=== PATIENT | male | born 1960 | race Caucasian/White ===

== ENCOUNTER 2020-12-09 12:50 | Outpatient (NON) | payer MEDICARE, SELFPAY ==
[2020-12-09 13:11] LABS: Basophils Absolute Auto 0.04 K/mm3 (0.00-0.10); Basophils Percent Auto 0.5 % (0.0-1.0); Eosinophils Absolute Auto 0.32 K/mm3 (0.02-0.50); Hematocrit 35.2 % (40.0-54.0); Hemoglobin 11.1 g/dL (14.0-18.0); Immature Granulocyte Absolute 0.02 K/mm3 (0.00-0.00); Immature Granulocyte Percent A 0.2 % (0.0-0.0); Lymphocytes Absolute Auto 1.36 K/mm3 (1.10-4.50); Lymphocytes Percent Auto 16.9 % (18.0-42.0); Mean Corpuscular HGB Conc 31.5 g/dL (32.0-36.0); Mean Corpuscular Hemoglobin 28.6 pg (27.0-31.0); Mean Corpuscular Volume 90.7 fL (78.0-102.0); Monocytes Absolute Auto 0.72 K/mm3 (0.10-0.90); Monocytes Percent Auto 8.9 % (2.0-11.0); Neutrophils Absolute Auto 5.6 K/mm3 (1.7-7.2); Neutrophils Percent Auto 69.5 % (50.0-70.0); Platelet Count Result 193 K/mm3 (150-420); Red Blood Count 3.88 M/mm3 (4.70-6.10); Red Cell Distribution Width 14.7 % (11.6-14.4); White Blood Count 8.1 K/mm3 (4.8-10.8)
[2020-12-09 13:27] LABS: Alanine Aminotransferase 34 U/L (16-63); Albumin Level 2.7 g/dL (3.4-5.0); Alkaline Phosphatase 185 U/L (46-116); Anion Gap 7 mmol/L (8-16); Aspartate Amino Transferase 18 U/L (15-37); Bilirubin,Total 0.3 mg/dL (0.00-1.00); Blood Urea Nitrogen 42 mg/dL (7-18); Calcium 8.6 mg/dL (8.5-10.1); Carbon Dioxide 29 mmol/L (21-32); Chloride 99 mmol/L (98-108); Estimated Glomerular Filt Rate 39; Glucose 240 mg/dL (70-99); Osmolality Calculated 298 mOsm/kg (285-295); Potassium 5.2 mmol/L (3.5-5.1); Sodium 135 mmol/L (136-145); Total Protein 7.4 g/dL (6.4-8.2)
== END 2020-12-09 12:51 ==
PROVIDERS: Visit Provider Internal Medicine
DX: E11.9 Type 2 diabetes mellitus without complications (principal)
CPT/HCPCS: 36415; 80053; 83036; 85025

== ENCOUNTER 2021-07-21 14:09 | Inpatient (IN) | payer MEDICARE, MEDICAID, SELFPAY ==
[2021-07-21] VITALS (17 sets, daily range): BP systolic 119–148; BP diastolic 64–76; PULSE 51–84; RESP 14–24; TEMP 36.2–36.7; O2SAT 89–100; BMI 34.3
--- NOTE | ~2021-07-21 | CT_ITS ---
EXAMINATION: CT chest high resolution [facility] EXAM DATE: 07/25/2021 13:16 INDICATION: Pulmonary edema. Interstitial fibrosis . TECHNIQUE: Spiral CT of the chest without contrast. HRCT. Axial, coronal and sagittal images of the c hest were reviewed. Coronal maximum intensity pixel images of chest reviewed. The dose-length produ ct (DLP) for this examination was 540.76 mGy-cm. The exposure was tailored according to patient size (auto mA exposure control), and iterative reconstruction (ASIR) was used as additional dose reductio n technique. There is no prior study for comparison. FINDINGS: There is cardiomegaly. The interventricular septum is perceptible, suggesting patient is an emic. Sternotomy wires and coronary surgical changes. Dense mitral annular calcifications. There are moderate bilateral nonloculated appearing pleural effusions. There is multi segmental bilateral lower lobe atelectasis. Additional small regions of ill-defined edema or pneumonia. Some borderline size m ediastinal lymph nodes probably reactive. Mild intralobular septal thickening, could be mild edema or less likely mild interstitial lung disease. Cholecystectomy clips. Mild to moderate thoracic spondyl osis. Cervical fusion hardware. Old bilateral rib fractures. IMPRESSION: 1. Cardiomegaly, moderate pleural effusions and multisegmental bibasilar atelectasis. 2. Superimposed mild edema and/or pneumonia. Reviewed, dictated and finalized at location A. IMPRESSION: 1. Cardiomegaly, moderate pleural effusions and multisegmental bibasilar atele ctasis. 2. Superimposed mild edema and/or pneumonia.
--- NOTE | ~2021-07-21 | CT_ITS ---
EXAMINATION: CT brain wo con DATE: 07/21/2021 17:06 INDICATION: Altered mental status TECHNIQUE: Computed tomography (CT) of the head was performed without intravenous contrast. Sagittal and coronal reconstructions were performed. The mA was adjusted according to patient size. Iterative reconstruction technique was employed. The dose-length product was 681.00 mGy-cm. COMPARISON: None FINDINGS: No acute intracranial hemorrhage, acute infarction or abnormal extra axial fluid collection. There is moderate scattered white matter hypoattenuation consistent with chronic small vessel ischemic diseas e. Symmetric prominence of the sulci consistent with mild age-appropriate diffuse cerebral volume los s. Ventricles are normal and symmetric. No mass/mass effect. Intracranial calcified cerebral atherosc lerosis is noted. The orbits, paranasal sinuses and mastoid air cells are normal. IMPRESSION: 1. Moderate scattered white matter hypoattenuation consistent with chronic small vessel ischemic dise ase. Reviewed, dictated and finalized at location A. IMPRESSION: 1. Moderate scattered white matter hypoattenuation consistent with chronic smal l vessel ischemic disease.
--- NOTE | ~2021-07-21 | XR_ITS ---
EXAMINATION: XR chest 1V portable DATE: 07/24/2021 18:32 INDICATION: Pneumonia. Pulmonary edema. TECHNIQUE: frontal view of the chest was obtained. COMPARISON: Chest radiograph dated 07/21/2021 FINDINGS: Interval improvement in bilateral lung disease with residual patchy airspace opacities in the mid and lower lung zones. No pneumothorax. Cardiac megaly. Median sternotomy wires and mediastinal surgical clips are seen, likely from prior coronary artery bypass grafting. Spinal stimulator leads project ov er the mid to lower thoracic spine. Plate-screw fixation for lower cervical anterior spinal fusion. IMPRESSION: 1. Interval improvement in bilateral lung disease with differential including pneumonia, pulmonary ed sandi, atelectasis, small bilateral pleural effusions or most likely some combination thereof. 2. Cardiomegaly. Reviewed, dictated and finalized at location A. IMPRESSION: 1. Interval improvement in bilateral lung disease with differential including p neumonia, pulmonary edema, atelectasis, small bilateral pleural effusions or mo st likely some combination thereof. 2. Cardiomegaly.
--- NOTE | ~2021-07-21 | CT_ITS ---
EXAMINATION: CT abdomen pelvis wo con EXAM DATE: 07/25/2021 13:16 INDICATION: Abdominal distension shortness of breath. TECHNIQUE: Spiral CT of the abdomen and pelvis was performed without contrast. Axial, coronal and s agittal images of the abdomen and pelvis were reviewed. The dose-length product (DLP) for this exami nation was 1442.71 mGy-cm. The exposure was tailored according to patient size (auto mA exposure con trol), and iterative reconstruction (ASIR) was used as additional dose reduction technique. Correlati on is made to chest CT same date. FINDINGS: Small amount of ascites. There is diffuse generalized body wall and mesenteric edema. The l iver, spleen, adrenal glands and pancreas are unremarkable. There are cholecystectomy clips. There is punctate right superior calyceal stone. No hydronephrosis. The prostate is unremarkable. Calcific ations in the pelvis are believed to be phleboliths. There is moderate diffuse bladder wall thicken ing with indistinct wall, acute and/or chronic cystitis. Small amount of gas within the bladder as we ll. There is no retroperitoneal or pelvic lymphadenopathy. There is extensive scattered arterial s clerotic disease. Small left inguinal fat-containing hernia. The appendix is normal. The stomach and small bowel are unremarkable. There is moderate amount of c olonic stool. No free intraperitoneal gas. There is cardiomegaly and multisegmental bibasilar atele ctasis. Spine stimulator leads. There is mild to moderate compression fracture of L3. There is a left hip gamma nail. IMPRESSION: 1. Cardiomegaly, moderate pleural effusions, multi segmental atelectasis. 2. Small ascites. Generalized body wall fat stranding. 3. Acute and/or chronic cystitis. 4. Punctate right nephrolithiasis. Reviewed, dictated and finalized at location A.
--- NOTE | ~2021-07-21 | XR_ITS ---
EXAMINATION: XR chest 1V portable DATE: 07/28/2021 06:02 INDICATION: Pulmonary edema TECHNIQUE: frontal view of the chest was obtained. COMPARISON: Chest radiograph dated 07/24/2021 FINDINGS: Increased interstitial pattern superimposed over hazy airspace opacities in the bilateral mid and low er lung zones consistent with small bilateral pleural effusions and superimposed atelectasis, pneumon ia or pulmonary edema. This is significantly decreased since the prior study. No pneumothorax. Cardio megaly. Median sternotomy wires and mediastinal surgical clips are seen, likely from prior coronary a rtery bypass grafting. Spinal stimulator leads project central canal at the mid thoracic spine. Plate -screw fixation for lower cervical anterior fusion. IMPRESSION: 1. Improvement in opacities in the bilateral mid and lower lung zones consistent with decreasing smal l bilateral pleural effusions superimposed atelectasis, pneumonia or mild pulmonary edema. Reviewed, dictated and finalized at location A. IMPRESSION: 1. Improvement in opacities in the bilateral mid and lower lung zones consisten t with decreasing small bilateral pleural effusions superimposed atelectasis, p neumonia or mild pulmonary edema.
--- NOTE | ~2021-07-21 | XR_ITS ---
EXAMINATION: XR chest 1V portable DATE: 07/21/2021 15:10 INDICATION: Hypoxia. Transient alteration of awareness. TECHNIQUE: frontal view of the chest was obtained. COMPARISON: Chest radiograph dated 01/25/2011 FINDINGS: Patchy airspace opacities throughout both lungs superimposed over a gradient of lower lung predominan t hazy airspace opacities, the latter consistent with a lateral posterior layering pleural effusions. No pneumothorax. Cardiomegaly. Median sternotomy wires and mediastinal surgical clips are seen, like ly from prior coronary artery bypass grafting. Spinal stimulator leads projecting over the central ca nal of the mid to lower thoracic spine. Plate and screw fixation for lower cervical anterior spinal f usion. IMPRESSION: 1. Small left and [id number] right posterior layering pleural effusions. 2. Superimposed patchy airspace disease which could represent pneumonia, atelectasis or pulmonary ana rosa ma. 3. Cardiomegaly. Reviewed, dictated and finalized at location A. IMPRESSION: 1. Small left and [id number] right posterior layering pleural effusions. 2. Superimposed patchy airspace disease which could represent pneumonia, atelec tasis or pulmonary edema. 3. Cardiomegaly.
--- NOTE | 2021-07-21 14:33 | ECG_ITS ---
Measurements Intervals [place] Rate: 78 P: NM: 0 QRS: 121 QRSD: 141 T: 2 QT: 419 QTc: 479 Interpretive Statements ATRIAL FLUTTER/TACHYCARDIA RIGHT AXIS DEVIATION INTRAVENTRICULAR CONDUCTION DELAY BORDERLINE R WAVE PROGRESSION, ANTERIOR LEADS BASELINE ARTIFACT- I, II, III, AVR, AVL, AVF ABNORMAL ECG Electronically Signed On 07-21-2021 14:42:20 CDT by Cecilio Soto D.O.
--- NOTE | 2021-07-21 14:35 | ED.GENADULT ---
HPI - General Adult General Chief complaint: Altered Mental Status Stated complaint: Altered mental status Time Seen by Provider: 07/21/21 14:24 Source: patient History of Present Illness HPI narrative: Patient is a 61 yo male sent from [place] for altered mental status. He is noted to be more confused than his baseline. He is reportedly oriented x 3 at baseline. He is currently lethargic and unable to provide any additional history. He reportedly had HR in 30s and was given Atropine by EMS. His mental status did not change. Related Data Home Medications Medication Instructions Recorded Confirmed Lactobacillus acidophilus 1 cap PO DAILY 07/21/21 07/21/21 [Acidophilus] Novolog PenFill U-100 Insulin See Rx Instructions .ROUTE .COMPLEX 07/21/21 07/21/21 acetaminophen 650 mg PO Q4H PRN 07/21/21 07/21/21 amlodipine 10 mg PO DAILY 07/21/21 07/21/21 apixaban [Eliquis] 5 mg PO BID 07/21/21 07/21/21 atorvastatin 40 mg PO HS 07/21/21 07/21/21 bupropion HCl 150 mg PO DAILY 07/21/21 07/21/21 cefdinir 300 mg PO BID 07/21/21 07/21/21 cyclobenzaprine 10 mg PO HS PRN 07/21/21 07/21/21 docusate sodium 100 mg PO BID PRN 07/21/21 07/21/21 duloxetine 60 mg PO BID 07/21/21 07/21/21 furosemide 60 mg PO DAILY 07/21/21 07/21/21 gabapentin 600 mg PO TID 07/21/21 07/21/21 insulin glargine [Lantus U-100 10 unit SUBCUT DAILY 07/21/21 07/21/21 Insulin] insulin glargine [Lantus U-100 20 unit SUBCUT HS 07/21/21 07/21/21 Insulin] ipratropium bromide 2.5 ml INHALATION Q6H PRN 07/21/21 07/21/21 magnesium oxide 400 mg PO DAILY 07/21/21 07/21/21 metolazone 2.5 mg PO 2XW 07/21/21 07/21/21 metoprolol succinate 150 mg PO DAILY 07/21/21 07/21/21 nicotine 1 patch TRANSDERMAL DAILY 07/21/21 07/21/21 pantoprazole 40 mg PO QAM 07/21/21 07/21/21 tamsulosin 0.4 mg PO DAILY 07/21/21 07/21/21 tramadol 50 mg PO Q6H PRN 07/21/21 07/21/21 Allergies Allergy/AdvReac Type Severity Reaction Status Date / Time codeine AdvReac Intermediate NAUSAE/VOMI Verified 07/21/21 14:24 TING Review of Systems Review of Systems: ROS unobtainable: Yes unobtainable due to mental status [facility] Past Medical History Medical History (Updated 07/27/21 @ 07:09 by Summer Hwang MD) Atrial fibrillation CHF (congestive heart failure) Chronic anticoagulation Chronic kidney disease, stage 3 COPD (chronic obstructive pulmonary disease) Coronary artery disease CVA (cerebral vascular accident) Depression Diabetic neuropathy Essential hypertension Sciatica Type 2 diabetes mellitus treated with insulin Surgical History Surgical History (Updated 07/21/21 @ 20:14 by Yohana Coreas DO) Hx of CABG Family History Family History (Updated 07/21/21 @ 18:58 by Jeni Marion RN) Other Unknown family medical history Social History Social History (Updated 07/21/21 @ 22:18 by Yohana Coreas DO) Social History: Code status: DNR/DNI Smoking packs per day: 3 Smoking cigarettes per day: 60.0 Years smoked: 47 Smoking pack-years: 141.00 Smoking status: Current every day smoker Tobacco type: cigarettes Spiritual care concerns: No Exam Const: General: no acute distress and ill appearing Orientation/consciousness: oriented to person and confusion HENMT: Head: normocephalic Ears: external ears normal General nose exam: Normal external nose present Eyes: General: appearance normal, both eyes and all related structures Conjunctivae: conjunctivae normal Neck: Neck: normal visual inspection and full ROM Chest: Chest palpation & inspection: normal inspection of the chest and no tenderness Resp: Effort & Inspection: normal respiratory effort Auscultation: clear to auscultation bilaterally Cardio: Rate: regular rate Rhythm: regular rhythm GI: GI Palp: No abdominal tenderness and Yes Soft to palpation Skin: General skin exam: normal color and turgor normal Neuro: General: oriented to person and confusion Cognition (Neuro): abnormal cogn
[2021-07-21 15:36] LABS: Alveolar/Arterial O2 Gradient 155.7 mmHg; Base Excess ABG 1.4 mEq/l (+/-2.0); Fractional Inspired Oxygen 40 %; HCO3 ABG 29.9 mEq/l (22.0-26.0); Oxygen Content ABG 12.8 %vol (16.0-22.0); Oxyhemoglobin 78.8 % THb (90.0-100.0); PO2 FiO2 Ratio Arterial Blood 1.27 %; Total Hemoglobin 11.5 g/dL (12.0-18.0)
[2021-07-21 15:37] LABS: pH ABG 7.259 (7.350-7.450)
[2021-07-21 15:38] LABS: Device NASAL CANNULA; Oxygen Saturation ABG 79.4 % (95.0-100.0); PCO2 ABG 68.3 mmHg (35.0-45.0); Site Drawn RIGHT BRACHIAL
[2021-07-21 16:02] LABS: Basophils Percent Auto 0.5 % (0.2-1.2); Eosinophils Absolute Auto 0.2 K/mm3 (0-0.3); Eosinophils Percent Auto 2.2 % (0-4.4); Hematocrit 36.4 % (42.0-52.0); Hemoglobin 10.8 g/dL (14.0-18.0); Immature Granulocyte Absolute 0.02 K/mm3 (0.00-0.031); Immature Granulocyte Percent A 0.3 % (0-0.5); Lymphocytes Absolute Auto 0.86 K/mm3 (0.9-3.2); Lymphocytes Percent Auto 10.9 % (18.3-44.2); Mean Corpuscular HGB Conc 29.7 g/dl (32-36); Mean Corpuscular Volume 87.5 fl (80-100); Mean Platelet Volume 10.8 fl (7.4-10.4); Monocytes Absolute Auto 0.6 K/mm3 (0.1-0.6); Neutrophils Absolute Auto 6.2 K/mm3 (1.3-6.7); Neutrophils Percent Auto 79.1 % (45.5-73.1); Platelet Count Result 234 k/mm3 (150-375); Red Blood Count 4.16 M/mm3 (4.6-6.20); Red Cell Distribution Width 19.5 % (11.5-14.5); White Blood Count 7.9 K/mm3 (4.5-10.0)
--- NOTE | 2021-07-21 16:04 | PC.NURSE ---
1604-#16 TAY INSERTED PER EMT. 1100 CC ROSHAN COLORED URINE OBTAINED. PATIENT ON BIPAP AND TOLERATING WELL. URINE SPECIMEN SENT TO LAB.
[2021-07-21 16:26] LABS: Alanine Aminotransferase 36 U/L (4-50); Albumin Level 3.5 g/dL (3.5-5.1); Alkaline Phosphatase 320 U/L (38-126); Anion Gap 8 mmol/L (8-16); Aspartate Amino Transferase 29 U/L (17-59); Bilirubin,Total 0.5 mg/dL (0.2-1.3); Blood Urea Nitrogen 56 mg/dL (9-20); Calcium 8.7 mg/dL (8.4-10.2); Carbon Dioxide 27 mmol/L (22-30); Chloride 100 mmol/L (98-107); Estimated CRCL calculation 36 ml/min; Estimated Glomerular Filt Rate 32; Glucose 97 mg/dL (65-110); Potassium 4.5 mmol/L (3.4-5.0); Sodium 135 mmol/L (137-145)
[2021-07-21 16:32] LABS: Add Urine Microscopic? YES; Appearance Urine Cloudy (Clear); Bilirubin Urine Negative (Negative); Blood Urine 2+ (Negative); Budding Yeast Urine Present /hpf; Color Urine Yellow (Yellow); Glucose Urine UA 1+ mg/dL (Negative); Ketones Urine Negative (Negative); Leukocyte Esterase Ur 2+ LEU/UL (Negative); Mucus Urine Rare /lpf; Nitrate Urine Negative (Negative); Protein Urine 3+ mg/dL (Negative); Squamous Epithelial Cell Urine Rare /hpf (Few); Transitional Epi Cells Urine Rare /hpf (None Seen); Urobilinogen Urine Negative mg/dL (<2.0); WBC Clumps Urine Present /HPF; WBC Urine >75 /hpf
--- NOTE | 2021-07-21 16:35 | PC.NURSE ---
1635-CALLED TO CT SCAN. ADVISED ERP REQUESTING CT SCAN BE COMPLETED JETHRO. STATES UNSURE WHERE PATIENT WAS IN REGARDS TO TIME FRAME.
[2021-07-21 16:42] LABS: Troponin I 0.036 ng/mL (0.000-0.034)
[2021-07-21 16:48] LABS: Alveolar/Arterial O2 Gradient 286.6 mmHg; Base Excess ABG 0.6 mEq/l (+/-2.0); Fractional Inspired Oxygen 60 %; HCO3 ABG 27.5 mEq/l (22.0-26.0); Methemoglobin ABG 0.1 %THb (0-1.5); Oxygen Content ABG 15.2 %vol (16.0-22.0); Oxygen Saturation ABG 94.8 % (95.0-100.0); Oxyhemoglobin 93.4 % THb (90.0-100.0); PO2 ABG 80.7 mmHg (80.0-100.0); PO2 FiO2 Ratio Arterial Blood 1.34 %; Reduced Hemoglobin 5.5 %THb (0-5.0); Total Hemoglobin 11.5 g/dL (12.0-18.0); pH ABG 7.317 (7.350-7.450)
[2021-07-21 16:49] LABS: Device NON-INVASIVE VENT; Modified Allen's Test Pass; Site Drawn RIGHT RADIAL
[2021-07-21 16:50] LABS: Non-Invasive Expiratory Pressure 8 CMH2O; Non-Invasive Inspiratory Pressure 16 CMH2O; Non-Invasive Vent Rate 16 /MIN
[2021-07-21 16:52] LABS: Amphetamine Screen Urine Negative (Negative); Barbiturate Screen Urine Negative (Negative); Benzodiazepines Screen Urine Negative (Negative); Cannabinoid Screen Urine Negative (Negative); Cocaine Screen Urine Negative (Negative); Methadone Screen Urine Negative (Negative); Opiate Screen Urine Negative (Negative); Phencyclidine Screen Urine Negative (Negative)
[2021-07-21 17:31] LABS: NT Pro B Type Natriuretic Pept 10100 pg/mL (5-100)
--- NOTE | 2021-07-21 18:26 | PC.NURSE ---
1825-REPORT CALLED TO KEITH KAN IN IMU
[2021-07-21 18:34] LABS: Troponin I 0.038 ng/mL (0.000-0.034)
--- NOTE | 2021-07-21 19:11 | ADMGEN ---
This patient, Ector Oconnor, was admitted to IMU Room 212-01 at 1845 on 07/21/2021. Patient/family oriented to hospital policies and general routines including ID bracelet, bed and alarms, visiting hours, pain management, procedures, bathroom and other care routines, personal items, smoking policy, room service/diet, and visiting hours. Information on how to activate the Rapid Response Team has been discussed. Patient/Family are encouraged to report perceived risks to care and to ask questions if they do not understand what they are told or what they should do.
[2021-07-21] MEDS: FUROSEMIDE INJ 40 MG/4 ML VIAL IV PUSH (19:41)
--- NOTE | 2021-07-21 20:07 | PM.IMHP ---
H&P: HPI History of Present Illness Date/Time: 07/21/21 20:07 Chief Complaint: Altered mental status Narrative: 61-year-old male with past medical history of CVA, coronary artery disease status post CABG, CHF, atrial fibrillation on chronic anticoagulation, COPD, and insulin-dependent diabetes who presented to the ER via EMS from [facility] due to altered mental status. The patient was lethargic. He is reportedly alert orient times 4th the shelter at baseline. Patient is extremely somnolent and does not answer questions. She initially on presentation the patient's heart rate was in the 40s. He received atropine in route to the hospital. Patient was evidently hypoxic in route to the hospital and was placed on non-rebreather 6 L. He was satting 89% on arrival to the hospital. The patient was afebrile. It is unknown if he was vaccinated against COVID. Patient has been afebrile since presentation. In the ER ABG demonstrated acute hypercapnic hypoxic respiratory failure the patient was placed on BiPAP 16/8. Repeat ABG demonstrated improvement in respiratory acidosis. Patient arrives to IMU and was still somnolent. At the time my evaluation the patient was not following commands. Stat Accu-Chek performed at that time demonstrated glucose in the low 70s. Half an amp of D50 was given. Review of Systems Review of Systems: 12 systems were reviewed with pertinent positives and negatives per HPI. Except as documented in the HPI, all other systems were reviewed and are negative. [facility] Past Medical History Medical History (Updated 07/21/21 @ 20:14 by Yohana Coreas DO) Atrial fibrillation CHF (congestive heart failure) Chronic anticoagulation Chronic kidney disease, stage 3 COPD (chronic obstructive pulmonary disease) Coronary artery disease CVA (cerebral vascular accident) Depression Diabetic neuropathy Essential hypertension Sciatica Type 2 diabetes mellitus treated with insulin Surgical History Surgical History (Updated 07/21/21 @ 20:14 by Yohana Coreas DO) Hx of CABG Family History Family History (Updated 07/21/21 @ 18:58 by Jeni Marion RN) Other Unknown family medical history Social History Social History Smoking packs per day: 3 Smoking cigarettes per day: 60.0 Years smoked: 47 Smoking pack-years: 141.00 Smoking status: Current every day smoker Tobacco type: cigarettes Spiritual care concerns: No Meds Home Medications and Allergies Home Medications Medication Instructions Recorded Confirmed Type Lactobacillus acidophilus 1 cap PO DAILY 07/21/21 07/21/21 History [Acidophilus] Novolog PenFill U-100 Insulin See Rx Instructions .ROUTE .COMPLEX 07/21/21 07/21/21 History acetaminophen 650 mg PO Q4H PRN 07/21/21 07/21/21 History amlodipine 10 mg PO DAILY 07/21/21 07/21/21 History apixaban [Eliquis] 5 mg PO BID 07/21/21 07/21/21 History atorvastatin 40 mg PO HS 07/21/21 07/21/21 History bupropion HCl 150 mg PO DAILY 07/21/21 07/21/21 History cefdinir 300 mg PO BID 07/21/21 07/21/21 History cyclobenzaprine 10 mg PO HS PRN 07/21/21 07/21/21 History docusate sodium 100 mg PO BID PRN 07/21/21 07/21/21 History duloxetine 60 mg PO BID 07/21/21 07/21/21 History furosemide 60 mg PO DAILY 07/21/21 07/21/21 History gabapentin 600 mg PO TID 07/21/21 07/21/21 History insulin glargine [Lantus U-100 10 unit SUBCUT DAILY 07/21/21 07/21/21 History Insulin] insulin glargine [Lantus U-100 20 unit SUBCUT HS 07/21/21 07/21/21 History Insulin] ipratropium bromide 2.5 ml INHALATION Q6H PRN 07/21/21 07/21/21 History magnesium oxide 400 mg PO DAILY 07/21/21 07/21/21 History metolazone 2.5 mg PO 2XW 07/21/21 07/21/21 History metoprolol succinate 150 mg PO DAILY 07/21/21 07/21/21 History nicotine 1 patch TRANSDERMAL DAILY 07/21/21 07/21/21 History pantoprazole 40 mg PO QAM 07/21/21 07/21/21 History tamsulosin 0.4 mg PO DAILY 07/21/21
[2021-07-21 20:54] LABS: Troponin I 0.038 ng/mL (0.000-0.034)
[2021-07-21] MEDS: DEXTROSE 50% 25 GM/50 ML SYRINGE IV PUSH (20:57)
[2021-07-21] MEDS: methylPREDNISolone SOD SUCC 125 MG VIAL 60 MG IV PUSH (21:03)
[2021-07-22] VITALS (23 sets, daily range): BP systolic 127–149; BP diastolic 61–81; PULSE 52–87; RESP 18–24; TEMP 36.4–36.6; O2SAT 92–100
[2021-07-22] MEDS: IPRATROPIUM BR 0.02% INH SOLN 0.5 MG/2.5 ML VIAL INHALATION ×4 (03:15→20:37)
[2021-07-22] MEDS: ALBUTEROL SULFATE NEB 2.5 MG/0.5 ML INH 5 MG INHALATION ×4 (03:15→20:37)
[2021-07-22 04:14] LABS: Alveolar/Arterial O2 Gradient 127.6 mmHg; Base Excess ABG 0.8 mEq/l (+/-2.0); Carboxyhemoglobin 0.3 % THb (0-2.0); Fractional Inspired Oxygen 45 %; HCO3 ABG 25.1 mEq/l (22.0-26.0); Methemoglobin ABG 0.5 %THb (0-1.5); Oxygen Content ABG 16.5 %vol (16.0-22.0); Oxyhemoglobin 97.5 % THb (90.0-100.0); PO2 ABG 148.9 mmHg (80.0-100.0); PO2 FiO2 Ratio Arterial Blood 3.31 %; Reduced Hemoglobin 1.7 %THb (0-5.0); Total Hemoglobin 11.8 g/dL (12.0-18.0); pH ABG 7.426 (7.350-7.450)
[2021-07-22 04:15] LABS: Device NON-INVASIVE VENT; Modified Allen's Test Pass; Site Drawn RIGHT RADIAL
[2021-07-22 04:16] LABS: Non-Invasive Expiratory Pressure 8 CMH2O; Non-Invasive Inspiratory Pressure 16 CMH2O; Non-Invasive Vent Rate 16 /MIN
[2021-07-22] MEDS: methylPREDNISolone SOD SUCC 125 MG VIAL 60 MG IV PUSH ×3 (05:13→21:54)
[2021-07-22 05:49] LABS: Hematocrit 34.3 % (42.0-52.0); Hemoglobin 10.4 g/dL (14.0-18.0); Mean Corpuscular HGB Conc 30.3 g/dl (32-36); Mean Corpuscular Hemoglobin 25.6 pg (26-34); Mean Corpuscular Volume 84.5 fl (80-100); Mean Platelet Volume 11.4 fl (7.4-10.4); Platelet Count Result 231 k/mm3 (150-375); Red Blood Count 4.06 M/mm3 (4.6-6.20); Red Cell Distribution Width 19.1 % (11.5-14.5); White Blood Count 6.5 K/mm3 (4.5-10.0)
[2021-07-22 06:07] LABS: Anion Gap 8 mmol/L (8-16); Blood Urea Nitrogen 50 mg/dL (9-20); Calcium 7.1 mg/dL (8.4-10.2); Carbon Dioxide 24 mmol/L (22-30); Chloride 105 mmol/L (98-107); Estimated CRCL calculation 53 ml/min; Estimated Glomerular Filt Rate 41; Glucose 88 mg/dL (65-110); Potassium 3.8 mmol/L (3.4-5.0); Sodium 137 mmol/L (137-145)
[2021-07-22 08:52] LABS: Glucose Point of Care 92 mg/dl (65-105)
[2021-07-22] MEDS: NICOTINE (*PBKC) 21 MG PATCH 1 PATCH TRANSDERM (09:34)
[2021-07-22] MEDS: GABAPENTIN 300 MG CAPSULE 600 MG PO ×3 (09:34→16:47)
[2021-07-22] MEDS: DULoxetine HCL 60 MG CAPSULE.DR PO ×2 (09:34→20:01)
[2021-07-22] MEDS: APIXABAN 5 MG TABLET PO ×2 (09:34→16:47)
[2021-07-22] MEDS: PANTOPRAZOLE 40 MG TABLET PO (09:34)
[2021-07-22] MEDS: amLODIPine BESYLATE 5 MG TABLET 10 MG PO (09:35)
[2021-07-22] MEDS: FUROSEMIDE INJ 40 MG/4 ML VIAL IV PUSH ×2 (09:35→16:48)
[2021-07-22] MEDS: buPROPion HCL XL (24 HR) 150 MG TABCR PO (09:35)
[2021-07-22] MEDS: ACIDOPHILUS/BULGARICUS CHEWABLE TABLET 1 TABLET PO (09:35)
[2021-07-22] MEDS: TAMSULOSIN HCL 0.4 MG CAPSULE PO (09:35)
[2021-07-22 13:09] LABS: Glucose Point of Care 188 mg/dl (65-105)
[2021-07-22 16:56] LABS: SARS-CoV-2 RNA PCR Negative
[2021-07-22] MEDS: INSULIN ASPART (*BKC) 100 UNITS/ML SUB-Q (17:41)
[2021-07-22 17:51] LABS: Glucose Point of Care 391 mg/dl (65-105)
[2021-07-22] MEDS: MAGNESIUM OXIDE 400 MG TABLET PO (20:01)
[2021-07-22] MEDS: ATORVASTATIN 40 MG TABLET PO (20:01)
[2021-07-22 20:21] LABS: Glucose Point of Care 369 mg/dl (65-105)
[2021-07-22] MEDS: INSULIN GLARGINE (*BKC) 100 UNITS/ML 10 UNITS SUB-Q (21:55)
[2021-07-22] MEDS: INSULIN ASPART (*BKC) 100 UNITS/ML 6 UNITS SUB-Q (21:55)
--- NOTE | 2021-07-22 22:08 | P.PNIM_ITS ---
Progress Note: A&P Assessment and Plan (1) Acute respiratory failure with hypoxia and hypercapnia: Code(s): J96.01 - Acute respiratory failure with hypoxia; J96.02 - Acute respiratory failure with hypercapnia Status: Acute Assessment and Plan: * With chest x-ray suggestive of pneumonia versus atelectasis or pulmonary edema. Given acute hypercarbic respiratory failure COPD exacerbation is likely a component. Blood cultures are pending. * Patient is on BiPAP and ABG is improving. Will repeat ABG in a.m.. * Patient has been started on empiric antibiotic therapy with Rocephin and azithromycin. * COVID testing is pending. Patient remains on isolation. * Given history of COPD will initiate therapy with Solu-Medrol and scheduled nebulizers. (2) Atrial fibrillation with slow ventricular response: Code(s): I48.91 - Unspecified atrial fibrillation Status: Acute Assessment and Plan: * Patient is on a large dose of Toprol XL. * Will hold metoprolol monitor heart rate. * Will likely resume Toprol in a.m. at lower dose. (3) Elevated troponin: Code(s): R77.8 - Other specified abnormalities of plasma proteins Status: Acute Assessment and Plan: * With flat troponin profile not indicative of acute ischemia. * Likely due to acute on chronic CHF and chronic kidney disease. * Will check echocardiogram in a.m. (4) Acute kidney injury superimposed on CKD: Code(s): N17.9 - Acute kidney failure, unspecified; N18.9 - Chronic kidney disease, unspecified Status: Acute Assessment and Plan: * Possibly due to hypoperfusion with CHF. * Will continue Lasix 40 mg IV b.i.d. and monitor strict I&O's. * Will repeat BMP in a.m. (5) Pyuria: Code(s): R82.81 - Pyuria Status: Acute Assessment and Plan: * Pyuria without bacteriuria. Likely sterile pyuria. * Urine cultures are pending. (6) Type 2 diabetes mellitus treated with insulin: Code(s): E11.9 - Type 2 diabetes mellitus without complications; Z79.4 - termite control representative (current) use of insulin Status: Acute Assessment and Plan: * The patient is hypoglycemic. Will hold home Lantus. * Will check Accu-Cheks a.c. HS with moderate sliding scale insulin and hypoglycemia protocol. Additional Plan 35 minute spent in critical care activities. This case had a high probability of a clinically significant, sudden, or life threatening deterioration of this patient's condition which required my full and direct attention, intervention and personal management. 07/22/21 pt doing ok admitted w A/E COPD on steroids elevated BG 2/2 steroids cont current care has been successfully weaned from BiPAP now PRN Subjective Date/time seen: 07/22/21 17:08 pt lying in be doing ok cough is main complaint Exam Narrative: GEN: NAD, AAOx3, cooperative HEENT: NCAT, MMM, EOMI Neck: no JVD Heart: IRR Lungs: diffuse crackles Abd: soft, NT, ND, bowel sounds normoactive Ext: moves all, no cyanosis, no clubbing, chronic venous stasis changes to LE Neuro: CN intact, no focal neurological deficits appreciated Psych: mood and affect congruent Objective Data Vital Signs Vital Signs: Vital Signs - 24 hr 07/21/21 23:15 07/21/21 23:45 07/22/21 00:00 Temperature 97.8 F Pulse Rate 52 L 51 L 52 L Respiratory Rate 24 H 18 Blood Pressure 136/64 Pulse Oximetry 92 97 99
--- NOTE | 2021-07-22 22:08 | PM.IMPN ---
Progress Note: A&P Assessment and Plan (1) Acute respiratory failure with hypoxia and hypercapnia: Code(s): J96.01 - Acute respiratory failure with hypoxia; J96.02 - Acute respiratory failure with hypercapnia Status: Acute Assessment and Plan: With chest x-ray suggestive of pneumonia versus atelectasis or pulmonary edema. Given acute hypercarbic respiratory failure COPD exacerbation is likely a component. Blood cultures are pending. Patient is on BiPAP and ABG is improving. Will repeat ABG in a.m.. Patient has been started on empiric antibiotic therapy with Rocephin and azithromycin. COVID testing is pending. Patient remains on isolation. Given history of COPD will initiate therapy with Solu-Medrol and scheduled nebulizers. (2) Atrial fibrillation with slow ventricular response: Code(s): I48.91 - Unspecified atrial fibrillation Status: Acute Assessment and Plan: Patient is on a large dose of Toprol XL. Will hold metoprolol monitor heart rate. Will likely resume Toprol in a.m. at lower dose. (3) Elevated troponin: Code(s): R77.8 - Other specified abnormalities of plasma proteins Status: Acute Assessment and Plan: With flat troponin profile not indicative of acute ischemia. Likely due to acute on chronic CHF and chronic kidney disease. Will check echocardiogram in a.m. (4) Acute kidney injury superimposed on CKD: Code(s): N17.9 - Acute kidney failure, unspecified; N18.9 - Chronic kidney disease, unspecified Status: Acute Assessment and Plan: Possibly due to hypoperfusion with CHF. Will continue Lasix 40 mg IV b.i.d. and monitor strict I&O's. Will repeat BMP in a.m. (5) Pyuria: Code(s): R82.81 - Pyuria Status: Acute Assessment and Plan: Pyuria without bacteriuria. Likely sterile pyuria. Urine cultures are pending. (6) Type 2 diabetes mellitus treated with insulin: Code(s): E11.9 - Type 2 diabetes mellitus without complications; Z79.4 - intermediate school teacher (current) use of insulin Status: Acute Assessment and Plan: The patient is hypoglycemic. Will hold home Lantus. Will check Accu-Cheks a.c. HS with moderate sliding scale insulin and hypoglycemia protocol. Additional Plan 35 minute spent in critical care activities. This case had a high probability of a clinically significant, sudden, or life threatening deterioration of this patient's condition which required my full and direct attention, intervention and personal management. 07/22/21 pt doing ok admitted w A/E COPD on steroids elevated BG 2/2 steroids cont current care has been successfully weaned from BiPAP now PRN Subjective Date/time seen: 07/22/21 17:08 pt lying in be doing ok cough is main complaint Exam Narrative: GEN: NAD, AAOx3, cooperative HEENT: NCAT, MMM, EOMI Neck: no JVD Heart: IRR Lungs: diffuse crackles Abd: soft, NT, ND, bowel sounds normoactive Ext: moves all, no cyanosis, no clubbing, chronic venous stasis changes to LE Neuro: CN intact, no focal neurological deficits appreciated Psych: mood and affect congruent Objective Data Vital Signs Vital Signs: Vital Signs - 24 hr 07/21/21 23:15 07/21/21 23:45 07/22/21 00:00 Temperature 97.8 F Pulse Rate 52 L 51 L 52 L Respiratory Rate 24 H 18 Blood Pressure 136/64 Pulse Oximetry 92 97 99 07/22/21 01:52 07/22/21 01:53 07/22/21 03:15 Temperature Pulse Rate 54 L 57 L 78 Respiratory Rate 21 H 24 H Blood Pressure Pulse Oximetry 97 94 07/22/21 04:00 07/22/21 04:23 07/22/21 05:55 Temperature 97.7 F Pulse Rate 66 64 68 Respiratory Rate 20 22 H Blood Pressure 130/75 Pulse Oximetry 96 99 07/22/21 08:00 07/22/21 09:06 07/22/21 09:26 Temperature 97.7 F Pulse Rate 80 80 80 Respiratory Rate 22 H 22 H 22 H Blood Pressure 142/81 H Pulse Oximetry 95 96 07/22/21 10:00 07/22/21 10:05 07/22/21 12:00 Tem
[2021-07-22 23:41] LABS: Glucose Point of Care 355 mg/dl (65-105)
[2021-07-23] VITALS (23 sets, daily range): BP systolic 118–156; BP diastolic 64–82; PULSE 53–81; RESP 12–26; TEMP 36.2–37.1; O2SAT 91–99
--- NOTE | 2021-07-23 | ECHO_ITS ---
Patient Info Name: Ector Oconnor Age: 61 years : 1960 Gender: Male Ht: 71 in Wt: 246 lbs BSA: 2.40 m2 HR: 74 bpm BP: 151 / 46 mmHg Heart Rhythm: Atrial Fibrillation Technical Quality: Good Exam Date: 07/23/2021 9:57 AM Exam Location: [facility] Patient Status: Inpatient Admit Date: 07/21/2021 Staff Ordering Physician: Yohana Coreas DO Repairer Art Objects: Mayra Stevens RDCS Attending Provider: Charlotte Romero MD Referring Physician: Lyudmila ANDRADE; Exam Type: CA echo doppler color flow Study Info Indications I50.20 - Unspecified systolic (congestive) heart failure Complete two-dimensional, color flow and Doppler transthoracic echocardiogram is performed. Summary 1. Complete two-dimensional, color flow and Doppler transthoracic echocardiogram is performed. 2. Left ventricular chamber dimension is moderately enlarged. 3. Left ventricular systolic function is mildly reduced, estimated at 45-50%. 4. There is moderately increased left ventricular wall thickness. 5. Left atrial chamber dimension is moderately enlarged. 6. There is trace mitral valve regurgitation. Left Ventricle Left ventricular chamber dimension is moderately enlarged. Left ventricular systolic function is mildly reduced, estimated at 45-50%. There is moderately increased left ventricular wall thickness. The left ventricular diastolic function is indeterminate. Technically difficult study with limited views. Regional wall motion assessment limited due to poor endomyocardial border definition in several views. Right Ventricle Right ventricular chamber dimension is not well visualized. Right ventricular systolic function is reduced. Left Atria Left atrial chamber dimension is moderately enlarged. Right Atria Right atrial chamber dimension is mildly enlarged. Aortic Valve The aortic valve is probable trileaflet. There is mild aortic valve sclerosis. There is no aortic valve stenosis. There is no aortic valve regurgitation. Pulmonic Valve The pulmonic valve is not well visualized. There is trace pulmonic regurgitation. Mitral Valve The mitral valve has thickened leaflets. There is trace mitral valve regurgitation. The mitral valve annulus is moderately calcified. Tricuspid Valve The tricuspid valve leaflets are normal. There is trace tricuspid valve regurgitation. No pulmonary hypertension, estimated pulmonary arterial systolic pressure is 31 mmHg. Pericardium/Pleural The pericardium appears normal. There is no pericardial effusion. Inferior Vena Cava Normal inferior vena cava with >50% collapse upon inspiration consistent with normal right atrial pressure, 5 mmHg. Aorta The aortic root size at the sinus of Valsalva is normal. There is mild-moderate aortic atherosclerosis. Left Ventricular Outflow Tract Name Value Normal LVOT 2D LVOT Diameter 2.0 cm LVOT Doppler LVOT Peak Gradient 4 mmHg LVOT Mean Gradient 3 mmHg LVOT VTI 28 cm LVOT VTI/AV VTI Ratio 1.0 LVOT
[2021-07-23] MEDS: INSULIN ASPART (*BKC) 100 UNITS/ML 8 UNITS SUB-Q (00:41)
[2021-07-23] MEDS: ALBUTEROL SULFATE NEB 2.5 MG/0.5 ML INH 5 MG INHALATION ×4 (02:15→20:30)
[2021-07-23] MEDS: IPRATROPIUM BR 0.02% INH SOLN 0.5 MG/2.5 ML VIAL INHALATION ×4 (02:15→20:30)
[2021-07-23 03:10] LABS: Glucose Point of Care 352 mg/dl (65-105)
[2021-07-23] MEDS: methylPREDNISolone SOD SUCC 125 MG VIAL 60 MG IV PUSH ×3 (05:15→21:34)
[2021-07-23 08:23] LABS: Glucose Point of Care 300 mg/dl (65-105)
[2021-07-23] MEDS: metOLazone 2.5 MG TABLET PO (09:34)
[2021-07-23] MEDS: ACIDOPHILUS/BULGARICUS CHEWABLE TABLET 1 TABLET PO (09:34)
[2021-07-23] MEDS: GABAPENTIN 300 MG CAPSULE 600 MG PO ×3 (09:34→17:40)
[2021-07-23] MEDS: NICOTINE (*PBKC) 21 MG PATCH 1 PATCH TRANSDERM (09:34)
[2021-07-23] MEDS: DULoxetine HCL 60 MG CAPSULE.DR PO ×2 (09:34→21:33)
[2021-07-23] MEDS: buPROPion HCL XL (24 HR) 150 MG TABCR PO (09:34)
[2021-07-23] MEDS: PANTOPRAZOLE 40 MG TABLET PO (09:34)
[2021-07-23] MEDS: TAMSULOSIN HCL 0.4 MG CAPSULE PO (09:34)
[2021-07-23] MEDS: APIXABAN 5 MG TABLET PO ×2 (09:34→17:40)
[2021-07-23] MEDS: amLODIPine BESYLATE 5 MG TABLET 10 MG PO (09:35)
[2021-07-23] MEDS: FUROSEMIDE INJ 40 MG/4 ML VIAL IV PUSH ×2 (09:41→17:40)
[2021-07-23] MEDS: INSULIN ASPART (*BKC) 100 UNITS/ML SUB-Q ×4 (09:43→21:21)
[2021-07-23 12:42] LABS: Glucose Point of Care 304 mg/dl (65-105)
[2021-07-23 17:07] LABS: Glucose Point of Care 302 mg/dl (65-105)
--- NOTE | 2021-07-23 18:29 | P.PNIM_ITS ---
Progress Note: A&P Assessment and Plan (1) Acute respiratory failure with hypoxia and hypercapnia: Code(s): J96.01 - Acute respiratory failure with hypoxia; J96.02 - Acute respiratory failure with hypercapnia Status: Acute Assessment and Plan: * With chest x-ray suggestive of pneumonia versus atelectasis or pulmonary edema. Given acute hypercarbic respiratory failure COPD exacerbation is likely a component. Blood cultures are pending. * Patient is on BiPAP and ABG is improving. Will repeat ABG in a.m.. * Patient has been started on empiric antibiotic therapy with Rocephin and azithromycin. * COVID testing is pending. Patient remains on isolation. * Given history of COPD will initiate therapy with Solu-Medrol and scheduled nebulizers. (2) Atrial fibrillation with slow ventricular response: Code(s): I48.91 - Unspecified atrial fibrillation Status: Acute Assessment and Plan: * Patient is on a large dose of Toprol XL. * Will hold metoprolol monitor heart rate. * Will likely resume Toprol in a.m. at lower dose. (3) Elevated troponin: Code(s): R77.8 - Other specified abnormalities of plasma proteins Status: Acute Assessment and Plan: * With flat troponin profile not indicative of acute ischemia. * Likely due to acute on chronic CHF and chronic kidney disease. * Will check echocardiogram in a.m. (4) Acute kidney injury superimposed on CKD: Code(s): N17.9 - Acute kidney failure, unspecified; N18.9 - Chronic kidney disease, unspecified Status: Acute Assessment and Plan: * Possibly due to hypoperfusion with CHF. * Will continue Lasix 40 mg IV b.i.d. and monitor strict I&O's. * Will repeat BMP in a.m. (5) Pyuria: Code(s): R82.81 - Pyuria Status: Acute Assessment and Plan: * Pyuria without bacteriuria. Likely sterile pyuria. * Urine cultures are pending. (6) Type 2 diabetes mellitus treated with insulin: Code(s): E11.9 - Type 2 diabetes mellitus without complications; Z79.4 - dedicated intermodal truck driver (current) use of insulin Status: Acute Assessment and Plan: * The patient is hypoglycemic. Will hold home Lantus. * Will check Accu-Cheks a.c. HS with moderate sliding scale insulin and hypoglycemia protocol. Additional Plan 35 minute spent in critical care activities. This case had a high probability of a clinically significant, sudden, or life threatening deterioration of this patient's condition which required my full and direct attention, intervention and personal management. 07/22/21 pt doing ok admitted w A/E COPD on steroids elevated BG 2/2 steroids cont current care has been successfully weaned from BiPAP now PRN 07/23/21 no significant change BG remains elevated receiving overnight coverage increase lantus 20U q am cont current care dc planning Subjective Date/time seen: 07/23/21 18:29 pt ok no complaints at time of my visit on NC comfortable Exam Narrative: GEN: NAD, AAOx3, cooperative HEENT: NCAT, MMM, EOMI Neck: no JVD Heart: IRR Lungs: clear to ascultation over anterior chest wall Abd: soft, NT, ND, bowel sounds normoactive Ext: moves all, no cyanosis, no clubbing, no edema Objective Data Vital Signs Vital Signs: Vital Signs - 24 hr 07/23/21 09:29 07/23/21 09:41 07/23/21 09:49 Temperature Pulse Rate 71 71 Respiratory Rate 22 H 17
--- NOTE | 2021-07-23 18:29 | PM.IMPN ---
Progress Note: A&P Assessment and Plan (1) Acute respiratory failure with hypoxia and hypercapnia: Code(s): J96.01 - Acute respiratory failure with hypoxia; J96.02 - Acute respiratory failure with hypercapnia Status: Acute Assessment and Plan: With chest x-ray suggestive of pneumonia versus atelectasis or pulmonary edema. Given acute hypercarbic respiratory failure COPD exacerbation is likely a component. Blood cultures are pending. Patient is on BiPAP and ABG is improving. Will repeat ABG in a.m.. Patient has been started on empiric antibiotic therapy with Rocephin and azithromycin. COVID testing is pending. Patient remains on isolation. Given history of COPD will initiate therapy with Solu-Medrol and scheduled nebulizers. (2) Atrial fibrillation with slow ventricular response: Code(s): I48.91 - Unspecified atrial fibrillation Status: Acute Assessment and Plan: Patient is on a large dose of Toprol XL. Will hold metoprolol monitor heart rate. Will likely resume Toprol in a.m. at lower dose. (3) Elevated troponin: Code(s): R77.8 - Other specified abnormalities of plasma proteins Status: Acute Assessment and Plan: With flat troponin profile not indicative of acute ischemia. Likely due to acute on chronic CHF and chronic kidney disease. Will check echocardiogram in a.m. (4) Acute kidney injury superimposed on CKD: Code(s): N17.9 - Acute kidney failure, unspecified; N18.9 - Chronic kidney disease, unspecified Status: Acute Assessment and Plan: Possibly due to hypoperfusion with CHF. Will continue Lasix 40 mg IV b.i.d. and monitor strict I&O's. Will repeat BMP in a.m. (5) Pyuria: Code(s): R82.81 - Pyuria Status: Acute Assessment and Plan: Pyuria without bacteriuria. Likely sterile pyuria. Urine cultures are pending. (6) Type 2 diabetes mellitus treated with insulin: Code(s): E11.9 - Type 2 diabetes mellitus without complications; Z79.4 - intermodal dispatcher (current) use of insulin Status: Acute Assessment and Plan: The patient is hypoglycemic. Will hold home Lantus. Will check Accu-Cheks a.c. HS with moderate sliding scale insulin and hypoglycemia protocol. Additional Plan 35 minute spent in critical care activities. This case had a high probability of a clinically significant, sudden, or life threatening deterioration of this patient's condition which required my full and direct attention, intervention and personal management. 07/22/21 pt doing ok admitted w A/E COPD on steroids elevated BG 2/2 steroids cont current care has been successfully weaned from BiPAP now PRN 07/23/21 no significant change BG remains elevated receiving overnight coverage increase lantus 20U q am cont current care dc planning Subjective Date/time seen: 07/23/21 18:29 pt ok no complaints at time of my visit on NC comfortable Exam Narrative: GEN: NAD, AAOx3, cooperative HEENT: NCAT, MMM, EOMI Neck: no JVD Heart: IRR Lungs: clear to ascultation over anterior chest wall Abd: soft, NT, ND, bowel sounds normoactive Ext: moves all, no cyanosis, no clubbing, no edema Objective Data Vital Signs Vital Signs: Vital Signs - 24 hr 07/23/21 09:29 07/23/21 09:41 07/23/21 09:49 Temperature Pulse Rate 71 71 Respiratory Rate 22 H 17 Blood Pressure Pulse Oximetry 95 07/23/21 10:00 07/23/21 12:00 07/23/21 14:00 Temperature 98 F Pulse Rate 70 67 65 Respiratory Rate 20 Blood Pressure 149/82 H Pulse Oximetry 95 07/23/21 14:18 07/23/21 14:28 07/23/21 16:00 Temperature 98.8 F Pulse Rate 70 68 64 Respiratory Rate 18 20 12 Blood Pressure 118/72 Pulse Oximetry 98 07/23/21 18:00 07/23/21 19:46 07/23/21 20:00 Temperature 97.1 F L Pulse Rate 81 81 80 Respiratory Rate 18 Blood Pressure 146/64 H Pulse Oximetry 97 95 07/23/21 20:31 07/23
[2021-07-23 20:49] LABS: Glucose Point of Care 381 mg/dl (65-105)
[2021-07-23] MEDS: INSULIN GLARGINE (*BKC) 100 UNITS/ML 20 UNITS SUB-Q (21:20)
[2021-07-23] MEDS: MAGNESIUM OXIDE 400 MG TABLET PO (21:33)
[2021-07-23] MEDS: ATORVASTATIN 40 MG TABLET PO (21:33)
[2021-07-24] VITALS (24 sets, daily range): BP systolic 94–159; BP diastolic 57–73; PULSE 67–94; RESP 17–28; TEMP 36.1–37.3; O2SAT 93–98
[2021-07-24] MEDS: IPRATROPIUM BR 0.02% INH SOLN 0.5 MG/2.5 ML VIAL INHALATION ×4 (04:10→20:49)
[2021-07-24] MEDS: ALBUTEROL SULFATE NEB 2.5 MG/0.5 ML INH 5 MG INHALATION ×4 (04:10→20:49)
[2021-07-24] MEDS: methylPREDNISolone SOD SUCC 125 MG VIAL 60 MG IV PUSH (05:17)
[2021-07-24 07:33] LABS: Glucose Point of Care 339 mg/dl (65-105)
--- NOTE | 2021-07-24 08:34 | P.PNIM_ITS ---
Progress Note: A&P Assessment and Plan (1) Acute respiratory failure with hypoxia and hypercapnia: Code(s): J96.01 - Acute respiratory failure with hypoxia; J96.02 - Acute respiratory failure with hypercapnia Status: Acute Assessment and Plan: * With chest x-ray suggestive of pneumonia versus atelectasis or pulmonary edema. Given acute hypercarbic respiratory failure COPD exacerbation is likely a component. Blood cultures are pending. * Patient is on BiPAP and ABG is improving. Will repeat ABG in a.m.. * Patient has been started on empiric antibiotic therapy with Rocephin and azithromycin. * COVID testing is pending. Patient remains on isolation. * Given history of COPD will initiate therapy with Solu-Medrol and scheduled nebulizers. (2) Atrial fibrillation with slow ventricular response: Code(s): I48.91 - Unspecified atrial fibrillation Status: Acute Assessment and Plan: * Patient is on a large dose of Toprol XL. * Will hold metoprolol monitor heart rate. * Will likely resume Toprol in a.m. at lower dose. (3) Elevated troponin: Code(s): R77.8 - Other specified abnormalities of plasma proteins Status: Acute Assessment and Plan: * With flat troponin profile not indicative of acute ischemia. * Likely due to acute on chronic CHF and chronic kidney disease. * Will check echocardiogram in a.m. (4) Acute kidney injury superimposed on CKD: Code(s): N17.9 - Acute kidney failure, unspecified; N18.9 - Chronic kidney disease, unspecified Status: Acute Assessment and Plan: * Possibly due to hypoperfusion with CHF. * Will continue Lasix 40 mg IV b.i.d. and monitor strict I&O's. * Will repeat BMP in a.m. (5) Pyuria: Code(s): R82.81 - Pyuria Status: Acute Assessment and Plan: * Pyuria without bacteriuria. Likely sterile pyuria. * Urine cultures are pending. (6) Type 2 diabetes mellitus treated with insulin: Code(s): E11.9 - Type 2 diabetes mellitus without complications; Z79.4 - termite exterminator (current) use of insulin Status: Acute Assessment and Plan: * The patient is hypoglycemic. Will hold home Lantus. * Will check Accu-Cheks a.c. HS with moderate sliding scale insulin and hypoglycemia protocol. (7) Systolic congestive heart failure: Code(s): I50.20 - Unspecified systolic (congestive) heart failure Status: Acute Additional Plan 35 minute spent in critical care activities. This case had a high probability of a clinically significant, sudden, or life threatening deterioration of this patient's condition which required my full and direct attention, intervention and personal management. 07/22/21 pt doing ok admitted w A/E COPD on steroids elevated BG 2/2 steroids cont current care has been successfully weaned from BiPAP now PRN 07/23/21 no significant change BG remains elevated receiving overnight coverage increase lantus 20U q am cont current care dc planning 07/24/21 SSI increased to high dose pyuria w budding yeasts on abx add diflucan (diabetic immunocompromised UCx NGTD ) steroids weaning initiated 5 units Regular insulin x now Patient remains on high-flow despite steroids, DuoNebs, BiPAP, diuretics, antibiotics Consult Dr. Whitmore cont current care Subjective Date/time seen: 07/24/21 08:34 pt doing ok but not improving Exam Narrative: GEN: NAD, AAOx3, cooperative HEENT: NCAT, MMM, EOMI Neck: no J
--- NOTE | 2021-07-24 08:34 | PM.IMPN ---
Progress Note: A&P Assessment and Plan (1) Acute respiratory failure with hypoxia and hypercapnia: Code(s): J96.01 - Acute respiratory failure with hypoxia; J96.02 - Acute respiratory failure with hypercapnia Status: Acute Assessment and Plan: With chest x-ray suggestive of pneumonia versus atelectasis or pulmonary edema. Given acute hypercarbic respiratory failure COPD exacerbation is likely a component. Blood cultures are pending. Patient is on BiPAP and ABG is improving. Will repeat ABG in a.m.. Patient has been started on empiric antibiotic therapy with Rocephin and azithromycin. COVID testing is pending. Patient remains on isolation. Given history of COPD will initiate therapy with Solu-Medrol and scheduled nebulizers. (2) Atrial fibrillation with slow ventricular response: Code(s): I48.91 - Unspecified atrial fibrillation Status: Acute Assessment and Plan: Patient is on a large dose of Toprol XL. Will hold metoprolol monitor heart rate. Will likely resume Toprol in a.m. at lower dose. (3) Elevated troponin: Code(s): R77.8 - Other specified abnormalities of plasma proteins Status: Acute Assessment and Plan: With flat troponin profile not indicative of acute ischemia. Likely due to acute on chronic CHF and chronic kidney disease. Will check echocardiogram in a.m. (4) Acute kidney injury superimposed on CKD: Code(s): N17.9 - Acute kidney failure, unspecified; N18.9 - Chronic kidney disease, unspecified Status: Acute Assessment and Plan: Possibly due to hypoperfusion with CHF. Will continue Lasix 40 mg IV b.i.d. and monitor strict I&O's. Will repeat BMP in a.m. (5) Pyuria: Code(s): R82.81 - Pyuria Status: Acute Assessment and Plan: Pyuria without bacteriuria. Likely sterile pyuria. Urine cultures are pending. (6) Type 2 diabetes mellitus treated with insulin: Code(s): E11.9 - Type 2 diabetes mellitus without complications; Z79.4 - snf (current) use of insulin Status: Acute Assessment and Plan: The patient is hypoglycemic. Will hold home Lantus. Will check Accu-Cheks a.c. HS with moderate sliding scale insulin and hypoglycemia protocol. (7) Systolic congestive heart failure: Code(s): I50.20 - Unspecified systolic (congestive) heart failure Status: Acute Additional Plan 35 minute spent in critical care activities. This case had a high probability of a clinically significant, sudden, or life threatening deterioration of this patient's condition which required my full and direct attention, intervention and personal management. 07/22/21 pt doing ok admitted w A/E COPD on steroids elevated BG 2/2 steroids cont current care has been successfully weaned from BiPAP now PRN 07/23/21 no significant change BG remains elevated receiving overnight coverage increase lantus 20U q am cont current care dc planning 07/24/21 SSI increased to high dose pyuria w budding yeasts on abx add diflucan (diabetic immunocompromised UCx NGTD ) steroids weaning initiated 5 units Regular insulin x now Patient remains on high-flow despite steroids, DuoNebs, BiPAP, diuretics, antibiotics Consult Dr. Whitmore cont current care Subjective Date/time seen: 07/24/21 08:34 pt doing ok but not improving Exam Narrative: GEN: NAD, AAOx3, cooperative HEENT: NCAT, MMM, EOMI Neck: no JVD Heart: IRR Lungs: clear to ascultation over anterior chest wall Abd: soft, NT, ND, bowel sounds normoactive Ext: moves all, no cyanosis, no clubbing, no edema Objective Data Vital Signs Vital Signs: Vital Signs - 24 hr 07/23/21 09:29 07/23/21 09:41 07/23/21 09:49 Temperature Pulse Rate 71 71 Respiratory Rate 22 H 17 Blood Pressure Pulse Oximetry 95 07/23/21 10:00 07/23/21 12:00 07/23/21 14:00 Temperature 98 F Pulse Rate 70 67 65 Respiratory
[2021-07-24 09:01] LABS: Hematocrit 33.3 % (42.0-52.0); Hemoglobin 10.3 g/dL (14.0-18.0); Immature Granulocyte Absolute 0.03 K/mm3 (0.00-0.031); Immature Granulocyte Percent A 0.4 % (0-0.5); Lymphocytes Percent Auto 4.4 % (18.3-44.2); Mean Corpuscular HGB Conc 30.9 g/dl (32-36); Mean Corpuscular Volume 84.1 fl (80-100); Mean Platelet Volume 10.3 fl (7.4-10.4); Monocytes Absolute Auto 0.2 K/mm3 (0.1-0.6); Monocytes Percent Auto 3.4 % (2.6-8.5); Neutrophils Absolute Auto 6.3 K/mm3 (1.3-6.7); Neutrophils Percent Auto 91.8 % (45.5-73.1); Platelet Count Result 213 k/mm3 (150-375); Red Blood Count 3.96 M/mm3 (4.6-6.20); Red Cell Distribution Width 19.5 % (11.5-14.5); White Blood Count 6.9 K/mm3 (4.5-10.0)
[2021-07-24 09:25] LABS: Alanine Aminotransferase 23 U/L (4-50); Albumin Level 3.3 g/dL (3.5-5.1); Alkaline Phosphatase 263 U/L (38-126); Anion Gap 7 mmol/L (8-16); Aspartate Amino Transferase 20 U/L (17-59); Bilirubin,Total 0.3 mg/dL (0.2-1.3); Blood Urea Nitrogen 78 mg/dL (9-20); Calcium 8.4 mg/dL (8.4-10.2); Carbon Dioxide 28 mmol/L (22-30); Chloride 100 mmol/L (98-107); Estimated CRCL calculation 43 ml/min; Estimated Glomerular Filt Rate 32; Glucose 360 mg/dL (65-110); Potassium 4.4 mmol/L (3.4-5.0); Sodium 135 mmol/L (137-145)
[2021-07-24] MEDS: amLODIPine BESYLATE 5 MG TABLET 10 MG PO (09:57)
[2021-07-24] MEDS: FUROSEMIDE INJ 40 MG/4 ML VIAL IV PUSH ×2 (09:57→17:54)
[2021-07-24] MEDS: PANTOPRAZOLE 40 MG TABLET PO (09:57)
[2021-07-24] MEDS: ACIDOPHILUS/BULGARICUS CHEWABLE TABLET 1 TABLET PO (09:57)
[2021-07-24] MEDS: APIXABAN 5 MG TABLET PO ×2 (09:58→17:54)
[2021-07-24] MEDS: DULoxetine HCL 60 MG CAPSULE.DR PO ×2 (09:58→20:43)
[2021-07-24] MEDS: buPROPion HCL XL (24 HR) 150 MG TABCR PO (09:58)
[2021-07-24] MEDS: TAMSULOSIN HCL 0.4 MG CAPSULE PO (09:58)
[2021-07-24] MEDS: GABAPENTIN 300 MG CAPSULE 600 MG PO ×3 (09:58→17:54)
[2021-07-24] MEDS: NICOTINE (*PBKC) 21 MG PATCH 1 PATCH TRANSDERM (09:58)
[2021-07-24] MEDS: INSULIN GLARGINE (*BKC) 100 UNITS/ML 20 UNITS SUB-Q ×2 (09:59→21:37)
[2021-07-24 10:14] LABS: Glucose Point of Care 346 mg/dl (65-105)
--- NOTE | 2021-07-24 11:49 | P.CDI_ITS ---
CDI Query Clarification Request -Elevated troponins Likely due to acute on chronic CHF and chronic kidney disease documented -07/23 Echo summary: EF 45-50 %, left ventricular diastolic function is indeterminate -07/21 BNP 00046 -Pt is on Lasix 40mg IV BID Please further specify type of acute on chronic CHF: * Systolic * Diastolic * Both systolic and diastolic * Unable to determine <Ban Booth RN - Last Filed: 07/24/21 11:53>
--- NOTE | 2021-07-24 11:49 | WPDCDIQUERY2 ---
CDI Query Clarification Request -Elevated troponins Likely due to acute on chronic CHF and chronic kidney disease documented -07/23 Echo summary: EF 45-50 %, left ventricular diastolic function is indeterminate -07/21 BNP [id number] -Pt is on Lasix 40mg IV BID Please further specify type of acute on chronic CHF: Systolic Diastolic Both systolic and diastolic Unable to determine <Ban Booth RN - Last Filed: 07/24/21 11:53>
[2021-07-24] MEDS: INSULIN ASPART (*BKC) 100 UNITS/ML SUB-Q ×2 (12:13→17:58)
[2021-07-24] MEDS: methylPREDNISolone SOD SUCC 40 MG VIAL IV PUSH ×2 (13:07→18:34)
[2021-07-24 13:16] LABS: Glucose Point of Care 389 mg/dl (65-105)
[2021-07-24 16:48] LABS: Glucose Point of Care 344 mg/dl (65-105)
[2021-07-24] MEDS: INSULIN HUMAN REGULAR (*BKC) 100 UNITS/ML SUB-Q (17:59)
[2021-07-24 19:30] LABS: NT Pro B Type Natriuretic Pept 9850 pg/mL (5-100)
[2021-07-24] MEDS: ATORVASTATIN 40 MG TABLET PO (20:42)
[2021-07-24] MEDS: MAGNESIUM OXIDE 400 MG TABLET PO (20:43)
[2021-07-24 20:52] LABS: Glucose Point of Care 383 mg/dl (65-105)
[2021-07-24] MEDS: guaiFENesin 12 HR 600 MG TABCR 1200 MG PO (21:40)
[2021-07-25] VITALS (30 sets, daily range): BP systolic 130–165; BP diastolic 51–72; PULSE 72–106; RESP 18–24; TEMP 35.7–37.1; O2SAT 87–98
[2021-07-25] MEDS: ALBUTEROL SULFATE NEB 2.5 MG/0.5 ML INH 5 MG INHALATION ×5 (00:32→20:45)
[2021-07-25] MEDS: IPRATROPIUM BR 0.02% INH SOLN 0.5 MG/2.5 ML VIAL INHALATION ×5 (00:32→20:45)
[2021-07-25] MEDS: methylPREDNISolone SOD SUCC 40 MG VIAL IV PUSH ×5 (00:33→23:40)
[2021-07-25 01:05] LABS: Glucose Point of Care 364 mg/dl (65-105)
[2021-07-25] MEDS: INSULIN ASPART (*BKC) 100 UNITS/ML 10 UNITS SUB-Q ×2 (01:15→15:40)
[2021-07-25 04:19] LABS: Glucose Point of Care 356 mg/dl (65-105)
[2021-07-25 05:01] LABS: Hematocrit 32.1 % (42.0-52.0); Immature Granulocyte Absolute 0.02 K/mm3 (0.00-0.031); Immature Granulocyte Percent A 0.3 % (0-0.5); Lymphocytes Percent Auto 3.1 % (18.3-44.2); Mean Corpuscular HGB Conc 31.2 g/dl (32-36); Mean Corpuscular Hemoglobin 25.7 pg (26-34); Mean Corpuscular Volume 82.5 fl (80-100); Mean Platelet Volume 10.4 fl (7.4-10.4); Monocytes Absolute Auto 0.3 K/mm3 (0.1-0.6); Monocytes Percent Auto 4.1 % (2.6-8.5); Neutrophils Absolute Auto 5.9 K/mm3 (1.3-6.7); Neutrophils Percent Auto 92.5 % (45.5-73.1); Platelet Count Result 213 k/mm3 (150-375); Red Blood Count 3.89 M/mm3 (4.6-6.20); Red Cell Distribution Width 19.3 % (11.5-14.5); White Blood Count 6.4 K/mm3 (4.5-10.0)
[2021-07-25 05:18] LABS: Alanine Aminotransferase 23 U/L (4-50); Albumin Level 3.4 g/dL (3.5-5.1); Alkaline Phosphatase 236 U/L (38-126); Anion Gap 10 mmol/L (8-16); Aspartate Amino Transferase 19 U/L (17-59); Bilirubin,Total 0.4 mg/dL (0.2-1.3); Blood Urea Nitrogen 82 mg/dL (9-20); Calcium 8.3 mg/dL (8.4-10.2); Carbon Dioxide 30 mmol/L (22-30); Chloride 95 mmol/L (98-107); Estimated CRCL calculation 43 ml/min; Estimated Glomerular Filt Rate 32; Glucose 354 mg/dL (65-110); Magnesium 1.8 mg/dL (1.6-2.3); Potassium 4.4 mmol/L (3.4-5.0); Sodium 135 mmol/L (137-145)
[2021-07-25] MEDS: INSULIN ASPART (*BKC) 100 UNITS/ML 15 UNITS SUB-Q (05:18)
[2021-07-25 08:14] LABS: Glucose Point of Care 277 mg/dl (65-105)
--- NOTE | 2021-07-25 08:17 | P.PNIM_ITS ---
Progress Note: A&P Assessment and Plan (1) Acute respiratory failure with hypoxia and hypercapnia: Code(s): J96.01 - Acute respiratory failure with hypoxia; J96.02 - Acute respiratory failure with hypercapnia Status: Acute Assessment and Plan: * With chest x-ray suggestive of pneumonia versus atelectasis or pulmonary edema. Given acute hypercarbic respiratory failure COPD exacerbation is likely a component. Blood cultures are pending. * Patient is on BiPAP and ABG is improving. Will repeat ABG in a.m.. * Patient has been started on empiric antibiotic therapy with Rocephin and azithromycin. * COVID testing is pending. Patient remains on isolation. * Given history of COPD will initiate therapy with Solu-Medrol and scheduled nebulizers. (2) Atrial fibrillation with slow ventricular response: Code(s): I48.91 - Unspecified atrial fibrillation Status: Acute Assessment and Plan: * Patient is on a large dose of Toprol XL. * Will hold metoprolol monitor heart rate. * Will likely resume Toprol in a.m. at lower dose. (3) Elevated troponin: Code(s): R77.8 - Other specified abnormalities of plasma proteins Status: Acute Assessment and Plan: * With flat troponin profile not indicative of acute ischemia. * Likely due to acute on chronic CHF and chronic kidney disease. * Will check echocardiogram in a.m. (4) Acute kidney injury superimposed on CKD: Code(s): N17.9 - Acute kidney failure, unspecified; N18.9 - Chronic kidney disease, unspecified Status: Acute Assessment and Plan: * Possibly due to hypoperfusion with CHF. * Will continue Lasix 40 mg IV b.i.d. and monitor strict I&O's. * Will repeat BMP in a.m. (5) Pyuria: Code(s): R82.81 - Pyuria Status: Acute Assessment and Plan: * Pyuria without bacteriuria. Likely sterile pyuria. * Urine cultures are pending. (6) Type 2 diabetes mellitus treated with insulin: Code(s): E11.9 - Type 2 diabetes mellitus without complications; Z79.4 - exterminator helper termite (current) use of insulin Status: Acute Assessment and Plan: * The patient is hypoglycemic. Will hold home Lantus. * Will check Accu-Cheks a.c. HS with moderate sliding scale insulin and hypoglycemia protocol. (7) Systolic congestive heart failure: Code(s): I50.20 - Unspecified systolic (congestive) heart failure Status: Acute Additional Plan 07/22/21 pt doing ok admitted w A/E COPD on steroids elevated BG 2/2 steroids cont current care has been successfully weaned from BiPAP now PRN 07/23/21 no significant change BG remains elevated receiving overnight coverage increase lantus 20U q am cont current care dc planning 07/24/21 SSI increased to high dose pyuria w budding yeasts on abx add diflucan (diabetic immunocompromised UCx NGTD ) steroids weaning initiated 5 units Regular insulin x now Patient remains on high-flow despite steroids, DuoNebs, BiPAP, diuretics, antibiotics Consult Dr. Whitmore cont current care 07/25/21 Patient out of bed to chair pt agrees to bathe CT high res pending cont diuresis cont steroids insulin increased to Lantus 30U am and 20U hs cont HD ISS Subjective Date/time seen: 07/25/21 08:17 Patient doing okay but reports that he feels about the same Exam Narrative: GEN: NAD, AAOx3, cooperative HEENT: NCAT, MMM, EOMI Neck: no JVD Heart: IRR Ida
--- NOTE | 2021-07-25 08:17 | PM.IMPN ---
Progress Note: A&P Assessment and Plan (1) Acute respiratory failure with hypoxia and hypercapnia: Code(s): J96.01 - Acute respiratory failure with hypoxia; J96.02 - Acute respiratory failure with hypercapnia Status: Acute Assessment and Plan: With chest x-ray suggestive of pneumonia versus atelectasis or pulmonary edema. Given acute hypercarbic respiratory failure COPD exacerbation is likely a component. Blood cultures are pending. Patient is on BiPAP and ABG is improving. Will repeat ABG in a.m.. Patient has been started on empiric antibiotic therapy with Rocephin and azithromycin. COVID testing is pending. Patient remains on isolation. Given history of COPD will initiate therapy with Solu-Medrol and scheduled nebulizers. (2) Atrial fibrillation with slow ventricular response: Code(s): I48.91 - Unspecified atrial fibrillation Status: Acute Assessment and Plan: Patient is on a large dose of Toprol XL. Will hold metoprolol monitor heart rate. Will likely resume Toprol in a.m. at lower dose. (3) Elevated troponin: Code(s): R77.8 - Other specified abnormalities of plasma proteins Status: Acute Assessment and Plan: With flat troponin profile not indicative of acute ischemia. Likely due to acute on chronic CHF and chronic kidney disease. Will check echocardiogram in a.m. (4) Acute kidney injury superimposed on CKD: Code(s): N17.9 - Acute kidney failure, unspecified; N18.9 - Chronic kidney disease, unspecified Status: Acute Assessment and Plan: Possibly due to hypoperfusion with CHF. Will continue Lasix 40 mg IV b.i.d. and monitor strict I&O's. Will repeat BMP in a.m. (5) Pyuria: Code(s): R82.81 - Pyuria Status: Acute Assessment and Plan: Pyuria without bacteriuria. Likely sterile pyuria. Urine cultures are pending. (6) Type 2 diabetes mellitus treated with insulin: Code(s): E11.9 - Type 2 diabetes mellitus without complications; Z79.4 - [facility] (current) use of insulin Status: Acute Assessment and Plan: The patient is hypoglycemic. Will hold home Lantus. Will check Accu-Cheks a.c. HS with moderate sliding scale insulin and hypoglycemia protocol. (7) Systolic congestive heart failure: Code(s): I50.20 - Unspecified systolic (congestive) heart failure Status: Acute Additional Plan 07/22/21 pt doing ok admitted w A/E COPD on steroids elevated BG 2/2 steroids cont current care has been successfully weaned from BiPAP now PRN 07/23/21 no significant change BG remains elevated receiving overnight coverage increase lantus 20U q am cont current care dc planning 07/24/21 SSI increased to high dose pyuria w budding yeasts on abx add diflucan (diabetic immunocompromised UCx NGTD ) steroids weaning initiated 5 units Regular insulin x now Patient remains on high-flow despite steroids, DuoNebs, BiPAP, diuretics, antibiotics Consult Dr. Whitmore cont current care 07/25/21 Patient out of bed to chair pt agrees to bathe CT high res pending cont diuresis cont steroids insulin increased to Lantus 30U am and 20U hs cont HD ISS Subjective Date/time seen: 07/25/21 08:17 Patient doing okay but reports that he feels about the same Exam Narrative: GEN: NAD, AAOx3, cooperative HEENT: NCAT, MMM, EOMI Neck: no JVD Heart: IRR Lungs: Bilateral crackles Abd: soft, NT, mildly distended, gravity dependent edema Ext: moves all, no cyanosis, no clubbing, no edema Objective Data Vital Signs Vital Signs: Vital Signs - 24 hr 07/24/21 08:53 07/24/21 08:55 07/24/21 10:00 Temperature Pulse Rate 76 78 81 Respiratory Rate 17 17 Blood Pressure Pulse Oximetry 96 07/24/21 12:00 07/24/21 13:23 07/24/21 14:00 Temperature 97 F L Pulse Rate 83 78 89 Respiratory Rate 24 H 18 Blood Pressure 146/65 H Pulse Oximetry 96
--- NOTE | 2021-07-25 08:24 | ECG_ITS ---
Measurements Intervals [place] Rate: 89 P: [place]: 0 QRS: 71 QRSD: 136 T: 180 QT: 367 QTc: 448 Interpretive Statements ATRIAL FLUTTER/TACHYCARDIA LEFT BUNDLE BRANCH BLOCK BASELINE WANDER- V4 ABNORMAL ECG Electronically Signed On 07-25-2021 14:18:05 CDT by Cecilio Soto D.O.
[2021-07-25] MEDS: PANTOPRAZOLE 40 MG TABLET PO (09:27)
[2021-07-25] MEDS: INSULIN GLARGINE (*BKC) 100 UNITS/ML 30 UNITS SUB-Q ×2 (09:27→21:26)
[2021-07-25] MEDS: TAMSULOSIN HCL 0.4 MG CAPSULE PO (09:27)
[2021-07-25] MEDS: NICOTINE (*PBKC) 21 MG PATCH 1 PATCH TRANSDERM (09:27)
[2021-07-25] MEDS: guaiFENesin 12 HR 600 MG TABCR 1200 MG PO ×2 (09:28→20:09)
[2021-07-25] MEDS: APIXABAN 5 MG TABLET PO ×2 (09:28→16:59)
[2021-07-25] MEDS: buPROPion HCL XL (24 HR) 150 MG TABCR PO (09:28)
[2021-07-25] MEDS: FUROSEMIDE INJ 40 MG/4 ML VIAL 20 MG IV PUSH (09:28)
[2021-07-25] MEDS: GABAPENTIN 300 MG CAPSULE 600 MG PO ×3 (09:28→16:59)
[2021-07-25] MEDS: FLUCONAZOLE 100 MG TABLET PO (09:28)
[2021-07-25] MEDS: DULoxetine HCL 60 MG CAPSULE.DR PO ×2 (09:28→20:09)
[2021-07-25] MEDS: amLODIPine BESYLATE 5 MG TABLET 10 MG PO (09:29)
[2021-07-25] MEDS: INSULIN ASPART (*BKC) 100 UNITS/ML SUB-Q ×3 (09:29→17:52)
[2021-07-25] MEDS: ACIDOPHILUS/BULGARICUS CHEWABLE TABLET 1 TABLET PO (09:29)
--- NOTE | 2021-07-25 11:19 | PCPTNOTE ---
attempted PT evaluation 2x this AM-- was eating breakfast and now is sound asleep; will try again this afternoon;
[2021-07-25 12:37] LABS: Glucose Point of Care 367 mg/dl (65-105)
--- NOTE | 2021-07-25 13:17 | PCRCNOTE ---
pt off floor/ CT/ no resp tx
[2021-07-25 15:30] LABS: Glucose Point of Care 328 mg/dl (65-105)
[2021-07-25 16:28] LABS: Glucose Point of Care 321 mg/dl (65-105)
[2021-07-25] MEDS: BUMETANIDE INJ 1 MG/4 ML VIAL IV PUSH (16:59)
[2021-07-25 17:34] LABS: Glucose Point of Care 296 mg/dl (65-105)
[2021-07-25 17:34] LABS: Glucose Point of Care 276 mg/dl (65-105)
[2021-07-25] MEDS: cefTRIAXone 1 GM in SODIUM CHLORIDE 0.9% IV 50 ML IVPB (18:18)
[2021-07-25 19:19] LABS: Glucose Point of Care 299 mg/dl (65-105)
[2021-07-25] MEDS: ATORVASTATIN 40 MG TABLET PO (20:09)
[2021-07-25] MEDS: MAGNESIUM OXIDE 400 MG TABLET PO (20:09)
[2021-07-25 20:48] LABS: Glucose Point of Care 318 mg/dl (65-105)
[2021-07-25 23:51] LABS: Glucose Point of Care 240 mg/dl (65-105)
[2021-07-26] VITALS (26 sets, daily range): BP systolic 93–162; BP diastolic 66–84; PULSE 66–120; RESP 17–26; TEMP 36–36.7; O2SAT 90–100
--- NOTE | 2021-07-26 02:38 | PCRCNOTE ---
Window of time for administration has passed. See next scheduled administration.
[2021-07-26] MEDS: IPRATROPIUM BR 0.02% INH SOLN 0.5 MG/2.5 ML VIAL INHALATION ×5 (03:17→20:16)
[2021-07-26] MEDS: ALBUTEROL SULFATE NEB 2.5 MG/0.5 ML INH 5 MG INHALATION ×5 (03:17→20:16)
[2021-07-26 04:34] LABS: Hematocrit 33.5 % (42.0-52.0); Hemoglobin 10.2 g/dL (14.0-18.0); Immature Granulocyte Absolute 0.02 K/mm3 (0.00-0.031); Immature Granulocyte Percent A 0.3 % (0-0.5); Lymphocytes Absolute Auto 0.26 K/mm3 (0.9-3.2); Lymphocytes Percent Auto 3.9 % (18.3-44.2); Mean Corpuscular HGB Conc 30.4 g/dl (32-36); Mean Corpuscular Hemoglobin 25.6 pg (26-34); Mean Corpuscular Volume 84.2 fl (80-100); Mean Platelet Volume 10.7 fl (7.4-10.4); Monocytes Absolute Auto 0.2 K/mm3 (0.1-0.6); Monocytes Percent Auto 3.6 % (2.6-8.5); Neutrophils Absolute Auto 6.1 K/mm3 (1.3-6.7); Neutrophils Percent Auto 92.2 % (45.5-73.1); Platelet Count Result 193 k/mm3 (150-375); Red Blood Count 3.98 M/mm3 (4.6-6.20); Red Cell Distribution Width 19.1 % (11.5-14.5); White Blood Count 6.6 K/mm3 (4.5-10.0)
[2021-07-26 04:48] LABS: Alanine Aminotransferase 36 U/L (4-50); Albumin Level 3.4 g/dL (3.5-5.1); Alkaline Phosphatase 234 U/L (38-126); Anion Gap 6 mmol/L (8-16); Aspartate Amino Transferase 33 U/L (17-59); Bilirubin,Total 0.5 mg/dL (0.2-1.3); Blood Urea Nitrogen 87 mg/dL (9-20); Calcium 8.4 mg/dL (8.4-10.2); Carbon Dioxide 33 mmol/L (22-30); Chloride 97 mmol/L (98-107); Creatine Kinase 44 U/L (55-170); Estimated CRCL calculation 50 ml/min; Estimated Glomerular Filt Rate 39; Glucose 267 mg/dL (65-110); Magnesium 1.8 mg/dL (1.6-2.3); Potassium 4.3 mmol/L (3.4-5.0); Sodium 136 mmol/L (137-145)
[2021-07-26 05:13] LABS: Burr Cells 1+ (NORMAL); Ovalocytes 1+ (NORMAL); Platelet Estimate Adequate (Adequate)
[2021-07-26] MEDS: methylPREDNISolone SOD SUCC 40 MG VIAL IV PUSH ×3 (05:36→20:46)
--- NOTE | 2021-07-26 08:50 | P.PNIM_ITS ---
Progress Note: A&P Assessment and Plan (1) Acute respiratory failure with hypoxia and hypercapnia: Code(s): J96.01 - Acute respiratory failure with hypoxia; J96.02 - Acute respiratory failure with hypercapnia Status: Acute Assessment and Plan: * With chest x-ray suggestive of pneumonia versus atelectasis or pulmonary edema. Given acute hypercarbic respiratory failure COPD exacerbation is likely a component. Blood cultures are pending. * Patient is on BiPAP and ABG is improving. Will repeat ABG in a.m.. * Patient has been started on empiric antibiotic therapy with Rocephin and azithromycin. * COVID testing is pending. Patient remains on isolation. * Given history of COPD will initiate therapy with Solu-Medrol and scheduled nebulizers. (2) Atrial fibrillation with slow ventricular response: Code(s): I48.91 - Unspecified atrial fibrillation Status: Acute Assessment and Plan: * Patient is on a large dose of Toprol XL. * Will hold metoprolol monitor heart rate. * Will likely resume Toprol in a.m. at lower dose. (3) Elevated troponin: Code(s): R77.8 - Other specified abnormalities of plasma proteins Status: Acute Assessment and Plan: * With flat troponin profile not indicative of acute ischemia. * Likely due to acute on chronic CHF and chronic kidney disease. * Will check echocardiogram in a.m. (4) Acute kidney injury superimposed on CKD: Code(s): N17.9 - Acute kidney failure, unspecified; N18.9 - Chronic kidney disease, unspecified Status: Acute Assessment and Plan: * Possibly due to hypoperfusion with CHF. * Will continue Lasix 40 mg IV b.i.d. and monitor strict I&O's. * Will repeat BMP in a.m. (5) Pyuria: Code(s): R82.81 - Pyuria Status: Acute Assessment and Plan: * Pyuria without bacteriuria. Likely sterile pyuria. * Urine cultures are pending. (6) Type 2 diabetes mellitus treated with insulin: Code(s): E11.9 - Type 2 diabetes mellitus without complications; Z79.4 - medical terminologist (current) use of insulin Status: Acute Assessment and Plan: * The patient is hypoglycemic. Will hold home Lantus. * Will check Accu-Cheks a.c. HS with moderate sliding scale insulin and hypoglycemia protocol. (7) Systolic congestive heart failure: Code(s): I50.20 - Unspecified systolic (congestive) heart failure Status: Acute Additional Plan 07/22/21 pt doing ok admitted w A/E COPD on steroids elevated BG 2/2 steroids cont current care has been successfully weaned from BiPAP now PRN 07/23/21 no significant change BG remains elevated receiving overnight coverage increase lantus 20U q am cont current care dc planning 07/24/21 SSI increased to high dose pyuria w budding yeasts on abx add diflucan (diabetic immunocompromised UCx NGTD ) steroids weaning initiated 5 units Regular insulin x now Patient remains on high-flow despite steroids, DuoNebs, BiPAP, diuretics, antibiotics Consult Dr. Whitmore cont current care 07/25/21 Patient out of bed to chair pt agrees to bathe CT high res pending cont diuresis cont steroids insulin increased to Lantus 30U am and 20U hs cont HD ISS 07/26/21 pt out of bed in chair bathed and looking better but confused and agitated remains on HFNC 8-10L CT reviewed cont steroids cont diuresis for pulm edema increase insulin to 30U BID cont HD ISS spoke w POA pt w ongoing intermitt
--- NOTE | 2021-07-26 08:50 | PM.IMPN ---
Progress Note: A&P Assessment and Plan (1) Acute respiratory failure with hypoxia and hypercapnia: Code(s): J96.01 - Acute respiratory failure with hypoxia; J96.02 - Acute respiratory failure with hypercapnia Status: Acute Assessment and Plan: With chest x-ray suggestive of pneumonia versus atelectasis or pulmonary edema. Given acute hypercarbic respiratory failure COPD exacerbation is likely a component. Blood cultures are pending. Patient is on BiPAP and ABG is improving. Will repeat ABG in a.m.. Patient has been started on empiric antibiotic therapy with Rocephin and azithromycin. COVID testing is pending. Patient remains on isolation. Given history of COPD will initiate therapy with Solu-Medrol and scheduled nebulizers. (2) Atrial fibrillation with slow ventricular response: Code(s): I48.91 - Unspecified atrial fibrillation Status: Acute Assessment and Plan: Patient is on a large dose of Toprol XL. Will hold metoprolol monitor heart rate. Will likely resume Toprol in a.m. at lower dose. (3) Elevated troponin: Code(s): R77.8 - Other specified abnormalities of plasma proteins Status: Acute Assessment and Plan: With flat troponin profile not indicative of acute ischemia. Likely due to acute on chronic CHF and chronic kidney disease. Will check echocardiogram in a.m. (4) Acute kidney injury superimposed on CKD: Code(s): N17.9 - Acute kidney failure, unspecified; N18.9 - Chronic kidney disease, unspecified Status: Acute Assessment and Plan: Possibly due to hypoperfusion with CHF. Will continue Lasix 40 mg IV b.i.d. and monitor strict I&O's. Will repeat BMP in a.m. (5) Pyuria: Code(s): R82.81 - Pyuria Status: Acute Assessment and Plan: Pyuria without bacteriuria. Likely sterile pyuria. Urine cultures are pending. (6) Type 2 diabetes mellitus treated with insulin: Code(s): E11.9 - Type 2 diabetes mellitus without complications; Z79.4 - retirement (current) use of insulin Status: Acute Assessment and Plan: The patient is hypoglycemic. Will hold home Lantus. Will check Accu-Cheks a.c. HS with moderate sliding scale insulin and hypoglycemia protocol. (7) Systolic congestive heart failure: Code(s): I50.20 - Unspecified systolic (congestive) heart failure Status: Acute Additional Plan 07/22/21 pt doing ok admitted w A/E COPD on steroids elevated BG 2/2 steroids cont current care has been successfully weaned from BiPAP now PRN 07/23/21 no significant change BG remains elevated receiving overnight coverage increase lantus 20U q am cont current care dc planning 07/24/21 SSI increased to high dose pyuria w budding yeasts on abx add diflucan (diabetic immunocompromised UCx NGTD ) steroids weaning initiated 5 units Regular insulin x now Patient remains on high-flow despite steroids, DuoNebs, BiPAP, diuretics, antibiotics Consult Dr. Whitmore cont current care 07/25/21 Patient out of bed to chair pt agrees to bathe CT high res pending cont diuresis cont steroids insulin increased to Lantus 30U am and 20U hs cont HD ISS 07/26/21 pt out of bed in chair bathed and looking better but confused and agitated remains on HFNC 8-10L CT reviewed cont steroids cont diuresis for pulm edema increase insulin to 30U BID cont HD ISS spoke w POA pt w ongoing intermittent confusion for the last year living in [place] wean as able anticipate dc in a couple of days if clinically improved Subjective Date/time seen: 07/26/21 08:50 pt upset states he wants to go home and is going home. pt is advised he cannot go home on 8L HFNC and that is not possible at this time. Pt raising his voice saying don't patronize me . When asked if he has a decision maker I could speak with he states he only has his daughter for financial decisions but has never named
[2021-07-26] MEDS: TAMSULOSIN HCL 0.4 MG CAPSULE PO (09:17)
[2021-07-26] MEDS: PANTOPRAZOLE 40 MG TABLET PO (09:17)
[2021-07-26] MEDS: NICOTINE (*PBKC) 21 MG PATCH 1 PATCH TRANSDERM (09:17)
[2021-07-26] MEDS: DULoxetine HCL 60 MG CAPSULE.DR PO ×2 (09:18→20:45)
[2021-07-26] MEDS: FLUCONAZOLE 100 MG TABLET PO (09:18)
[2021-07-26] MEDS: guaiFENesin 12 HR 600 MG TABCR 1200 MG PO ×2 (09:18→20:45)
[2021-07-26] MEDS: GABAPENTIN 300 MG CAPSULE 600 MG PO ×3 (09:18→16:45)
[2021-07-26] MEDS: buPROPion HCL XL (24 HR) 150 MG TABCR PO (09:18)
[2021-07-26] MEDS: amLODIPine BESYLATE 5 MG TABLET 10 MG PO (09:19)
[2021-07-26] MEDS: INSULIN GLARGINE (*BKC) 100 UNITS/ML 30 UNITS SUB-Q ×2 (09:19→20:46)
[2021-07-26] MEDS: ACIDOPHILUS/BULGARICUS CHEWABLE TABLET 1 TABLET PO (09:19)
[2021-07-26] MEDS: APIXABAN 5 MG TABLET PO ×2 (09:19→16:45)
[2021-07-26] MEDS: BUMETANIDE INJ 1 MG/4 ML VIAL IV PUSH ×2 (09:19→16:45)
[2021-07-26] MEDS: INSULIN ASPART (*BKC) 100 UNITS/ML SUB-Q ×3 (09:20→18:15)
--- NOTE | 2021-07-26 09:26 | ECG_ITS ---
Measurements Intervals [place] Rate: 96 P: [place]: 0 QRS: 72 QRSD: 134 T: 182 QT: 358 QTc: 454 Interpretive Statements ATRIAL FLUTTER/TACHYCARDIA LEFT BUNDLE BRANCH BLOCK LOW VOLTAGE- LIMB LEADS BASELINE ARTIFACT- V1 ABNORMAL ECG Electronically Signed On 07-26-2021 11:15:59 CDT by Cecilio Soto D.O.
[2021-07-26 10:00] LABS: Glucose Point of Care 261 mg/dl (65-105)
[2021-07-26 14:14] LABS: Glucose Point of Care 331 mg/dl (65-105)
[2021-07-26] MEDS: PHARMACIST COMMUNICATION ORDER 1 EACH XX (14:50)
[2021-07-26 17:14] LABS: Glucose Point of Care 332 mg/dl (65-105)
[2021-07-26] MEDS: cefTRIAXone 1 GM in SODIUM CHLORIDE 0.9% IV 50 ML IVPB (18:16)
[2021-07-26] MEDS: AZITHROMYCIN IV 500 MG in SODIUM CHLORIDE 0.9% IV 250 ML 250 MG IVPB (18:16)
[2021-07-26 20:09] LABS: Glucose Point of Care > 500 mg/dl (65-105)
[2021-07-26] MEDS: ATORVASTATIN 40 MG TABLET PO (20:45)
[2021-07-26] MEDS: MAGNESIUM OXIDE 400 MG TABLET PO (20:45)
[2021-07-26] MEDS: INSULIN ASPART (*BKC) 100 UNITS/ML 15 UNITS SUB-Q (20:46)
[2021-07-26] MEDS: traMADol HCL (*CRX) 50 MG TABLET PO (20:53)
[2021-07-27] VITALS (29 sets, daily range): BP systolic 137–168; BP diastolic 58–89; PULSE 63–123; RESP 17–24; TEMP 35.9–36.9; O2SAT 92–100
[2021-07-27] MEDS: ALBUTEROL SULFATE NEB 2.5 MG/0.5 ML INH 5 MG INHALATION ×6 (00:05→19:49)
[2021-07-27] MEDS: IPRATROPIUM BR 0.02% INH SOLN 0.5 MG/2.5 ML VIAL INHALATION ×6 (00:05→19:49)
[2021-07-27] MEDS: methylPREDNISolone SOD SUCC 40 MG VIAL IV PUSH (05:38)
[2021-07-27 07:36] LABS: Glucose Point of Care 344 mg/dl (65-105)
[2021-07-27] MEDS: INSULIN GLARGINE (*BKC) 100 UNITS/ML 30 UNITS SUB-Q ×2 (08:13→20:17)
[2021-07-27] MEDS: GABAPENTIN 300 MG CAPSULE 600 MG PO ×3 (08:17→16:42)
[2021-07-27] MEDS: PANTOPRAZOLE 40 MG TABLET PO (08:17)
[2021-07-27] MEDS: amLODIPine BESYLATE 5 MG TABLET 10 MG PO (08:17)
[2021-07-27] MEDS: metOLazone 2.5 MG TABLET PO (08:17)
[2021-07-27] MEDS: NICOTINE (*PBKC) 21 MG PATCH 1 PATCH TRANSDERM (08:18)
[2021-07-27] MEDS: buPROPion HCL XL (24 HR) 150 MG TABCR PO (08:20)
[2021-07-27] MEDS: guaiFENesin 12 HR 600 MG TABCR 1200 MG PO ×2 (08:20→20:15)
[2021-07-27] MEDS: DULoxetine HCL 60 MG CAPSULE.DR PO ×2 (08:20→20:15)
[2021-07-27] MEDS: APIXABAN 5 MG TABLET PO ×2 (08:20→16:42)
[2021-07-27] MEDS: TAMSULOSIN HCL 0.4 MG CAPSULE PO (08:21)
[2021-07-27] MEDS: BUMETANIDE INJ 1 MG/4 ML VIAL IV PUSH ×2 (08:21→16:42)
[2021-07-27] MEDS: ACIDOPHILUS/BULGARICUS CHEWABLE TABLET 1 TABLET PO (08:32)
[2021-07-27] MEDS: INSULIN ASPART (*BKC) 100 UNITS/ML SUB-Q ×3 (08:53→16:42)
[2021-07-27 12:07] LABS: Glucose Point of Care 336 mg/dl (65-105)
--- NOTE | 2021-07-27 12:24 | P.PNIM_ITS ---
Progress Note: A&P Assessment and Plan (1) Acute respiratory failure with hypoxia and hypercapnia: Code(s): J96.01 - Acute respiratory failure with hypoxia; J96.02 - Acute respiratory failure with hypercapnia Status: Acute Assessment and Plan: * With chest x-ray suggestive of pneumonia versus atelectasis or pulmonary edema. Given acute hypercarbic respiratory secondary to COPD exacerbation. Blood cultures are negative * Patient is on BiPAP and ABG is improving. oonly prn now. * Patient has been started on empiric antibiotic therapy with Rocephin and azithromycin. * Covid is negative * Given history of COPD will initiate therapy with Solu-Medrol and scheduled nebulizers. * Cut back on steroids as sugars are running high (2) Atrial fibrillation with slow ventricular response: Code(s): I48.91 - Unspecified atrial fibrillation Status: Acute Assessment and Plan: * Resume pts toprol as HR is high. (3) Elevated troponin: Code(s): R77.8 - Other specified abnormalities of plasma proteins Status: Acute Assessment and Plan: * With flat troponin profile not indicative of acute ischemia. * Likely due to acute on chronic CHF and chronic kidney disease. * Will check echocardiogram in a.m. (4) Acute kidney injury superimposed on CKD: Code(s): N17.9 - Acute kidney failure, unspecified; N18.9 - Chronic kidney disease, unspecified Status: Acute Assessment and Plan: * Possibly due to hypoperfusion with CHF. * Will continue Lasix 40 mg IV b.i.d. and monitor strict I&O's. (5) Pyuria: Code(s): R82.81 - Pyuria Status: Acute Assessment and Plan: * Pyuria without bacteriuria. Likely sterile pyuria. (6) Type 2 diabetes mellitus treated with insulin: Code(s): E11.9 - Type 2 diabetes mellitus without complications; Z79.4 - senior living (current) use of insulin Status: Acute Assessment and Plan: * The patient is hypoglycemic. Will hold home Lantus. * Will check Accu-Cheks a.c. HS with moderate sliding scale insulin and hypoglycemia protocol. (7) Systolic congestive heart failure: Code(s): I50.20 - Unspecified systolic (congestive) heart failure Status: Chronic Assessment and Plan: Acute on chronic systolic CHF Cxr shows pulmonary edema legs are swollen continue to diuresis with IV bumex Additional Plan Subjective Date/time seen: 07/27/21 12:24 Interval history: Pt is here for COPD excerbation sugars are running high pt is upset about this otherwise no compliants today. Review of Systems Review of Systems: All systems reviewed & are unremarkable except as noted in HPI and below Exam Narrative: GEN: Comfortable chronically ill appearing Neck: no JVD Heart: IRR Lungs: Bilateral crackles Abd: soft, NT, mildly distended, gravity dependent edema Ext: 3+ edema Objective Data Vital Signs Vital Signs: Vital Signs - 24 hr 07/26/21 14:00 07/26/21 15:35 07/26/21 16:00 Temperature 36.3 C L Pulse Rate 103 H 101 H 108 H Respiratory Rate 20 24 H Blood Pressure 162/84 H Pulse Oximetry 100 07/26/21 17:03 07/26/21 18:00 07/26/21 19:42 Temperature 36.6 C Pulse Rate 108 H 101 H Respiratory Rate 24 H Blood Pressure
--- NOTE | 2021-07-27 12:24 | PM.IMPN ---
Progress Note: A&P Assessment and Plan (1) Acute respiratory failure with hypoxia and hypercapnia: Code(s): J96.01 - Acute respiratory failure with hypoxia; J96.02 - Acute respiratory failure with hypercapnia Status: Acute Assessment and Plan: With chest x-ray suggestive of pneumonia versus atelectasis or pulmonary edema. Given acute hypercarbic respiratory secondary to COPD exacerbation. Blood cultures are negative Patient is on BiPAP and ABG is improving. oonly prn now. Patient has been started on empiric antibiotic therapy with Rocephin and azithromycin. Covid is negative Given history of COPD will initiate therapy with Solu-Medrol and scheduled nebulizers. Cut back on steroids as sugars are running high (2) Atrial fibrillation with slow ventricular response: Code(s): I48.91 - Unspecified atrial fibrillation Status: Acute Assessment and Plan: Resume pts toprol as HR is high. (3) Elevated troponin: Code(s): R77.8 - Other specified abnormalities of plasma proteins Status: Acute Assessment and Plan: With flat troponin profile not indicative of acute ischemia. Likely due to acute on chronic CHF and chronic kidney disease. Will check echocardiogram in a.m. (4) Acute kidney injury superimposed on CKD: Code(s): N17.9 - Acute kidney failure, unspecified; N18.9 - Chronic kidney disease, unspecified Status: Acute Assessment and Plan: Possibly due to hypoperfusion with CHF. Will continue Lasix 40 mg IV b.i.d. and monitor strict I&O's. (5) Pyuria: Code(s): R82.81 - Pyuria Status: Acute Assessment and Plan: Pyuria without bacteriuria. Likely sterile pyuria. (6) Type 2 diabetes mellitus treated with insulin: Code(s): E11.9 - Type 2 diabetes mellitus without complications; Z79.4 - keno terminal operator (current) use of insulin Status: Acute Assessment and Plan: The patient is hypoglycemic. Will hold home Lantus. Will check Accu-Cheks a.c. HS with moderate sliding scale insulin and hypoglycemia protocol. (7) Systolic congestive heart failure: Code(s): I50.20 - Unspecified systolic (congestive) heart failure Status: Chronic Assessment and Plan: Acute on chronic systolic CHF Cxr shows pulmonary edema legs are swollen continue to diuresis with IV bumex Additional Plan Subjective Date/time seen: 07/27/21 12:24 Interval history: Pt is here for COPD excerbation sugars are running high pt is upset about this otherwise no compliants today. Review of Systems Review of Systems: All systems reviewed & are unremarkable except as noted in HPI and below Exam Narrative: GEN: Comfortable chronically ill appearing Neck: no JVD Heart: IRR Lungs: Bilateral crackles Abd: soft, NT, mildly distended, gravity dependent edema Ext: 3+ edema Objective Data Vital Signs Vital Signs: Vital Signs - 24 hr 07/26/21 14:00 07/26/21 15:35 07/26/21 16:00 Temperature 36.3 C L Pulse Rate 103 H 101 H 108 H Respiratory Rate 20 24 H Blood Pressure 162/84 H Pulse Oximetry 100 07/26/21 17:03 07/26/21 18:00 07/26/21 19:42 Temperature 36.6 C Pulse Rate 108 H 101 H Respiratory Rate 24 H Blood Pressure 156/72 H Pulse Oximetry 96 90 07/26/21 20:00 07/26/21 20:35 07/26/21 20:42 Temperature Pulse Rate 95 100 116 H Respiratory Rate 24 H 24 H 24 H Blood Pressure Pulse Oximetry 92 92 92 07/26/21 22:00 07/26/21 22:05 07/26/21 23:55 Temperature 36.7 C Pulse Rate 104 H 117 H 98 Respiratory Rate 26 H 21 H Blood Pressure 161/73 H Pulse Oximetry 97 98 07/27/21 00:00 07/27/21 00:07 07/27/21 00:08 Temperature Pulse Rate 96 98 98 Respiratory Rate 22 H 20 20 Blood Pressure Pulse Oximetry 97 97 07/27/21 00:15 07/27/21 02:00 07/27/21 04:00 Temperature 35.9 C L Pulse Rate 100 99 81 Respiratory Rate 22 H 20 Blood Pre
[2021-07-27] MEDS: AZITHROMYCIN IV 500 MG in SODIUM CHLORIDE 0.9% IV 250 ML 250 MG IVPB (17:17)
[2021-07-27 17:33] LABS: Glucose Point of Care 286 mg/dl (65-105)
[2021-07-27] MEDS: cefTRIAXone 1 GM in SODIUM CHLORIDE 0.9% IV 50 ML IVPB (18:19)
[2021-07-27] MEDS: methylPREDNISolone SOD SUCC 40 MG VIAL 20 MG IV PUSH (18:20)
[2021-07-27] MEDS: ATORVASTATIN 40 MG TABLET PO (20:15)
[2021-07-27] MEDS: MAGNESIUM OXIDE 400 MG TABLET PO (20:15)
[2021-07-27] MEDS: traMADol HCL (*CRX) 50 MG TABLET PO (20:23)
[2021-07-27 20:29] LABS: Glucose Point of Care 288 mg/dl (65-105)
[2021-07-28] VITALS (25 sets, daily range): BP systolic 146–168; BP diastolic 48–68; PULSE 87–135; RESP 16–29; TEMP 36.4–36.8; O2SAT 82–99
[2021-07-28] MEDS: IPRATROPIUM BR 0.02% INH SOLN 0.5 MG/2.5 ML VIAL INHALATION ×6 (00:11→23:52)
[2021-07-28] MEDS: ALBUTEROL SULFATE NEB 2.5 MG/0.5 ML INH 5 MG INHALATION ×6 (00:11→23:52)
--- NOTE | 2021-07-28 02:50 | PC.NURSE ---
patient transferred to [address] [place] [address] at 0245 am. report given to beni.
[2021-07-28] MEDS: methylPREDNISolone SOD SUCC 40 MG VIAL 20 MG IV PUSH ×2 (06:19→17:40)
[2021-07-28 06:53] LABS: Glucose Point of Care 189 mg/dl (65-105)
[2021-07-28 09:04] LABS: Anion Gap 8 mmol/L (8-16); Blood Urea Nitrogen 94 mg/dL (9-20); Calcium 8.3 mg/dL (8.4-10.2); Carbon Dioxide 34 mmol/L (22-30); Chloride 96 mmol/L (98-107); Estimated CRCL calculation 56 ml/min; Estimated Glomerular Filt Rate 44; Glucose 191 mg/dL (65-110); Potassium 3.7 mmol/L (3.4-5.0); Sodium 138 mmol/L (137-145)
[2021-07-28] MEDS: NICOTINE (*PBKC) 21 MG PATCH 1 PATCH TRANSDERM (10:14)
[2021-07-28] MEDS: buPROPion HCL XL (24 HR) 150 MG TABCR PO (10:15)
[2021-07-28] MEDS: amLODIPine BESYLATE 5 MG TABLET 10 MG PO (10:15)
[2021-07-28] MEDS: ACIDOPHILUS/BULGARICUS CHEWABLE TABLET 1 TABLET PO (10:15)
[2021-07-28] MEDS: guaiFENesin 12 HR 600 MG TABCR 1200 MG PO ×2 (10:15→20:34)
[2021-07-28] MEDS: PANTOPRAZOLE 40 MG TABLET PO (10:15)
[2021-07-28] MEDS: TAMSULOSIN HCL 0.4 MG CAPSULE PO (10:15)
[2021-07-28] MEDS: GABAPENTIN 300 MG CAPSULE 600 MG PO ×3 (10:15→17:39)
[2021-07-28] MEDS: DULoxetine HCL 60 MG CAPSULE.DR PO ×2 (10:15→20:33)
[2021-07-28] MEDS: INSULIN GLARGINE (*BKC) 100 UNITS/ML 30 UNITS SUB-Q ×2 (10:16→20:31)
[2021-07-28] MEDS: APIXABAN 5 MG TABLET PO ×2 (10:16→17:39)
[2021-07-28] MEDS: BUMETANIDE INJ 1 MG/4 ML VIAL IV PUSH ×2 (10:16→17:39)
--- NOTE | 2021-07-28 11:07 | PCNWS ---
Weekly nutritional screen. Patient is tolerating current diet with adequate intake. No weight loss reported. No nutritional needs at this time.
[2021-07-28 12:03] LABS: Glucose Point of Care 190 mg/dl (65-105)
--- NOTE | 2021-07-28 14:33 | PC.NURSE ---
On 07/28/21, the student, Jeni Jose, provided care [facility] I have reviewed the student's documentation and agree with the findings.
--- NOTE | 2021-07-28 16:12 | P.PNIM_ITS ---
Progress Note: A&P Assessment and Plan (1) Acute respiratory failure with hypoxia and hypercapnia: Code(s): J96.01 - Acute respiratory failure with hypoxia; J96.02 - Acute respiratory failure with hypercapnia Status: Acute Assessment and Plan: * With chest x-ray suggestive of pneumonia versus atelectasis or pulmonary edema. Given acute hypercarbic respiratory secondary to COPD exacerbation. Blood cultures are negative * Patient is on BiPAP and ABG is improving. oonly prn now. * Patient has been started on empiric antibiotic therapy with Rocephin and azithromycin. * Covid is negative * Given history of COPD will initiate therapy with Solu-Medrol and scheduled nebulizers. * Cut back on steroids as sugars are running high 07/28 patient clinical symptoms are improving and methylprednisone was taper from 40 mg t.i.d. to 20 mg b.i.d., and states is feeling much better not a short of breath as when he arrived, patient has been using BiPAP while in the hospital, and will benefit continue upon discharge, will continue to monitor patient 1 more day and arrange for [facility]AP at the [facility] and discharge the patient tomorrow, (2) Atrial fibrillation with slow ventricular response: Code(s): I48.91 - Unspecified atrial fibrillation Status: Acute Assessment and Plan: * Resume pts toprol as HR is high. (3) Elevated troponin: Code(s): R77.8 - Other specified abnormalities of plasma proteins Status: Acute Assessment and Plan: * With flat troponin profile not indicative of acute ischemia. * Likely due to acute on chronic CHF and chronic kidney disease. * Will check echocardiogram in a.m. (4) Acute kidney injury superimposed on CKD: Code(s): N17.9 - Acute kidney failure, unspecified; N18.9 - Chronic kidney disease, unspecified Status: Acute Assessment and Plan: * Possibly due to hypoperfusion with CHF. * Will continue Lasix 40 mg IV b.i.d. and monitor strict I&O's. (5) Pyuria: Code(s): R82.81 - Pyuria Status: Acute Assessment and Plan: * Pyuria without bacteriuria. Likely sterile pyuria. 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 Will hold home Lantus. * Will check Accu-Cheks a.c. HS with moderate sliding scale insulin and hypoglycemia protocol. (7) Systolic congestive heart failure: Code(s): I50.20 - Unspecified systolic (congestive) heart failure Status: Chronic Assessment and Plan: Acute on chronic systolic CHF Cxr shows pulmonary edema legs are swollen continue to diuresis with IV bumex Additional Plan Subjective Date/time seen: 07/28/21 16:12 Interval history: Pt is here for COPD excerbation sugars are running high pt is upset about this otherwise no compliants today. 07/28 patient clinical symptoms are improving and methylprednisone was taper from 40 mg t.i.d. to 20 mg b.i.d., and states is feeling much better not a short of breath as when he arrived, patient has been using BiPAP while in the hospital, and will benefit continue upon discharge, will continue to monitor patient 1 more day and arrange for [facility] at the [facility] and discharge the patient tomorrow, Review of Systems Review of Systems: All systems reviewed & are unremarkable except as noted in HPI and bel
--- NOTE | 2021-07-28 16:12 | PM.IMPN ---
Progress Note: A&P Assessment and Plan (1) Acute respiratory failure with hypoxia and hypercapnia: Code(s): J96.01 - Acute respiratory failure with hypoxia; J96.02 - Acute respiratory failure with hypercapnia Status: Acute Assessment and Plan: With chest x-ray suggestive of pneumonia versus atelectasis or pulmonary edema. Given acute hypercarbic respiratory secondary to COPD exacerbation. Blood cultures are negative Patient is on BiPAP and ABG is improving. oonly prn now. Patient has been started on empiric antibiotic therapy with Rocephin and azithromycin. Covid is negative Given history of COPD will initiate therapy with Solu-Medrol and scheduled nebulizers. Cut back on steroids as sugars are running high 07/28 patient clinical symptoms are improving and methylprednisone was taper from 40 mg t.i.d. to 20 mg b.i.d., and states is feeling much better not a short of breath as when he arrived, patient has been using BiPAP while in the hospital, and will benefit continue upon discharge, will continue to monitor patient 1 more day and arrange for BiPAP at the half-way and discharge the patient tomorrow, (2) Atrial fibrillation with slow ventricular response: Code(s): I48.91 - Unspecified atrial fibrillation Status: Acute Assessment and Plan: Resume pts toprol as HR is high. (3) Elevated troponin: Code(s): R77.8 - Other specified abnormalities of plasma proteins Status: Acute Assessment and Plan: With flat troponin profile not indicative of acute ischemia. Likely due to acute on chronic CHF and chronic kidney disease. Will check echocardiogram in a.m. (4) Acute kidney injury superimposed on CKD: Code(s): N17.9 - Acute kidney failure, unspecified; N18.9 - Chronic kidney disease, unspecified Status: Acute Assessment and Plan: Possibly due to hypoperfusion with CHF. Will continue Lasix 40 mg IV b.i.d. and monitor strict I&O's. (5) Pyuria: Code(s): R82.81 - Pyuria Status: Acute Assessment and Plan: Pyuria without bacteriuria. Likely sterile pyuria. (6) Type 2 diabetes mellitus treated with insulin: Code(s): E11.9 - Type 2 diabetes mellitus without complications; Z79.4 - termite treater (current) use of insulin Status: Acute Assessment and Plan: The patient is hypoglycemic. Will hold home Lantus. Will check Accu-Cheks a.c. HS with moderate sliding scale insulin and hypoglycemia protocol. (7) Systolic congestive heart failure: Code(s): I50.20 - Unspecified systolic (congestive) heart failure Status: Chronic Assessment and Plan: Acute on chronic systolic CHF Cxr shows pulmonary edema legs are swollen continue to diuresis with IV bumex Additional Plan Subjective Date/time seen: 07/28/21 16:12 Interval history: Pt is here for COPD excerbation sugars are running high pt is upset about this otherwise no compliants today. 07/28 patient clinical symptoms are improving and methylprednisone was taper from 40 mg t.i.d. to 20 mg b.i.d., and states is feeling much better not a short of breath as when he arrived, patient has been using BiPAP while in the hospital, and will benefit continue upon discharge, will continue to monitor patient 1 more day and arrange for BiPAP at the [facility]way and discharge the patient tomorrow, Review of Systems Review of Systems: All systems reviewed & are unremarkable except as noted in HPI and below Exam Narrative: Patient is comfortable, NAD HEENT: eyes are clear and none icteric LUNGS: bilateral fair air entry with rhonchi and wheeze HEART: RR S1S2 ABD: distended Lower extremities: no edema SKIN: nonjaundiced Neuro: grossly intact normal speech. Objective Data Vital Signs Vital Signs: Vital Signs - 24 hr 07/27/21 16:18 07/27/21 18:00 07/27/21 19:51 Temperature Pulse Rate 112 H 119 H 110 H Respiratory Ra
[2021-07-28 16:39] LABS: Glucose Point of Care 247 mg/dl (65-105)
--- NOTE | 2021-07-28 16:41 | PCRCNOTE ---
HOME O2 EVAL COMPLETED, NOT NEEDED IN THE CASE, PT RESIDES AT SNF. STAFF WILL TITRATE O2 NEEDED. HOME O2 SET UP WITH DME ISNT REQUIRED. WALKING SAT CHECKS CAN BE COMPLETED BY ANY PATIENT CARE STAFF
[2021-07-28] MEDS: cefTRIAXone 1 GM in SODIUM CHLORIDE 0.9% IV 50 ML IVPB (17:38)
[2021-07-28] MEDS: AZITHROMYCIN IV 500 MG in SODIUM CHLORIDE 0.9% IV 250 ML 250 MG IVPB (17:38)
[2021-07-28] MEDS: INSULIN ASPART (*BKC) 100 UNITS/ML SUB-Q (17:39)
--- NOTE | 2021-07-28 18:15 | PCRCNOTE ---
Window of time for administration has passed. See next scheduled administration.
[2021-07-28] MEDS: MAGNESIUM OXIDE 400 MG TABLET PO (20:33)
[2021-07-28] MEDS: ATORVASTATIN 40 MG TABLET PO (20:34)
[2021-07-28 21:11] LABS: Glucose Point of Care 265 mg/dl (65-105)
[2021-07-29] VITALS (17 sets, daily range): BP systolic 90–172; BP diastolic 50–90; PULSE 69–108; RESP 16–24; TEMP 36.6–37.1; O2SAT 90–95
[2021-07-29] MEDS: ALBUTEROL SULFATE NEB 2.5 MG/0.5 ML INH 5 MG INHALATION ×4 (03:38→20:28)
[2021-07-29] MEDS: IPRATROPIUM BR 0.02% INH SOLN 0.5 MG/2.5 ML VIAL INHALATION ×4 (03:38→20:29)
[2021-07-29] MEDS: methylPREDNISolone SOD SUCC 40 MG VIAL 20 MG IV PUSH ×2 (05:53→17:20)
[2021-07-29 06:47] LABS: Glucose Point of Care 100 mg/dl (65-105)
[2021-07-29] MEDS: TAMSULOSIN HCL 0.4 MG CAPSULE PO (08:48)
[2021-07-29] MEDS: buPROPion HCL XL (24 HR) 150 MG TABCR PO (08:49)
[2021-07-29] MEDS: ACIDOPHILUS/BULGARICUS CHEWABLE TABLET 1 TABLET PO (08:49)
[2021-07-29] MEDS: PANTOPRAZOLE 40 MG TABLET PO (08:49)
[2021-07-29] MEDS: DULoxetine HCL 60 MG CAPSULE.DR PO ×2 (08:49→21:19)
[2021-07-29] MEDS: BUMETANIDE INJ 1 MG/4 ML VIAL IV PUSH ×2 (08:49→17:20)
[2021-07-29] MEDS: APIXABAN 5 MG TABLET PO ×2 (08:49→17:21)
[2021-07-29] MEDS: GABAPENTIN 300 MG CAPSULE 600 MG PO ×3 (08:49→17:21)
[2021-07-29] MEDS: amLODIPine BESYLATE 5 MG TABLET 10 MG PO (08:49)
[2021-07-29] MEDS: guaiFENesin 12 HR 600 MG TABCR 1200 MG PO ×2 (08:49→21:19)
[2021-07-29] MEDS: NICOTINE (*PBKC) 21 MG PATCH 1 PATCH TRANSDERM (09:00)
[2021-07-29] MEDS: traMADol HCL (*CRX) 50 MG TABLET PO (09:01)
--- NOTE | 2021-07-29 10:18 | PCOTNOTE ---
Attempted to see Patient at this time. Per PT, Patient became very dizzy during their session and per RN , was told to lay back down. Patient seems very lethargic upon entry of room, slurred speech, drowsy. RN notified and came down, stated he needed to be put back on his BIPPP machine and called respiratory. Patient not seen for OT at this time due to Patient condition.
[2021-07-29 11:44] LABS: Glucose Point of Care 148 mg/dl (65-105)
--- NOTE | 2021-07-29 13:44 | PM.IMPN ---
Progress Note: A&P Assessment and Plan (1) Acute respiratory failure with hypoxia and hypercapnia: Code(s): J96.01 - Acute respiratory failure with hypoxia; J96.02 - Acute respiratory failure with hypercapnia Status: Acute Assessment and Plan: With chest x-ray suggestive of pneumonia versus atelectasis or pulmonary edema. Given acute hypercarbic respiratory secondary to COPD exacerbation. Blood cultures are negative Patient is on BiPAP and ABG is improving. oonly prn now. Patient has been started on empiric antibiotic therapy with Rocephin and azithromycin. Covid is negative Given history of COPD will initiate therapy with Solu-Medrol and scheduled nebulizers. Cut back on steroids as sugars are running high Pt is here for COPD excerbation sugars are running high pt is upset about this otherwise no compliants today. 07/28 patient clinical symptoms are improving and methylprednisone was taper from 40 mg t.i.d. to 20 mg b.i.d., and states is feeling much better not a short of breath as when he arrived, patient has been using BiPAP while in the hospital, and will benefit continue upon discharge, will continue to monitor patient 1 more day and arrange for BiPAP at the skilled nursing and discharge the patient tomorrow, 07/29 today patient had a dizzy spell and weakness in his legs and was not able to stand up was requiring assistance, denies any chest pain or palpitation, states just feels weak his legs, not able to do orthostatic, spoke with the nursing staff will continue to monitor have physical therapy work with the patient once clinically stable will do orthostatic for further evaluate and further recommendation to follow, hopefully patient will receive his BiPAP tonight. continue with methylprednisone at the current dose and monitor. (2) Atrial fibrillation with slow ventricular response: Code(s): I48.91 - Unspecified atrial fibrillation Status: Acute Assessment and Plan: Resume pts toprol as HR is high. (3) Elevated troponin: Code(s): R77.8 - Other specified abnormalities of plasma proteins Status: Acute Assessment and Plan: With flat troponin profile not indicative of acute ischemia. Likely due to acute on chronic CHF and chronic kidney disease. Will check echocardiogram in a.m. (4) Acute kidney injury superimposed on CKD: Code(s): N17.9 - Acute kidney failure, unspecified; N18.9 - Chronic kidney disease, unspecified Status: Acute Assessment and Plan: Possibly due to hypoperfusion with CHF. Will continue Lasix 40 mg IV b.i.d. and monitor strict I&O's. (5) Pyuria: Code(s): R82.81 - Pyuria Status: Acute Assessment and Plan: Pyuria without bacteriuria. Likely sterile pyuria. (6) Type 2 diabetes mellitus treated with insulin: Code(s): E11.9 - Type 2 diabetes mellitus without complications; Z79.4 - long-term (current) use of insulin Status: Acute Assessment and Plan: The patient is hypoglycemic. Will hold home Lantus. Will check Accu-Cheks a.c. HS with moderate sliding scale insulin and hypoglycemia protocol. (7) Systolic congestive heart failure: Code(s): I50.20 - Unspecified systolic (congestive) heart failure Status: Chronic Assessment and Plan: Acute on chronic systolic CHF Cxr shows pulmonary edema legs are swollen continue to diuresis with IV bumex Additional Plan Subjective Date/time seen: 07/29/21 13:44 Interval history: Pt is here for COPD excerbation sugars are running high pt is upset about this otherwise no compliants today. 07/28 patient clinical symptoms are improving and methylprednisone was taper from 40 mg t.i.d. to 20 mg b.i.d., and states is feeling much better not a short of breath as when he arrived, patient has been using BiPAP while in the hospital, and will benefit continue upon discharge, will continue to monitor patient 1 mor
--- NOTE | 2021-07-29 14:40 | PCOTNOTE ---
Attempted to see patient this pm, however patient declined. Pt sleeping upon entering and agreed to attempt to get up. Upon rolling on left side, patient stated, No, I'm comfortable. Maybe later.
[2021-07-29] MEDS: TOLNAFTATE 1% POWDER 45 GM BTL 1 APPLIC TOPICAL ×2 (15:11→21:28)
[2021-07-29 16:19] LABS: Glucose Point of Care 194 mg/dl (65-105)
[2021-07-29] MEDS: cefTRIAXone 1 GM in SODIUM CHLORIDE 0.9% IV 50 ML IVPB (17:17)
[2021-07-29] MEDS: AZITHROMYCIN IV 500 MG in SODIUM CHLORIDE 0.9% IV 250 ML 250 MG IVPB (17:57)
--- NOTE | 2021-07-29 20:25 | PC.NURSE ---
Myrtle Sanchez notified pt BP 90/50 with manual cuff. Pt denies worsening weakness or SOB, denies dizziness. No new orders received.
[2021-07-29] MEDS: INSULIN GLARGINE (*BKC) 100 UNITS/ML 30 UNITS SUB-Q (21:15)
[2021-07-29] MEDS: MAGNESIUM OXIDE 400 MG TABLET PO (21:19)
[2021-07-29] MEDS: ATORVASTATIN 40 MG TABLET PO (21:19)
[2021-07-29 21:26] LABS: Glucose Point of Care 315 mg/dl (65-105)
[2021-07-30] VITALS (13 sets, daily range): BP systolic 113; BP diastolic 72; PULSE 73–89; RESP 17–23; TEMP 36.8; O2SAT 95–100
[2021-07-30] MEDS: ALBUTEROL SULFATE NEB 2.5 MG/0.5 ML INH 5 MG INHALATION ×5 (00:54→15:40)
[2021-07-30] MEDS: IPRATROPIUM BR 0.02% INH SOLN 0.5 MG/2.5 ML VIAL INHALATION ×5 (00:54→15:40)
[2021-07-30] MEDS: methylPREDNISolone SOD SUCC 40 MG VIAL 20 MG IV PUSH (06:42)
[2021-07-30 06:59] LABS: Glucose Point of Care 133 mg/dl (65-105)
[2021-07-30] MEDS: ACIDOPHILUS/BULGARICUS CHEWABLE TABLET 1 TABLET PO (09:45)
[2021-07-30] MEDS: amLODIPine BESYLATE 5 MG TABLET 10 MG PO (09:45)
[2021-07-30] MEDS: guaiFENesin 12 HR 600 MG TABCR 1200 MG PO (09:46)
[2021-07-30] MEDS: buPROPion HCL XL (24 HR) 150 MG TABCR PO (09:46)
[2021-07-30] MEDS: APIXABAN 5 MG TABLET PO ×2 (09:46→16:09)
[2021-07-30] MEDS: DULoxetine HCL 60 MG CAPSULE.DR PO (09:46)
[2021-07-30] MEDS: metOLazone 2.5 MG TABLET PO (09:46)
[2021-07-30] MEDS: BUMETANIDE INJ 1 MG/4 ML VIAL IV PUSH (09:46)
[2021-07-30] MEDS: PANTOPRAZOLE 40 MG TABLET PO (09:47)
[2021-07-30] MEDS: GABAPENTIN 300 MG CAPSULE 600 MG PO ×3 (09:47→16:09)
[2021-07-30] MEDS: TAMSULOSIN HCL 0.4 MG CAPSULE PO (09:47)
[2021-07-30] MEDS: NICOTINE (*PBKC) 21 MG PATCH 1 PATCH TRANSDERM (09:47)
[2021-07-30] MEDS: INSULIN GLARGINE (*BKC) 100 UNITS/ML 30 UNITS SUB-Q (09:48)
[2021-07-30] MEDS: TOLNAFTATE 1% POWDER 45 GM BTL 1 APPLIC TOPICAL (09:48)
[2021-07-30 10:11] LABS: Hemoglobin 10.7 g/dL (14.0-18.0); Mean Corpuscular HGB Conc 29.7 g/dl (32-36); Mean Corpuscular Hemoglobin 25.5 pg (26-34); Mean Corpuscular Volume 85.9 fl (80-100); Mean Platelet Volume 11.3 fl (7.4-10.4); Platelet Count Result 161 k/mm3 (150-375); Red Blood Count 4.19 M/mm3 (4.6-6.20); Red Cell Distribution Width 18.9 % (11.5-14.5)
[2021-07-30 10:42] LABS: Potassium 4.6 mmol/L (3.4-5.0)
[2021-07-30 10:43] LABS: Anion Gap 3 mmol/L (8-16); Blood Urea Nitrogen 93 mg/dL (9-20); Calcium 8.5 mg/dL (8.4-10.2); Carbon Dioxide 39 mmol/L (22-30); Chloride 98 mmol/L (98-107); Estimated CRCL calculation 58 ml/min; Estimated Glomerular Filt Rate 48; Glucose 136 mg/dL (65-110); Magnesium 1.9 mg/dL (1.6-2.3); Sodium 140 mmol/L (137-145)
--- NOTE | 2021-07-30 11:26 | PM.DS ---
DS: Admitting Diagnosis Discharge Date 07/30/2021 Admitting Diagnosis Chief Complaint: Altered mental status DS: Discharge Diagnosis Discharge Diagnosis (1) Acute respiratory failure with hypoxia and hypercapnia: Code(s): J96.01 - Acute respiratory failure with hypoxia; J96.02 - Acute respiratory failure with hypercapnia Status: Acute Assessment and Plan: With chest x-ray suggestive of pneumonia versus atelectasis or pulmonary edema. Given acute hypercarbic respiratory secondary to COPD exacerbation. Blood cultures are negative Patient is on BiPAP and ABG is improving. oonly prn now. Patient has been started on empiric antibiotic therapy with Rocephin and azithromycin. Covid is negative Given history of COPD will initiate therapy with Solu-Medrol and scheduled nebulizers. Cut back on steroids as sugars are running high Pt is here for COPD excerbation sugars are running high pt is upset about this otherwise no compliants today. 07/28 patient clinical symptoms are improving and methylprednisone was taper from 40 mg t.i.d. to 20 mg b.i.d., and states is feeling much better not a short of breath as when he arrived, patient has been using BiPAP while in the hospital, and will benefit continue upon discharge, will continue to monitor patient 1 more day and arrange for BiPAP at the long term and discharge the patient tomorrow, 07/29 today patient had a dizzy spell and weakness in his legs and was not able to stand up was requiring assistance, denies any chest pain or palpitation, states just feels weak his legs, not able to do orthostatic, spoke with the nursing staff will continue to monitor have physical therapy work with the patient once clinically stable will do orthostatic for further evaluate and further recommendation to follow, hopefully patient will receive his BiPAP tonight. continue with methylprednisone at the current dose and monitor. (2) Atrial fibrillation with slow ventricular response: Code(s): I48.91 - Unspecified atrial fibrillation Status: Acute Assessment and Plan: Resume pts toprol as HR is high. (3) Elevated troponin: Code(s): R77.8 - Other specified abnormalities of plasma proteins Status: Acute Assessment and Plan: With flat troponin profile not indicative of acute ischemia. Likely due to acute on chronic CHF and chronic kidney disease. Will check echocardiogram in a.m. (4) Acute kidney injury superimposed on CKD: Code(s): N17.9 - Acute kidney failure, unspecified; N18.9 - Chronic kidney disease, unspecified Status: Acute Assessment and Plan: Possibly due to hypoperfusion with CHF. Will continue Lasix 40 mg IV b.i.d. and monitor strict I&O's. (5) Pyuria: Code(s): R82.81 - Pyuria Status: Acute Assessment and Plan: Pyuria without bacteriuria. Likely sterile pyuria. (6) Type 2 diabetes mellitus treated with insulin: Code(s): E11.9 - Type 2 diabetes mellitus without complications; Z79.4 - intermediate school teacher (current) use of insulin Status: Acute Assessment and Plan: The patient is hypoglycemic. Will hold home Lantus. Will check Accu-Cheks a.c. HS with moderate sliding scale insulin and hypoglycemia protocol. (7) Systolic congestive heart failure: Code(s): I50.20 - Unspecified systolic (congestive) heart failure Status: Chronic Assessment and Plan: Acute on chronic systolic CHF Cxr shows pulmonary edema legs are swollen continue to diuresis with IV bumex DS: Summary Hospital Course Reason for hospitalization: Chief Complaint: Altered mental status Narrative: 61-year-old male with past medical history of CVA, coronary artery disease status post CABG, CHF, atrial fibrillation on chronic anticoagulation, COPD, and insulin-dependent diabetes who presented to the ER via EMS from [facility] due to altered mental status. The patient was lethargic. He
[2021-07-30 11:41] LABS: Glucose Point of Care 173 mg/dl (65-105)
[2021-07-30] MEDS: traMADol HCL (*CRX) 50 MG TABLET PO (13:40)
== END 2021-07-30 16:20 | DRG 291 ==
LOC: ANHED 14:24 → ANHIMU 21:35 → ANH2MED 07-30 11:26 → ANHIMU 07-31 10:52
PROVIDERS: Family Medicine; Internal Medicine; Admitting Provider Family Medicine; Emergency Provider Emergency Medicine; PCP Internal Medicine; Visit Provider Hospitalist
DX: I13.0 Hypertensive heart and chronic kidney disease with heart failure and stage 1 through stage 4 chronic kidney disease, or unspecified chronic kidney disease (principal); J96.01 Acute respiratory failure with hypoxia; J18.9 Pneumonia, unspecified organism; I50.23 Acute on chronic systolic (congestive) heart failure; J96.02 Acute respiratory failure with hypercapnia; E87.2 Acidosis; N17.9 Acute kidney failure, unspecified; J44.0 Chronic obstructive pulmonary disease with (acute) lower respiratory infection; J44.1 Chronic obstructive pulmonary disease with (acute) exacerbation; I48.91 Unspecified atrial fibrillation; Z79.01 Long term (current) use of anticoagulants; N18.30 Chronic kidney disease, stage 3 unspecified; E11.22 Type 2 diabetes mellitus with diabetic chronic kidney disease; I25.10 Atherosclerotic heart disease of native coronary artery without angina pectoris; Z86.73 Personal history of transient ischemic attack (TIA), and cerebral infarction without residual deficits; F32.9 Major depressive disorder, single episode, unspecified; E11.40 Type 2 diabetes mellitus with diabetic neuropathy, unspecified; Z79.4 Long term (current) use of insulin; Z66 Do not resuscitate; F17.210 Nicotine dependence, cigarettes, uncomplicated; Z95.1 Presence of aortocoronary bypass graft; Z20.822 Contact with and (suspected) exposure to COVID-19; E66.9 Obesity, unspecified; Z68.32 Body mass index [BMI] 32.0-32.9, adult; R82.81 Pyuria; R77.8 Other specified abnormalities of plasma proteins; E11.649 Type 2 diabetes mellitus with hypoglycemia without coma
CPT/HCPCS: 36415; 36600; 51702; 70450; 71045; 71250; 74176; 80048; 80053; 80307; 81001; 82375; 82550; 82805; 82948; 83050; 83735; 83880; 84484; 85025; 85027; 85380; 87040; 87086; 93005; 93306; 94002; 94003; 94618; 94640; 97110; 97116; 97161; 97165; 97530; 97535; 99285; A9270; C9803; J0456; J0696; J1815; J1940; J2920; J2930; J7050; U0003; U0005

== ENCOUNTER 2021-07-31 22:51 | Inpatient (IN) | payer MEDICARE, MEDICAID, SELFPAY ==
--- NOTE | ~2021-07-31 | XR_ITS ---
XR chest 1V portable DATE: 08/04/2021 05:38 INDICATION: Congestive heart failure TECHNIQUE: Portable AP chest on 08/04/2021 at 0458 hours COMPARISON: Portable AP chest on 08/03/2021 at 0507 hours FINDINGS: There is cardiomegaly, pulmonary vascular congestion and redistribution, prominence of the minor fissure and pulmonary interstitium including Niharika B-lines. There are interstitial infiltrates , more prominent centrally. The findings are consistent with congestive heart failure and pulmonary e nura, stable or mildly increased since 08/03/2021. Status post sternotomy. Status post anterior lower cervical spine surgical fusion. Diffuse osteopenia. Old healed left fourth and fifth posterolateral rib fractures. Thoracic spinal leads overlie the lower thoracic area. IMPRESSION: Congestive heart failure and pulmonary edema, stable or mildly increased since 08/03/2021 Reviewed, dictated and finalized at location A. IMPRESSION: Congestive heart failure and pulmonary edema, stable or mildly incr eased since 08/03/2021
--- NOTE | ~2021-07-31 | XR_ITS ---
XR chest 1V portable DATE: 08/03/2021 05:43 INDICATION: Shortness of breath TECHNIQUE: Portable AP chest on 07/2021 at 0507 0509 hours COMPARISON: 07/31/2021 portable AP chest FINDINGS: Status post sternotomy. Cardiomegaly. There is pulmonary vascular congestion and redistribution. There are mild predominantly central, righ t upper lobe and particularly lower lung zone infiltrates, left greater than right, improved since . There is diminished prominence of the minor fissure and diminished small right pleural effus ion. Findings suggest improvement of congestive change and pulmonary edema. Pneumonia is not excluded . Neuro stimulator leads overlie the mid thoracic spinal canal. IMPRESSION: Improvement of bilateral pulmonary infiltrates and congestive change since 07/31/2021 Reviewed, dictated and finalized at location A. IMPRESSION: Improvement of bilateral pulmonary infiltrates and congestive lo e since 07/31/2021
--- NOTE | ~2021-07-31 | XR_ITS ---
XR chest 2V DATE: 08/08/2021 09:30 INDICATION: Shortness of breath. TECHNIQUE: Portable AP chest on 08/18/2021 at 0915 hours COMPARISON: 08/07/2021 portable AP chest FINDINGS: There is cardiomegaly, pulmonary vascular congestion and redistribution. There are extensiv e bilateral pulmonary infiltrates which are more prominent centrally and in the lower lung zones, sug gesting pulmonary edema. Pneumonia or aspiration are not excluded. Small pleural effusions are sugges ghassan. Stimulator leads overlie the mid thoracic spine. Status post sternotomy. Status post lower anterior c ervical spine surgical fusion. Diffuse osteopenia. IMPRESSION: Cardiomegaly, pulmonary vascular congestion and redistribution, extensive bilateral pulmo nary infiltrates which are more prominent centrally and in the lower lung zones, suggesting pulmonary edema. Pneumonia is not excluded. Little interval change since 08/07/2021 Reviewed, dictated and finalized at location A. IMPRESSION: Cardiomegaly, pulmonary vascular congestion and redistribution, ext ensive bilateral pulmonary infiltrates which are more prominent centrally and i n the lower lung zones, suggesting pulmonary edema. Pneumonia is not excluded. Little interval change since 08/07/2021
--- NOTE | ~2021-07-31 | XR_ITS ---
EXAMINATION: XR chest 2V EXAM DATE: 08/11/2021 13:55 INDICATION: CHF, volume overload . TECHNIQUE: Frontal and lateral projections of the chest obtained and reviewed. There is no prior gregorio dy for comparison. FINDINGS: The upper most sternotomy wire is fractured, others intact. There is spine stimulator lead s at the midthoracic level. Cervical fusion hardware. There is cardiomegaly, pulmonary vascular congestion probably pulmonary edema, but with interval impr ovement compared to previous examination. Small pleural effusions. No pneumothorax. There are mild [place] degenerative changes. IMPRESSION: CHF exacerbation with interval improvement. Reviewed, dictated and finalized at location A.
--- NOTE | ~2021-07-31 | XR_ITS ---
EXAMINATION: XR chest 1V portable DATE: 08/07/2021 08:33 INDICATION: Shortness of breath. COPD. Congestive heart failure. TECHNIQUE: frontal view of the chest was obtained. COMPARISON: Chest radiograph dated 08/04/2021 FINDINGS: Increased gradient of lower lung predominant hazy airspace opacities throughout the right lung and in the left mid to lower lung zone consistent with small left and small to moderate-sized right posteri or layering pleural effusions. More dense opacities at the bilateral lower lung zones, right greater than left could represent superimposed atelectasis and/or pneumonia. No pneumothorax. Cardiomegaly wi th pulmonary vascular congestion. Median sternotomy wires and mediastinal surgical clips are seen, marcus martínez from prior coronary artery bypass grafting. Lower cervical anterior spinal fusion with anterior plate and screw fixation. Spinal stimulator leads project over the central canal of the mid to lower thoracic spine. A few additional surgical clips the right neck. IMPRESSION: 1. Increasing small left and [id number] right pleural effusions with associated basilar atelec tasis and/or pneumonia. 2. Cardiomegaly with pulmonary vascular congestion. Reviewed, dictated and finalized at location D. IMPRESSION: 1. Increasing small left and [id number] right pleural effusions with ass ociated basilar atelectasis and/or pneumonia. 2. Cardiomegaly with pulmonary vascular congestion.
--- NOTE | ~2021-07-31 | XR_ITS ---
EXAMINATION: XR chest 1V portable INDICATION: Transient alteration of awareness TECHNIQUE: Portable AP chest at 2321 hours COMPARISON: 07/28/2021 FINDINGS: Cardiomegaly is noted. There are diffuse interstitial and airspace opacities. A small right pleural effusion is present. There is no pneumothorax. Median sternotomy wires and mediastinal surgi armond clips are seen, likely from prior coronary artery bypass grafting. Healed left-sided rib fracture s are noted. IMPRESSION: 1. Cardiomegaly. 2. Diffuse lung disease which could reflect pneumonia and/or pulmonary edema. Reviewed, dictated and finalized at location A.
[2021-07-31 22:52] VITALS: BP 140/80; PULSE 64; RESP 24; TEMP 36.7; O2SAT 95
--- NOTE | 2021-07-31 23:01 | PC.NURSE ---
ERP in room.
--- NOTE | 2021-07-31 23:13 | ECG_ITS ---
Measurements Intervals [place] Rate: 63 P: [place]: 0 QRS: 46 QRSD: 145 T: 107 QT: 429 QTc: 440 Interpretive Statements ATRIAL FLUTTER/TACHYCARDIA LEFT BUNDLE BRANCH BLOCK BASELINE WANDER- V4-V6 ABNORMAL ECG Electronically Signed On 08-01-2021 8:34:30 CDT by Cecilio Soto D.O.
[2021-07-31 23:16] LABS: Glucose Point of Care 68 mg/dl (65-105)
[2021-07-31 23:20] LABS: Glucose Point of Care 96 mg/dl (65-105)
[2021-07-31 23:34] LABS: Basophils Percent Auto 0.1 % (0.2-1.2); Eosinophils Absolute Auto 0.3 K/mm3 (0-0.3); Eosinophils Percent Auto 2.3 % (0-4.4); Hematocrit 36.9 % (42.0-52.0); Hemoglobin 10.8 g/dL (14.0-18.0); Immature Granulocyte Absolute 0.05 K/mm3 (0.00-0.031); Immature Granulocyte Percent A 0.4 % (0-0.5); Lymphocytes Absolute Auto 0.83 K/mm3 (0.9-3.2); Mean Corpuscular HGB Conc 29.3 g/dl (32-36); Mean Corpuscular Volume 88.9 fl (80-100); Monocytes Absolute Auto 0.8 K/mm3 (0.1-0.6); Neutrophils Absolute Auto 11.8 K/mm3 (1.3-6.7); Neutrophils Percent Auto 85.2 % (45.5-73.1); Platelet Count Result 166 k/mm3 (150-375); Red Blood Count 4.15 M/mm3 (4.6-6.20); Red Cell Distribution Width 18.6 % (11.5-14.5); White Blood Count 13.8 K/mm3 (4.5-10.0)
[2021-07-31 23:47] LABS: Alanine Aminotransferase 85 U/L (4-50); Albumin Level 3.4 g/dL (3.5-5.1); Alkaline Phosphatase 170 U/L (38-126); Aspartate Amino Transferase 44 U/L (17-59); Bilirubin,Total 0.7 mg/dL (0.2-1.3); Blood Urea Nitrogen 91 mg/dL (9-20); Calcium 8.7 mg/dL (8.4-10.2); Carbon Dioxide > 40 mmol/L (22-30); Chloride 97 mmol/L (98-107); Estimated Glomerular Filt Rate 41; Glucose 74 mg/dL (65-110); Potassium 4.6 mmol/L (3.4-5.0); Sodium 143 mmol/L (137-145)
[2021-07-31 23:48] LABS: INR 1.4; Prothrombin Time 16.7 Seconds (11.1-14.7)
[2021-07-31 23:49] LABS: Partial Thromboplastin Time 27.4 SECONDS (22.3-36.8)
[2021-07-31 23:49] LABS: Alveolar/Arterial O2 Gradient 570.4 mmHg; Base Excess ABG 11.9 mEq/l (+/-2.0); Fractional Inspired Oxygen 100 %; HCO3 ABG 41.2 mEq/l (22.0-26.0); Oxygen Content ABG 14.3 %vol (16.0-22.0); Oxygen Saturation ABG 87.1 % (95.0-100.0); Oxyhemoglobin 85.4 % THb (90.0-100.0); PO2 ABG 59.6 mmHg (80.0-100.0); Total Hemoglobin 11.9 g/dL (12.0-18.0); pH ABG 7.314 (7.350-7.450)
[2021-07-31 23:50] LABS: Device NON-REBREATHER MASK; Modified Allen's Test Pass; Site Drawn RIGHT RADIAL
[2021-08-01] VITALS (32 sets, daily range): BP systolic 126–188; BP diastolic 65–96; PULSE 62–90; RESP 16–27; TEMP 35.6–36.4; O2SAT 82–100; BMI 32.3
--- NOTE | 2021-08-01 00:01 | ED.AMS ---
HPI - Altered Mental Status General Chief Complaint: Altered Mental Status Stated Complaint: decreased LOC Time Seen by Provider: 07/31/21 22:58 History of Present Illness HPI narrative: Patient is a 61-year-old male who presents ER from his custodial with decreased mental status. According to the custodial patient has been wearing his CPAP. His notices mental status decline today and he has been having fever. He is recently admitted to the hospital here for COPD and hypercapnic respiratory failure. Patient occasionally awakens to verbal stimuli and becomes very angry with noxious stimuli. He is not particularly cooperative with any questions that are asked of him. Related Data Home Medications Medication Instructions Recorded Confirmed Eliquis 5 mg PO BID 07/21/21 08/01/21 Lactobacillus acidophilus 1 cap PO DAILY 07/21/21 08/01/21 [Acidophilus] Lantus U-100 Insulin 10 unit SUBCUT HS 07/21/21 08/01/21 acetaminophen 650 mg PO Q4H PRN 07/21/21 08/01/21 amlodipine 10 mg PO DAILY 07/21/21 08/01/21 atorvastatin 40 mg PO HS 07/21/21 08/01/21 bupropion HCl 150 mg PO DAILY 07/21/21 08/01/21 cyclobenzaprine 10 mg PO HS PRN 07/21/21 08/01/21 docusate sodium 100 mg PO BID PRN 07/21/21 08/01/21 duloxetine 60 mg PO BID 07/21/21 08/01/21 furosemide 60 mg PO DAILY 07/21/21 08/01/21 gabapentin 600 mg PO TID 07/21/21 08/01/21 ipratropium bromide 2.5 ml INHALATION Q6H PRN 07/21/21 08/01/21 magnesium oxide 400 mg PO DAILY 07/21/21 08/01/21 metolazone 2.5 mg PO 2XW 07/21/21 08/01/21 metoprolol succinate 150 mg PO DAILY 07/21/21 08/01/21 nicotine 1 patch TRANSDERMAL DAILY 07/21/21 08/01/21 pantoprazole 40 mg PO QAM 07/21/21 08/01/21 tamsulosin 0.4 mg PO DAILY 07/21/21 08/01/21 insulin aspart U-100 [Novolog See Rx Instructions .ROUTE .COMPLEX 08/01/21 08/01/21 U-100 Insulin aspart] Allergies Allergy/AdvReac Type Severity Reaction Status Date / Time codeine AdvReac Intermediate NAUSAE/VOMI Verified 07/21/21 14:24 TING Review of Systems Review of Systems: ROS unobtainable: Yes unobtainable due to mental status PMFSH Past Medical History Medical History (Updated 08/01/21 @ 07:03 by Rohan Rayo MD) Atrial fibrillation CHF (congestive heart failure) Chronic anticoagulation Chronic kidney disease, stage 3 COPD (chronic obstructive pulmonary disease) Coronary artery disease CVA (cerebral vascular accident) Depression Diabetic neuropathy Essential hypertension Sciatica Type 2 diabetes mellitus treated with insulin Surgical History Surgical History (Updated 07/21/21 @ 20:14 by Yohana Coreas DO) Hx of CABG Family History Family History Other Unknown family medical history Social History Social History (Updated 07/21/21 @ 22:18 by Yohana Coreas DO) Social History: Code status: DNR/DNI Smoking packs per day: 3 Smoking cigarettes per day: 60.0 Years smoked: 47 Smoking pack-years: 141.00 Smoking status: Former smoker Tobacco type: cigarettes Spiritual care concerns: No Exam Narrative: GENERAL: Ill-appearing, well-nourished, and in mild distress. HEAD: Normocephalic, atraumatic. EYES: PERRL and EOMI. ENT: Mucous membranes moist. CHEST: Rales noted bilaterally with coarse cough. No respiratory distress. HEART: Regular rate and rhythm. Normal peripheral pulses. ABDOMEN: Soft, nontender, nondistended. EXTREMITIES: Normal range of motion. No edema. SKIN: Warm, dry, no rash. NEURO: Awakens to noxious stimuli and has clear speech. He is not oriented. Course Course Emergency Course: Admit to hospitalist for hypercapnic respiratory failure and CHF exacerbation. Patient also will be covered for pneumonia given fever and elevated white blood cell count with abnormal chest x-ray. Will swab for Covid. Vital Signs Vital signs: Vital Signs Temperature 98.0 F 07/31/21 22:52 Pulse Rate 64 07/31/21 22
[2021-08-01 00:14] LABS: Anisocytosis 1+ (NORMAL); Hypochromasia 2+ (NORMAL); Platelet Estimate Adequate (Adequate)
--- NOTE | 2021-08-01 00:33 | PM.IMHP ---
H&P: HPI History of Present Illness Date/Time: 08/01/21 00:33 Chief Complaint: Altered mental status Narrative: This is a 61-year-old male with past medical history significant for chronic hypercarbic respiratory failure, coronary artery disease, COPD/emphysema, he is a [facility], type 2 diabetes mellitus, benign prostatic hyperplasia, chronic pain, gastroesophageal reflux disease. Patient was just recently [facility] he was treated for COPD exacerbation and pneumonia. Patient was brought in today due to staff concerns for patient declining mental status. Most of the history has been obtained [facility] on reviewing medical record and emergency room as well at the time of my visit patient was obtunded and on BiPAP minimally responsive to painful stimuli. Preliminary workup was significant for a blood gas with a pH of 7.3, a pCO2 of 83 and a PO2 59. A chest x-ray was significant for diffuse lung infiltrates. Review of Systems Review of Systems: ROS unobtainable: Yes unobtainable due to mental status (Obtundation) [facility] Past Medical History Medical History (Updated 08/01/21 @ 02:01 by Denis Dumont MD) Atrial fibrillation CHF (congestive heart failure) Chronic anticoagulation Chronic kidney disease, stage 3 COPD (chronic obstructive pulmonary disease) Coronary artery disease CVA (cerebral vascular accident) Depression Diabetic neuropathy Essential hypertension Sciatica Type 2 diabetes mellitus treated with insulin Surgical History Surgical History (Updated 07/21/21 @ 20:14 by Yohana Coreas DO) Hx of CABG Family History Family History (Updated 07/21/21 @ 18:58 by Jein Marion RN) Other Unknown family medical history Social History Social History (Updated 07/21/21 @ 22:18 by Yohana Coreas DO) Social History: Code status: DNR/DNI Smoking packs per day: 3 Smoking cigarettes per day: 60.0 Years smoked: 47 Smoking pack-years: 141.00 Smoking status: Current every day smoker Tobacco type: cigarettes Spiritual care concerns: No Meds Home Medications and Allergies Home Medications Medication Instructions Recorded Confirmed Type Eliquis 5 mg PO BID 07/21/21 07/21/21 History Lactobacillus acidophilus 1 cap PO DAILY 07/21/21 07/21/21 History [Acidophilus] Lantus U-100 Insulin 10 unit SUBCUT DAILY 07/21/21 07/21/21 History Lantus U-100 Insulin 20 unit SUBCUT HS 07/21/21 07/21/21 History Novolog PenFill U-100 Insulin See Rx Instructions .ROUTE .COMPLEX 07/21/21 07/21/21 History acetaminophen 650 mg PO Q4H PRN 07/21/21 07/21/21 History amlodipine 10 mg PO DAILY 07/21/21 07/21/21 History atorvastatin 40 mg PO HS 07/21/21 07/21/21 History bupropion HCl 150 mg PO DAILY 07/21/21 07/21/21 History cyclobenzaprine 10 mg PO HS PRN 07/21/21 07/21/21 History docusate sodium 100 mg PO BID PRN 07/21/21 07/21/21 History duloxetine 60 mg PO BID 07/21/21 07/21/21 History furosemide 60 mg PO DAILY 07/21/21 07/21/21 History gabapentin 600 mg PO TID 07/21/21 07/21/21 History ipratropium bromide 2.5 ml INHALATION Q6H PRN 07/21/21 07/21/21 History magnesium oxide 400 mg PO DAILY 07/21/21 07/21/21 History metolazone 2.5 mg PO 2XW 07/21/21 07/21/21 History metoprolol succinate 150 mg PO DAILY 07/21/21 07/21/21 History nicotine 1 patch TRANSDERMAL DAILY 07/21/21 07/21/21 History pantoprazole 40 mg PO QAM 07/21/21 07/21/21 History tamsulosin 0.4 mg PO DAILY 07/21/21 07/21/21 History tramadol 50 mg PO Q6H PRN 07/21/21 07/21/21 History doxycycline hyclate 100 mg PO BID #14 cap 07/30/21 Rx tramadol 50 mg PO Q6H PRN #12 tablet 07/30/21 Rx Allergies Allergy/AdvReac Type Severity Reaction Status Date / Time codeine AdvReac Intermediate NAUSAE/VOMI Verified 07/21/21 14:24 TING Vital Signs Vital Signs - 24 hr 07/31/21 22:52 08/01/21 00:02 08/01/21 00:03 Temperature 98.0 F Pulse Rate 64 69 Respiratory Rate 24 H 22 H Blood Pressure
[2021-08-01 00:38] LABS: NT Pro B Type Natriuretic Pept 11300 pg/mL (5-100)
[2021-08-01] MEDS: methylPREDNISolone SOD SUCC 125 MG VIAL IV PUSH (00:46)
[2021-08-01] MEDS: FUROSEMIDE INJ 40 MG/4 ML VIAL IV PUSH ×2 (01:06→16:55)
[2021-08-01 02:16] LABS: Glucose Point of Care 203 mg/dl (65-105)
--- NOTE | 2021-08-01 02:31 | PC.NURSE ---
Called ED Resp due to 83% on BIPAP, gave instructions to increase IPAP to 20 and EPAP to 10.
--- NOTE | 2021-08-01 03:45 | PC.NURSE ---
Spoke to pts family member - daughter, on telephone and gave update on pt status.
--- NOTE | 2021-08-01 04:50 | SUR.HOLD ---
attempted to admit pt as IMU pt while boarded in ER. Patient refuses to wake up and answer questions. At one point when asked if he was going to pretend to sleep he nodded head yes. Leaving patient in care of ER Nurse.
--- NOTE | 2021-08-01 06:15 | ADMGEN ---
This patient, Ector Oconnor, was admitted to Intensive Care Unit-1. Patient/family oriented to hospital policies and general routines including ID bracelet, bed and alarms, visiting hours, pain management, procedures, bathroom and other care routines, personal items, smoking policy, room service/diet, and visiting hours. Information on how to activate the Rapid Response Team has been discussed. Patient/Family are encouraged to report perceived risks to care and to ask questions if they do not understand what they are told or what they should do.
[2021-08-01 09:22] LABS: Glucose Point of Care 107 mg/dl (65-105)
[2021-08-01 11:11] LABS: Alveolar/Arterial O2 Gradient 282.3 mmHg; Base Excess ABG 10.5 mEq/l (+/-2.0); Fractional Inspired Oxygen 60 %; HCO3 ABG 38.2 mEq/l (22.0-26.0); Oxygen Content ABG 16.2 %vol (16.0-22.0); Oxygen Saturation ABG 93.6 % (95.0-100.0); Oxyhemoglobin 91.7 % THb (90.0-100.0); PCO2 ABG 66.8 mmHg (35.0-45.0); Total Hemoglobin 12.5 g/dL (12.0-18.0); pH ABG 7.375 (7.350-7.450)
[2021-08-01 11:12] LABS: Device BIPAP; Modified Allen's Test Pass; Site Drawn LEFT BRACHIAL
[2021-08-01 11:13] LABS: Expiratory Pressure 10 cmH2O; Inspiratory Pressure 20 cmH2O
[2021-08-01] MEDS: methylPREDNISolone SOD SUCC 125 MG VIAL 60 MG IV PUSH ×2 (13:14→22:42)
[2021-08-01 13:21] LABS: Glucose Point of Care 162 mg/dl (65-105)
--- NOTE | 2021-08-01 13:40 | PM.IMPN ---
Progress Note: A&P Assessment and Plan (1) Acute respiratory failure with hypoxia and hypercapnia: Code(s): J96.01 - Acute respiratory failure with hypoxia; J96.02 - Acute respiratory failure with hypercapnia Status: Acute Assessment and Plan: Patient is currently on BiPAP. Follow-up blood gas shows improvement with pCO2 trending down. PH has improved as well. Continue on BiPAP overnight and will try to wean him off BiPAP to nasal cannula oxygen in the a.m.. He will continue to be NPO while he is on BiPAP. Blood gas has been ordered for tomorrow morning. (2) Altered mental status: Qualifiers: Altered mental status type: unspecified Qualified Code(s): R41.82 - Altered mental status, unspecified Code(s): R41.82 - Altered mental status, unspecified Status: Acute Assessment and Plan: Likely secondary to hypercarbic respiratory failure. Mental status improved with improvement in his acute hypercarbic respiratory failure. Supportive care (3) Multilobar lung infiltrate: Code(s): R91.8 - Other nonspecific abnormal finding of lung field Status: Acute Assessment and Plan: Currently on cefepime/vancomycin and azithromycin. Low likelihood for infectious etiology. Deescalate antibiotics based on further clinical data. Check procalcitonin level. Follow cultures. Follow WBC count and fever curve. Repeat chest x-ray in 1-2 days after aggressive diuresis and if improvement in his bilateral infiltrate then can stop antibiotics. Check Legionella and strep antigen in urine. COVID-19 test is pending. Continue precaution until he is ruled out. (4) Coronary artery disease: Code(s): I25.10 - Atherosclerotic heart disease of [place] coronary artery without angina pectoris Status: Inactive Assessment and Plan: Continue to monitor. Continue home meds with Lipitor, metoprolol, amlodipine. (5) Atrial fibrillation: Code(s): I48.91 - Unspecified atrial fibrillation Status: Inactive Assessment and Plan: Rate control with metoprolol. Continue Eliquis. (6) Chronic kidney disease, stage 3: Code(s): N18.30 - Chronic kidney disease, stage 3 unspecified Status: Acute Assessment and Plan: Continue to monitor BUN and creatinine Continue to monitor intake output record. (7) Essential hypertension: Code(s): I10 - Essential (primary) hypertension Status: Acute Assessment and Plan: Stable Continue home meds (8) Systolic congestive heart failure: Code(s): I50.20 - Unspecified systolic (congestive) heart failure Status: Chronic Assessment and Plan: Continue Lasix at current dose. Daily intake and output Continue to monitor renal parameters and electrolytes. (9) Type 2 diabetes mellitus treated with insulin: Code(s): E11.9 - Type 2 diabetes mellitus without complications; Z79.4 - terminal operations supervisor (current) use of insulin Status: Acute Assessment and Plan: Continue home meds with Lantus. Accu-Cheks AC and HS (10) Diabetic neuropathy: Code(s): E11.40 - Type 2 diabetes mellitus with diabetic neuropathy, unspecified Status: Inactive Assessment and Plan: Continue gabapentin (11) CVA (cerebral vascular accident): Code(s): I63.9 - Cerebral infarction, unspecified Status: Inactive Assessment and Plan: Continue to monitor Continue Eliquis and metoprolol. Subjective Date/time seen: 08/01/21 13:40 He was on BiPAP. He was not in any distress. He was awake and alert. He feels that his symptom of shortness of breath has been improving. Follow-up ABG showed improvement in his pCO2 and pH P His COVID-19 test is pending. Review of Systems Review of Systems: All systems reviewed & are unremarkable except as noted in HPI and below Exam Narrative: General awake and alert not in acute distress, was on BiPAP Eye
[2021-08-01 17:09] LABS: Glucose Point of Care 120 mg/dl (65-105)
[2021-08-01 19:34] LABS: SARS-CoV-2 RNA PCR Negative
[2021-08-01] MEDS: APIXABAN 5 MG TABLET PO (20:06)
[2021-08-01 22:49] LABS: Glucose Point of Care 134 mg/dl (65-105)
[2021-08-02] VITALS (21 sets, daily range): BP systolic 140–164; BP diastolic 57–72; PULSE 67–91; RESP 8–31; TEMP 36.1–36.4; O2SAT 91–97
[2021-08-02] MEDS: methylPREDNISolone SOD SUCC 125 MG VIAL 60 MG IV PUSH ×3 (05:07→22:02)
[2021-08-02 05:42] LABS: Alveolar/Arterial O2 Gradient 146.4 mmHg; Base Excess ABG 9.2 mEq/l (+/-2.0); Carboxyhemoglobin 0.1 % THb (0-2.0); Fractional Inspired Oxygen 40 %; HCO3 ABG 34.4 mEq/l (22.0-26.0); Methemoglobin ABG 0.3 %THb (0-1.5); Oxygen Content ABG 15.1 %vol (16.0-22.0); Oxygen Saturation ABG 96.3 % (95.0-100.0); Oxyhemoglobin 94.5 % THb (90.0-100.0); PCO2 ABG 50.2 mmHg (35.0-45.0); PO2 ABG 81.1 mmHg (80.0-100.0); PO2 FiO2 Ratio Arterial Blood 2.03 %; Reduced Hemoglobin 5.1 %THb (0-5.0); Total Hemoglobin 11.3 g/dL (12.0-18.0); pH ABG 7.454 (7.350-7.450)
[2021-08-02 05:43] LABS: Device NON-INVASIVE VENT; Modified Allen's Test Pass; Non-Invasive Expiratory Pressure 10 CMH2O; Non-Invasive Inspiratory Pressure 20 CMH2O; Non-Invasive Vent Rate 20 /MIN; Site Drawn RIGHT RADIAL
[2021-08-02 05:54] LABS: Hematocrit 35.9 % (42.0-52.0); Hemoglobin 10.6 g/dL (14.0-18.0); Immature Granulocyte Absolute 0.02 K/mm3 (0.00-0.031); Immature Granulocyte Percent A 0.3 % (0-0.5); Immature Platelet Fraction Pct 7.5 % (0.9-11.2); Lymphocytes Absolute Auto 0.35 K/mm3 (0.9-3.2); Lymphocytes Percent Auto 4.9 % (18.3-44.2); Mean Corpuscular HGB Conc 29.5 g/dl (32-36); Mean Corpuscular Hemoglobin 24.8 pg (26-34); Mean Corpuscular Volume 84.1 fl (80-100); Mean Platelet Volume 11.9 fl (7.4-10.4); Monocytes Absolute Auto 0.2 K/mm3 (0.1-0.6); Monocytes Percent Auto 2.1 % (2.6-8.5); Neutrophils Absolute Auto 6.6 K/mm3 (1.3-6.7); Neutrophils Percent Auto 92.7 % (45.5-73.1); Platelet Count Result 148 k/mm3 (150-375); Red Blood Count 4.27 M/mm3 (4.6-6.20); Red Cell Distribution Width 17.9 % (11.5-14.5); White Blood Count 7.1 K/mm3 (4.5-10.0)
[2021-08-02 06:08] LABS: Blood Urea Nitrogen 94 mg/dL (9-20); Calcium 8.3 mg/dL (8.4-10.2); Carbon Dioxide > 40 mmol/L (22-30); Chloride 96 mmol/L (98-107); Estimated CRCL calculation 59 ml/min; Estimated Glomerular Filt Rate 48; Glucose 213 mg/dL (65-110); Magnesium 1.6 mg/dL (1.6-2.3); Sodium 141 mmol/L (137-145)
[2021-08-02 07:37] LABS: Anisocytosis 1+ (NORMAL); Hypochromasia 1+ (NORMAL); Ovalocytes 1+ (NORMAL); Platelet Estimate Adequate (Adequate); Poikilocytosis 1+ (NORMAL)
[2021-08-02] MEDS: INSULIN ASPART (*BKC) 100 UNITS/ML SUB-Q ×5 (08:47→16:40)
[2021-08-02] MEDS: METOPROLOL SUCCINATE EXT REL 50 MG TABCR 150 MG PO (08:48)
[2021-08-02] MEDS: APIXABAN 5 MG TABLET PO ×2 (08:49→20:13)
[2021-08-02] MEDS: FUROSEMIDE INJ 40 MG/4 ML VIAL IV PUSH ×2 (08:49→16:38)
[2021-08-02 09:02] LABS: Glucose Point of Care 217 mg/dl (65-105)
[2021-08-02] MEDS: PANTOPRAZOLE 40 MG TABLET PO (09:55)
[2021-08-02] MEDS: NICOTINE (*PBKC) 21 MG PATCH 1 PATCH TRANSDERM (09:55)
[2021-08-02] MEDS: TAMSULOSIN HCL 0.4 MG CAPSULE PO (09:55)
[2021-08-02] MEDS: DULoxetine HCL 60 MG CAPSULE.DR PO ×2 (09:56→16:38)
[2021-08-02] MEDS: amLODIPine BESYLATE 5 MG TABLET 10 MG PO (09:56)
[2021-08-02] MEDS: GABAPENTIN 300 MG CAPSULE 600 MG PO ×3 (09:56→16:38)
[2021-08-02] MEDS: buPROPion HCL XL (24 HR) 150 MG TABCR PO (09:56)
[2021-08-02] MEDS: MAGNESIUM OXIDE 400 MG TABLET PO (09:56)
[2021-08-02] MEDS: MAGNESIUM SULF 2 GM/WATER 50ML 2 GM/50 ML BAG IVPB (09:58)
[2021-08-02 10:46] LABS: Hemoglobin A1C 7.7 % (<5.7)
[2021-08-02 12:18] LABS: Glucose Point of Care 256 mg/dl (65-105)
--- NOTE | 2021-08-02 13:29 | PM.IMPN ---
Progress Note: A&P Assessment and Plan (1) Acute respiratory failure with hypoxia and hypercapnia: Code(s): J96.01 - Acute respiratory failure with hypoxia; J96.02 - Acute respiratory failure with hypercapnia Status: Acute Assessment and Plan: He was taken off BiPAP today in the morning and seems to be tolerating nasal cannula with 5 L of oxygen. Wean oxygen if tolerated. Continue on BiPAP overnight and on p.r.n. basis if there is increased work of breathing or mental status change. (2) Altered mental status: Qualifiers: Altered mental status type: unspecified Qualified Code(s): R41.82 - Altered mental status, unspecified Code(s): R41.82 - Altered mental status, unspecified Status: Acute Assessment and Plan: Likely secondary to hypercarbic respiratory failure. Mental status improved with improvement in his acute hypercarbic respiratory failure. Supportive care (3) Multilobar lung infiltrate: Code(s): R91.8 - Other nonspecific abnormal finding of lung field Status: Acute Assessment and Plan: Currently on cefepime/vancomycin and azithromycin. Low likelihood for infectious etiology. Deescalate antibiotics based on further clinical data. DC vancomycin if MRSA screen is negative. Procalcitonin level is pending. Follow cultures. Follow WBC count and fever curve. Repeat chest x-ray in a.m.. If bilateral infiltrate improves then can discontinue antibiotics. Follow Legionella and strep antigen in urine. Can discontinue azithromycin if Legionella antigen in urine comes back negative. COVID-19 test came back negative. Precautions have been discontinued. (4) Coronary artery disease: Code(s): I25.10 - Atherosclerotic heart disease of [place] coronary artery without angina pectoris Status: Inactive Assessment and Plan: Continue to monitor. Continue home meds with Lipitor, metoprolol, amlodipine. (5) Atrial fibrillation: Code(s): I48.91 - Unspecified atrial fibrillation Status: Inactive Assessment and Plan: Rate control with metoprolol. Continue Eliquis. (6) Chronic kidney disease, stage 3: Code(s): N18.30 - Chronic kidney disease, stage 3 unspecified Status: Acute Assessment and Plan: Continue to monitor BUN and creatinine Continue to monitor intake output record. His bicarb is still elevated after correction of his acute hypercarbic respiratory failure. Will give him 4 doses of acetazolamide is he still require IV diuresis with Lasix. Consider Nephrology consult if worsening renal parameters with diureses. (7) Essential hypertension: Code(s): I10 - Essential (primary) hypertension Status: Acute Assessment and Plan: Stable Continue home meds (8) Systolic congestive heart failure: Code(s): I50.20 - Unspecified systolic (congestive) heart failure Status: Chronic Assessment and Plan: Continue Lasix at current dose. His symptoms improved significantly with aggressive diuresis. Daily intake and output Continue to monitor renal parameters and electrolytes. (9) Type 2 diabetes mellitus treated with insulin: Code(s): E11.9 - Type 2 diabetes mellitus without complications; Z79.4 - correction (current) use of insulin Status: Acute Assessment and Plan: Continue home meds with Lantus. Accu-Cheks AC and HS (10) Diabetic neuropathy: Code(s): E11.40 - Type 2 diabetes mellitus with diabetic neuropathy, unspecified Status: Inactive Assessment and Plan: Continue gabapentin (11) CVA (cerebral vascular accident): Code(s): I63.9 - Cerebral infarction, unspecified Status: Inactive Assessment and Plan: Continue to monitor Continue Eliquis and metoprolol. Additional Plan He can be transferred out of ICU to IMU. Subjective Date/time seen: 08/02/21 13:29 He was taken off BiPAP today in th
[2021-08-02 17:34] LABS: Glucose Point of Care 262 mg/dl (65-105)
[2021-08-02] MEDS: ATORVASTATIN 40 MG TABLET PO (20:13)
[2021-08-02] MEDS: INSULIN GLARGINE (*BKC) 100 UNITS/ML 10 UNITS SUB-Q (20:18)
[2021-08-02] MEDS: acetaZOLAMIDE SODIUM FOR INJ 500 MG VIAL 250 MG IV PUSH (20:28)
[2021-08-03] VITALS (19 sets, daily range): BP systolic 124–152; BP diastolic 60–76; PULSE 70–89; RESP 11–26; TEMP 36.4–36.8; O2SAT 90–98
--- NOTE | 2021-08-03 00:16 | PC.NURSE ---
Patient wishes not to wear bipap at this time
--- NOTE | 2021-08-03 00:40 | PC.NURSE ---
Patient placed on bipap. 20/10 40%.
[2021-08-03 04:20] LABS: Basophils Percent Auto 0.1 % (0.2-1.2); Hematocrit 34.1 % (42.0-52.0); Hemoglobin 10.2 g/dL (14.0-18.0); Immature Granulocyte Absolute 0.04 K/mm3 (0.00-0.031); Immature Granulocyte Percent A 0.4 % (0-0.5); Lymphocytes Absolute Auto 0.36 K/mm3 (0.9-3.2); Lymphocytes Percent Auto 3.7 % (18.3-44.2); Mean Corpuscular HGB Conc 29.9 g/dl (32-36); Mean Corpuscular Hemoglobin 25.2 pg (26-34); Mean Corpuscular Volume 84.2 fl (80-100); Mean Platelet Volume 11.3 fl (7.4-10.4); Monocytes Absolute Auto 0.1 K/mm3 (0.1-0.6); Monocytes Percent Auto 1.4 % (2.6-8.5); Neutrophils Absolute Auto 9.3 K/mm3 (1.3-6.7); Neutrophils Percent Auto 94.4 % (45.5-73.1); Platelet Count Result 146 k/mm3 (150-375); Red Blood Count 4.05 M/mm3 (4.6-6.20); Red Cell Distribution Width 17.6 % (11.5-14.5); White Blood Count 9.8 K/mm3 (4.5-10.0)
[2021-08-03] MEDS: methylPREDNISolone SOD SUCC 125 MG VIAL 60 MG IV PUSH (04:37)
[2021-08-03 04:40] LABS: Blood Urea Nitrogen 88 mg/dL (9-20); Carbon Dioxide > 40 mmol/L (22-30); Chloride 93 mmol/L (98-107); Estimated CRCL calculation 52 ml/min; Estimated Glomerular Filt Rate 41; Glucose 346 mg/dL (65-110); Magnesium 1.9 mg/dL (1.6-2.3); Potassium 3.8 mmol/L (3.4-5.0); Sodium 137 mmol/L (137-145)
[2021-08-03 04:51] LABS: Anisocytosis 1+ (NORMAL); Hypochromasia 1+ (NORMAL)
[2021-08-03 04:52] LABS: Ovalocytes 1+ (NORMAL)
[2021-08-03] MEDS: INSULIN ASPART (*BKC) 100 UNITS/ML SUB-Q ×7 (05:51→17:56)
[2021-08-03 09:14] LABS: Glucose Point of Care 296 mg/dl (65-105)
[2021-08-03] MEDS: acetaZOLAMIDE SODIUM FOR INJ 500 MG VIAL 250 MG IV PUSH ×2 (09:19→20:17)
[2021-08-03] MEDS: APIXABAN 5 MG TABLET PO ×2 (09:19→20:17)
[2021-08-03] MEDS: amLODIPine BESYLATE 5 MG TABLET 10 MG PO (09:19)
[2021-08-03] MEDS: buPROPion HCL XL (24 HR) 150 MG TABCR PO (09:20)
[2021-08-03] MEDS: FUROSEMIDE INJ 40 MG/4 ML VIAL IV PUSH ×2 (09:20→16:49)
[2021-08-03] MEDS: DULoxetine HCL 60 MG CAPSULE.DR PO ×2 (09:20→16:49)
[2021-08-03] MEDS: GABAPENTIN 300 MG CAPSULE 600 MG PO ×3 (09:21→16:49)
[2021-08-03] MEDS: METOPROLOL SUCCINATE EXT REL 50 MG TABCR 150 MG PO (09:21)
[2021-08-03] MEDS: PANTOPRAZOLE 40 MG TABLET PO (09:21)
[2021-08-03] MEDS: EUCERIN CREAM 120 GM JAR 1 APPLIC TOPICAL (09:21)
[2021-08-03] MEDS: NICOTINE (*PBKC) 21 MG PATCH 1 PATCH TRANSDERM (09:21)
[2021-08-03] MEDS: MAGNESIUM OXIDE 400 MG TABLET PO (09:21)
[2021-08-03] MEDS: INSULIN GLARGINE (*BKC) 100 UNITS/ML SUB-Q (09:22)
[2021-08-03] MEDS: TAMSULOSIN HCL 0.4 MG CAPSULE PO (09:22)
--- NOTE | 2021-08-03 11:58 | PM.CNPUL ---
Assessment and Plan Assessment and plan (1) Acute exacerbation of CHF (congestive heart failure): Qualifiers: Heart failure type: unspecified Qualified Code(s): I50.9 - Heart failure, unspecified Code(s): I50.9 - Heart failure, unspecified Status: Acute Assessment and Plan: This 61-year-old man with history of congestive heart failure, history of coronary artery disease status post coronary artery bypass graft, and other comorbidities has been hospitalized twice over the last 2 weeks with hypoxemic hypercapnic respiratory failure related to exacerbation of CHF. Chest imaging studies have repeatedly shown pulmonary edema with symmetrical bilateral pleural effusions which have responded to treatment with BiPAP support, diuretics and supplemental oxygen. Patient has also received treatment for possible pneumonia. Overall, the pattern of pulmonary findings is not consistent with underlying pneumonia. Furthermore, the hypercapnic respiratory failure appears to be of recent onset, also related to pulmonary edema rather than to advanced COPD or sleep disordered breathing for which he has not been on any treatment. Plan is as follows: I would discontinue the IV steroids as there is no evidence of COPD exacerbation, also consider discontinuing the antibiotics if sputum cultures are negative. I would continue with BiPAP support, 12/8 cm H2O at night, given the history of sleep disordered breathing and recurrent pulmonary edema. Will get echocardiogram to assess cardiac function. The patient will require pulmonary function testing and a sleep study on an outpatient basis and follow up at the [facility]. (2) Pleural effusion: Code(s): J90 - Pleural effusion, not elsewhere classified Status: Acute (3) Acute kidney injury superimposed on CKD: Code(s): N17.9 - Acute kidney failure, unspecified; N18.9 - Chronic kidney disease, unspecified Status: Acute (4) Acute respiratory failure with hypoxia and hypercapnia: Code(s): J96.01 - Acute respiratory failure with hypoxia; J96.02 - Acute respiratory failure with hypercapnia Status: Acute (5) History of sleep apnea: Code(s): Z86.69 - Personal history of other diseases of the nervous system and sense organs Status: Acute History of Present Illness History of Present Illness Consult date: 08/03/21 Chief complaint: hypercapnic respiratory failure, covid pui, pneumo Narrative: This 61-year-old man was admitted into the hospital 2 days ago with recurrent hypercapnic hypoxemic respiratory failure. I was asked to see the patient for possible underlying COPD. This report is based on information obtained after reviewing 2 hospitalizations over the last 2 weeks and after interviewing the patient. The patient is a poor historian, being unable to recall all events occurred over the last 2 weeks. The patient was initially hospitalized approximately 2 weeks ago with shortness of breath and hypercapnic hypoxemic respiratory failure. Review of chest x-rays showed pulmonary edema and bilateral pleural effusions. On repeat chest x-ray taken 3 days later, there was partial clearing of bilateral pulmonary infiltrates. Of note, the patient was treated with BiPAP support, antibiotics, IV diuretics for both CHF exacerbation and possible pneumonia. A chest CT done on the 4th hospital day showed pulmonary congestion which was much improved from the day of admission and bilateral symmetrical pleural effusions of moderate size. There was also fluid in major fissures suggesting pulmonary edema. The patient was discharged to a [facility] to return a day later with again similar symptoms consisting of shortness of breath, and hypercapnic respiratory failure. The patient was treated in the intensive care unit again for CHF exacerbation and received BiPAP support, supplemental oxygen, IV diuretics, antibiotics, IV steroids for possible COPD exacer
[2021-08-03] MEDS: methylPREDNISolone SOD SUCC 40 MG VIAL IV PUSH ×3 (12:14→23:30)
[2021-08-03] MEDS: MUPIROCIN 2% OINT 22 GM TUBE 1 APPLIC EACH NARE ×2 (12:14→20:10)
[2021-08-03 12:37] LABS: Glucose Point of Care 358 mg/dl (65-105)
--- NOTE | 2021-08-03 13:31 | PM.IMPN ---
Progress Note: A&P Assessment and Plan (1) Acute respiratory failure with hypoxia and hypercapnia: Code(s): J96.01 - Acute respiratory failure with hypoxia; J96.02 - Acute respiratory failure with hypercapnia Status: Acute Assessment and Plan: Likely related to CHF, COPD, obstructive sleep apnea -BiPAP at night, -oxygen maintain O2 sats> 92% -patient will require a sleep test and or pulmonary function test (2) Altered mental status: Qualifiers: Altered mental status type: unspecified Qualified Code(s): R41.82 - Altered mental status, unspecified Code(s): R41.82 - Altered mental status, unspecified Status: Acute Assessment and Plan: RESOLVED: Likely secondary to hypercarbic respiratory failure. Mental status improved with improvement in his acute hypercarbic respiratory failure. Supportive care (3) Multilobar lung infiltrate: Code(s): R91.8 - Other nonspecific abnormal finding of lung field Status: Acute Assessment and Plan: Currently on cefepime/vancomycin and azithromycin. Discontinue vancomycin as blood cultures are negative Blood cultures x2 were negative MRSA and nasopharynx White blood cell count is normal, patient is afebrile Chest x-ray this morning shows improvement of bilateral pulmonary infiltrates and congestive changes Follow Legionella and strep antigen in urine. Can discontinue azithromycin if Legionella antigen in urine comes back negative. COVID-19 test came back negative. Precautions have been discontinued. (4) Coronary artery disease: Code(s): I25.10 - Atherosclerotic heart disease of [place] coronary artery without angina pectoris Status: Inactive Assessment and Plan: Continue to monitor. Continue home meds with Lipitor, metoprolol, amlodipine. (5) Atrial fibrillation: Code(s): I48.91 - Unspecified atrial fibrillation Status: Inactive Assessment and Plan: Rate control with metoprolol. Continue Eliquis. (6) Chronic kidney disease, stage 3: Code(s): N18.30 - Chronic kidney disease, stage 3 unspecified Status: Acute Assessment and Plan: Continue to monitor BUN and creatinine Continue to monitor intake output record. His bicarb is still elevated after correction of his acute hypercarbic respiratory failure. Patient is on acetazolamide If Kidney functions worsen will obtain Nephrology consult (7) Essential hypertension: Code(s): I10 - Essential (primary) hypertension Status: Acute Assessment and Plan: Stable Continue home meds (8) Systolic congestive heart failure: Code(s): I50.20 - Unspecified systolic (congestive) heart failure Status: Chronic Assessment and Plan: Continue Lasix at current dose. His symptoms improved significantly with aggressive diuresis. Daily intake and output Continue to monitor renal parameters and electrolytes. (9) Type 2 diabetes mellitus treated with insulin: Code(s): E11.9 - Type 2 diabetes mellitus without complications; Z79.4 - assisted (current) use of insulin Status: Acute Assessment and Plan: Continue home meds with Lantus. Accu-Cheks AC and HS (10) Diabetic neuropathy: Code(s): E11.40 - Type 2 diabetes mellitus with diabetic neuropathy, unspecified Status: Inactive Assessment and Plan: Continue gabapentin (11) CVA (cerebral vascular accident): Code(s): I63.9 - Cerebral infarction, unspecified Status: Inactive Assessment and Plan: Continue to monitor Continue Eliquis and metoprolol. Additional Plan Patient can be transferred to medical telemetry floor Subjective Date/time seen: 08/03/21 13:31 Interval history: 6 2 past medical his chronic hypercapnic respiratory failure coronary artery disease, COPD/emphysema, CHF, longterm resident, time 2 diabetes, BPH, GERD presented the hospital with altered ment
--- NOTE | 2021-08-03 15:37 | PCCARD ---
CANCELLED ECHOCARDIOGRAM ORDERED 08/03/21 - PER RAMANA RN - PATIENT JUST HAD A COMPLETE ECHO 07/23/21
[2021-08-03] MEDS: DOCUSATE SODIUM 100 MG CAPSULE PO (16:49)
[2021-08-03 17:09] LABS: Glucose Point of Care 312 mg/dl (65-105)
[2021-08-03] MEDS: CYCLOBENZAPRINE HCL 10 MG TABLET PO (20:16)
[2021-08-03] MEDS: ACETAMINOPHEN 325 MG TABLET 650 MG PO (20:16)
[2021-08-03] MEDS: ATORVASTATIN 40 MG TABLET PO (20:17)
[2021-08-03] MEDS: INSULIN GLARGINE (*BKC) 100 UNITS/ML 16 UNITS SUB-Q (20:23)
[2021-08-04] VITALS (19 sets, daily range): BP systolic 143–161; BP diastolic 70–91; PULSE 63–86; RESP 16–20; TEMP 36.4–36.9; O2SAT 94–100
[2021-08-04] MEDS: methylPREDNISolone SOD SUCC 40 MG VIAL IV PUSH (04:00)
[2021-08-04 04:15] LABS: Hematocrit 35.4 % (42.0-52.0); Hemoglobin 10.5 g/dL (14.0-18.0); Immature Granulocyte Absolute 0.04 K/mm3 (0.00-0.031); Immature Granulocyte Percent A 0.4 % (0-0.5); Lymphocytes Absolute Auto 0.26 K/mm3 (0.9-3.2); Lymphocytes Percent Auto 2.4 % (18.3-44.2); Mean Corpuscular HGB Conc 29.7 g/dl (32-36); Mean Corpuscular Hemoglobin 25.5 pg (26-34); Mean Corpuscular Volume 85.9 fl (80-100); Mean Platelet Volume 11.4 fl (7.4-10.4); Monocytes Absolute Auto 0.3 K/mm3 (0.1-0.6); Monocytes Percent Auto 2.5 % (2.6-8.5); Neutrophils Absolute Auto 10.1 K/mm3 (1.3-6.7); Neutrophils Percent Auto 94.7 % (45.5-73.1); Platelet Count Result 147 k/mm3 (150-375); Red Blood Count 4.12 M/mm3 (4.6-6.20); Red Cell Distribution Width 17.2 % (11.5-14.5); White Blood Count 10.6 K/mm3 (4.5-10.0)
[2021-08-04 04:56] LABS: Alanine Aminotransferase 50 U/L (4-50); Albumin Level 3.1 g/dL (3.5-5.1); Alkaline Phosphatase 174 U/L (38-126); Aspartate Amino Transferase 27 U/L (17-59); Bilirubin,Total 0.6 mg/dL (0.2-1.3); Blood Urea Nitrogen 88 mg/dL (9-20); Calcium 8.1 mg/dL (8.4-10.2); Carbon Dioxide > 40 mmol/L (22-30); Chloride 94 mmol/L (98-107); Estimated CRCL calculation 48 ml/min; Estimated Glomerular Filt Rate 39; Glucose 363 mg/dL (65-110); Magnesium 1.9 mg/dL (1.6-2.3); Phosphorus 4.2 mg/dL (2.5-4.5); Potassium 3.4 mmol/L (3.4-5.0); Sodium 140 mmol/L (137-145)
[2021-08-04 05:54] LABS: Hypochromasia 2+ (NORMAL); Ovalocytes 1+ (NORMAL); Platelet Estimate Adequate (Adequate)
[2021-08-04 05:55] LABS: Anisocytosis 2+ (NORMAL)
[2021-08-04] MEDS: METOPROLOL SUCCINATE EXT REL 50 MG TABCR 150 MG PO (08:06)
[2021-08-04] MEDS: FUROSEMIDE INJ 40 MG/4 ML VIAL IV PUSH (08:06)
[2021-08-04] MEDS: APIXABAN 5 MG TABLET PO ×2 (08:06→20:55)
[2021-08-04] MEDS: GABAPENTIN 300 MG CAPSULE 600 MG PO ×3 (08:06→17:25)
[2021-08-04] MEDS: TAMSULOSIN HCL 0.4 MG CAPSULE PO (08:06)
[2021-08-04] MEDS: NICOTINE (*PBKC) 21 MG PATCH 1 PATCH TRANSDERM (08:06)
[2021-08-04] MEDS: MAGNESIUM OXIDE 400 MG TABLET PO (08:07)
[2021-08-04] MEDS: DULoxetine HCL 60 MG CAPSULE.DR PO ×2 (08:07→17:25)
[2021-08-04] MEDS: MUPIROCIN 2% OINT 22 GM TUBE 1 APPLIC EACH NARE ×2 (08:07→20:54)
[2021-08-04] MEDS: acetaZOLAMIDE SODIUM FOR INJ 500 MG VIAL 250 MG IV PUSH (08:07)
[2021-08-04] MEDS: PANTOPRAZOLE 40 MG TABLET PO (08:07)
[2021-08-04] MEDS: EUCERIN CREAM 120 GM JAR 1 APPLIC TOPICAL (08:08)
[2021-08-04] MEDS: amLODIPine BESYLATE 5 MG TABLET 10 MG PO (08:08)
[2021-08-04] MEDS: buPROPion HCL XL (24 HR) 150 MG TABCR PO (08:10)
--- NOTE | 2021-08-04 08:50 | WPDINTPN ---
Progress Note: A&P Assessment and Plan (1) Acute respiratory failure with hypoxia and hypercapnia: Code(s): J96.01 - Acute respiratory failure with hypoxia; J96.02 - Acute respiratory failure with hypercapnia Status: Acute Assessment and Plan: Likely related to CHF, COPD, obstructive sleep apnea -BiPAP at night, -oxygen maintain O2 sats> 92% -patient will require a sleep test and or pulmonary function test - continue Lasix but decrease dose to q.day - start titrating down steroid dose (2) Altered mental status: Qualifiers: Altered mental status type: unspecified Qualified Code(s): R41.82 - Altered mental status, unspecified Code(s): R41.82 - Altered mental status, unspecified Status: Acute Assessment and Plan: RESOLVED: Likely secondary to hypercarbic respiratory failure. Mental status improved with improvement in his acute hypercarbic respiratory failure. Supportive care (3) Multilobar lung infiltrate: Code(s): R91.8 - Other nonspecific abnormal finding of lung field Status: Acute Assessment and Plan: Currently on cefepime and azithromycin. Off vancomycin Blood cultures x2 were negative MRSA in nasopharynx White blood cell count is normal, patient is afebrile Chest x-ray this morning shows improvement of bilateral pulmonary infiltrates and congestive changes Follow Legionella and strep antigen in urine. COVID-19 test came back negative. Precautions have been discontinued. continue azithromycin for 5 days change IV cefepime to p.o. Augmentin (4) Coronary artery disease: Code(s): I25.10 - Atherosclerotic heart disease of [place] coronary artery without angina pectoris Status: Inactive Assessment and Plan: Continue to monitor. Continue home meds with Lipitor, metoprolol, amlodipine. (5) Atrial fibrillation: Code(s): I48.91 - Unspecified atrial fibrillation Status: Inactive Assessment and Plan: Rate control with metoprolol. Continue Eliquis. (6) Chronic kidney disease, stage 3: Code(s): N18.30 - Chronic kidney disease, stage 3 unspecified Status: Acute Assessment and Plan: Continue to monitor BUN and creatinine Continue to monitor intake output record. His bicarb is still elevated after correction of his acute hypercarbic respiratory failure. Patient i was started on acetazolamide If Kidney functions worsen will obtain Nephrology consult (7) Essential hypertension: Code(s): I10 - Essential (primary) hypertension Status: Acute Assessment and Plan: Stable Continue home meds (8) Systolic congestive heart failure: Code(s): I50.20 - Unspecified systolic (congestive) heart failure Status: Chronic Assessment and Plan: Continue Lasix but decreased further dose as patient now on baseline home oxygen in also does not have significant edema on his legs Daily intake and output Continue to monitor renal parameters and electrolytes. (9) Type 2 diabetes mellitus treated with insulin: Code(s): E11.9 - Type 2 diabetes mellitus without complications; Z79.4 - residential (current) use of insulin Status: Acute Assessment and Plan: Continue home meds with Lantus. Accu-Cheks AC and HS (10) Diabetic neuropathy: Code(s): E11.40 - Type 2 diabetes mellitus with diabetic neuropathy, unspecified Status: Inactive Assessment and Plan: Continue gabapentin (11) CVA (cerebral vascular accident): Code(s): I63.9 - Cerebral infarction, unspecified Status: Inactive Assessment and Plan: Continue to monitor Continue Eliquis and metoprolol. (12) COPD (chronic obstructive pulmonary disease): Code(s): J44.9 - Chronic obstructive pulmonary disease, unspecified Status: Acute Assessment and Plan: change IV Solu-Medrol to p.o. prednisone bronchodilators Additional Plan PT OT inc
[2021-08-04 09:21] LABS: Glucose Point of Care 341 mg/dl (65-105)
[2021-08-04] MEDS: INSULIN ASPART (*BKC) 100 UNITS/ML SUB-Q ×6 (09:23→17:24)
[2021-08-04] MEDS: AMOXICILLIN/CLAVULANATE K 875-125 MG TAB 1 TABLET PO ×2 (09:25→20:54)
--- NOTE | 2021-08-04 11:00 | PM.PNPUL ---
Progress Note: A&P Assessment and Plan (1) Acute exacerbation of CHF (congestive heart failure): Qualifiers: Heart failure type: unspecified Qualified Code(s): I50.9 - Heart failure, unspecified Code(s): I50.9 - Heart failure, unspecified Status: Acute (2) Acute respiratory failure with hypoxia and hypercapnia: Code(s): J96.01 - Acute respiratory failure with hypoxia; J96.02 - Acute respiratory failure with hypercapnia Status: Acute Assessment and Plan: Respiratory status unchanged over the last 24 hours. Chest x-ray showed partial clearing of bilateral infiltrates. Patient tolerated BiPAP last night. I would discontinue po steroids as this is mostly pulmonary edema. Patient will remain on BiPAP until he has a sleep study. Encourage OOB to chair. (3) Pleural effusion: Code(s): J90 - Pleural effusion, not elsewhere classified Status: Acute (4) History of sleep apnea: Code(s): Z86.69 - Personal history of other diseases of the nervous system and sense organs Status: Acute (5) COPD (chronic obstructive pulmonary disease): Qualifiers: COPD type: unspecified COPD Qualified Code(s): J44.9 - Chronic obstructive pulmonary disease, unspecified Code(s): J44.9 - Chronic obstructive pulmonary disease, unspecified Status: Acute Subjective Date/time seen: 08/04/21 11:00 patient without any new respiratory symptoms. Still mildly short of breath while in bed. Used BiPAP last night. He has no cough sputum production wheezing or lower extremity edema. Review of Systems Review of Systems: All systems reviewed & are unremarkable except as noted in HPI and below (H & P) Exam Narrative: GENERAL APPEARANCE: Well developed, well nourished, alert and cooperative, who appears to be in mild respiratory distress while sitting up in bed. SKIN: Inspection of the skin reveals no rashes, ulcerations or petechiae. HEENT: Sclerae anicteric and conjunctivae pink and moist. Extraocular movements were intact and pupils were equal. The oral mucosa, hard and soft palate, tongue and posterior pharynx were normal. Edentulous. NECK: Supple. There were no masses or enlarged lymph nodes were felt. JVD present. CHEST: Normal AP diameter and normal contour without any kyphoscoliosis. LUNGS: Few crackles at bases posteriorly no wheezing. CARDIAC: There was a regular rate and rhythm without any murmurs, gallops, rubs. ABDOMEN: Soft and nontender with normal bowel sounds. There was no organomegaly. EXTREMITIES: No cyanosis, clubbing or edema. NEUROLOGIC: Alert and oriented x 3. Normal affect. Objective Data Vital Signs Vital Signs: Vital Signs - 24 hr 08/03/21 12:00 08/03/21 14:00 08/03/21 16:00 Temperature 36.4 C Pulse Rate 86 85 86 Respiratory Rate 18 19 Blood Pressure 151/76 H 151/76 H Pulse Oximetry 90 90 08/03/21 18:00 08/03/21 20:00 08/03/21 20:30 Temperature 36.8 C Pulse Rate 86 84 82 Respiratory Rate 21 H 18 Blood Pressure 147/71 H Pulse Oximetry 97 96 08/03/21 22:00 08/04/21 00:00 08/04/21 02:00 Temperature Pulse Rate 84 83 80 Respiratory Rate 17 Blood Pressure Pulse Oximetry 94 08/04/21 02:03 08/04/21 04:00 08/04/21 06:00 Temperature 36.6 C Pulse Rate 83 83 83 Respiratory Rate 16 18 Blood Pressure 151/78 H Pulse Oximetry 94 94 08/04/21 08:00 08/04/21 08:06 Temperature 36.6 C Pulse Rate 86 84 Respiratory Rate 18 Blood Pressure 160/82 H Pulse Oximetry 94 Intake/Output Intake/Output: Intake & Output 08/01/21 08/02/21 08/03/21 08/04/21 23:59 23:59 23:59 23:59 Intake Total 1150 1770 2400 600 Output Total 850 2300 2500 1500 Balance 300 -530 -100 -900 Meds/Results Medications: Active Medications Generic Name Dose Route Start Last Admin Trade Name Freq PRN Reason Stop Dose Admin Acetaminophen 650 mg 08/01/21 10:40 08/03/21 20:16 Acetaminophen 325 Mg Tablet PO 65
[2021-08-04 12:11] LABS: Glucose Point of Care 386 mg/dl (65-105)
[2021-08-04 16:59] LABS: Glucose Point of Care 313 mg/dl (65-105)
[2021-08-04 20:44] LABS: Glucose Point of Care 236 mg/dl (65-105)
[2021-08-04] MEDS: ATORVASTATIN 40 MG TABLET PO (20:54)
[2021-08-04] MEDS: INSULIN GLARGINE (*BKC) 100 UNITS/ML 16 UNITS SUB-Q (20:55)
[2021-08-05] VITALS (16 sets, daily range): BP systolic 136–145; BP diastolic 65–79; PULSE 63–85; RESP 12–18; TEMP 36.4–36.5; O2SAT 96–99
[2021-08-05] MEDS: INSULIN ASPART (*BKC) 100 UNITS/ML SUB-Q ×6 (08:00→17:33)
[2021-08-05 08:22] LABS: Basophils Percent Auto 0.1 % (0.2-1.2); Eosinophils Percent Auto 0.1 % (0-4.4); Hematocrit 36.4 % (42.0-52.0); Immature Granulocyte Absolute 0.04 K/mm3 (0.00-0.031); Immature Granulocyte Percent A 0.4 % (0-0.5); Lymphocytes Absolute Auto 0.56 K/mm3 (0.9-3.2); Lymphocytes Percent Auto 5.1 % (18.3-44.2); Mean Corpuscular HGB Conc 30.2 g/dl (32-36); Mean Corpuscular Hemoglobin 25.3 pg (26-34); Mean Corpuscular Volume 83.9 fl (80-100); Mean Platelet Volume 11.4 fl (7.4-10.4); Monocytes Absolute Auto 0.5 K/mm3 (0.1-0.6); Monocytes Percent Auto 4.1 % (2.6-8.5); Neutrophils Absolute Auto 9.9 K/mm3 (1.3-6.7); Neutrophils Percent Auto 90.2 % (45.5-73.1); Platelet Count Result 143 k/mm3 (150-375); Red Blood Count 4.34 M/mm3 (4.6-6.20); Red Cell Distribution Width 16.8 % (11.5-14.5); White Blood Count 10.9 K/mm3 (4.5-10.0)
[2021-08-05 08:31] LABS: Blood Urea Nitrogen 78 mg/dL (9-20); Calcium 8.1 mg/dL (8.4-10.2); Carbon Dioxide > 40 mmol/L (22-30); Chloride 96 mmol/L (98-107); Estimated CRCL calculation 47 ml/min; Estimated Glomerular Filt Rate 44; Glucose 219 mg/dL (65-110); Potassium 3.3 mmol/L (3.4-5.0); Sodium 140 mmol/L (137-145)
[2021-08-05 08:47] LABS: Glucose Point of Care 217 mg/dl (65-105)
[2021-08-05] MEDS: DULoxetine HCL 60 MG CAPSULE.DR PO ×2 (08:53→17:33)
[2021-08-05] MEDS: GABAPENTIN 300 MG CAPSULE 600 MG PO ×3 (08:53→17:32)
[2021-08-05] MEDS: buPROPion HCL XL (24 HR) 150 MG TABCR PO (08:53)
[2021-08-05] MEDS: PANTOPRAZOLE 40 MG TABLET PO (08:53)
[2021-08-05] MEDS: amLODIPine BESYLATE 5 MG TABLET 10 MG PO (08:53)
[2021-08-05] MEDS: predniSONE 20 MG TABLET 60 MG PO (08:53)
[2021-08-05] MEDS: FUROSEMIDE INJ 40 MG/4 ML VIAL IV PUSH (08:53)
[2021-08-05] MEDS: APIXABAN 5 MG TABLET PO ×2 (08:53→19:57)
[2021-08-05] MEDS: METOPROLOL SUCCINATE EXT REL 50 MG TABCR 150 MG PO (08:54)
[2021-08-05] MEDS: MAGNESIUM OXIDE 400 MG TABLET PO (08:54)
[2021-08-05] MEDS: AMOXICILLIN/CLAVULANATE K 875-125 MG TAB 1 TABLET PO ×2 (08:54→19:57)
[2021-08-05] MEDS: TAMSULOSIN HCL 0.4 MG CAPSULE PO (08:55)
[2021-08-05] MEDS: NICOTINE (*PBKC) 21 MG PATCH 1 PATCH TRANSDERM (08:55)
[2021-08-05] MEDS: EUCERIN CREAM 120 GM JAR 1 APPLIC TOPICAL (08:55)
[2021-08-05] MEDS: MUPIROCIN 2% OINT 22 GM TUBE 1 APPLIC EACH NARE ×2 (08:55→19:57)
--- NOTE | 2021-08-05 09:32 | WPDINTPN ---
Progress Note: A&P Assessment and Plan (1) Acute respiratory failure with hypoxia and hypercapnia: Code(s): J96.01 - Acute respiratory failure with hypoxia; J96.02 - Acute respiratory failure with hypercapnia Status: Acute Assessment and Plan: Likely related to CHF, COPD, obstructive sleep apnea -BiPAP at night, -oxygen maintain O2 sats> 92%. Currently saturating well on nasal cannula -patient will require a sleep test and or pulmonary function test - continue Lasix q.day -continue short course of steroids (2) Altered mental status: Qualifiers: Altered mental status type: unspecified Qualified Code(s): R41.82 - Altered mental status, unspecified Code(s): R41.82 - Altered mental status, unspecified Status: Acute Assessment and Plan: RESOLVED: Likely secondary to hypercarbic respiratory failure. Mental status improved with improvement in his acute hypercarbic respiratory failure. Supportive care (3) Multilobar lung infiltrate: Code(s): R91.8 - Other nonspecific abnormal finding of lung field Status: Acute Assessment and Plan: Currently on cefepime and azithromycin. Off vancomycin Blood cultures x2 were negative MRSA in nasopharynx White blood cell count is normal, patient is afebrile Chest x-ray this morning shows improvement of bilateral pulmonary infiltrates and congestive changes Follow Legionella and strep antigen in urine. COVID-19 test came back negative. Precautions have been discontinued. Will complete a 5 day course of azithromycin today IV cefepime was changed to p.o. Augmentin 08/04 (4) Coronary artery disease: Code(s): I25.10 - Atherosclerotic heart disease of [place] coronary artery without angina pectoris Status: Inactive Assessment and Plan: Continue to monitor. Continue home meds with Lipitor, metoprolol, amlodipine. (5) Atrial fibrillation: Code(s): I48.91 - Unspecified atrial fibrillation Status: Inactive Assessment and Plan: Rate control with metoprolol. Continue Eliquis. (6) Chronic kidney disease, stage 3: Code(s): N18.30 - Chronic kidney disease, stage 3 unspecified Status: Acute Assessment and Plan: Continue to monitor BUN and creatinine Continue to monitor intake output record. Continue Lasix (7) Essential hypertension: Code(s): I10 - Essential (primary) hypertension Status: Acute Assessment and Plan: Stable Continue home meds (8) Systolic congestive heart failure: Code(s): I50.20 - Unspecified systolic (congestive) heart failure Status: Chronic Assessment and Plan: Continue Lasix but decreased further dose as patient now on baseline home oxygen in also does not have significant edema on his legs Daily intake and output Continue to monitor renal parameters and electrolytes. (9) Type 2 diabetes mellitus treated with insulin: Code(s): E11.9 - Type 2 diabetes mellitus without complications; Z79.4 - longterm (current) use of insulin Status: Acute Assessment and Plan: Continue home meds with Lantus. Accu-Cheks AC and HS (10) Diabetic neuropathy: Code(s): E11.40 - Type 2 diabetes mellitus with diabetic neuropathy, unspecified Status: Inactive Assessment and Plan: Continue gabapentin (11) CVA (cerebral vascular accident): Code(s): I63.9 - Cerebral infarction, unspecified Status: Inactive Assessment and Plan: Continue to monitor Continue Eliquis and metoprolol. (12) COPD (chronic obstructive pulmonary disease): Qualifiers: COPD type: unspecified COPD Qualified Code(s): J44.9 - Chronic obstructive pulmonary disease, unspecified Code(s): J44.9 - Chronic obstructive pulmonary disease, unspecified Status: Acute Assessment and Plan: Continue p.o. prednisone bronchodilators Additional Plan PT OT incentive spiromet
--- NOTE | 2021-08-05 11:09 | PCOTNOTE ---
Attempted to see pt. this date at 11:09 AM, unable to arouse pt. Will attempted later this date if time allows.
[2021-08-05 11:54] LABS: Glucose Point of Care 256 mg/dl (65-105)
[2021-08-05] MEDS: ACETAMINOPHEN 325 MG TABLET 650 MG PO (13:08)
--- NOTE | 2021-08-05 16:37 | ECG_ITS ---
Measurements Intervals [place] Rate: 65 P: OR: 0 QRS: 63 QRSD: 137 T: 102 QT: 454 QTc: 474 Interpretive Statements ATRIAL FLUTTER/TACHYCARDIA VENTRICULAR PREMATURE COMPLEX LEFT BUNDLE BRANCH BLOCK BASELINE WANDER- II, III ABNORMAL ECG Electronically Signed On 08-05-2021 19:20:48 CDT by Cecilio Soto D.O.
[2021-08-05 16:51] LABS: Pneumococcal Antigen Urine Not Detected (Not Detected)
[2021-08-05 17:43] LABS: Glucose Point of Care 287 mg/dl (65-105)
[2021-08-05] MEDS: ATORVASTATIN 40 MG TABLET PO (19:57)
[2021-08-05 20:03] LABS: Glucose Point of Care 333 mg/dl (65-105)
[2021-08-05] MEDS: INSULIN GLARGINE (*BKC) 100 UNITS/ML 16 UNITS SUB-Q (20:05)
[2021-08-06] VITALS (16 sets, daily range): BP systolic 140–166; BP diastolic 69–88; PULSE 52–84; RESP 15–91; TEMP 36–36.9; O2SAT 91–98
[2021-08-06] MEDS: ACETAMINOPHEN 325 MG TABLET 650 MG PO (06:15)
--- NOTE | 2021-08-06 07:13 | PC.NURSE ---
This patient, Ector Oconnor, was transferred to [ [id number]] on 08/06/21 at 0714. Personal belongings sent with patient. Report given to [ Hodan PARKER]. Appropriate documentation sent with patient.
[2021-08-06] MEDS: INSULIN ASPART (*BKC) 100 UNITS/ML SUB-Q ×6 (07:58→17:06)
[2021-08-06] MEDS: APIXABAN 5 MG TABLET PO ×2 (08:00→21:26)
[2021-08-06] MEDS: MAGNESIUM OXIDE 400 MG TABLET PO (08:01)
[2021-08-06] MEDS: amLODIPine BESYLATE 5 MG TABLET 10 MG PO (08:01)
[2021-08-06] MEDS: GABAPENTIN 300 MG CAPSULE 600 MG PO ×3 (08:01→16:02)
[2021-08-06] MEDS: METOPROLOL SUCCINATE EXT REL 50 MG TABCR 150 MG PO (08:01)
[2021-08-06] MEDS: DULoxetine HCL 60 MG CAPSULE.DR PO ×2 (08:01→16:02)
[2021-08-06] MEDS: buPROPion HCL XL (24 HR) 150 MG TABCR PO (08:01)
[2021-08-06] MEDS: NICOTINE (*PBKC) 21 MG PATCH 1 PATCH TRANSDERM (08:02)
[2021-08-06] MEDS: EUCERIN CREAM 120 GM JAR 1 APPLIC TOPICAL (08:02)
[2021-08-06] MEDS: PANTOPRAZOLE 40 MG TABLET PO (08:03)
[2021-08-06] MEDS: FUROSEMIDE INJ 40 MG/4 ML VIAL IV PUSH (08:04)
[2021-08-06] MEDS: TAMSULOSIN HCL 0.4 MG CAPSULE PO (08:04)
[2021-08-06] MEDS: predniSONE 20 MG TABLET 60 MG PO (08:04)
[2021-08-06] MEDS: MUPIROCIN 2% OINT 22 GM TUBE 1 APPLIC EACH NARE ×2 (08:04→21:27)
[2021-08-06] MEDS: AMOXICILLIN/CLAVULANATE K 875-125 MG TAB 1 TABLET PO ×2 (08:20→21:26)
[2021-08-06 08:51] LABS: Glucose Point of Care 382 mg/dl (65-105)
--- NOTE | 2021-08-06 09:52 | PM.PNPUL ---
Progress Note: A&P Assessment and Plan (1) Acute exacerbation of CHF (congestive heart failure): Qualifiers: Heart failure type: unspecified Qualified Code(s): I50.9 - Heart failure, unspecified Code(s): I50.9 - Heart failure, unspecified Status: Acute Assessment and Plan: Respiratory status has been stable while on BiPAP support at night. Patient has no wheezing on physical exam. He is still on steroids for possible COPD exacerbation. Nasal swab showed MRSA, on Bactroban. (2) Acute respiratory failure with hypoxia and hypercapnia: Code(s): J96.01 - Acute respiratory failure with hypoxia; J96.02 - Acute respiratory failure with hypercapnia Status: Acute Assessment and Plan: Chest x-ray showed partial clearing of bilateral infiltrates 2 days ago. I would discontinue po steroids as this is mostly pulmonary edema. Patient will remain on BiPAP until he has a sleep study. Encourage OOB to chair. (3) Pleural effusion: Code(s): J90 - Pleural effusion, not elsewhere classified Status: Acute (4) History of sleep apnea: Code(s): Z86.69 - Personal history of other diseases of the nervous system and sense organs Status: Acute (5) COPD (chronic obstructive pulmonary disease): Qualifiers: COPD type: unspecified COPD Qualified Code(s): J44.9 - Chronic obstructive pulmonary disease, unspecified Code(s): J44.9 - Chronic obstructive pulmonary disease, unspecified Status: Acute Subjective Date/time seen: 08/06/21 09:52 Patient was transferred to a medical mary room. He has had no new respiratory complaints. Used BiPAP last night. He continues to be on supplemental oxygen. Review of Systems Review of Systems: All systems reviewed & are unremarkable except as noted in HPI and below (H & P) Exam Narrative: GENERAL APPEARANCE: Well developed, well nourished, alert and cooperative, who appears to be in mild respiratory distress while sitting up in bed. SKIN: Inspection of the skin reveals no rashes, ulcerations or petechiae. HEENT: Sclerae anicteric and conjunctivae pink and moist. Extraocular movements were intact and pupils were equal. The oral mucosa, hard and soft palate, tongue and posterior pharynx were normal. Edentulous. NECK: Supple. There were no masses or enlarged lymph nodes were felt. JVD present. CHEST: Normal AP diameter and normal contour without any kyphoscoliosis. LUNGS: Few crackles at bases posteriorly no wheezing. CARDIAC: There was a regular rate and rhythm without any murmurs, gallops, rubs. ABDOMEN: Soft and nontender with normal bowel sounds. There was no organomegaly. EXTREMITIES: No cyanosis, clubbing or edema. NEUROLOGIC: Alert and oriented x 3. Normal affect. Objective Data Vital Signs Vital Signs: Vital Signs - 24 hr 08/05/21 10:00 08/05/21 12:00 08/05/21 14:00 Temperature Pulse Rate 85 72 67 Respiratory Rate Blood Pressure Pulse Oximetry 08/05/21 16:00 08/05/21 18:00 08/05/21 20:00 Temperature 36.4 C L Pulse Rate 69 77 66 Respiratory Rate 12 Blood Pressure 136/65 Pulse Oximetry 99 08/05/21 22:00 08/05/21 22:53 08/06/21 00:00 Temperature 36.9 C Pulse Rate 73 63 71 Respiratory Rate 15 91 H Blood Pressure 155/69 H Pulse Oximetry 97 91 08/06/21 01:55 08/06/21 02:00 08/06/21 04:00 Temperature Pulse Rate 67 77 83 Respiratory Rate 16 Blood Pressure Pulse Oximetry 98 08/06/21 06:00 08/06/21 07:51 08/06/21 07:55 Temperature 36.5 C Pulse Rate 84 84 84 Respiratory Rate 20 20 Blood Pressure 142/74 H Pulse Oximetry 92 92 08/06/21 08:01 Temperature Pulse Rate 76 Respiratory Rate Blood Pressure Pulse Oximetry Intake/Output Intake/Output: Intake & Output 08/03/21 08/04/21 08/05/21 08/06/21 23:59 23:59 23:59 23:59 Intake Total 2400 1890 960 670 Output Total 2500 2950 1800 900 Balance -100 -1060 -840 -230 Meds/
--- NOTE | 2021-08-06 10:07 | PCPTNOTE ---
Patient declined PT at this time stating I just fell asleep. I did not get any sleep last night. PT will attempt to return later today.
[2021-08-06 11:25] LABS: Glucose Point of Care 389 mg/dl (65-105)
[2021-08-06 12:16] LABS: Glucose Point of Care 377 mg/dl (65-105)
--- NOTE | 2021-08-06 15:27 | PM.IMPN ---
Progress Note: A&P Assessment and Plan (1) Acute respiratory failure with hypoxia and hypercapnia: Code(s): J96.01 - Acute respiratory failure with hypoxia; J96.02 - Acute respiratory failure with hypercapnia Status: Acute Assessment and Plan: Likely related to CHF, COPD, obstructive sleep apnea -BiPAP at night -oxygen maintain O2 sats> 92%. - continue Lasix IV -continue short course of steroids and zithromax IV (2) Altered mental status: Qualifiers: Altered mental status type: unspecified Qualified Code(s): R41.82 - Altered mental status, unspecified Code(s): R41.82 - Altered mental status, unspecified Status: Acute Assessment and Plan: Likely secondary to hypercarbic respiratory failure. Mental status improved with improvement in his acute hypercarbic respiratory failure. Slowly improving (3) Multilobar lung infiltrate: Code(s): R91.8 - Other nonspecific abnormal finding of lung field Status: Acute Assessment and Plan: BC negative pt seen by pulmologist White blood cell count is normal, patient is afebrile Previous cxr shows bilateral pulmonary infiltrates and congestive change, rpt CXR tomorrow Follow Legionella and strep antigen in urine. COVID-19 test came back negative. Will complete a 5 day course of azithromycin today IV cefepime was changed to p.o. Augmentin 08/04 (4) Coronary artery disease: Code(s): I25.10 - Atherosclerotic heart disease of [place] coronary artery without angina pectoris Status: Inactive Assessment and Plan: Continue to monitor. Continue home meds with Lipitor, metoprolol, amlodipine. (5) Atrial fibrillation: Code(s): I48.91 - Unspecified atrial fibrillation Status: Inactive Assessment and Plan: Rate control with metoprolol. Continue Eliquis. (6) Chronic kidney disease, stage 3: Code(s): N18.30 - Chronic kidney disease, stage 3 unspecified Status: Acute Assessment and Plan: Continue to monitor BUN and creatinine Continue to monitor intake output record. Continue Lasix (7) Essential hypertension: Code(s): I10 - Essential (primary) hypertension Status: Acute Assessment and Plan: Stable Continue home meds (8) Systolic congestive heart failure: Code(s): I50.20 - Unspecified systolic (congestive) heart failure Status: Chronic Assessment and Plan: Continue Lasix Daily intake and output (9) Type 2 diabetes mellitus treated with insulin: Code(s): E11.9 - Type 2 diabetes mellitus without complications; Z79.4 - senior care (current) use of insulin Status: Acute Assessment and Plan: Continue home meds with Lantus. Accu-Cheks AC and HS (10) Diabetic neuropathy: Code(s): E11.40 - Type 2 diabetes mellitus with diabetic neuropathy, unspecified Status: Inactive Assessment and Plan: Continue gabapentin (11) CVA (cerebral vascular accident): Code(s): I63.9 - Cerebral infarction, unspecified Status: Inactive Assessment and Plan: Continue to monitor Continue Eliquis and metoprolol. (12) COPD (chronic obstructive pulmonary disease): Qualifiers: COPD type: unspecified COPD Qualified Code(s): J44.9 - Chronic obstructive pulmonary disease, unspecified Code(s): J44.9 - Chronic obstructive pulmonary disease, unspecified Status: Acute Assessment and Plan: Continue p.o. prednisone bronchodilators Subjective Date/time seen: 08/06/21 15:27 Interval history: 7) year old male chronic hypercapnic respiratory failure coronary artery disease, COPD/emphysema, CHF, care home resident, time 2 diabetes, BPH, GERD presented the hospital with altered mental status and was found to be in hypercapnic respiratory failure likely secondary to COPD exacerbation, pneumonia and or CHF. Pt is transferred out of icu moved to the floor,
[2021-08-06 17:10] LABS: Glucose Point of Care 352 mg/dl (65-105)
[2021-08-06 17:36] LABS: Legionella pneumophila Ag Ur Not Detected (Not Detected)
[2021-08-06 20:43] LABS: Glucose Point of Care 295 mg/dl (65-105)
[2021-08-06] MEDS: ATORVASTATIN 40 MG TABLET PO (21:26)
[2021-08-06] MEDS: INSULIN GLARGINE (*BKC) 100 UNITS/ML 16 UNITS SUB-Q (21:32)
[2021-08-07] VITALS (13 sets, daily range): BP systolic 143–160; BP diastolic 61–78; PULSE 62–86; RESP 12–18; TEMP 36.1–36.8; O2SAT 83–98
[2021-08-07 08:17] LABS: Glucose Point of Care 250 mg/dl (65-105)
[2021-08-07] MEDS: INSULIN ASPART (*BKC) 100 UNITS/ML SUB-Q ×6 (08:21→18:04)
[2021-08-07] MEDS: predniSONE 20 MG TABLET 60 MG PO (08:29)
[2021-08-07] MEDS: DULoxetine HCL 60 MG CAPSULE.DR PO ×2 (08:30→18:03)
[2021-08-07] MEDS: MAGNESIUM OXIDE 400 MG TABLET PO (08:30)
[2021-08-07] MEDS: buPROPion HCL XL (24 HR) 150 MG TABCR PO (08:30)
[2021-08-07] MEDS: TAMSULOSIN HCL 0.4 MG CAPSULE PO (08:30)
[2021-08-07] MEDS: AMOXICILLIN/CLAVULANATE K 875-125 MG TAB 1 TABLET PO ×2 (08:30→20:02)
[2021-08-07] MEDS: amLODIPine BESYLATE 5 MG TABLET 10 MG PO (08:31)
[2021-08-07] MEDS: GABAPENTIN 300 MG CAPSULE 600 MG PO ×3 (08:32→18:03)
[2021-08-07] MEDS: MUPIROCIN 2% OINT 22 GM TUBE 1 APPLIC EACH NARE ×2 (08:33→20:06)
[2021-08-07] MEDS: NICOTINE (*PBKC) 21 MG PATCH 1 PATCH TRANSDERM (08:33)
[2021-08-07] MEDS: EUCERIN CREAM 120 GM JAR 1 APPLIC TOPICAL (08:33)
[2021-08-07] MEDS: APIXABAN 5 MG TABLET PO ×2 (08:34→20:51)
[2021-08-07] MEDS: PANTOPRAZOLE 40 MG TABLET PO (08:34)
[2021-08-07] MEDS: METOPROLOL SUCCINATE EXT REL 50 MG TABCR 150 MG PO (08:34)
[2021-08-07] MEDS: FUROSEMIDE INJ 40 MG/4 ML VIAL IV PUSH (08:34)
--- NOTE | 2021-08-07 10:17 | PM.PNPUL ---
Progress Note: A&P Assessment and Plan (1) Acute exacerbation of CHF (congestive heart failure): Qualifiers: Heart failure type: unspecified Qualified Code(s): I50.9 - Heart failure, unspecified Code(s): I50.9 - Heart failure, unspecified Status: Acute Assessment and Plan: Respiratory status has been stable while on BiPAP support at night. Patient has no wheezing on physical exam. (2) Acute respiratory failure with hypoxia and hypercapnia: Code(s): J96.01 - Acute respiratory failure with hypoxia; J96.02 - Acute respiratory failure with hypercapnia Status: Acute Assessment and Plan: Chest x-ray showed partial clearing of bilateral infiltrates 2 days ago. I would discontinue po steroids as this is mostly pulmonary edema. Patient will remain on BiPAP until he has a sleep study. Encourage OOB to chair. (3) Pleural effusion: Code(s): J90 - Pleural effusion, not elsewhere classified Status: Acute Assessment and Plan: patient has had pleural effusions since admission. On last chest CT the effusions were of moderate size and symmetrical, related to congestive heart failure. Today's chest x-ray showed possible increasing effusion on the right. Physical exam has been unchanged and FiO2 has decreased from a higher value. I doubt he has increasing pleural effusions as suggested by today's portable x-ray. Appearance of increasing effusions on the portable x ray is likely due to body position. I would repeat CXR, preferably 2 views. (4) History of sleep apnea: Code(s): Z86.69 - Personal history of other diseases of the nervous system and sense organs Status: Acute Assessment and Plan: patient with known sleep apnea for which he has not been on any CPAP. Empiric BiPAP at night started several days ago. he is tolerating BIPAP well, and has no somnolence. Given the history of hypercapnic respiratory failure and the two hospitalizations for acute hypercapnic respiratory failure over the last month, he should remain on BiPAP as an outpatient while waiting for repeat sleep study. (5) COPD (chronic obstructive pulmonary disease): Qualifiers: COPD type: unspecified COPD Qualified Code(s): J44.9 - Chronic obstructive pulmonary disease, unspecified Code(s): J44.9 - Chronic obstructive pulmonary disease, unspecified Status: Acute Assessment and Plan: patient has been a smoker for many years. He probably has underlying COPD but this hospitalization was related to congestive heart failure. I would taper off the steroids over the next 10-14 days. He needs to have PFTs as Op and return to Pulmonary Clinic for evaluation. Subjective Date/time seen: 08/07/21 10:17 patient without any new respiratory symptoms. Has been using BiPAP every night. Mild cough with no sputum production. Afebrile. Review of Systems Review of Systems: All systems reviewed & are unremarkable except as noted in HPI and below (H & P) Exam Narrative: GENERAL APPEARANCE: Well developed, well nourished, alert and cooperative, who appears to be in mild respiratory distress while sitting up in bed. SKIN: Inspection of the skin reveals no rashes, ulcerations or petechiae. HEENT: Sclerae anicteric and conjunctivae pink and moist. Extraocular movements were intact and pupils were equal. The oral mucosa, hard and soft palate, tongue and posterior pharynx were normal. Edentulous. NECK: Supple. There were no masses or enlarged lymph nodes were felt. CHEST: Normal AP diameter and normal contour without any kyphoscoliosis. LUNGS: Decreased breath sounds at bases posteriorly; also crackles at bases. CARDIAC: There was an irregular rate and rhythm without any murmurs, gallops, rubs. ABDOMEN: Soft and nontender with normal bowel sounds. There was no organomegaly. EXTREMITIES: No cyanosis, clubbing or edema. Some chronic stasis dermatitis changes bilaterally. N
--- NOTE | 2021-08-07 11:00 | PM.IMPN ---
Progress Note: A&P Assessment and Plan (1) Acute respiratory failure with hypoxia and hypercapnia: Code(s): J96.01 - Acute respiratory failure with hypoxia; J96.02 - Acute respiratory failure with hypercapnia Status: Acute Assessment and Plan: Likely related to CHF, COPD, obstructive sleep apnea Pt is still needing bipap therapy for SOB continue to diuresis, CXr shows Increasing small left and [id number] right pleural effusions with associated basilar atelectasis and/or pneumonia. 2. Cardiomegaly with pulmonary vascular congestion. - Cont BiPAP at night -oxygen maintain O2 sats> 92%. - continue Lasix IV -continue short course of steroids SEen by pulmology (2) Altered mental status: Qualifiers: Altered mental status type: unspecified Qualified Code(s): R41.82 - Altered mental status, unspecified Code(s): R41.82 - Altered mental status, unspecified Status: Acute Assessment and Plan: Likely secondary to hypercarbic respiratory failure. Mental status improved with improvement in his acute hypercarbic respiratory failure. Slowly improving pt is still SOB (3) Multilobar lung infiltrate: Code(s): R91.8 - Other nonspecific abnormal finding of lung field Status: Acute Assessment and Plan: BC negative pt seen by pulmologist White blood cell count is normal, patient is afebrile cxr today shows - Increasing small left and [id number]-[id number] right pleural effusions with associated basilar atelectasis and/or pneumonia. 2. Cardiomegaly with pulmonary vascular congestion. Check Legionella and strep antigen in urine. COVID-19 test came back negative. completed 5 day course of azithromycin today IV cefepime was changed to p.o. Augmentin 08/04 SEen by pulmology (4) Coronary artery disease: Code(s): I25.10 - Atherosclerotic heart disease of [place] coronary artery without angina pectoris Status: Inactive Assessment and Plan: Continue to monitor. Continue home meds with Lipitor, metoprolol, amlodipine. (5) Atrial fibrillation: Code(s): I48.91 - Unspecified atrial fibrillation Status: Inactive Assessment and Plan: Rate control with metoprolol. Continue Eliquis. (6) Chronic kidney disease, stage 3: Code(s): N18.30 - Chronic kidney disease, stage 3 unspecified Status: Acute Assessment and Plan: Continue to monitor BUN and creatinine Continue to monitor intake output record. Continue Lasix (7) Essential hypertension: Code(s): I10 - Essential (primary) hypertension Status: Acute Assessment and Plan: Stable Continue home meds (8) Systolic congestive heart failure: Code(s): I50.20 - Unspecified systolic (congestive) heart failure Status: Chronic Assessment and Plan: Continue Lasix Daily intake and output (9) Type 2 diabetes mellitus treated with insulin: Code(s): E11.9 - Type 2 diabetes mellitus without complications; Z79.4 - retirement (current) use of insulin Status: Acute Assessment and Plan: Continue home meds with Lantus. Accu-Cheks AC and HS (10) Diabetic neuropathy: Code(s): E11.40 - Type 2 diabetes mellitus with diabetic neuropathy, unspecified Status: Inactive Assessment and Plan: Continue gabapentin (11) CVA (cerebral vascular accident): Code(s): I63.9 - Cerebral infarction, unspecified Status: Inactive Assessment and Plan: Continue to monitor Continue Eliquis and metoprolol. (12) COPD (chronic obstructive pulmonary disease): Qualifiers: COPD type: unspecified COPD Qualified Code(s): J44.9 - Chronic obstructive pulmonary disease, unspecified Code(s): J44.9 - Chronic obstructive pulmonary disease, unspecified Status: Acute Assessment and Plan: Continue p.o. prednisone bronchodilators Additional Plan \ Subjective Date/time seen:
--- NOTE | 2021-08-07 11:01 | PCNWS ---
Weekly nutritional screen. Patient is tolerating current diet with adequate intake. No weight loss reported. No nutritional needs at this time.
[2021-08-07] MEDS: POTASSIUM CHLORIDE 20 MEQ TABLET 40 MEQ PO (11:49)
[2021-08-07 12:00] LABS: Glucose Point of Care 273 mg/dl (65-105)
[2021-08-07 16:51] LABS: Glucose Point of Care 300 mg/dl (65-105)
[2021-08-07] MEDS: ATORVASTATIN 40 MG TABLET PO (20:51)
[2021-08-07] MEDS: INSULIN GLARGINE (*BKC) 100 UNITS/ML 16 UNITS SUB-Q (20:51)
[2021-08-07 21:55] LABS: Glucose Point of Care 314 mg/dl (65-105)
[2021-08-08] VITALS (11 sets, daily range): BP systolic 91–160; BP diastolic 59–72; PULSE 62–85; RESP 17–20; TEMP 36–36.4; O2SAT 95–97
[2021-08-08 07:53] LABS: Glucose Point of Care 284 mg/dl (65-105)
[2021-08-08] MEDS: APIXABAN 5 MG TABLET PO ×2 (09:28→20:10)
[2021-08-08] MEDS: AMOXICILLIN/CLAVULANATE K 875-125 MG TAB 1 TABLET PO (09:28)
[2021-08-08] MEDS: FUROSEMIDE INJ 40 MG/4 ML VIAL IV PUSH ×2 (09:28→17:43)
[2021-08-08] MEDS: GABAPENTIN 300 MG CAPSULE 600 MG PO ×3 (09:28→17:42)
[2021-08-08] MEDS: METOPROLOL SUCCINATE EXT REL 50 MG TABCR 150 MG PO (09:28)
[2021-08-08] MEDS: amLODIPine BESYLATE 5 MG TABLET 10 MG PO (09:29)
[2021-08-08] MEDS: INSULIN ASPART (*BKC) 100 UNITS/ML SUB-Q ×6 (09:29→17:41)
[2021-08-08] MEDS: buPROPion HCL XL (24 HR) 150 MG TABCR PO (09:29)
[2021-08-08] MEDS: DULoxetine HCL 60 MG CAPSULE.DR PO ×2 (09:30→17:43)
[2021-08-08] MEDS: MAGNESIUM OXIDE 400 MG TABLET PO (09:30)
[2021-08-08] MEDS: NICOTINE (*PBKC) 21 MG PATCH 1 PATCH TRANSDERM (09:30)
[2021-08-08] MEDS: PANTOPRAZOLE 40 MG TABLET PO (09:30)
[2021-08-08] MEDS: TAMSULOSIN HCL 0.4 MG CAPSULE PO (09:31)
[2021-08-08] MEDS: EUCERIN CREAM 120 GM JAR 1 APPLIC TOPICAL (09:31)
[2021-08-08 12:05] LABS: Glucose Point of Care 296 mg/dl (65-105)
--- NOTE | 2021-08-08 14:00 | PM.IMPN ---
Progress Note: A&P Assessment and Plan (1) Acute respiratory failure with hypoxia and hypercapnia: Code(s): J96.01 - Acute respiratory failure with hypoxia; J96.02 - Acute respiratory failure with hypercapnia Status: Acute Assessment and Plan: Likely related to CHF, COPD, obstructive sleep apnea, morbid obesity and probable obesity hypoventilation Continue BiPAP overnight. He will remain on 2 L of oxygen during the daytime. His baseline is 2-3 L of oxygen during the daytime. He can be on BiPAP during the daytime on a as needed basis for increased work of breathing. Chest x-ray done today reviewed which showed bilateral infiltrate suggestive of pulmonary edema. Continue Lasix and will increase the dose of Lasix. Strict intake output record daily weight. Continue to monitor renal parameters and electrolytes. Steroids have been stopped by pulmonary service. Pulmonary service recommendations appreciated. He does not have CPAP/BiPAP currently at this time at his facility. He would need to have a BiPAP/trilogy arranged before he can be discharged back as he will be at high risk for readmission. DME orders need to be placed by Pulmonary Service. (2) Altered mental status: Qualifiers: Altered mental status type: unspecified Qualified Code(s): R41.82 - Altered mental status, unspecified Code(s): R41.82 - Altered mental status, unspecified Status: Acute Assessment and Plan: Likely secondary to hypercarbic respiratory failure. Mental status improved with improvement in his acute hypercarbic respiratory failure. (3) Multilobar lung infiltrate: Code(s): R91.8 - Other nonspecific abnormal finding of lung field Status: Acute Assessment and Plan: White blood cell count is normal, patient is afebrile Her thoracic imaging was more suggestive of fluid overload rather than any infective process. Legionella and strep antigen in urine was negative. COVID-19 test came back negative. completed 5 day course of azithromycin IV cefepime was changed to p.o. Augmentin 08/04. I will stop antibiotics is I do not feel that he has any bacterial infective pneumonia and he has received Antibiotics for adequate number of days already. (4) Coronary artery disease: Code(s): I25.10 - Atherosclerotic heart disease of [place] coronary artery without angina pectoris Status: Inactive Assessment and Plan: Continue to monitor. No active issues Continue home meds with Lipitor, metoprolol, amlodipine. (5) Atrial fibrillation: Code(s): I48.91 - Unspecified atrial fibrillation Status: Inactive Assessment and Plan: Rate control with metoprolol. Continue Eliquis. (6) Chronic kidney disease, stage 3: Code(s): N18.30 - Chronic kidney disease, stage 3 unspecified Status: Acute Assessment and Plan: Continue to monitor BUN and creatinine Continue to monitor intake output record. Continue Lasix but will increase the dose today to 40 mg IV twice a day. (7) Essential hypertension: Code(s): I10 - Essential (primary) hypertension Status: Acute Assessment and Plan: Stable. Blood pressure has been noticed to be a bit on the higher side today. Continue to monitor closely. Continue home meds (8) Systolic congestive heart failure: Code(s): I50.20 - Unspecified systolic (congestive) heart failure Status: Chronic Assessment and Plan: Continue Lasix Daily intake and output (9) Type 2 diabetes mellitus treated with insulin: Code(s): E11.9 - Type 2 diabetes mellitus without complications; Z79.4 - half-way (current) use of insulin Status: Acute Assessment and Plan: Continue home meds with Lantus but will increase the dose from 16 units to 18 units is some of the blood sugar readings were in 300s. Accu-Cheks AC and HS (10) Diabetic neuropathy: Code(s): E
[2021-08-08 16:48] LABS: Glucose Point of Care 323 mg/dl (65-105)
[2021-08-08] MEDS: ATORVASTATIN 40 MG TABLET PO (20:10)
[2021-08-08] MEDS: INSULIN GLARGINE (*BKC) 100 UNITS/ML 18 UNITS SUB-Q (20:14)
[2021-08-08 22:26] LABS: Glucose Point of Care 265 mg/dl (65-105)
[2021-08-09] VITALS (8 sets, daily range): BP systolic 129–143; BP diastolic 34–70; PULSE 61–69; RESP 16–20; TEMP 36–36.4; O2SAT 94–97
[2021-08-09 06:22] LABS: Eosinophils Absolute Auto 0.3 K/mm3 (0-0.3); Eosinophils Percent Auto 3.1 % (0-4.4); Hematocrit 32.6 % (42.0-52.0); Hemoglobin 9.9 g/dL (14.0-18.0); Immature Granulocyte Absolute 0.03 K/mm3 (0.00-0.031); Immature Granulocyte Percent A 0.4 % (0-0.5); Immature Platelet Fraction Pct 6.3 % (0.9-11.2); Lymphocytes Absolute Auto 1.31 K/mm3 (0.9-3.2); Lymphocytes Percent Auto 16.4 % (18.3-44.2); Mean Corpuscular HGB Conc 30.4 g/dl (32-36); Mean Corpuscular Hemoglobin 25.3 pg (26-34); Mean Corpuscular Volume 83.4 fl (80-100); Mean Platelet Volume 12.5 fl (7.4-10.4); Monocytes Absolute Auto 0.3 K/mm3 (0.1-0.6); Monocytes Percent Auto 3.1 % (2.6-8.5); Neutrophils Absolute Auto 6.2 K/mm3 (1.3-6.7); Platelet Count Result 79 k/mm3 (150-375); Red Blood Count 3.91 M/mm3 (4.6-6.20); Red Cell Distribution Width 17.4 % (11.5-14.5)
[2021-08-09 06:33] LABS: Anion Gap 1 mmol/L (8-16); Blood Urea Nitrogen 72 mg/dL (9-20); Calcium 8.3 mg/dL (8.4-10.2); Carbon Dioxide 39 mmol/L (22-30); Chloride 100 mmol/L (98-107); Estimated CRCL calculation 55 ml/min; Estimated Glomerular Filt Rate 44; Glucose 148 mg/dL (65-110); Magnesium 1.8 mg/dL (1.6-2.3); Potassium 3.8 mmol/L (3.4-5.0); Sodium 140 mmol/L (137-145)
[2021-08-09] MEDS: GABAPENTIN 300 MG CAPSULE 600 MG PO ×3 (08:33→17:29)
[2021-08-09] MEDS: METOPROLOL SUCCINATE EXT REL 50 MG TABCR 150 MG PO (08:33)
[2021-08-09] MEDS: FUROSEMIDE INJ 40 MG/4 ML VIAL IV PUSH ×2 (08:34→17:30)
[2021-08-09] MEDS: MAGNESIUM OXIDE 400 MG TABLET PO (08:34)
[2021-08-09] MEDS: APIXABAN 5 MG TABLET PO ×2 (08:35→22:56)
[2021-08-09] MEDS: PANTOPRAZOLE 40 MG TABLET PO (08:35)
[2021-08-09] MEDS: TAMSULOSIN HCL 0.4 MG CAPSULE PO (08:35)
[2021-08-09] MEDS: DULoxetine HCL 60 MG CAPSULE.DR PO ×2 (08:35→17:29)
[2021-08-09] MEDS: buPROPion HCL XL (24 HR) 150 MG TABCR PO (08:35)
[2021-08-09] MEDS: NICOTINE (*PBKC) 21 MG PATCH 1 PATCH TRANSDERM (08:35)
[2021-08-09] MEDS: amLODIPine BESYLATE 5 MG TABLET 10 MG PO (08:35)
[2021-08-09 08:49] LABS: Glucose Point of Care 126 mg/dl (65-105)
[2021-08-09] MEDS: INSULIN ASPART (*BKC) 100 UNITS/ML SUB-Q ×5 (08:49→17:30)
[2021-08-09 10:11] LABS: Glucose Point of Care 147 mg/dl (65-105)
[2021-08-09] MEDS: LACTULOSE 20 GM/30 ML UDC PO (12:28)
[2021-08-09 12:35] LABS: Glucose Point of Care 230 mg/dl (65-105)
[2021-08-09] MEDS: EUCERIN CREAM 120 GM JAR 1 APPLIC TOPICAL (12:35)
--- NOTE | 2021-08-09 12:56 | PM.IMPN ---
Progress Note: A&P Assessment and Plan (1) Acute respiratory failure with hypoxia and hypercapnia: Code(s): J96.01 - Acute respiratory failure with hypoxia; J96.02 - Acute respiratory failure with hypercapnia Status: Acute Assessment and Plan: Likely related to CHF, COPD, obstructive sleep apnea, morbid obesity and probable obesity hypoventilation Continue BiPAP overnight. He will remain on 2 L of oxygen during the daytime. His baseline is 2-3 L of oxygen during the daytime. He can be on BiPAP during the daytime on a as needed basis for increased work of breathing. Chest x-ray done 08/08 reviewed which showed bilateral infiltrate suggestive of pulmonary edema. Continue Lasix at current dose Strict intake output record daily weight. Continue to monitor renal parameters and electrolytes. Steroids have been stopped by pulmonary service. Pulmonary service recommendations appreciated. He needs to be on BiPAP/trilogy as a out patient because of his repeated admission and history of chronic hypercarbic respiratory failure. I have been informed by care coordination that he does have a BiPAP at his facility with questionable compliance. (2) Altered mental status: Qualifiers: Altered mental status type: unspecified Qualified Code(s): R41.82 - Altered mental status, unspecified Code(s): R41.82 - Altered mental status, unspecified Status: Acute Assessment and Plan: Likely secondary to hypercarbic respiratory failure. Mental status improved with improvement in his acute hypercarbic respiratory failure. (3) Multilobar lung infiltrate: Code(s): R91.8 - Other nonspecific abnormal finding of lung field Status: Acute Assessment and Plan: White blood cell count is normal, patient is afebrile Her thoracic imaging was more suggestive of fluid overload rather than any infective process. Legionella and strep antigen in urine was negative. COVID-19 test came back negative. completed 5 day course of azithromycin IV cefepime was changed to p.o. Augmentin 08/04. His antibiotics were stopped on 08/08 as I do not feel that he has any bacterial infective pneumonia and he has received Antibiotics for adequate number of days already. (4) Coronary artery disease: Code(s): I25.10 - Atherosclerotic heart disease of [place] coronary artery without angina pectoris Status: Inactive Assessment and Plan: Continue to monitor. No active issues Continue home meds with Lipitor, metoprolol, amlodipine. (5) Atrial fibrillation: Code(s): I48.91 - Unspecified atrial fibrillation Status: Inactive Assessment and Plan: Rate control with metoprolol. Continue Eliquis. (6) Chronic kidney disease, stage 3: Code(s): N18.30 - Chronic kidney disease, stage 3 unspecified Status: Acute Assessment and Plan: Continue to monitor BUN and creatinine Continue to monitor intake output record. Continue Lasix at current dose. Redressed the dose based on his fluid status. (7) Essential hypertension: Code(s): I10 - Essential (primary) hypertension Status: Acute Assessment and Plan: Stable. Continue to monitor closely. Continue home meds (8) Systolic congestive heart failure: Code(s): I50.20 - Unspecified systolic (congestive) heart failure Status: Chronic Assessment and Plan: Continue Lasix at current dose. Readjust the dose based on his fluid status. Daily intake and output (9) Type 2 diabetes mellitus treated with insulin: Code(s): E11.9 - Type 2 diabetes mellitus without complications; Z79.4 - skilled nursing (current) use of insulin Status: Acute Assessment and Plan: Continue home meds with Lantus. His dose was increased from 16-18 units yesterday with some of his blood sugars readings in 300s. Today blood sugars seems to be in acceptable range. Accu-Cheks AC and HS
--- NOTE | 2021-08-09 13:22 | PCPTNOTE ---
Attempted to see patient at 0910, patient eating and refused therapy at this time, however agreed for therapy to come back later. Attempted again at 1320, patient stated he was backed up and didn't want to do anything right now. When therapist encouraged patient to participate with leg exercises, patient stated you people just don't take no for an answer do you? Reiterated to patient that therapy is only here to assist patient to get stronger and more independent. RN notified.
--- NOTE | 2021-08-09 15:45 | ECG_ITS ---
Measurements Intervals [place] Rate: 62 P: [place]: 0 QRS: 52 QRSD: 131 T: 110 QT: 411 QTc: 418 Interpretive Statements ATRIAL FLUTTER/TACHYCARDIA LEFT BUNDLE BRANCH BLOCK LOW VOLTAGE- LIMB LEADS ABNORMAL ECG Electronically Signed On 08-10-2021 8:02:27 CDT by Cecilio Soto D.O.
[2021-08-09] MEDS: polyethylene glycoL 3350 17 GM POWD.PACK PO (17:21)
--- NOTE | 2021-08-09 18:14 | ECG_ITS ---
Rate 62 MA 0 QRSd 131 QT 411 QTc 418 --[place]-- P QRS 52 T 110 ATRIAL FLUTTER/TACHYCARDIA LEFT BUNDLE BRANCH BLOCK LOW VOLTAGE- LIMB LEADS ABNORMAL ECG Electronically Signed On 08-10-2021 8:02:27 CDT by Cecilio Soto D.O. COMPARED TO ECG 08/09/2021 13:09:00 ATRIAL FLUTTER NOW PRESENT LEFT BUNDLE-BRANCH BLOCK NOW PRESENT MTDD
[2021-08-09 18:18] LABS: Glucose Point of Care 317 mg/dl (65-105)
[2021-08-09] MEDS: ATORVASTATIN 40 MG TABLET PO (22:56)
[2021-08-09] MEDS: INSULIN GLARGINE (*BKC) 100 UNITS/ML 18 UNITS SUB-Q (22:59)
[2021-08-10] VITALS (13 sets, daily range): BP systolic 120–146; BP diastolic 67–78; PULSE 61–83; RESP 18–22; TEMP 36.2–36.7; O2SAT 95–98
[2021-08-10 02:14] LABS: Glucose Point of Care 219 mg/dl (65-105)
[2021-08-10] MEDS: polyethylene glycoL 3350 17 GM POWD.PACK PO (03:47)
[2021-08-10 06:32] LABS: Eosinophils Absolute Auto 0.3 K/mm3 (0-0.3); Eosinophils Percent Auto 2.6 % (0-4.4); Hemoglobin 10.3 g/dL (14.0-18.0); Immature Granulocyte Absolute 0.03 K/mm3 (0.00-0.031); Immature Granulocyte Percent A 0.3 % (0-0.5); Immature Platelet Fraction Pct 7.6 % (0.9-11.2); Lymphocytes Absolute Auto 1.03 K/mm3 (0.9-3.2); Lymphocytes Percent Auto 10.6 % (18.3-44.2); Mean Corpuscular HGB Conc 30.3 g/dl (32-36); Mean Corpuscular Volume 85.9 fl (80-100); Monocytes Absolute Auto 0.3 K/mm3 (0.1-0.6); Monocytes Percent Auto 3.5 % (2.6-8.5); Neutrophils Absolute Auto 8.1 K/mm3 (1.3-6.7); Platelet Count Result 96 k/mm3 (150-375); Red Blood Count 3.96 M/mm3 (4.6-6.20); Red Cell Distribution Width 17.6 % (11.5-14.5); White Blood Count 9.7 K/mm3 (4.5-10.0)
[2021-08-10 06:43] LABS: Anion Gap 2 mmol/L (8-16); Blood Urea Nitrogen 69 mg/dL (9-20); Calcium 8.4 mg/dL (8.4-10.2); Carbon Dioxide 38 mmol/L (22-30); Chloride 98 mmol/L (98-107); Estimated CRCL calculation 55 ml/min; Estimated Glomerular Filt Rate 44; Glucose 176 mg/dL (65-110); Magnesium 1.7 mg/dL (1.6-2.3); Potassium 4.1 mmol/L (3.4-5.0); Sodium 138 mmol/L (137-145)
[2021-08-10] MEDS: INSULIN ASPART (*BKC) 100 UNITS/ML SUB-Q ×3 (08:07→16:57)
[2021-08-10] MEDS: amLODIPine BESYLATE 5 MG TABLET 10 MG PO (08:08)
[2021-08-10] MEDS: TAMSULOSIN HCL 0.4 MG CAPSULE PO (08:08)
[2021-08-10] MEDS: METOPROLOL SUCCINATE EXT REL 50 MG TABCR 150 MG PO (08:08)
[2021-08-10] MEDS: buPROPion HCL XL (24 HR) 150 MG TABCR PO (08:10)
[2021-08-10] MEDS: GABAPENTIN 300 MG CAPSULE 600 MG PO ×3 (08:11→16:57)
[2021-08-10] MEDS: NICOTINE (*PBKC) 21 MG PATCH 1 PATCH TRANSDERM (08:11)
[2021-08-10] MEDS: DULoxetine HCL 60 MG CAPSULE.DR PO ×2 (08:11→16:57)
[2021-08-10] MEDS: APIXABAN 5 MG TABLET PO ×2 (08:11→20:40)
[2021-08-10] MEDS: MAGNESIUM OXIDE 400 MG TABLET PO (08:11)
[2021-08-10 08:12] LABS: Glucose Point of Care 165 mg/dl (65-105)
[2021-08-10] MEDS: FUROSEMIDE INJ 40 MG/4 ML VIAL IV PUSH ×2 (08:12→16:57)
[2021-08-10] MEDS: EUCERIN CREAM 120 GM JAR 1 APPLIC TOPICAL (08:12)
--- NOTE | 2021-08-10 10:50 | PM.PNPUL ---
Progress Note: A&P Assessment and Plan (1) Acute exacerbation of CHF (congestive heart failure): Qualifiers: Heart failure type: unspecified Qualified Code(s): I50.9 - Heart failure, unspecified Code(s): I50.9 - Heart failure, unspecified Status: Acute Assessment and Plan: Respiratory status has been stable while on BiPAP support at night. Patient has no wheezing on physical exam. 08/10 [place] [address] on 07/31/2021 and chest x-ray on 08/08 consistent with fluid overload. agree with aggressively diuresing patient as tolerated by his cardiac and renal systems as per the hospitalist team. cumulative diuresis from admission is -845 mL Although there are no accurate outputs being documented. Admission weight on is 107.5 kg. The last weight on 08/07 is 104.6 kg. Patient is currently on Lasix 40 mg IV b.i.d. since 08/08 At 5:00 p.m.. (2) Acute respiratory failure with hypoxia and hypercapnia: Code(s): J96.01 - Acute respiratory failure with hypoxia; J96.02 - Acute respiratory failure with hypercapnia Status: Acute Assessment and Plan: Patient with blood gas on 07/31/2021 with pH of 7.31/83/60 on BiPAP rate of 20, inspiratory pressure 20, EPAP 10 and 40%. His admission bicarb was greater than 40. 08/10 Patient has acute on chronic respiratory failure with hypercapnia and hypoxia. Etiology includes fluid overload, COPD, obstructive sleep apnea and obesity hypoventilation syndrome. I will check a room blood gas on 2 L nasal cannula during the day today to assess for hypercarbia. I will check TSH and free T4 on 08/11. Patient tells me he has a history of obstructive sleep apnea and is currently on a CPAP machine at his living facility. marketing services coordinator will call the current living facility to confirm and obtain the recent settings for his PAP therapy Which were respiratory rate of 16, inspiratory pressure 16, expiratory pressure 8 and they rent the equipment so there is no download available. Patient had a blood gas on 08/02/2021 at 5:21 a.m. on BiPAP with a rate of 20, inspiratory pressure 20, expiratory pressure 10 and 40% with a pH of 7.45/50/81. While I am awaiting verification of his PAP settings, I will continue him on previous BiPAP settings of respiratory rate of 16, inspiratory pressure 16, expiratory pressure 8 and obtain an overnight oximetry on 2 L nasal cannula tonight. (3) History of sleep apnea: Code(s): Z86.69 - Personal history of other diseases of the nervous system and sense organs Status: Acute Assessment and Plan: Patient tells me he has a history of obstructive sleep apnea and is currently on a CPAP machine at his living facility and wears machine nightly with a nasal mask. marketing services coordinator will call the current living facility to confirm and obtain the recent settings for his PAP therapy. (4) COPD (chronic obstructive pulmonary disease): Qualifiers: COPD type: unspecified COPD Qualified Code(s): J44.9 - Chronic obstructive pulmonary disease, unspecified Code(s): J44.9 - Chronic obstructive pulmonary disease, unspecified Status: Acute Assessment and Plan: 08/10/21 Patient does not know if he has COPD but smoked 2-1/2 packs of cigarettes from age 19 to I year ago 105 pack years. He is now down to 6 cigarettes a day. Patient tells me that he takes Symbicort at his facility but he does not know the dose and does not know if he takes any other inhalers. Walks with a walker and has [employer]. I have no PFTs and a high-resolution CT scan on 07/25/2021 does not show prominent centrilobular or paraseptal emphysema and no concerning nodules. Patient states he does wheeze at times and I believe he has COPD with chronic hypercarbic respiratory failure and multiple hospitalizations for acute on chronic hypercarbic respiratory failure. Patient would benefit from non
--- NOTE | 2021-08-10 11:04 | P.PNIM_ITS ---
Progress Note: A&P Assessment and Plan (1) Acute respiratory failure with hypoxia and hypercapnia: Code(s): J96.01 - Acute respiratory failure with hypoxia; J96.02 - Acute respiratory failure with hypercapnia Status: Acute Assessment and Plan: Likely related to CHF, COPD, obstructive sleep apnea, morbid obesity and probable obesity hypoventilation * Appreciate pulmonology consultation * Continue BiPAP at night. * Continue with supplemental O2 during daytime. At baseline he uses 1-2 L at rest * Overnight oximetry study to be performed on 2 L per nasal cannula * Most recent CXR 08/08/2021 was suggestive of pulmonary edema * Continue treatment for CHF as described below (2) Systolic congestive heart failure: Code(s): I50.20 - Unspecified systolic (congestive) heart failure Status: Chronic Assessment and Plan: Echo performed 07/23/2021 showed mildly reduced EF of 45-50% * As above, CXR with evidence of volume overload * Continue Lasix 40 mg IV push b.i.d. He has had minimal diuresis thus far * Monitor intake and output. Weigh daily. Heart healthy diet * Continue metoprolol succinate (3) COPD (chronic obstructive pulmonary disease): Qualifiers: COPD type: unspecified COPD Qualified Code(s): J44.9 - Chronic obstructive pulmonary disease, unspecified Code(s): J44.9 - Chronic obstructive pulmonary disease, unspecified Status: Acute Assessment and Plan: No wheezing on exam. * Improved after treatment with steroids; discontinued 08/07 per pulmonology recommendation * Symbicort discontinued, started on Incruse Ellipta per pulmonology * He will need outpatient pulmonology follow-up for pulmonary function testing (4) ELAINE (obstructive sleep apnea): Code(s): G47.33 - Obstructive sleep apnea (adult) (pediatric) Status: Acute Assessment and Plan: Maintained on PAP therapy * inventory control coordinator contacting facility to determine CPAP vs BIPAP and obtain settings * Continue with BIPAP at night during hospitalization (5) Altered mental status: Qualifiers: Altered mental status type: unspecified Qualified Code(s): R41.82 - Altered mental status, unspecified Code(s): R41.82 - Altered mental status, unspecified Status: Acute Assessment and Plan: Likely secondary to hypercarbic respiratory failure. * Mental status improved with improvement in his acute hypercarbic respiratory failure. * He is A&O x3 on my evaluation. Does not appear to be particularly confused but is a poor historian (6) Multilobar lung infiltrate: Code(s): R91.8 - Other nonspecific abnormal finding of lung field Status: Acute Assessment and Plan: Evident on CXR * White blood cell count is normal, patient is afebrile * Thoracic imaging was more suggestive of fluid overload rather than any infective process. * Legionella and strep antigen in urine was negative. * COVID-19 test came back negative. * Completed 5 day course of azithromycin. Started on IV cefepime and transition to p.o. Augmentin, discontinued on 08/08 as no infectious process suspected based on symptoms and workup (7) Atrial fibrillation: Code(s): I48.91 - Unspecified atrial fibrillation Status: Inactive Assessment and Plan: Rate remains controlled * Continue metoprolol * Continue Eliquis (8) Tobacco abuse: Code(s): Z72.0 - Tobacco use Status: Inactive Assessment and Plan: Patient reports charly
--- NOTE | 2021-08-10 11:04 | PM.IMPN ---
Progress Note: A&P Assessment and Plan (1) Acute respiratory failure with hypoxia and hypercapnia: Code(s): J96.01 - Acute respiratory failure with hypoxia; J96.02 - Acute respiratory failure with hypercapnia Status: Acute Assessment and Plan: Likely related to CHF, COPD, obstructive sleep apnea, morbid obesity and probable obesity hypoventilation Appreciate pulmonology consultation Continue BiPAP at night. Continue with supplemental O2 during daytime. At baseline he uses 1-2 L at rest Overnight oximetry study to be performed on 2 L per nasal cannula Most recent CXR 08/08/2021 was suggestive of pulmonary edema Continue treatment for CHF as described below (2) Systolic congestive heart failure: Code(s): I50.20 - Unspecified systolic (congestive) heart failure Status: Chronic Assessment and Plan: Echo performed 07/23/2021 showed mildly reduced EF of 45-50% As above, CXR with evidence of volume overload Continue Lasix 40 mg IV push b.i.d. He has had minimal diuresis thus far Monitor intake and output. Weigh daily. Heart healthy diet Continue metoprolol succinate (3) COPD (chronic obstructive pulmonary disease): Qualifiers: COPD type: unspecified COPD Qualified Code(s): J44.9 - Chronic obstructive pulmonary disease, unspecified Code(s): J44.9 - Chronic obstructive pulmonary disease, unspecified Status: Acute Assessment and Plan: No wheezing on exam. Improved after treatment with steroids; discontinued 08/07 per pulmonology recommendation Symbicort discontinued, started on Incruse Ellipta per pulmonology He will need outpatient pulmonology follow-up for pulmonary function testing (4) ELAINE (obstructive sleep apnea): Code(s): G47.33 - Obstructive sleep apnea (adult) (pediatric) Status: Acute Assessment and Plan: Maintained on PAP therapy web marketing coordinator contacting facility to determine CPAP vs BIPAP and obtain settings Continue with BIPAP at night during hospitalization (5) Altered mental status: Qualifiers: Altered mental status type: unspecified Qualified Code(s): R41.82 - Altered mental status, unspecified Code(s): R41.82 - Altered mental status, unspecified Status: Acute Assessment and Plan: Likely secondary to hypercarbic respiratory failure. Mental status improved with improvement in his acute hypercarbic respiratory failure. He is A&O x3 on my evaluation. Does not appear to be particularly confused but is a poor historian (6) Multilobar lung infiltrate: Code(s): R91.8 - Other nonspecific abnormal finding of lung field Status: Acute Assessment and Plan: Evident on CXR White blood cell count is normal, patient is afebrile Thoracic imaging was more suggestive of fluid overload rather than any infective process. Legionella and strep antigen in urine was negative. COVID-19 test came back negative. Completed 5 day course of azithromycin. Started on IV cefepime and transition to p.o. Augmentin, discontinued on 08/08 as no infectious process suspected based on symptoms and workup (7) Atrial fibrillation: Code(s): I48.91 - Unspecified atrial fibrillation Status: Inactive Assessment and Plan: Rate remains controlled Continue metoprolol Continue Eliquis (8) Tobacco abuse: Code(s): Z72.0 - Tobacco use Status: Inactive Assessment and Plan: Patient reports smoking 2.5 packs per day for 40 years. Currently down to 6 cigarettes per day Continue with nicotine patch Smoking cessation is imperative and will continue to be reinforced (9) Chronic kidney disease, stage 3: Code(s): N18.30 - Chronic kidney disease, stage 3 unspecified Status: Acute Assessment and Plan: Renal function appears consistent with baseline Monitor kidney function closely Cautious diuresis Monitor
--- NOTE | 2021-08-10 11:42 | PCOTNOTE ---
Attempted to see pt this date at 11:38am. Pt. stated he was in 10 pain this date. Pt. visibly in pain by displaying groaning, grimacing, and clenched jaw and fists. Pt. stated I really hurt, can you please come back tomorrow. RN notified of pain level. Will continue with OT frequency tomorrow.
[2021-08-10 11:44] LABS: Alveolar/Arterial O2 Gradient 87.7 mmHg; Base Excess ABG 8.6 mEq/l (+/-2.0); Fractional Inspired Oxygen 28 %; HCO3 ABG 33.2 mEq/l (22.0-26.0); Oxygen Content ABG 14.4 %vol (16.0-22.0); Oxygen Saturation ABG 91.3 % (95.0-100.0); Oxyhemoglobin 88.4 % THb (90.0-100.0); PCO2 ABG 46.3 mmHg (35.0-45.0); PO2 ABG 57.3 mmHg (80.0-100.0); PO2 FiO2 Ratio Arterial Blood 2.05 %; Total Hemoglobin 11.6 g/dL (12.0-18.0); pH ABG 7.474 (7.350-7.450)
[2021-08-10 11:45] LABS: Device NASAL CANNULA; Modified Allen's Test Pass; Site Drawn RIGHT RADIAL
[2021-08-10] MEDS: ACETAMINOPHEN 325 MG TABLET 650 MG PO (12:04)
[2021-08-10 12:17] LABS: Glucose Point of Care 156 mg/dl (65-105)
[2021-08-10 16:49] LABS: Glucose Point of Care 159 mg/dl (65-105)
[2021-08-10] MEDS: ATORVASTATIN 40 MG TABLET PO (20:40)
[2021-08-10] MEDS: INSULIN GLARGINE (*BKC) 100 UNITS/ML 18 UNITS SUB-Q (20:40)
[2021-08-10 21:35] LABS: Glucose Point of Care 138 mg/dl (65-105)
--- NOTE | 2021-08-10 23:19 | PC.NURSE ---
by [id number] patient had removed own bipap and is refusing to put it back on.. Allowed me to put on supplemental 02. Educated on apnea link and need for bipap and he continually got frustrated and said I won't do it cause I can't tolerate it! Informed respiratory who also tried to educate him.
--- NOTE | 2021-08-10 23:27 | PCRCNOTE ---
Applied apena link to pt with bipap and used doctors settings with 2L bleed in. Pt started link but then took bipap off and refused to wear the bipap. Pt refused to do the rest of the testing and refused further testing to be done.
[2021-08-11] VITALS (12 sets, daily range): BP systolic 118–156; BP diastolic 43–79; PULSE 56–76; RESP 18–20; TEMP 36.7–36.8; O2SAT 91–98
--- NOTE | 2021-08-11 04:13 | PCRCNOTE ---
Pt refused ABG for 5am. They did not weaar BIPAP but maybe an hour and didnt finish apnea link
[2021-08-11 06:47] LABS: Hematocrit 34.3 % (42.0-52.0); Hemoglobin 10.3 g/dL (14.0-18.0); Mean Corpuscular Hemoglobin 25.4 pg (26-34); Mean Corpuscular Volume 84.7 fl (80-100); Mean Platelet Volume 11.1 fl (7.4-10.4); Platelet Count Result 89 k/mm3 (150-375); Red Blood Count 4.05 M/mm3 (4.6-6.20); Red Cell Distribution Width 17.2 % (11.5-14.5)
[2021-08-11 06:54] LABS: Anion Gap -2 mmol/L (8-16); Blood Urea Nitrogen 62 mg/dL (9-20); Calcium 8.5 mg/dL (8.4-10.2); Carbon Dioxide 37 mmol/L (22-30); Chloride 100 mmol/L (98-107); Estimated CRCL calculation 54 ml/min; Estimated Glomerular Filt Rate 44; Glucose 113 mg/dL (65-110); Potassium 3.8 mmol/L (3.4-5.0); Sodium 135 mmol/L (137-145)
[2021-08-11 07:54] LABS: Glucose Point of Care 89 mg/dl (65-105)
[2021-08-11 08:02] LABS: NT Pro B Type Natriuretic Pept 8730 pg/mL (5-100)
--- NOTE | 2021-08-11 08:10 | PM.PNPUL ---
Progress Note: A&P Assessment and Plan (1) Acute exacerbation of CHF (congestive heart failure): Qualifiers: Heart failure type: unspecified Qualified Code(s): I50.9 - Heart failure, unspecified Code(s): I50.9 - Heart failure, unspecified Status: Acute Assessment and Plan: Respiratory status has been stable while on BiPAP support at night. Patient has no wheezing on physical exam. 08/10 [place] [address] on 07/31/2021 and chest x-ray on 08/08 consistent with fluid overload. agree with aggressively diuresing patient as tolerated by his cardiac and renal systems as per the hospitalist team. cumulative diuresis from admission is -845 mL Although there are no accurate outputs being documented. Admission weight on is 107.5 kg. The last weight on 08/07 is 104.6 kg. Patient is currently on Lasix 40 mg IV b.i.d. since 08/08 At 5:00 p.m.. 08/11 Weight today is 103.6 (admit 107.5). BNP today is 8730 (admit 101 was 76923). Agree with aggressively diuresing patient as tolerated by his cardiac and renal systems per the hospitalist team. (2) Acute respiratory failure with hypoxia and hypercapnia: Code(s): J96.01 - Acute respiratory failure with hypoxia; J96.02 - Acute respiratory failure with hypercapnia Status: Acute Assessment and Plan: Patient with blood gas on 07/31/2021 with pH of 7.31/83/60 on BiPAP rate of 20, inspiratory pressure 20, EPAP 10 and 40%. His admission bicarb was greater than 40. 08/10 Patient has acute on chronic respiratory failure with hypercapnia and hypoxia. patient was discharged on 07/30/21 to his living facility on BiPAP rate of 16 pressure 16/8 with a blood gas at the end of the night on 07/22 on the settings of 7.43/39/149 on 45% FiO2. Etiology includes fluid overload, COPD, obstructive sleep apnea and obesity hypoventilation syndrome. I will check a room blood gas on 2 L nasal cannula during the day today to assess for hypercarbia. I will check TSH and free T4 on 08/11. Patient tells me he has a history of obstructive sleep apnea and is currently on a CPAP machine at his living facility. accounts payable coordinator called [facility] to confirm and obtain the recent settings for his PAP therapy which were respiratory rate of 16, inspiratory pressure 16, expiratory pressure 8 and they rent the equipment so there is no download available. Patient had a blood gas on 08/02/2021 at 5:21 a.m. on BiPAP with a rate of 20, inspiratory pressure 20, expiratory pressure 10 and 40% with a pH of 7.45/50/81. While I am awaiting verification of his PAP settings, I will continue him on previous BiPAP settings of respiratory rate of 16, inspiratory pressure 16, expiratory pressure 8 and obtain an overnight oximetry on 2 L nasal cannula tonight. 08/11 patient had a blood gas on 08/10 on 2 L nasal cannula during the day with pH of 7.47/46/57, accordingly there is no evidence of obesity hypoventilation syndrome. TSH is normal at 2.16 and free T4 is normal at 1.25. (3) History of sleep apnea: Code(s): Z86.69 - Personal history of other diseases of the nervous system and sense organs Status: Acute Assessment and Plan: Patient tells me he has a history of obstructive sleep apnea and is currently on BiPAP with respiratory rate of 16, inspiratory pressure 16, expiratory pressure 8 and they rent the equipment so there is no download available. Per the nurse his only been at [facility] her for 3 days and wore the mask minimally for the 1st 2 days but did wear it for the 3rd night and then presented to the hospital. 08/11 Patient wore the mask for few hours last night than refused. Apnea link on 28% was not performed because he did not wear the BiPAP in a boarding blood gas was not performed as he did not wear his BiPAP last night. I have readjusted the BiPAP mask fullface mask today and is more comfortable. I have in
[2021-08-11 08:16] LABS: Free T4 Free Thyroxine 1.25 ng/mL (0.78-2.19)
[2021-08-11] MEDS: INSULIN ASPART (*BKC) 100 UNITS/ML SUB-Q ×4 (08:55→18:20)
[2021-08-11] MEDS: amLODIPine BESYLATE 5 MG TABLET 10 MG PO (08:58)
[2021-08-11] MEDS: GABAPENTIN 300 MG CAPSULE 600 MG PO ×3 (08:58→18:20)
[2021-08-11] MEDS: DULoxetine HCL 60 MG CAPSULE.DR PO ×2 (08:58→18:20)
[2021-08-11] MEDS: TAMSULOSIN HCL 0.4 MG CAPSULE PO (08:58)
[2021-08-11] MEDS: APIXABAN 5 MG TABLET PO ×2 (08:58→20:09)
[2021-08-11] MEDS: buPROPion HCL XL (24 HR) 150 MG TABCR PO (08:58)
[2021-08-11] MEDS: FUROSEMIDE INJ 40 MG/4 ML VIAL IV PUSH ×2 (08:59→18:20)
[2021-08-11] MEDS: METOPROLOL SUCCINATE EXT REL 50 MG TABCR 150 MG PO (08:59)
[2021-08-11] MEDS: MAGNESIUM OXIDE 400 MG TABLET PO (08:59)
[2021-08-11] MEDS: EUCERIN CREAM 120 GM JAR 1 APPLIC TOPICAL (08:59)
[2021-08-11] MEDS: NICOTINE (*PBKC) 21 MG PATCH 1 PATCH TRANSDERM (09:00)
--- NOTE | 2021-08-11 10:16 | PCOTNOTE ---
Attempted to see pt. at 10:08 this AM. Pt. asleep in room. Pt. refused OT services this date stated I really dont feel well. I cant even keep my eyes open. Pt. educated on benefits of OT this date. Continued to decline.
--- NOTE | 2021-08-11 10:52 | PCPTNOTE ---
Patient declined PT at this time. PT will attempt again this afternoon.
--- NOTE | 2021-08-11 11:30 | P.PNIM_ITS ---
Progress Note: A&P Assessment and Plan (1) Acute respiratory failure with hypoxia and hypercapnia: Code(s): J96.01 - Acute respiratory failure with hypoxia; J96.02 - Acute respiratory failure with hypercapnia Status: Acute Assessment and Plan: Multifactorial related to CHF, COPD, obstructive sleep apnea, morbid obesity and probable obesity hypoventilation. This morning, noted to be hypoxic in the 80s on room air. * Appreciate pulmonology consultation * Continue BiPAP when sleeping. Patient refusing BiPAP last night. * Continue with supplemental O2 during daytime to maintain sats 90% or above. At baseline he uses 1-2 L at rest * Overnight oximetry study ordered but patient refused * Most recent CXR 08/08/2021 was suggestive of pulmonary edema * Continue treatment for CHF as described below * He will need continued BiPAP at night on discharge. Has been accepted to [facility] who can provide BiPAP. * Overall, ABG with improvement in hypercapnia. He refused ABG this morning. (2) Systolic congestive heart failure: Code(s): I50.20 - Unspecified systolic (congestive) heart failure Status: Chronic Assessment and Plan: Echo performed 07/23/2021 showed mildly reduced EF of 45-50% * As above, CXR with evidence of volume overload * Difficult to determine diuresis amount based on I&O as this has not been documented accurately due to incontinence. However, he appears generally euvolemic without edema of lower extremities. BNP has improved but still quite elevated. * Will repeat a CXR to assess for improvement. Plan to transition to PO Lasix if overall improvement. * Monitor intake and output. Weigh daily. Heart healthy diet * Continue metoprolol succinate (3) COPD (chronic obstructive pulmonary disease): Qualifiers: COPD type: unspecified COPD Qualified Code(s): J44.9 - Chronic obstructive pulmonary disease, unspecified Code(s): J44.9 - Chronic obstructive pulmonary disease, unspecified Status: Acute Assessment and Plan: No wheezing on exam. * Improved after treatment with steroids; discontinued 08/07 per pulmonology recommendation * Symbicort discontinued, started on Incruse Ellipta per pulmonology * He will need outpatient pulmonology follow-up for pulmonary function testing * Albuterol nebs as needed (4) ELAINE (obstructive sleep apnea): Code(s): G47.33 - Obstructive sleep apnea (adult) (pediatric) Status: Acute Assessment and Plan: Maintained on BiPAP, though poorly compliant with this. * He was just discharged from this facility on 07/30/21 to group home with instructions for BiPAP. * BiPAP settings per pulmonology, Dr. Whitmore. BiPAP rate of 16 with pressure 16/8 with 2 L bleed in * Continue with BIPAP at night during hospitalization (5) Altered mental status: Qualifiers: Altered mental status type: unspecified Qualified Code(s): R41.82 - Altered mental status, unspecified Code(s): R41.82 - Altered mental status, unspecified Status: Acute Assessment and Plan: Likely secondary to hypercarbic respiratory failure. * Mental status has improved with overall improvement in his acute hypercarbic respiratory failure. * On my evaluation yesterday, he was A&O x3. He is somnolent today and does not answer questions. BiPAP initiated on my exam due to somnolence. (6) Multilobar lung infiltrate: Code(s): R91.8 - Other nonspecific abnormal finding of lung field Status: Acute Assessment and Plan: Evident on CXR * Whit
--- NOTE | 2021-08-11 11:30 | PM.IMPN ---
Progress Note: A&P Assessment and Plan (1) Acute respiratory failure with hypoxia and hypercapnia: Code(s): J96.01 - Acute respiratory failure with hypoxia; J96.02 - Acute respiratory failure with hypercapnia Status: Acute Assessment and Plan: Multifactorial related to CHF, COPD, obstructive sleep apnea, morbid obesity and probable obesity hypoventilation. This morning, noted to be hypoxic in the 80s on room air. Appreciate pulmonology consultation Continue BiPAP when sleeping. Patient refusing BiPAP last night. Continue with supplemental O2 during daytime to maintain sats 90% or above. At baseline he uses 1-2 L at rest Overnight oximetry study ordered but patient refused Most recent CXR 08/08/2021 was suggestive of pulmonary edema Continue treatment for CHF as described below He will need continued BiPAP at night on discharge. Has been accepted to [facility] who can provide BiPAP. Overall, ABG with improvement in hypercapnia. He refused ABG this morning. (2) Systolic congestive heart failure: Code(s): I50.20 - Unspecified systolic (congestive) heart failure Status: Chronic Assessment and Plan: Echo performed 07/23/2021 showed mildly reduced EF of 45-50% As above, CXR with evidence of volume overload Difficult to determine diuresis amount based on I&O as this has not been documented accurately due to incontinence. However, he appears generally euvolemic without edema of lower extremities. BNP has improved but still quite elevated. Will repeat a CXR to assess for improvement. Plan to transition to PO Lasix if overall improvement. Monitor intake and output. Weigh daily. Heart healthy diet Continue metoprolol succinate (3) COPD (chronic obstructive pulmonary disease): Qualifiers: COPD type: unspecified COPD Qualified Code(s): J44.9 - Chronic obstructive pulmonary disease, unspecified Code(s): J44.9 - Chronic obstructive pulmonary disease, unspecified Status: Acute Assessment and Plan: No wheezing on exam. Improved after treatment with steroids; discontinued 08/07 per pulmonology recommendation Symbicort discontinued, started on Incruse Ellipta per pulmonology He will need outpatient pulmonology follow-up for pulmonary function testing Albuterol nebs as needed (4) ELAINE (obstructive sleep apnea): Code(s): G47.33 - Obstructive sleep apnea (adult) (pediatric) Status: Acute Assessment and Plan: Maintained on BiPAP, though poorly compliant with this. He was just discharged from this facility on 07/30/21 to [facility] with instructions for BiPAP. BiPAP settings per pulmonology, Dr. Whitmore. BiPAP rate of 16 with pressure 16/8 with 2 L bleed in Continue with BIPAP at night during hospitalization (5) Altered mental status: Qualifiers: Altered mental status type: unspecified Qualified Code(s): R41.82 - Altered mental status, unspecified Code(s): R41.82 - Altered mental status, unspecified Status: Acute Assessment and Plan: Likely secondary to hypercarbic respiratory failure. Mental status has improved with overall improvement in his acute hypercarbic respiratory failure. On my evaluation yesterday, he was A&O x3. He is somnolent today and does not answer questions. BiPAP initiated on my exam due to somnolence. (6) Multilobar lung infiltrate: Code(s): R91.8 - Other nonspecific abnormal finding of lung field Status: Acute Assessment and Plan: Evident on CXR White blood cell count is normal, patient is afebrile Thoracic imaging was more suggestive of fluid overload rather than any infective process. Legionella and strep antigen in urine was negative. COVID-19 test came back negative. Completed 5 day course of azithromycin. Started on IV cefepime and transitioned to p.o. Augmentin, discontinued on 08/08 as no infectious process suspected based on
[2021-08-11 11:57] LABS: Glucose Point of Care 204 mg/dl (65-105)
[2021-08-11] MEDS: UMECLIDINIUM BROMIDE 62.5 MCG ELLIPTA 1 PUFF INHALATION (14:58)
--- NOTE | 2021-08-11 14:58 | PCRCNOTE ---
Window of time for administration has passed. See next scheduled administration.
--- NOTE | 2021-08-11 15:28 | PCPTNOTE ---
PT attempted to see patient 2x this afternoon for treatment. Patient out of room for x - ray on first attempt and then declined PT for second attempt. Patient states that he did not sleep well last night and is tired. Patient educated in the importance of participating in therapy to improve strength and mobility. PT will continue to follow per plan of care.
[2021-08-11 17:45] LABS: Glucose Point of Care 199 mg/dl (65-105)
[2021-08-11] MEDS: ATORVASTATIN 40 MG TABLET PO (20:09)
[2021-08-11] MEDS: INSULIN GLARGINE (*BKC) 100 UNITS/ML 18 UNITS SUB-Q (20:09)
[2021-08-11 20:48] LABS: Glucose Point of Care 246 mg/dl (65-105)
[2021-08-12] VITALS (7 sets, daily range): BP systolic 118–137; BP diastolic 64–74; PULSE 54–75; RESP 18–20; TEMP 36.8–36.9; O2SAT 94–97
[2021-08-12 06:31] LABS: Hematocrit 31.7 % (42.0-52.0); Hemoglobin 9.7 g/dL (14.0-18.0); Immature Platelet Fraction Pct 6.5 % (0.9-11.2); Mean Corpuscular HGB Conc 30.6 g/dl (32-36); Mean Corpuscular Hemoglobin 26.5 pg (26-34); Mean Corpuscular Volume 86.6 fl (80-100); Mean Platelet Volume 12.1 fl (7.4-10.4); Platelet Count Result 108 k/mm3 (150-375); Red Blood Count 3.66 M/mm3 (4.6-6.20); Red Cell Distribution Width 17.3 % (11.5-14.5); White Blood Count 7.4 K/mm3 (4.5-10.0)
[2021-08-12 06:52] LABS: Anion Gap 2 mmol/L (8-16); Blood Urea Nitrogen 57 mg/dL (9-20); Calcium 8.4 mg/dL (8.4-10.2); Carbon Dioxide 37 mmol/L (22-30); Chloride 101 mmol/L (98-107); Estimated CRCL calculation 54 ml/min; Estimated Glomerular Filt Rate 44; Glucose 191 mg/dL (65-110); Potassium 3.7 mmol/L (3.4-5.0); Sodium 140 mmol/L (137-145)
[2021-08-12] MEDS: UMECLIDINIUM BROMIDE 62.5 MCG ELLIPTA 1 PUFF INHALATION (07:54)
[2021-08-12 09:51] LABS: Glucose Point of Care 191 mg/dl (65-105)
--- NOTE | 2021-08-12 10:32 | PCPTNOTE ---
Attempted physical therapy at this time however patient was out of room for CT scan.
[2021-08-12] MEDS: INSULIN ASPART (*BKC) 100 UNITS/ML SUB-Q ×3 (10:44→12:34)
[2021-08-12] MEDS: APIXABAN 5 MG TABLET PO (10:45)
[2021-08-12] MEDS: GABAPENTIN 300 MG CAPSULE 600 MG PO (10:45)
[2021-08-12] MEDS: METOPROLOL SUCCINATE EXT REL 50 MG TABCR 150 MG PO (10:45)
[2021-08-12] MEDS: TAMSULOSIN HCL 0.4 MG CAPSULE PO (10:46)
[2021-08-12] MEDS: amLODIPine BESYLATE 5 MG TABLET 10 MG PO (10:46)
[2021-08-12] MEDS: buPROPion HCL XL (24 HR) 150 MG TABCR PO (10:46)
[2021-08-12] MEDS: DULoxetine HCL 60 MG CAPSULE.DR PO (10:46)
[2021-08-12] MEDS: FUROSEMIDE 40 MG TABLET PO (10:46)
[2021-08-12] MEDS: EUCERIN CREAM 120 GM JAR 1 APPLIC TOPICAL (10:47)
[2021-08-12] MEDS: MAGNESIUM OXIDE 400 MG TABLET PO (10:47)
[2021-08-12] MEDS: NICOTINE (*PBKC) 21 MG PATCH 1 PATCH TRANSDERM (10:47)
--- NOTE | 2021-08-12 12:42 | P.DS_ITS ---
DS: Admitting Diagnosis Discharge Date 08/12/2021 Admitting Diagnosis Acute respiratory failure DS: Discharge Diagnosis Discharge Diagnosis (1) Acute respiratory failure with hypoxia and hypercapnia: Code(s): J96.01 - Acute respiratory failure with hypoxia; J96.02 - Acute respiratory failure with hypercapnia Status: Acute Assessment and Plan: Multifactorial related to CHF, COPD, obstructive sleep apnea, morbid obesity and probable obesity hypoventilation. * Seen in consultation by pulmonology * He require supplemental O2 during daytime and BiPAP when sleeping. He often refuses to wear both. Discussed need for compliance with these therapies or else he will have frequent recurrence of symptoms including confusion. He understands but reports he will likely continue to refuse BiPAP therapy. * BiPAP was obtained for him at his new halfway with settings provided to facility as follows: rate of 16 with pressure 16/8 with 2 L bleed in * He refused overnight oximetry study * Overall, ABG with improvement in hypercapnia * He will need outpatient pulmonology follow-up, although without compliance with BiPAP and O2 therapy, there is few options for the patient for therapy/improvement (2) Systolic congestive heart failure: Code(s): I50.20 - Unspecified systolic (congestive) heart failure Status: Chronic Assessment and Plan: Echo performed 07/23/2021 showed mildly reduced EF of 45-50% * CXR demonstrated evidence of volume overload * He was diuresed with IV Lasix. BNP improved and he did appear generally euvolemic on exam. CXR on 08/11/2021 showed interval improvement. * He will continue Lasix 40 mg b.i.d. on discharge * CHF education provided. Heart healthy diet * Continue metoprolol succinate (3) COPD (chronic obstructive pulmonary disease): Qualifiers: COPD type: unspecified COPD Qualified Code(s): J44.9 - Chronic obstructive pulmonary disease, unspecified Code(s): J44.9 - Chronic obstructive pulmonary disease, unspecified Status: Acute Assessment and Plan: No wheezing on exam. * Improved after treatment with steroids; discontinued 08/07 per pulmonology recommendation * Symbicort discontinued, started on Incruse Ellipta per pulmonology which he will continue * He will need outpatient pulmonology follow-up for pulmonary function testing * Albuterol rescue inhaler prescribed on discharge (4) ELAINE (obstructive sleep apnea): Code(s): G47.33 - Obstructive sleep apnea (adult) (pediatric) Status: Acute Assessment and Plan: Maintained on BiPAP, though he is poorly compliant with this. * BiPAP settings per pulmonology, Dr. Whitmore. BiPAP rate of 16 with pressure 16/8 with 2 L bleed in * Continue with BIPAP at night. Reinforced need for compliance with this. The patient tells me he is not able to put the mask on himself. I told him he can always ask for assistance at his nursing facility. I also asked him to put it on while I was in the room so I could help him/show him how to wear appropriately. He became frustrated and threw the mask. (5) Altered mental status: Qualifiers: Altered mental status type: unspecified Qualified Code(s): R41.82 - Altered mental status, unspecified Code(s): R41.82 - Altered mental status, unspecified Status: Acute Assessment and Plan: Likely secondary to hypercarbic respiratory failure. * Mental status improved with overall improvement in his acute hypercarbic respiratory failure. * He was A&O x4 on my evaluation at discharge.
--- NOTE | 2021-08-12 12:42 | PM.DS ---
DS: Admitting Diagnosis Discharge Date 08/12/2021 Admitting Diagnosis Acute respiratory failure DS: Discharge Diagnosis Discharge Diagnosis (1) Acute respiratory failure with hypoxia and hypercapnia: Code(s): J96.01 - Acute respiratory failure with hypoxia; J96.02 - Acute respiratory failure with hypercapnia Status: Acute Assessment and Plan: Multifactorial related to CHF, COPD, obstructive sleep apnea, morbid obesity and probable obesity hypoventilation. Seen in consultation by pulmonology He require supplemental O2 during daytime and BiPAP when sleeping. He often refuses to wear both. Discussed need for compliance with these therapies or else he will have frequent recurrence of symptoms including confusion. He understands but reports he will likely continue to refuse BiPAP therapy. BiPAP was obtained for him at his new custodial with settings provided to facility as follows: rate of 16 with pressure 16/8 with 2 L bleed in He refused overnight oximetry study Overall, ABG with improvement in hypercapnia He will need outpatient pulmonology follow-up, although without compliance with BiPAP and O2 therapy, there is few options for the patient for therapy/improvement (2) Systolic congestive heart failure: Code(s): I50.20 - Unspecified systolic (congestive) heart failure Status: Chronic Assessment and Plan: Echo performed 07/23/2021 showed mildly reduced EF of 45-50% CXR demonstrated evidence of volume overload He was diuresed with IV Lasix. BNP improved and he did appear generally euvolemic on exam. CXR on 08/11/2021 showed interval improvement. He will continue Lasix 40 mg b.i.d. on discharge CHF education provided. Heart healthy diet Continue metoprolol succinate (3) COPD (chronic obstructive pulmonary disease): Qualifiers: COPD type: unspecified COPD Qualified Code(s): J44.9 - Chronic obstructive pulmonary disease, unspecified Code(s): J44.9 - Chronic obstructive pulmonary disease, unspecified Status: Acute Assessment and Plan: No wheezing on exam. Improved after treatment with steroids; discontinued 08/07 per pulmonology recommendation Symbicort discontinued, started on Incruse Ellipta per pulmonology which he will continue He will need outpatient pulmonology follow-up for pulmonary function testing Albuterol rescue inhaler prescribed on discharge (4) ELAINE (obstructive sleep apnea): Code(s): G47.33 - Obstructive sleep apnea (adult) (pediatric) Status: Acute Assessment and Plan: Maintained on BiPAP, though he is poorly compliant with this. BiPAP settings per pulmonology, Dr. Whitmore. BiPAP rate of 16 with pressure 16/8 with 2 L bleed in Continue with BIPAP at night. Reinforced need for compliance with this. The patient tells me he is not able to put the mask on himself. I told him he can always ask for assistance at his nursing facility. I also asked him to put it on while I was in the room so I could help him/show him how to wear appropriately. He became frustrated and threw the mask. (5) Altered mental status: Qualifiers: Altered mental status type: unspecified Qualified Code(s): R41.82 - Altered mental status, unspecified Code(s): R41.82 - Altered mental status, unspecified Status: Acute Assessment and Plan: Likely secondary to hypercarbic respiratory failure. Mental status improved with overall improvement in his acute hypercarbic respiratory failure. He was A&O x4 on my evaluation at discharge. Prior to that, he was somnolent 1 day prior due to refusal to wear BiPAP He is at risk for becoming obtunded/altered if he is not compliant with BiPAP/oxygen therapy (6) Multilobar lung infiltrate: Code(s): R91.8 - Other nonspecific abnormal finding of lung field Status: Acute Assessment and Plan: Evident on CXR White blood cell count normal, patient re
[2021-08-12 13:07] LABS: Glucose Point of Care 206 mg/dl (65-105)
[2021-08-12 13:38] LABS: EDCOVIDSCREEN Negative (Negative)
--- NOTE | 2021-08-12 13:39 | PCPTNOTE ---
Nurse states patient has been harassing nursing staff this date and is not appropriate to be seen at this time. Nursing states patient is being discharged this date.
== END 2021-08-12 15:50 | DRG 193 ==
LOC: ANHED 23:11 → ANHIMU 08-01 02:54 → ANHICU 08-01 05:53 → ANH3MEDSUR 08-10 07:05 → ANHICU 08-13 12:09
PROVIDERS: Internal Medicine; Internal Medicine Critical Care Medicine; Internal Medicine Pulmonary Disease; Admitting Provider Internal Medicine; Emergency Provider Emergency Medicine; PCP Internal Medicine; Visit Provider Physician Assistant
DX: J18.9 Pneumonia, unspecified organism (principal); I50.23 Acute on chronic systolic (congestive) heart failure; J96.22 Acute and chronic respiratory failure with hypercapnia; J96.21 Acute and chronic respiratory failure with hypoxia; I13.0 Hypertensive heart and chronic kidney disease with heart failure and stage 1 through stage 4 chronic kidney disease, or unspecified chronic kidney disease; E66.2 Morbid (severe) obesity with alveolar hypoventilation; Z66 Do not resuscitate; Z20.822 Contact with and (suspected) exposure to COVID-19; Z79.01 Long term (current) use of anticoagulants; Z79.4 Long term (current) use of insulin; I48.91 Unspecified atrial fibrillation; E11.22 Type 2 diabetes mellitus with diabetic chronic kidney disease; N18.30 Chronic kidney disease, stage 3 unspecified; I25.10 Atherosclerotic heart disease of native coronary artery without angina pectoris; Z86.73 Personal history of transient ischemic attack (TIA), and cerebral infarction without residual deficits; F32.A Depression, unspecified; E11.40 Type 2 diabetes mellitus with diabetic neuropathy, unspecified; M54.30 Sciatica, unspecified side; Z95.1 Presence of aortocoronary bypass graft; J43.9 Emphysema, unspecified; N40.0 Benign prostatic hyperplasia without lower urinary tract symptoms; G89.29 Other chronic pain; K21.9 Gastro-esophageal reflux disease without esophagitis; F17.210 Nicotine dependence, cigarettes, uncomplicated; B95.62 Methicillin resistant Staphylococcus aureus infection as the cause of diseases classified elsewhere; Z68.31 Body mass index [BMI] 31.0-31.9, adult; K59.00 Constipation, unspecified
CPT/HCPCS: 36415; 36600; 51702; 71045; 71046; 80048; 80053; 82375; 82805; 82948; 83036; 83050; 83735; 83880; 84100; 84145; 84439; 84443; 85025; 85027; 85055; 85610; 85730; 87040; 87081; 87426; 87449; 87899; 93005; 94003; 94660; 94762; 96365; 96366; 96367; 96375; 97110; 97162; 97165; 97530; 97535; 99285; A9270; C9803; G0378; J0456; J0692; J0696; J1120; J1815; J1940; J2920; J2930; J3370; J3475; J7040; J7512; U0003; U0005

== ENCOUNTER 2021-08-18 07:46 | Emergency (ER) | payer MEDICARE, MEDICAID, SELFPAY ==
--- NOTE | ~2021-08-18 | XR_ITS ---
EXAMINATION: XR lumbar spine 2-3V DATE: 08/18/2021 09:27 INDICATION: Low back pain post fall out of bed TECHNIQUE: Anteroposterior and lateral views of the lumbar spine, and cone-down lateral view of the l umbosacral junction were obtained. COMPARISON: 07/25/2021 FINDINGS: 10 degrees lumbar dextroscoliosis. Sagittal alignment is normal. No interval change in an L3 compress ion fracture with mild endplate depressions and prominent Schmorl's node along the inferior endplate. There is also chronic mild anterior wedging at T10-L1. Mild disc height loss at L4-L5 and at the 9 T 10-T12 L1. Moderate lower lumbar facet osteoarthritis. Spinal stimulator overlying the right buttock with leads extending into the central canal and extending cephalad the anterosuperior margin of the f [id number] which is at T7-T8. Cholecystectomy clips in right upper quadrant. Sacral arches are inta ct. Internal fixation at the proximal left femur and vascular stenting at the left femoral artery. Ex tensive atherosclerotic calcific lesions along the aorta, iliac and femoral arteries. Mild bibasilar atelectasis. IMPRESSION: 1. Mild lumbar dextro scoliosis with mild spondylosis. 2. No interval change in L3 compression fracture with mild central vertebral body height loss at sade ral additional compression fractures with mild anterior wedging at T10-L1. 3. Postoperative changes as detailed above. Reviewed, dictated and finalized at location A. IMPRESSION: 1. Mild lumbar dextro scoliosis with mild spondylosis. 2. No interval change in L3 compression fracture with mild central vertebral rubina dy height loss at several additional compression fractures with mild anterior w edging at T10-L1. 3. Postoperative changes as detailed above.
[2021-08-18 07:46] VITALS: BP 134/71; PULSE 52; RESP 18; TEMP 36.2; O2SAT 100
--- NOTE | 2021-08-18 09:07 | ED.FALL ---
HPI - Fall General Chief Complaint: Fall Stated Complaint: FALL Time Seen by Provider: 08/18/21 08:06 Source: patient, EMS and RN notes reviewed Mode of arrival: EMS Limitations: no limitations History of Present Illness HPI Narrative: Patient slipped out of bed, fell on the floor on his bottom. Denying other injuries. Complaining of chronic lower back pain which is exactly the same as before. Patient denies head injury or neck injury or loss of consciousness. Related Data Home Medications Medication Instructions Recorded Confirmed Eliquis 5 mg PO BID 07/21/21 08/01/21 Lactobacillus acidophilus 1 cap PO DAILY 07/21/21 08/01/21 [Acidophilus] acetaminophen 650 mg PO Q4H PRN 07/21/21 08/01/21 amlodipine 10 mg PO DAILY 07/21/21 08/01/21 atorvastatin 40 mg PO HS 07/21/21 08/01/21 bupropion HCl 150 mg PO DAILY 07/21/21 08/01/21 cyclobenzaprine 10 mg PO HS PRN 07/21/21 08/01/21 docusate sodium 100 mg PO BID PRN 07/21/21 08/01/21 duloxetine 60 mg PO BID 07/21/21 08/01/21 gabapentin 600 mg PO TID 07/21/21 08/01/21 ipratropium bromide 2.5 ml INHALATION Q6H PRN 07/21/21 08/01/21 magnesium oxide 400 mg PO DAILY 07/21/21 08/01/21 metolazone 2.5 mg PO 2XW 07/21/21 08/01/21 metoprolol succinate 150 mg PO DAILY 07/21/21 08/01/21 nicotine 1 patch TRANSDERMAL DAILY 07/21/21 08/01/21 pantoprazole 40 mg PO QAM 07/21/21 08/01/21 tamsulosin 0.4 mg PO DAILY 07/21/21 08/01/21 insulin aspart U-100 [Novolog See Rx Instructions .ROUTE .COMPLEX 08/01/21 08/01/21 U-100 Insulin aspart] Allergies Allergy/AdvReac Type Severity Reaction Status Date / Time codeine AdvReac Intermediate NAUSAE/VOMI Verified 08/18/21 07:57 TING Review of Systems Review of Systems: CONSTITUTIONAL: Denies fever, chills, or sweats. EYES: Denies visual changes, redness, or discharge. ENT: Denies rhinorrhea, congestion, sore throat, or otalgia. CARDIOVASCULAR: Denies chest pain, palpitations, or edema. RESPIRATORY: Denies cough or dyspnea. GASTROINTESTINAL: Denies abdominal pain, nausea, vomiting, or diarrhea. GENITOURINARY: Denies dysuria or hematuria. SKIN: Denies rash or itching. MUSCULOSKELETAL: Denies back pain, joint pain, or myalgia. NEUROLOGIC: Denies headache, numbness, or weakness. PSYCHIATRIC: Denies anxiety or depression. [facility] Past Medical History Medical History Atrial fibrillation CHF (congestive heart failure) Chronic anticoagulation Chronic kidney disease, stage 3 COPD (chronic obstructive pulmonary disease) Coronary artery disease CVA (cerebral vascular accident) Depression Diabetic neuropathy Essential hypertension Sciatica Tobacco abuse Type 2 diabetes mellitus treated with insulin Surgical History Surgical History Hx of CABG Family History Family History Other Unknown family medical history Social History Social History Social History: Code status: DNR/DNI Smoking packs per day: 3 Smoking cigarettes per day: 60.0 Years smoked: 47 Smoking pack-years: 141.00 Smoking status: Former smoker Tobacco type: cigarettes Spiritual care concerns: No Exam Narrative: General appearance: Well-developed, well-nourished Skin: Normal color Head: Normocephalic, nontraumatic Eyes: Clear conjunctiva ENT: Oropharynx normal, ears normal, nose normal Neck: Supple, nontender Chest and respiratory: Airway patent, no respiratory distress, no accessory muscle use Heart: Regular rate/rhythm Abdomen: Soft, nontender, no organomegaly, quiet bowel sounds Vascular: Normal peripheral pulses, normal capillary refill. 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
[2021-08-18 10:15] VITALS: BP 115/50; PULSE 51; RESP 18; O2SAT 98
== END 2021-08-18 11:12 | disposition home or self-care (01) ==
PROVIDERS: Emergency Provider Emergency Medicine; PCP Internal Medicine
DX: M54.50 Low back pain, unspecified (principal); I48.91 Unspecified atrial fibrillation; I50.9 Heart failure, unspecified; E11.22 Type 2 diabetes mellitus with diabetic chronic kidney disease; I13.0 Hypertensive heart and chronic kidney disease with heart failure and stage 1 through stage 4 chronic kidney disease, or unspecified chronic kidney disease; N18.30 Chronic kidney disease, stage 3 unspecified; E11.40 Type 2 diabetes mellitus with diabetic neuropathy, unspecified; J44.9 Chronic obstructive pulmonary disease, unspecified; I25.10 Atherosclerotic heart disease of native coronary artery without angina pectoris; Z86.73 Personal history of transient ischemic attack (TIA), and cerebral infarction without residual deficits; F32.A Depression, unspecified; G89.29 Other chronic pain; M54.30 Sciatica, unspecified side; Z95.1 Presence of aortocoronary bypass graft; Z66 Do not resuscitate; Z79.01 Long term (current) use of anticoagulants; Z79.4 Long term (current) use of insulin; Z87.891 Personal history of nicotine dependence; M47.816 Spondylosis without myelopathy or radiculopathy, lumbar region; W06.XXXA Fall from bed, initial encounter
CPT/HCPCS: 72100; 99283

== ENCOUNTER 2021-09-05 11:27 | Inpatient (IN) | payer MEDICARE, MEDICAID, SELFPAY ==
[2021-09-05] VITALS (15 sets, daily range): BP systolic 102–137; BP diastolic 51–85; PULSE 52–63; RESP 13–27; TEMP 35.9–36.4; O2SAT 88–100; BMI 31.5; BMI 31.6
--- NOTE | ~2021-09-05 | CT_ITS ---
EXAMINATION: CT abdomen pelvis wo con DATE: 09/10/2021 12:51 INDICATION: Abdomen pain. Diarrhea. TECHNIQUE: Computed tomography (CT) of the abdomen and pelvis was performed without intravenous contr ast. The dose-length product was 1252.95 mGy-cm. Automated exposure control and iterative reconstruct ion technique were employed. COMPARISON: CT dated 07/25/2021. FINDINGS: Moderate bilateral pleural effusions. Cardiomegaly. There is compressive atelectasis in the lung bases. There are cholecystectomy clips. There is ascites with mild generalized body wall edema. The liver, spleen, pancreas, adrenal glands are unremarkable. There is a small low-density lesion in the left kidney, likely a cyst. There is a small 2 mm nonobstructing right renal stone. Nonobstructiv e bowel gas pattern. There is abnormal thickening of the distal sigmoid colon and rectum, consistent with proctitis. There is significant abnormal thickening of the bladder lumen which contains a Lakhani catheter and punctate areas of gas, likely iatrogenic. There is spine stimulator leads. Compression f racture of L3. There is a dynamic compression screw in the left femoral neck. IMPRESSION: 1. Interval development of abnormal thickening of the distal sigmoid colon and rectum, consistent wit h proctitis. 2: Abnormal thickening of the bladder wall, consistent with cystitis. 3: Moderate bilateral pleural effusions with underlying compressive atelectasis. Superimposed pneumon ia not excluded. 4: Trace ascites and body wall edema. Reviewed, dictated and finalized at location A. CREW SUPERVISOR IMPRESSION: 1. Interval development of abnormal thickening of the distal sigmoid colon and rectum, consistent with proctitis. 2: Abnormal thickening of the bladder wall, consistent with cystitis. 3: Moderate bilateral pleural effusions with underlying compressive atelectasis . Superimposed pneumonia not excluded. 4: Trace ascites and body wall edema.
--- NOTE | ~2021-09-05 | XR_ITS ---
EXAMINATION: XR chest 1V portable INDICATION: Pleural effusions and hypoxia TECHNIQUE: Portable AP chest at 1528 hours COMPARISON: 09/05/2021 FINDINGS: Cardiomegaly is noted. There are small pleural effusions. A diffuse interstitial pattern pe rsists without significant change. Basilar airspace opacities have developed. There is no pneumothora x. Changes of cervical spinal fusion are noted. Median sternotomy wires and mediastinal surgical clip s are seen, likely from prior coronary artery bypass grafting. IMPRESSION: 1. Cardiomegaly with unchanged pulmonary edema. 2. Bilateral pleural effusions. 3. Bibasilar airspace opacities consistent with atelectasis versus pneumonia. Reviewed, dictated and finalized at location B. ON PICTURE ACTOR
--- NOTE | ~2021-09-05 | CT_ITS ---
EXAMINATION: CT brain wo con EXAM DATE: 09/11/2021 16:11 INDICATION: Confusion, AMS . TECHNIQUE: Spiral CT of the head was performed without contrast. Axial, coronal and sagittal images were reviewed. The dose-length product (DLP) for this examination was 756.67 mGy-cm. The exposure w as tailored according to patient size, and iterative reconstruction (ASIR) was used as additional dos e reduction technique. There is no prior study for comparison. FINDINGS: There is no acute intraparenchymal hemorrhage. No evidence of intraparenchymal brain mass lesion. No evidence of acute infarction. Please note that initial head CT has limited sensitivity f or small or acute infarctions. There is small old right frontal lobe cortical infarction at the vert ex. There is mild to moderate periventricular and subcortical hypodensity, nonspecific but probably related to small vessel ischemic disease. There is mild to moderate prominence of the sulci and josse tricles related to cerebral atrophy. There is intracranial carotid arteriosclerosis. There are no extra-axial collections. There is no mass effect or midline shift. The orbits are unremarkable. So ft tissue is unremarkable. The visualized sinuses and mastoid air cells are well aerated. There is no interval change. IMPRESSION: 1. No acute intracranial findings. 2. Chronic age related findings. 3. Small old right frontal lobe cortical infarction. Reviewed, dictated and finalized at location A. O VISUAL MANAGER
--- NOTE | ~2021-09-05 | XR_ITS ---
EXAMINATION: XR chest 1V portable DATE: 09/05/2021 13:02 INDICATION: Shortness of breath TECHNIQUE: frontal view of the chest was obtained. COMPARISON: Chest radiograph dated 08/11/2021 FINDINGS: Bilateral perihilar predominant interstitial and airspace opacities in both lungs. Linear band of dis coid atelectasis at the left midlung zone. Small bilateral pleural effusions. No pneumothorax. Cardio megaly. Median sternotomy wires and mediastinal surgical clips are seen, likely from prior coronary a rtery bypass grafting. Plate and screw fixation for lower cervical anterior spinal fusion. Spinal sti mulator leads project over the central canal at the mid to lower thoracic spine. IMPRESSION: 1. Bilateral perihilar predominant opacities and favor congestive heart failure related pulmonary ana rosa ma over pneumonia. 2. Small bilateral pleural effusions. 3. Cardiomegaly. Reviewed, dictated and finalized at location A. IMPRESSION: 1. Bilateral perihilar predominant opacities and favor congestive heart failure related pulmonary edema over pneumonia. 2. Small bilateral pleural effusions. 3. Cardiomegaly.
--- NOTE | ~2021-09-05 | CT_ITS ---
EXAMINATION: CT brain wo con INDICATION: Confusion COMPARISON: 07/21/2021 TECHNIQUE: Standard unenhanced head CT. The dose-length product (DLP) was 681.00 mGy-cm. The mA was a djusted according to patient size. Iterative reconstruction technique was employed. FINDINGS: There is no acute intraparenchymal hemorrhage. No evidence of mass lesion. No evidence of a cute infarction. There is mild periventricular and subcortical hypodensity probably related to small vessel ischemic disease. There is mild prominence of the sulci and ventricles related to cerebral atr ophy. Intracranial calcified cerebral atherosclerosis is noted. There are no extra-axial collections. There is no mass effect or midline shift. The orbits and soft tissues are unremarkable. The visualiz ed sinuses and mastoid air cells are well aerated. IMPRESSION: 1. No acute intracranial abnormality. 2. Age related findings. Reviewed, dictated and finalized at location B. ERING MACHINE OPERATOR
--- NOTE | ~2021-09-05 | XR_ITS ---
EXAMINATION: XR chest 1V portable DATE: 09/16/2021 17:27 INDICATION: Congestive heart failure TECHNIQUE: frontal view of the chest was obtained. COMPARISON: Chest radiograph dated 09/11/2021 FINDINGS: Interval increase in interstitial and hazy airspace opacities throughout both lungs relatively sparin g the left apex. Small bilateral pleural effusions. No pneumothorax. Cardiomegaly. Median sternotomy wires and mediastinal surgical clips are seen, likely from prior coronary artery bypass grafting. Spi nal stimulator leads project over the central canal the lower thoracic spine. Plate-screw fixation fo r lower cervical anterior spinal fusion. IMPRESSION: 1. Interval increase in diffuse bilateral lung disease most likely combination of congestive heart fa ilure related pulmonary edema, small bilateral pleural effusions and associated basilar atelectasis a lthough differential includes pneumonia. 2. Cardiomegaly. Reviewed, dictated and finalized at location A. ESIST IMPRESSION: 1. Interval increase in diffuse bilateral lung disease most likely combination of congestive heart failure related pulmonary edema, small bilateral pleural ef fusions and associated basilar atelectasis although differential includes pneum onia. 2. Cardiomegaly.
--- NOTE | ~2021-09-05 | US_ITS ---
US renal BI DATE: 09/06/2021 11:11 INDICATION: Worsening renal failure TECHNIQUE: Real-time imaging of the kidneys and urinary bladder area COMPARISON: 07/25/2021 CT abdomen pelvis FINDINGS: The right kidney measures 10.2 cm length, left kidney 11.6 cm. No renal mass lesion or hydr onephrosis is evident. The urinary bladder is evacuated and not optimally evaluated. IMPRESSION: No evidence of obstructive uropathy Reviewed, dictated and finalized at Location A. Reviewed, dictated and finalized at location A. MER OPERATOR
--- NOTE | 2021-09-05 11:33 | ECG_ITS ---
Measurements Intervals [place] Rate: 51 P: 67 WV: 131 QRS: 53 QRSD: 139 T: 221 QT: 460 QTc: 426 Interpretive Statements SINUS ATRIAL FLUTTER/TACHYCRDIA WITH SLOW VENTRICULAR RESPONSE LEFT BUNDLE BRANCH BLOCK LOW VOLTAGE- LIMB LEADS BASELINE ARTIFACT- I, II, III, AVR, AVL, AVF, V1-V6 ABNORMAL ECG Electronically Signed On 09-06-2021 7:04:45 [employer] by Cecilio Soto D.O.
[2021-09-05 11:34] LABS: Glucose Point of Care 135 mg/dl (65-105)
[2021-09-05 11:51] LABS: Basophils Percent Auto 0.3 % (0.2-1.2); Eosinophils Absolute Auto 0.1 K/mm3 (0-0.3); Eosinophils Percent Auto 0.7 % (0-4.4); Hematocrit 29.1 % (42.0-52.0); Immature Granulocyte Absolute 0.05 K/mm3 (0.00-0.031); Immature Granulocyte Percent A 0.6 % (0-0.5); Lymphocytes Absolute Auto 1.25 K/mm3 (0.9-3.2); Lymphocytes Percent Auto 13.9 % (18.3-44.2); Mean Corpuscular HGB Conc 30.9 g/dl (32-36); Mean Corpuscular Hemoglobin 26.9 pg (26-34); Mean Corpuscular Volume 87.1 fl (80-100); Mean Platelet Volume 9.7 fl (7.4-10.4); Monocytes Absolute Auto 0.8 K/mm3 (0.1-0.6); Neutrophils Absolute Auto 6.8 K/mm3 (1.3-6.7); Neutrophils Percent Auto 75.5 % (45.5-73.1); Nucleated Red Blood Cells Perc 0.2 % (0.0-0.2); Platelet Count Result 288 k/mm3 (150-375); Red Blood Count 3.34 M/mm3 (4.6-6.20); Red Cell Distribution Width 21.2 % (11.5-14.5)
--- NOTE | 2021-09-05 12:05 | PC.NURSE ---
Called lab at 1205, spoke with Deandra. Agreed to add PT INR, PTT, and BNP to already drawn blood.
[2021-09-05 12:06] LABS: Alanine Aminotransferase 19 U/L (4-50); Albumin Level 3.6 g/dL (3.5-5.1); Alkaline Phosphatase 172 U/L (38-126); Anion Gap 8 mmol/L (8-16); Aspartate Amino Transferase 21 U/L (17-59); Bilirubin,Total 0.5 mg/dL (0.2-1.3); Blood Urea Nitrogen 67 mg/dL (9-20); Calcium 8.9 mg/dL (8.4-10.2); Carbon Dioxide 31 mmol/L (22-30); Chloride 97 mmol/L (98-107); Estimated CRCL calculation 33 ml/min; Estimated Glomerular Filt Rate 24; Glucose 162 mg/dL (65-110); Sodium 136 mmol/L (137-145)
[2021-09-05 12:07] LABS: Lactic Acid Reflex 0.8 mmol/L (0.7-2.1)
[2021-09-05 12:18] LABS: INR 1.5; Prothrombin Time 17.7 Seconds (11.1-14.7)
[2021-09-05 12:19] LABS: Partial Thromboplastin Time 38.7 SECONDS (22.3-36.8)
[2021-09-05 12:19] LABS: Device NON-INVASIVE VENT; Fractional Inspired Oxygen 30 %; HCO3 VBG 27.1 mEq/l (24.0-30.0); Non-Invasive Expiratory Pressure 8 CMH2O; Non-Invasive Inspiratory Pressure 18 CMH2O; Non-Invasive Vent Rate 24 /MIN; PCO2 VBG 51.8 mmHg (42.0-48.0); PO2 VBG 49.6 mmHg (35.0-45.0); pH VBG 7.336 (7.300-7.400)
--- NOTE | 2021-09-05 12:20 | PCRCNOTE ---
UNABLE TO OBTAIN ABG AFTER RT AND DR. PRINCE BOTH ATTEMPTED. ORDERED VBG.
[2021-09-05 12:28] LABS: NT Pro B Type Natriuretic Pept 8450 pg/mL (5-100)
[2021-09-05 13:11] LABS: Add Urine Microscopic? YES; Appearance Urine Cloudy (Clear); Bacteria Urine Trace /hpf; Bilirubin Urine Negative (Negative); Blood Urine Negative (Negative); Color Urine Yellow (Yellow); Glucose Urine UA Negative (Negative); Ketones Urine Negative (Negative); Leukocyte Esterase Ur 2+ LEU/UL (Negative); Nitrate Urine Negative (Negative); Protein Urine 2+ mg/dL (Negative); Specific Grav Ur 1.012 (1.001-1.035); Urobilinogen Urine Negative mg/dL (<2.0); WBC Urine 51-75 /hpf
[2021-09-05] MEDS: FUROSEMIDE INJ 40 MG/4 ML VIAL IV PUSH ×2 (13:29→18:09)
--- NOTE | 2021-09-05 13:45 | ED.GENADULT ---
HPI - General Adult General Chief complaint: Altered Mental Status Stated complaint: AMS Time Seen by Provider: 09/05/21 11:33 History of Present Illness HPI narrative: Patient is a 61-year-old male who presents ER with altered mental status from his [facility]. He is arousable to sternal rub. He will then answer questions briefly and fall back asleep. He is unable to provide any history. Related Data Home Medications Medication Instructions Recorded Confirmed Acidophilus 1 cap PO DAILY 07/21/21 09/05/21 Eliquis 5 mg PO BID 07/21/21 09/05/21 acetaminophen 650 mg PO Q4H PRN 07/21/21 09/05/21 amlodipine 10 mg PO DAILY 07/21/21 09/05/21 atorvastatin 40 mg PO HS 07/21/21 09/05/21 bupropion HCl 150 mg PO DAILY 07/21/21 09/05/21 cyclobenzaprine 10 mg PO HS PRN 07/21/21 09/05/21 docusate sodium 100 mg PO BID PRN 07/21/21 09/05/21 duloxetine 60 mg PO BID 07/21/21 09/05/21 gabapentin 600 mg PO TID 07/21/21 09/05/21 ipratropium bromide 2.5 ml INHALATION Q6H PRN 07/21/21 09/05/21 magnesium oxide 400 mg PO DAILY 07/21/21 09/05/21 metolazone 2.5 mg PO 2XW 07/21/21 09/05/21 metoprolol succinate 150 mg PO DAILY 07/21/21 09/05/21 nicotine 1 patch TRANSDERMAL DAILY 07/21/21 09/05/21 pantoprazole 40 mg PO QAM 07/21/21 09/05/21 tamsulosin 0.4 mg PO DAILY 07/21/21 09/05/21 insulin aspart U-100 [Novolog See Rx Instructions .ROUTE .COMPLEX 08/01/21 09/05/21 U-100 Insulin aspart] Allergies Allergy/AdvReac Type Severity Reaction Status Date / Time codeine AdvReac Intermediate NAUSAE/VOMI Verified 09/05/21 12:00 TING Review of Systems Review of Systems: ROS unobtainable: Yes unobtainable due to medical condition [facility] Past Medical History Medical History (Updated 09/05/21 @ 20:01 by Rohan Rayo MD) Atrial fibrillation CHF (congestive heart failure) Chronic anticoagulation Chronic kidney disease, stage 3 COPD (chronic obstructive pulmonary disease) Coronary artery disease CVA (cerebral vascular accident) Depression Diabetic neuropathy Essential hypertension ELAINE (obstructive sleep apnea) Sciatica Tobacco abuse Type 2 diabetes mellitus treated with insulin Surgical History Surgical History (Updated 09/05/21 @ 16:03 by Myrtle Sanchez NP) History of intravascular stent placement Superficial left leg Hx of CABG Family History Family History Other Unknown family medical history Social History Social History (Updated 09/05/21 @ 16:06 by Myrtle Sanchez NP) Social History: The patient is listed as being and disabled. It was noted that the patient was a heavy smoker according to his old records. He has a daughter yohana albarran listed as a durable power research attorney and another daughter Aristides Christian listed as next of kin. Advance directive on file here Code status: DNR/DNI Smoking packs per day: 3 Smoking cigarettes per day: 60.0 Years smoked: 47 Smoking pack-years: 141.00 Smoking status: Former smoker Spiritual care concerns: No Exam Narrative: GENERAL: Chronically ill-appearing and morbidly obese, and in no acute distress. HEAD: Normocephalic, atraumatic. EYES: PERRL and EOMI. ENT: Moist membranes. CHEST: Coarse rales bilaterally. No respiratory distress. HEART: Regular rate and rhythm. Normal peripheral pulses. ABDOMEN: Soft, nontender, nondistended. EXTREMITIES: Normal range of motion. 2+ edema. SKIN: Warm, dry, no rash. NEURO: Somnolent. Awakens to sternal rub and is oriented to self and place. Course Course Emergency Course: Admit to hospitalist service. Lasix ordered to help with heart failure. Patient appears to be waking up on BiPAP. Vital Signs Vital signs: Vital Signs Temperature 97.5 F L 09/05/21 11:26 Pulse Rate 57 L 09/05/21 11:26 Respiratory Rate 13 09/05/21 11:26 Blood Pressure 102/66 09/05/21 11:26 Pulse Oximetry 88 L 09/05/21 11:26 Temperature 96.7 F L 11
--- NOTE | 2021-09-05 15:21 | ADMGEN ---
This patient, Ector Oconnor, was admitted to IMU Room 231-01. Patient/family oriented to hospital policies and general routines including ID bracelet, bed and alarms, visiting hours, pain management, procedures, bathroom and other care routines, personal items, smoking policy, room service/diet, and visiting hours. Information on how to activate the Rapid Response Team has been discussed. Patient/Family are encouraged to report perceived risks to care and to ask questions if they do not understand what they are told or what they should do.
--- NOTE | 2021-09-05 15:46 | PM.IMHP ---
H&P: HPI History of Present Illness Date/Time: 09/05/21 15:46 this is a 61-year-old male patient who has a history of COPD, CHF, diabetes, hypertension and chronic respiratory failure. Patient has a history of smoking tobacco as well. The patient has a history of hypercapnia. The patient was short of breath and brought into the emergency room. The patient was quite lethargic and was a poor historian. His chest x-ray was read as bilateral perihilar predominant opacities and favor congestive heart failure related to pulmonary edema over pneumonia. Small bilateral pleural effusions. Cardiomegaly. His white count is normal. His H&H is 9.029.1 which is his baseline. Sodium 136. Creatinine is 2.7. On his ABGs is pH was 7.47 with a CO2 46.3 and oxygen levels 57.3. The patient was placed on a BiPAP machine. I was able to arouse the patient although he was kicking me when I was assessing his pedal pulses and stated that he wanted to be left alone. I asked him what is last name was and he was able to pronounce his last name for me and was able to open his eyes and follow commands. The patient was started on IV Lasix and ceftriaxone. The patient was found to be positive for UTI. The patient is being admitted to observation status on the date of service of 09/05/2021 Chief Complaint: Shortness of breath Review of Systems Review of Systems: All systems reviewed & are unremarkable except as noted in HPI and below Constitutional: Constitutional: Reports as per HPI and Reports no additional constitutional complaints Eyes: Eyes: Reports as per HPI and Reports no additional eye complaints ENT: Reports system reviewed and no additional complaints, except as documented and Reports Normal hearing present Cardiovascular: Cardiovascular: Reports no additional cardiovascular complaints Respiratory: Respiratory: Reports no additional respiratory complaints and Reports no additional respiratory complaints Gastrointestinal: Gastrointestinal: Reports as per HPI and Reports no additional gastrointestinal complaints Musculoskeletal: Musculoskeletal: Reports no additional musculoskeletal complaints Integumentary/Breasts: Skin/Breast: Reports system reviewed and no additional complaints, except as docu and Reports as per HPI Neurologic: Reports system reviewed and no additional complaints, except as documented, Reports as per HPI and Reports Normal hearing present Psychiatric: Psychiatric: Reports no additional psychiatric complaints and Reports as per HPI Endocrine: Endocrine: Reports no additional endocrine complaints Hematologic/Lymphatic: Hematologic/Lymphatic: Reports no additional hematologic/lymphatic complaints Allergic/Immunologic: Allergic/Immunologic: Reports no additional allergic/immunologic complaints [facility] Past Medical History Medical History (Updated 09/05/21 @ 16:15 by Myrtle Sanchez NP) Atrial fibrillation CHF (congestive heart failure) Chronic anticoagulation Chronic kidney disease, stage 3 COPD (chronic obstructive pulmonary disease) Coronary artery disease CVA (cerebral vascular accident) Depression Diabetic neuropathy Essential hypertension ELAINE (obstructive sleep apnea) Sciatica Tobacco abuse Type 2 diabetes mellitus treated with insulin Surgical History Surgical History (Updated 09/05/21 @ 16:03 by Myrtle Sanchez NP) History of intravascular stent placement Superficial left leg Hx of CABG Family History Family History Other Unknown family medical history Social History Social History (Updated 09/05/21 @ 16:06 by Myrtle Sanchez NP) Social History: The patient is listed as being and disabled. It was noted that the patient was a heavy smoker according to his old records. He has a daughter yohana albarran listed as a durable power commonwealth attorney and another daughter Aristides Christian listed as next of kin. Advance directive on file here Co
[2021-09-05 17:44] LABS: Glucose Point of Care 105 mg/dl (65-105)
[2021-09-05 21:46] LABS: Glucose Point of Care 102 mg/dl (65-105)
[2021-09-05] MEDS: ATORVASTATIN 40 MG TABLET PO (22:28)
[2021-09-06] VITALS (20 sets, daily range): BP systolic 129–141; BP diastolic 48–80; PULSE 54–147; RESP 20–28; TEMP 36.2–36.8; O2SAT 94–100
[2021-09-06 01:14] LABS: Base Excess ABG 3.5 mEq/l (+/-2.0); Fractional Inspired Oxygen 30 %; HCO3 ABG 28.7 mEq/l (22.0-26.0); Methemoglobin ABG 0.3 %THb (0-1.5); Modified Allen's Test Pass; Oxygen Content ABG 13.7 %vol (16.0-22.0); Oxygen Saturation ABG 94.4 % (95.0-100.0); Oxyhemoglobin 92.1 % THb (90.0-100.0); PCO2 ABG 46.5 mmHg (35.0-45.0); PO2 ABG 71.3 mmHg (80.0-100.0); PO2 FiO2 Ratio Arterial Blood 2.38 %; Reduced Hemoglobin 7.6 %THb (0-5.0); Site Drawn LEFT RADIAL; Total Hemoglobin 10.5 g/dL (12.0-18.0); pH ABG 7.408 (7.350-7.450)
[2021-09-06 01:15] LABS: Device BIPAP; Expiratory Pressure 8 cmH2O; Inspiratory Pressure 18 cmH2O
--- NOTE | 2021-09-06 02:08 | PC.NURSE ---
Daylight Savings Time For Daylight Savings Time Ending in the Fall - Clocks are moved back. For Daylight Savings Time Beginning in the Spring - Clocks are moved ahead. For [facility], the time of change occurs at 0200 hrs. Time is taken from the casino beverage server. This entry on the patient's chart recognizes the change in time reflected during documentation. Example: 2 entries for vital signs may be charted for 0200 hrs.
[2021-09-06] MEDS: UMECLIDINIUM BROMIDE 62.5 MCG ELLIPTA 1 PUFF INHALATION (08:27)
[2021-09-06 08:40] LABS: Basophils Percent Auto 0.3 % (0.2-1.2); Eosinophils Percent Auto 0.3 % (0-4.4); Hematocrit 30.7 % (42.0-52.0); Hemoglobin 9.7 g/dL (14.0-18.0); Immature Granulocyte Absolute 0.05 K/mm3 (0.00-0.031); Immature Granulocyte Percent A 0.4 % (0-0.5); Lymphocytes Absolute Auto 0.89 K/mm3 (0.9-3.2); Lymphocytes Percent Auto 7.7 % (18.3-44.2); Mean Corpuscular HGB Conc 31.6 g/dl (32-36); Mean Corpuscular Hemoglobin 27.6 pg (26-34); Mean Corpuscular Volume 87.2 fl (80-100); Mean Platelet Volume 9.9 fl (7.4-10.4); Monocytes Absolute Auto 0.9 K/mm3 (0.1-0.6); Monocytes Percent Auto 7.7 % (2.6-8.5); Neutrophils Absolute Auto 9.6 K/mm3 (1.3-6.7); Neutrophils Percent Auto 83.6 % (45.5-73.1); Platelet Count Result 297 k/mm3 (150-375); Red Blood Count 3.52 M/mm3 (4.6-6.20); Red Cell Distribution Width 21.3 % (11.5-14.5); White Blood Count 11.5 K/mm3 (4.5-10.0)
[2021-09-06 08:55] LABS: Alanine Aminotransferase 17 U/L (4-50); Albumin Level 3.4 g/dL (3.5-5.1); Alkaline Phosphatase 178 U/L (38-126); Anion Gap 8 mmol/L (8-16); Aspartate Amino Transferase 22 U/L (17-59); Bilirubin,Total 0.6 mg/dL (0.2-1.3); Blood Urea Nitrogen 63 mg/dL (9-20); Carbon Dioxide 31 mmol/L (22-30); Chloride 100 mmol/L (98-107); Estimated CRCL calculation 39 ml/min; Estimated Glomerular Filt Rate 31; Glucose 123 mg/dL (65-110); Lactate Dehydrogenase 556 U/L (313-618); Magnesium 1.7 mg/dL (1.6-2.3); Potassium 3.6 mmol/L (3.4-5.0); Sodium 139 mmol/L (137-145)
[2021-09-06 08:55] LABS: Glucose Point of Care 114 mg/dl (65-105)
[2021-09-06 08:56] LABS: Lactic Acid Reflex 0.8 mmol/L (0.7-2.1)
[2021-09-06] MEDS: TAMSULOSIN HCL 0.4 MG CAPSULE PO (10:58)
[2021-09-06] MEDS: FUROSEMIDE INJ 40 MG/4 ML VIAL IV PUSH ×2 (10:58→17:27)
[2021-09-06] MEDS: APIXABAN 5 MG TABLET PO ×2 (10:58→17:28)
[2021-09-06] MEDS: NICOTINE (*PBKC) 21 MG PATCH 1 PATCH TRANSDERM (10:58)
[2021-09-06] MEDS: amLODIPine BESYLATE 5 MG TABLET 10 MG PO (10:59)
[2021-09-06] MEDS: DULoxetine HCL 60 MG CAPSULE.DR PO ×2 (10:59→17:27)
[2021-09-06] MEDS: GABAPENTIN 300 MG CAPSULE 600 MG PO ×2 (10:59→17:27)
[2021-09-06] MEDS: MAGNESIUM OXIDE 400 MG TABLET PO (10:59)
--- NOTE | 2021-09-06 10:59 | PM.CNNEP ---
Assessment and Plan Assessment and plan (1) Acute kidney injury superimposed on CKD: Code(s): N17.9 - Acute kidney failure, unspecified; N18.9 - Chronic kidney disease, unspecified Status: Acute Assessment and Plan: Ector has chronic kidney disease. His creatinine has been stable between 1.6 and 2.1 for the last 9 months. He has multiple issues that would be contributory toward a chronic form of kidney disease such as congestive heart failure, chronic diuretics, pulmonary hypertension, diabetes, and hypertension. Will evaluate other reasons as well including GN, and allergic interstitial nephritis, obstruction, cystic in stone disease. Will check serology, immunofixation, ultrasound, and follow his creatinine. The patient also has acute kidney injury. Looks like he has decompensated respiratory failure and so his her hypertension may be a little worse. In addition he is on a lot of diuretics. Finally he has a UTI. These could all contribute. The UTI plus the pre renal azotemia from the heart/lung issues most likely predominate. Will check urine electrolytes and see with the ultrasound shows. (2) Essential hypertension: Code(s): I10 - Essential (primary) hypertension Status: Acute Assessment and Plan: His blood pressure has been fairly stable. (3) Acute exacerbation of CHF (congestive heart failure): Code(s): I50.9 - Heart failure, unspecified Status: Acute Assessment and Plan: He is getting diuretics. (4) Acute hypercapnic respiratory failure: Code(s): J96.02 - Acute respiratory failure with hypercapnia Status: Acute Assessment and Plan: The patient is getting supportive care. He was on a BiPAP earlier. Now he is on nasal cannula and seems to be a little better. (5) Person under investigation for COVID-19: Code(s): Z20.822 - Contact with and (suspected) exposure to COVID-19 Status: Acute Assessment and Plan: He is on respiratory isolation (6) Acute UTI: Code(s): N39.0 - Urinary tract infection, site not specified Status: Acute Assessment and Plan: Urine cultures are pending. He is on antibiotics. (7) Type 2 diabetes mellitus treated with insulin: Code(s): E11.9 - Type 2 diabetes mellitus without complications; Z79.4 - residential (current) use of insulin Status: Chronic Assessment and Plan: The patient is on Accu-Chek and sliding scale insulin History of Present Illness Reason for Consult Consult date: 09/06/21 Chief Complaint Chief complaint: CHF exacerbation, KIET, COVID PUI, UTI, History of Present Illness Narrative: Ector is an unfortunate 61-year-old gentleman who has multiple medical problems including severe COPD, heavy smoker but quit 1 month ago, atrial fibrillation, chronic anticoagulation, hypertension, diabetes, sleep apnea, depression, stroke, coronary disease, and chronic kidney disease. The patient came into the hospital for altered mental status. He lives in a senior living. He was found to be unresponsive but arousable to sternal rub. He was sent to the ER. In the ER he was evaluated. He was very somnolent answer to couple questions and fell back asleep apparently. Evaluation revealed a chest x-ray with infiltrates, blood gas showing CO2 retention, pyuria, and a creatinine of 2.7. He was cultured. He was admitted and put on antibiotics and given some diuretics. His creatinine improved from 2.7-2.2. Renal consultation was requested The patient says he has never seen a luncheonette manager before but he has known about kidney disease in the past. Looking through the chart, his creatinine was normal in 2016. The next creatinine we have was in December of this year when it was 1.78 and has been between that and 2.1 through July. He denies any urinary difficulties. He can not give much of a history because of his mental status. Review of Systems Constitutional: Const
[2021-09-06] MEDS: buPROPion HCL XL (24 HR) 150 MG TABCR PO (11:01)
[2021-09-06] MEDS: ACIDOPHILUS/BULGARICUS CHEWABLE TABLET 1 TABLET PO (11:01)
[2021-09-06] MEDS: PANTOPRAZOLE 40 MG TABLET PO (11:01)
[2021-09-06] MEDS: METOPROLOL SUCCINATE EXT REL 50 MG TABCR 150 MG PO (11:57)
[2021-09-06 12:33] LABS: Glucose Point of Care 219 mg/dl (65-105)
[2021-09-06 12:43] LABS: Creatine Kinase 45 U/L (55-170)
[2021-09-06] MEDS: INSULIN ASPART (*BKC) 100 UNITS/ML SUB-Q ×2 (13:39→17:37)
[2021-09-06 14:17] LABS: Creatinine Urine 27.5 mg/dL; Total Protein Urine Random 74 mg/dL; Ur Ttl Prot Creatinine Ratio 2.69 mg/mg (0-0.20)
[2021-09-06 14:23] LABS: Sodium Urine Random 103 meq/L
--- NOTE | 2021-09-06 16:15 | PM.IMPN ---
Progress Note: A&P Assessment and Plan (1) Acute exacerbation of CHF (congestive heart failure): Qualifiers: Heart failure type: unspecified Qualified Code(s): I50.9 - Heart failure, unspecified Code(s): I50.9 - Heart failure, unspecified Status: Acute Assessment and Plan: Last echo was on 07/23/2021 read as the following 1. Complete two-dimensional, color flow and Doppler transthoracic echocardiogram is performed. 2. Left ventricular chamber dimension is moderately enlarged. 3. Left ventricular systolic function is mildly reduced, estimated at 45-50%. 4. There is moderately increased left ventricular wall thickness. 5. Left atrial chamber dimension is moderately enlarged. 6. There is trace mitral valve regurgitation. Chest x-ray with bilateral perihilar predominant opacities favor congestive heart failure related pulmonary edema over pneumonia. Continue with IV Lasix b.i.d.. Continue with the BiPAP for mild respiratory acidosis likely due to CHF exacerbation BiPAP p.r.n. (2) UTI (urinary tract infection): Code(s): N39.0 - Urinary tract infection, site not specified Status: Acute Assessment and Plan: Continue with Rocephin. Blood and urine cultures are pending. (3) COPD (chronic obstructive pulmonary disease): Qualifiers: COPD type: unspecified COPD Qualified Code(s): J44.9 - Chronic obstructive pulmonary disease, unspecified Code(s): J44.9 - Chronic obstructive pulmonary disease, unspecified Status: Acute Assessment and Plan: Continue with home inhalers (4) ELAINE (obstructive sleep apnea): Code(s): G47.33 - Obstructive sleep apnea (adult) (pediatric) Status: Chronic Assessment and Plan: Continue with home settings on a CPAP once the patient is off the BiPAP. (5) Chronic kidney disease, stage 3: Code(s): N18.30 - Chronic kidney disease, stage 3 unspecified Status: Acute Assessment and Plan: Worsening on admission creatinine at 2.7. Baseline is somewhere between 1.5-1.8. Please continue to monitor. Creatinine better at 2.2 today (6) Acute kidney injury superimposed on CKD: Code(s): N17.9 - Acute kidney failure, unspecified; N18.9 - Chronic kidney disease, unspecified Status: Acute Assessment and Plan: Patient is on Lasix at this time. Please continue to monitor his BUN and creatinine. Renal consulted. Renal ultrasound done pending report (7) Atrial fibrillation with slow ventricular response: Code(s): I48.91 - Unspecified atrial fibrillation Status: Acute Assessment and Plan: Rate control. Continue with metoprolol and Eliquis (8) Type 2 diabetes mellitus treated with insulin: Code(s): E11.9 - Type 2 diabetes mellitus without complications; Z79.4 - complaint specialist (current) use of insulin Status: Chronic Assessment and Plan: Accu-Cheks AC and HS. Continue with home insulin. (9) Suspected COVID-19 virus infection: Code(s): Z20.822 - Contact with and (suspected) exposure to COVID-19 Status: Acute Assessment and Plan: Patient is being placed on contact and droplet isolation. The patient was checked approximately 1 month ago for COVID was found to be negative. Subjective Date/time seen: 09/06/21 16:15 Interval history: HPI:this is a 61-year-old male patient who has a history of COPD, CHF, diabetes, hypertension and chronic respiratory failure. Patient has a history of smoking tobacco as well. The patient has a history of hypercapnia. The patient was short of breath and brought into the emergency room. The patient was quite lethargic and was a poor historian. His chest x-ray was read as bilateral perihilar predominant opacities and favor congestive heart failure related to pulmonary edema over pneumonia. Small bilateral pleural effusions. Cardiomegaly. His white count is normal. His H&H is 9.029.1 which is his baseline.
[2021-09-06] MEDS: ACETAMINOPHEN 325 MG TABLET 650 MG PO (17:32)
[2021-09-06 17:44] LABS: Glucose Point of Care 252 mg/dl (65-105)
[2021-09-06 20:01] LABS: Glucose Point of Care 209 mg/dl (65-105)
[2021-09-06] MEDS: HYDROcodone/acetaminophen (*CRX) 5-325 MG TABLET 1 TAB PO (20:40)
[2021-09-06] MEDS: ATORVASTATIN 40 MG TABLET PO (20:40)
[2021-09-06] MEDS: INSULIN GLARGINE (*BKC) 100 UNITS/ML 18 UNITS SUB-Q (20:41)
[2021-09-07] VITALS (21 sets, daily range): BP systolic 128–145; BP diastolic 48–71; PULSE 54–78; RESP 16–28; TEMP 36.5–36.8; O2SAT 94–100; BMI 31.6
[2021-09-07 05:20] LABS: Basophils Percent Auto 0.3 % (0.2-1.2); Eosinophils Percent Auto 0.2 % (0-4.4); Hematocrit 29.7 % (42.0-52.0); Hemoglobin 9.2 g/dL (14.0-18.0); Immature Granulocyte Absolute 0.05 K/mm3 (0.00-0.031); Immature Granulocyte Percent A 0.4 % (0-0.5); Lymphocytes Absolute Auto 1.19 K/mm3 (0.9-3.2); Lymphocytes Percent Auto 8.5 % (18.3-44.2); Mean Corpuscular Volume 87.1 fl (80-100); Mean Platelet Volume 9.8 fl (7.4-10.4); Monocytes Absolute Auto 1.1 K/mm3 (0.1-0.6); Monocytes Percent Auto 7.8 % (2.6-8.5); Neutrophils Absolute Auto 11.7 K/mm3 (1.3-6.7); Neutrophils Percent Auto 82.8 % (45.5-73.1); Platelet Count Result 277 k/mm3 (150-375); Red Blood Count 3.41 M/mm3 (4.6-6.20); Red Cell Distribution Width 21.3 % (11.5-14.5); White Blood Count 14.1 K/mm3 (4.5-10.0)
[2021-09-07 05:39] LABS: Alanine Aminotransferase 15 U/L (4-50); Albumin Level 3.1 g/dL (3.5-5.1); Alkaline Phosphatase 157 U/L (38-126); Anion Gap 6 mmol/L (8-16); Aspartate Amino Transferase 22 U/L (17-59); Bilirubin,Total 0.5 mg/dL (0.2-1.3); Blood Urea Nitrogen 60 mg/dL (9-20); Calcium 8.7 mg/dL (8.4-10.2); Carbon Dioxide 34 mmol/L (22-30); Chloride 97 mmol/L (98-107); Estimated CRCL calculation 39 ml/min; Estimated Glomerular Filt Rate 31; Glucose 144 mg/dL (65-110); Magnesium 1.6 mg/dL (1.6-2.3); Phosphorus 4.7 mg/dL (2.5-4.5); Potassium 3.3 mmol/L (3.4-5.0); Sodium 137 mmol/L (137-145)
[2021-09-07 07:21] LABS: Glucose Point of Care 133 mg/dl (65-105)
--- NOTE | 2021-09-07 07:50 | PM.IMPN ---
Subjective Date/time seen: 09/07/21 07:50 Objective Data Vital Signs Vital Signs: Vital Signs - 24 hr 09/06/21 08:00 09/06/21 09:35 09/06/21 10:00 Temperature 97.2 F L Pulse Rate 84 84 85 Respiratory Rate 25 H 25 H Blood Pressure 136/65 Pulse Oximetry 96 96 09/06/21 11:57 09/06/21 12:00 09/06/21 12:55 Temperature 97.2 F L Pulse Rate 147 H 74 82 Respiratory Rate 22 H Blood Pressure 141/80 H Pulse Oximetry 96 95 09/06/21 14:00 09/06/21 16:00 09/06/21 16:15 Temperature 98.2 F Pulse Rate 85 81 67 Respiratory Rate 22 H Blood Pressure 138/79 Pulse Oximetry 96 94 09/06/21 18:00 09/06/21 20:00 09/06/21 21:40 Temperature 97.5 F L Pulse Rate 67 55 L Respiratory Rate 24 H Blood Pressure 138/48 L Pulse Oximetry 97 95 09/06/21 21:55 09/06/21 22:00 09/06/21 23:54 Temperature 98.1 F Pulse Rate 54 L 58 L 60 Respiratory Rate 24 H 28 H Blood Pressure 129/63 Pulse Oximetry 97 99 09/07/21 00:00 09/07/21 01:42 09/07/21 02:00 Temperature Pulse Rate 55 L 55 L 58 L Respiratory Rate 28 H 24 H Blood Pressure Pulse Oximetry 99 96 09/07/21 04:00 09/07/21 04:55 09/07/21 05:56 Temperature 97.9 F Pulse Rate 70 58 L 74 Respiratory Rate 24 H 24 H Blood Pressure 136/51 L Pulse Oximetry 100 96 09/07/21 07:42 Temperature 98.2 F Pulse Rate 72 Respiratory Rate 24 H Blood Pressure 136/71 Pulse Oximetry 100 Intake/Output Intake/Output: Intake & Output 09/05/21 09/06/21 09/06/21 09/07/21 00:59 00:59 23:59 23:59 Intake Total Output Total 800 Balance -800 Meds/Results Medications: Active Medications Generic Name Dose Route Start Last Admin Trade Name Freq PRN Reason Stop Dose Admin Acetaminophen 650 mg 09/05/21 13:54 09/06/21 17:32 Acetaminophen 325 Mg Tablet PO 650 mg Q4H PRN Administration Mild Pain (1-3) or Fever Hydrocodone Bitart/Acetaminophen 1 tab 09/05/21 13:54 09/06/21 20:40 Hydrocodone/Acetaminophen (*Crx) 5-325 Mg Tablet PO 1 tab Q4H PRN Administration Pain Rated 4-6 Amlodipine Besylate 10 mg 09/06/21 09:00 09/06/21 10:59 Amlodipine Besylate 5 Mg Tablet PO 10 mg DAILY CRISTINA Administration Apixaban 5 mg 09/06/21 09:00 09/06/21 17:28 Apixaban 5 Mg Tablet PO 5 mg BID CRISTINA Administration Atorvastatin Calcium 40 mg 09/05/21 21:00 09/06/21 20:40 Atorvastatin 40 Mg Tablet PO 40 mg HS CRISTINA Administration Bupropion HCl 150 mg 09/06/21 09:00 09/06/21 11:01 Bupropion Hcl Xl (24 Hr) 150 Mg Tabcr PO 150 mg DAILY CRISTINA Administration Dextrose 12.5 gm 09/05/21 15:57 Dextrose 50% 25 Gm/50 Ml Syringe IV PUSH PRN PRN Hypoglycemia Protocol Docusate Sodium 100 mg 09/05/21 18:48 Docusate Sodium 100 Mg Capsule PO BID PRN Constipation Duloxetine HCl 60 mg 09/06/21 09:00 09/06/21 17:27 Duloxetine Hcl 60 Mg Capsule.Dr PO 60 mg BID CRISTINA Administration Furosemide 40 mg 09/05/21 17:00 09/06/21 17:27 Furosemide Inj 40 Mg/4 Ml Vial IV PUSH 40 mg BID CRISTINA Administration Gabapentin 600 mg 09/06/21 09:00 09/06/21 17:27 Gabapentin 300 Mg Capsule PO 600 mg TID CRISTINA Administration Glucagon 1 mg 09/05/21 15:57 Glucagon For Inj 1 Mg Vial IM PRN PRN Hypoglycemia Protocol Glucose 15 gm 09/05/21 15:57 Glucose Oral Gel 15 Gm Of Glucse In 37.5 Gm Tube PO PRN PRN Hypoglycemia Protocol Ceftriaxone Sodium/Dextrose 1 gm in 50 mls @ 100 mls/hr 09/06/21 14:00 09/06/21 17:28 Rocephin 1 Gm/D5w 50 Ml IVPB Infused Q24H CRISTINA Infusion Dextrose 1,000 mls @ 100 mls/hr 09/05/21 15:57 Dextrose 5% 1,000 Ml IVPB PRN PRN Hypoglycemia Protocol Insulin Aspart 2 - 5 units 09/05/21 17:00 09/07/21 07:41 Insulin Aspart (*Bkc) 100 Units/Ml SUB-Q Not Given TIDWM CRISTINA Protocol Insulin Glargine 18 units 09/05/21 21:00 09/06/21 20:41 Insulin Glargine
[2021-09-07] MEDS: UMECLIDINIUM BROMIDE 62.5 MCG ELLIPTA 1 PUFF INHALATION (08:00)
--- NOTE | 2021-09-07 09:04 | PCPTNOTE ---
Attempted PT evaluation this date, however pt refused. Will attempt later date/time.
--- NOTE | 2021-09-07 09:06 | PCOTNOTE ---
Started Sarai pt. refused to participate after ~10 mins in room giving partial reponsed, will return later to complete
[2021-09-07] MEDS: metOLazone 2.5 MG TABLET PO (09:26)
[2021-09-07] MEDS: METOPROLOL SUCCINATE EXT REL 50 MG TABCR 150 MG PO (09:26)
[2021-09-07] MEDS: TAMSULOSIN HCL 0.4 MG CAPSULE PO (09:27)
[2021-09-07] MEDS: amLODIPine BESYLATE 5 MG TABLET 10 MG PO (09:27)
[2021-09-07] MEDS: GABAPENTIN 300 MG CAPSULE 600 MG PO ×3 (09:27→17:24)
[2021-09-07] MEDS: DULoxetine HCL 60 MG CAPSULE.DR PO ×2 (09:27→17:24)
[2021-09-07] MEDS: buPROPion HCL XL (24 HR) 150 MG TABCR PO (09:27)
[2021-09-07] MEDS: PANTOPRAZOLE 40 MG TABLET PO (09:27)
[2021-09-07] MEDS: NICOTINE (*PBKC) 21 MG PATCH 1 PATCH TRANSDERM (09:27)
[2021-09-07] MEDS: APIXABAN 5 MG TABLET PO ×2 (09:27→17:24)
[2021-09-07] MEDS: ACIDOPHILUS/BULGARICUS CHEWABLE TABLET 1 TABLET PO (09:27)
[2021-09-07] MEDS: FUROSEMIDE INJ 40 MG/4 ML VIAL IV PUSH ×2 (09:27→17:24)
[2021-09-07] MEDS: MAGNESIUM OXIDE 400 MG TABLET PO (09:28)
[2021-09-07] MEDS: POTASSIUM CHLORIDE 20 MEQ PACKET (FOR LIQUID) PO (09:28)
[2021-09-07 12:16] LABS: Glucose Point of Care 188 mg/dl (65-105)
--- NOTE | 2021-09-07 14:59 | PCNSR ---
On 09/07/21, the student, Mikayla Chavis, provided care and completed [facility] documentation on this patient. I have reviewed the student's documentation and agree with the findings.
--- NOTE | 2021-09-07 15:54 | PM.IMPN ---
Progress Note: A&P Assessment and Plan (1) Acute exacerbation of CHF (congestive heart failure): Qualifiers: Heart failure type: unspecified Qualified Code(s): I50.9 - Heart failure, unspecified Code(s): I50.9 - Heart failure, unspecified Status: Acute Assessment and Plan: Last echo was on 07/23/2021 read as the following 1. Complete two-dimensional, color flow and Doppler transthoracic echocardiogram is performed. 2. Left ventricular chamber dimension is moderately enlarged. 3. Left ventricular systolic function is mildly reduced, estimated at 45-50%. 4. There is moderately increased left ventricular wall thickness. 5. Left atrial chamber dimension is moderately enlarged. 6. There is trace mitral valve regurgitation. Chest x-ray with bilateral perihilar predominant opacities favor congestive heart failure related pulmonary edema over pneumonia. Continue with IV Lasix b.i.d.. Continue with the BiPAP for mild respiratory acidosis likely due to CHF exacerbation BiPAP p.r.n. (2) UTI (urinary tract infection): Code(s): N39.0 - Urinary tract infection, site not specified Status: Acute Assessment and Plan: Continue with Rocephin. Blood and urine cultures are pending. (3) COPD (chronic obstructive pulmonary disease): Qualifiers: COPD type: unspecified COPD Qualified Code(s): J44.9 - Chronic obstructive pulmonary disease, unspecified Code(s): J44.9 - Chronic obstructive pulmonary disease, unspecified Status: Acute Assessment and Plan: Continue with home inhalers (4) ELAINE (obstructive sleep apnea): Code(s): G47.33 - Obstructive sleep apnea (adult) (pediatric) Status: Chronic Assessment and Plan: Continue with home settings on a CPAP once the patient is off the BiPAP. (5) Chronic kidney disease, stage 3: Code(s): N18.30 - Chronic kidney disease, stage 3 unspecified Status: Acute Assessment and Plan: Worsening on admission creatinine at 2.7. Baseline is somewhere between 1.5-1.8. Please continue to monitor. Creatinine better at 2.2 remains stable today (6) Acute kidney injury superimposed on CKD: Code(s): N17.9 - Acute kidney failure, unspecified; N18.9 - Chronic kidney disease, unspecified Status: Acute Assessment and Plan: Patient is on Lasix at this time. Please continue to monitor his BUN and creatinine. Renal consulted. Renal ultrasound done negative for obstruction (7) Atrial fibrillation with slow ventricular response: Code(s): I48.91 - Unspecified atrial fibrillation Status: Acute Assessment and Plan: Rate controlled. Continue with metoprolol and Eliquis (8) Type 2 diabetes mellitus treated with insulin: Code(s): E11.9 - Type 2 diabetes mellitus without complications; Z79.4 - snf (current) use of insulin Status: Chronic Assessment and Plan: Accu-Cheks AC and HS. Continue with home insulin. (9) Suspected COVID-19 virus infection: Code(s): Z20.822 - Contact with and (suspected) exposure to COVID-19 Status: Acute Assessment and Plan: Patient is being placed on contact and droplet isolation. The patient was checked approximately 1 month ago for COVID was found to be negative. COVID swab pending (10) Hypokalemia: Code(s): E87.6 - Hypokalemia Status: Acute Assessment and Plan: Replace Subjective Date/time seen: 09/07/21 15:54 Interval history: HPI:this is a 61-year-old male patient who has a history of COPD, CHF, diabetes, hypertension and chronic respiratory failure. Patient has a history of smoking tobacco as well. The patient has a history of hypercapnia. The patient was short of breath and brought into the emergency room. The patient was quite lethargic and was a poor historian. His chest x-ray was read as bilateral perihilar predominant opacities and favor congestive heart failure rela
[2021-09-07 16:34] LABS: Glucose Point of Care 266 mg/dl (65-105)
--- NOTE | 2021-09-07 16:53 | PM.PNNEP ---
Progress Note: A&P Assessment and Plan (1) Acute kidney injury: Code(s): N17.9 - Acute kidney failure, unspecified Status: Acute Assessment and Plan: several issues: - decompensated respiratory failure - HTN a bit worse - significant diuretic burden - urinary tract infection follow trend of repeat labs with current interventions (2) Stage 3b chronic kidney disease: Code(s): N18.32 - Chronic kidney disease, stage 3b Status: Chronic Assessment and Plan: baseline creatinine running 1.6 - 2.1mg/dl for the last year likely a manifestation of his CHF, need for diuretics, pulmonary HTN, diabetes, and hypertension serological evaluation underway (multiple tests still pending) (3) Essential hypertension: Code(s): I10 - Essential (primary) hypertension Status: Acute Assessment and Plan: reasonable at this time follow trend of hemodynamics (4) Acute exacerbation of CHF (congestive heart failure): Code(s): I50.9 - Heart failure, unspecified Status: Acute Assessment and Plan: on diuretics follow I/Os, daily weights, and respiratory status (5) Acute hypercapnic respiratory failure: Code(s): J96.02 - Acute respiratory failure with hypercapnia Status: Acute Assessment and Plan: better at this time continue supportive therapy (6) Acute UTI: Code(s): N39.0 - Urinary tract infection, site not specified Status: Acute Assessment and Plan: urine culture negative on antibiotics (7) Type 2 diabetes mellitus treated with insulin: Code(s): E11.9 - Type 2 diabetes mellitus without complications; Z79.4 - retirement (current) use of insulin Status: Chronic Assessment and Plan: follow accu-cheks on sliding scale insulin Will continue to follow. Subjective Date/time seen: 09/07/21 16:53 Chart reviewed -- assuming care from Dr. Villeda; some mild confusion noted but appears more awake and alert today from my discussion with nursing; no new issues/events overnight or earlier this AM; no acute complaints voiced. Exam Narrative: General: WD/WN male/female in NAD Heart: normal S1 and S2; no rub Lungs: clear to auscultation Abdomen: soft, nontender, nondistended, positive bowel sounds Extremities: no cyanosis or clubbing; trace - 1+ edema Skin: warm and dry Objective Data Vital Signs Vital Signs: Vital Signs Temp Pulse Resp BP Pulse Ox 09/07/21 16:00 66 09/07/21 14:00 68 09/07/21 12:33 36.5 C 71 22 H 128/58 L 96 09/07/21 12:00 68 96 09/07/21 10:00 78 09/07/21 09:26 73 09/07/21 09:15 94 09/07/21 08:05 94 09/07/21 08:00 73 09/07/21 07:42 36.8 C 72 24 H 136/71 100 09/07/21 05:56 74 09/07/21 04:55 58 L 24 H 96 09/07/21 04:00 36.6 C 70 24 H 136/51 L 100 09/07/21 02:00 58 L 09/07/21 01:42 55 L 24 H 96 09/07/21 00:00 55 L 28 H 99 09/06/21 23:54 36.7 C 60 28 H 129/63 99 09/06/21 22:00 58 L 09/06/21 21:55 54 L 24 H 97 09/06/21 21:40 95 09/06/21 20:00 36.4 C L 55 L 24 H 138/48 L 97 Intake/Output Intake/Output: Intake & Output 09/05/21 09/06/21 09/06/21 09/07/21 00:59 00:59 23:59 23:59 Intake Total 240 Output Total 1600 Balance -1360 Meds/Results Medications: Active Medications Generic Name Dose Route Start Last Admin Trade Name Marciano PRN Reason Stop Dose Admin Acetaminophen 650 mg 09/05/21 13:54 09/06/21 17:32 Acetaminophen 325 Mg Tablet PO 650 mg Q4H PRN Administration Mild Pain (1-3) or Fever Hydrocodone Bitart/Acetaminophen 1 tab 09/05/21 13:54 09/06/21 20:40 Hydrocodone/Acetaminophen (*Crx) 5-325 Mg Tablet PO 1 tab Q4H PRN Administration Pain Rated 4-6 Amlodipine Besylate 10 mg 09/06/21 09:00 09/07/21 09:27 Amlodipine Bes
[2021-09-07] MEDS: INSULIN ASPART (*BKC) 100 UNITS/ML SUB-Q (17:24)
--- NOTE | 2021-09-07 18:49 | PC.NURSE ---
patient arriving to room 302 from [facility] per bed
--- NOTE | 2021-09-07 18:50 | PC.NURSE ---
This patient, Ector Oconnor, was transferred to [facility] on 09/07/21 at 1850. Personal belongings sent with patient. Report given to KEITH Pedroza. Appropriate documentation sent with patient.
[2021-09-07 19:00] LABS: SARS-CoV-2 RNA PCR Negative
[2021-09-07] MEDS: INSULIN GLARGINE (*BKC) 100 UNITS/ML 18 UNITS SUB-Q (20:57)
[2021-09-07] MEDS: ATORVASTATIN 40 MG TABLET PO (20:59)
[2021-09-07 22:22] LABS: Glucose Point of Care 165 mg/dl (65-105)
[2021-09-08] VITALS (13 sets, daily range): BP systolic 120–125; BP diastolic 52–92; PULSE 50–73; RESP 16–24; TEMP 36.7–37.2; O2SAT 92–96
[2021-09-08 07:05] LABS: Basophils Percent Auto 0.2 % (0.2-1.2); Eosinophils Absolute Auto 0.1 K/mm3 (0-0.3); Eosinophils Percent Auto 0.8 % (0-4.4); Hematocrit 28.4 % (42.0-52.0); Hemoglobin 8.8 g/dL (14.0-18.0); Immature Granulocyte Absolute 0.05 K/mm3 (0.00-0.031); Immature Granulocyte Percent A 0.5 % (0-0.5); Lymphocytes Absolute Auto 1.06 K/mm3 (0.9-3.2); Lymphocytes Percent Auto 9.8 % (18.3-44.2); Mean Corpuscular Hemoglobin 27.2 pg (26-34); Mean Corpuscular Volume 87.9 fl (80-100); Monocytes Absolute Auto 0.8 K/mm3 (0.1-0.6); Monocytes Percent Auto 7.6 % (2.6-8.5); Neutrophils Absolute Auto 8.8 K/mm3 (1.3-6.7); Neutrophils Percent Auto 81.1 % (45.5-73.1); Platelet Count Result 274 k/mm3 (150-375); Red Blood Count 3.23 M/mm3 (4.6-6.20); Red Cell Distribution Width 21.1 % (11.5-14.5); White Blood Count 10.9 K/mm3 (4.5-10.0)
[2021-09-08 07:17] LABS: Iron 23 ug/dL (49-181)
[2021-09-08 07:24] LABS: Alanine Aminotransferase 13 U/L (4-50); Alkaline Phosphatase 141 U/L (38-126); Anion Gap 5 mmol/L (8-16); Aspartate Amino Transferase 20 U/L (17-59); Bilirubin,Total 0.3 mg/dL (0.2-1.3); Blood Urea Nitrogen 62 mg/dL (9-20); Calcium 8.7 mg/dL (8.4-10.2); Carbon Dioxide 37 mmol/L (22-30); Chloride 96 mmol/L (98-107); Estimated CRCL calculation 37 ml/min; Estimated Glomerular Filt Rate 34; Glucose 105 mg/dL (65-110); Potassium 3.6 mmol/L (3.4-5.0); Sodium 138 mmol/L (137-145)
[2021-09-08 07:27] LABS: Parathyroid Intact 91.5 pg/mL (7.5-53.5)
[2021-09-08 08:18] LABS: Glucose Point of Care 87 mg/dl (65-105)
[2021-09-08] MEDS: amLODIPine BESYLATE 5 MG TABLET 10 MG PO (09:26)
[2021-09-08] MEDS: MAGNESIUM OXIDE 400 MG TABLET PO (09:27)
[2021-09-08] MEDS: DULoxetine HCL 60 MG CAPSULE.DR PO ×2 (09:27→17:13)
[2021-09-08] MEDS: GABAPENTIN 300 MG CAPSULE 600 MG PO ×3 (09:27→17:13)
[2021-09-08] MEDS: METOPROLOL SUCCINATE EXT REL 50 MG TABCR 150 MG PO (09:27)
[2021-09-08] MEDS: buPROPion HCL XL (24 HR) 150 MG TABCR PO (09:28)
[2021-09-08] MEDS: APIXABAN 5 MG TABLET PO ×2 (09:28→17:13)
[2021-09-08] MEDS: PANTOPRAZOLE 40 MG TABLET PO ×2 (09:28→22:35)
[2021-09-08] MEDS: NICOTINE (*PBKC) 21 MG PATCH 1 PATCH TRANSDERM (09:28)
[2021-09-08] MEDS: TAMSULOSIN HCL 0.4 MG CAPSULE PO (09:29)
[2021-09-08] MEDS: FUROSEMIDE INJ 40 MG/4 ML VIAL IV PUSH ×2 (09:30→17:13)
[2021-09-08] MEDS: ACIDOPHILUS/BULGARICUS CHEWABLE TABLET 1 TABLET PO (09:31)
[2021-09-08] MEDS: UMECLIDINIUM BROMIDE 62.5 MCG ELLIPTA 1 PUFF INHALATION (10:34)
--- NOTE | 2021-09-08 11:25 | PM.PNNEP ---
Progress Note: A&P Assessment and Plan (1) Acute kidney injury: Code(s): N17.9 - Acute kidney failure, unspecified Status: Acute Assessment and Plan: slow improvement noted several issues: - decompensated respiratory failure - HTN a bit worse - significant diuretic burden - urinary tract infection (although culture is negative) follow trend of repeat labs with current interventions (2) Stage 3b chronic kidney disease: Code(s): N18.32 - Chronic kidney disease, stage 3b Status: Chronic Assessment and Plan: baseline creatinine running 1.6 - 2.1mg/dl for the last year likely a manifestation of his CHF, need for diuretics, pulmonary HTN, diabetes, and hypertension serological evaluation underway (multiple tests still pending) (3) Essential hypertension: Code(s): I10 - Essential (primary) hypertension Status: Acute Assessment and Plan: reasonable at this time follow trend of hemodynamics (4) Acute exacerbation of CHF (congestive heart failure): Code(s): I50.9 - Heart failure, unspecified Status: Acute Assessment and Plan: on diuretics follow I/Os, daily weights, and respiratory status (5) Acute hypercapnic respiratory failure: Code(s): J96.02 - Acute respiratory failure with hypercapnia Status: Acute Assessment and Plan: better at this time continue supportive therapy (6) Acute UTI: Code(s): N39.0 - Urinary tract infection, site not specified Status: Acute Assessment and Plan: urine culture negative on antibiotics (7) Type 2 diabetes mellitus treated with insulin: Code(s): E11.9 - Type 2 diabetes mellitus without complications; Z79.4 - assisted (current) use of insulin Status: Chronic Assessment and Plan: follow accu-cheks on sliding scale insulin Will continue to follow. Subjective Date/time seen: 09/08/21 10:25 Appears to be doing reasonably well at the time of my visit; no apparent distress voiced; no issues/events overnight or earlier this AM; thinks he should be ready for discharge tomorrow(?) although he notes some confusion currently. Exam Narrative: General: WD/WN male in NAD Heart: normal S1 and S2; no rub Lungs: clear to auscultation Abdomen: soft, nontender, nondistended, positive bowel sounds Extremities: no cyanosis or clubbing; trace - 1+ edema Skin: warm and dry Objective Data Vital Signs Vital Signs: Vital Signs Temp Pulse Resp BP Pulse Ox 09/08/21 09:27 65 09/08/21 08:00 60 09/08/21 04:00 54 L 09/08/21 02:06 54 L 24 H 96 09/08/21 00:00 37.2 C 66 18 122/92 H 93 09/07/21 21:51 60 25 H 95 09/07/21 21:00 95 09/07/21 20:00 54 L 09/07/21 18:50 36.6 C 76 16 145/48 H 94 09/07/21 17:06 36.6 C 66 22 H 137/63 95 09/07/21 16:00 66 09/07/21 14:00 68 09/07/21 12:33 36.5 C 71 22 H 128/58 L 96 09/07/21 12:00 68 96 Intake/Output Intake/Output: Intake & Output 09/06/21 09/06/21 09/07/21 09/08/21 00:59 23:59 23:59 23:59 Intake Total 240 920 Output Total 1600 1200 Balance -1360 -280 Meds/Results Medications: Active Medications Generic Name Dose Route Start Last Admin Trade Name Freq PRN Reason Stop Dose Admin Acetaminophen 650 mg 09/05/21 13:54 09/06/21 17:32 Acetaminophen 325 Mg Tablet PO 650 mg Q4H PRN Administration Mild Pain (1-3) or Fever Hydrocodone Bitart/Acetaminophen 1 tab 09/05/21 13:54 09/06/21 20:40 Hydrocodone/Acetaminophen (*Crx) 5-325 Mg Tablet PO 1 tab Q4H PRN Administration Pain Rated 4-6 Amlodipine Besylate 10 mg 09/06/21 09:00 09/08/21 09:26 Amlodipine Besylate 5 Mg Tablet PO 10 mg DAILY CRISTINA Administration Apixaban 5 mg 09/06/21 09:00 09/08/21 09:28 Apixaban 5 Mg Tablet PO 5 mg BID CRISTINA Admin
--- NOTE | 2021-09-08 11:43 | PC.NURSE ---
On 09/08/21, the student, [Danyell Barragan ], provided care and completed [facility] documentation on this patient. I have reviewed the student's documentation and agree with the findings.
[2021-09-08 11:44] LABS: Complement C3 118 mg/dL (88-165)
[2021-09-08 11:56] LABS: Percent Iron Saturation 10 % (20-50)
[2021-09-08 12:11] LABS: Glucose Point of Care 130 mg/dl (65-105)
--- NOTE | 2021-09-08 13:05 | PM.IMPN ---
Progress Note: A&P Assessment and Plan (1) Confusion: Code(s): R41.0 - Disorientation, unspecified Status: Acute Assessment and Plan: Patient reports having more confusion than normal. He states he is unsure where he is. But otherwise answers orientation questions correctly. Patient told me today I had a TIA a few days ago but I did not tell anybody Patient ever had a CT scan of his brain when he came in so I will order 1 now. He cannot have an MRI because of having a nerve stimulator in place. Will continue monitoring his mental status. (2) Acute exacerbation of CHF (congestive heart failure): Qualifiers: Heart failure type: unspecified Qualified Code(s): I50.9 - Heart failure, unspecified Code(s): I50.9 - Heart failure, unspecified Status: Acute Assessment and Plan: Acute on chronic systolic congestive Heart failure. Presented with chest x-ray showing pulmonary edema and small bilateral pleural effusions. Patient was started on IV Lasix with a negative balance from admission. His creatinine is higher than his baseline and could be more elevated due to fluid overload status. Will continue with diuresis and monitoring his renal function. Patient was also on BiPAP prior to arrival due to respiratory acidosis likely due to CHF exacerbation. He is on 3 L via nasal cannula at this time will wean as tolerated. Continue monitoring weights daily, fluid status, renal function and electrolytes with diuresis. (3) UTI (urinary tract infection): Code(s): N39.0 - Urinary tract infection, site not specified Status: Acute Assessment and Plan: Urinalysis showing 2+ leukocyte esterase, WBCs 51-75. Urine culture showing no growth at this time. Will discontinue IV Rocephin at this time. (4) COPD (chronic obstructive pulmonary disease): Qualifiers: COPD type: unspecified COPD Qualified Code(s): J44.9 - Chronic obstructive pulmonary disease, unspecified Code(s): J44.9 - Chronic obstructive pulmonary disease, unspecified Status: Acute Assessment and Plan: Continue with home inhalers No wheezing on exam (5) ELAINE (obstructive sleep apnea): Code(s): G47.33 - Obstructive sleep apnea (adult) (pediatric) Status: Chronic Assessment and Plan: Continue with home settings on a CPAP once the patient is off the BiPAP. (6) Chronic kidney disease, stage 3: Code(s): N18.30 - Chronic kidney disease, stage 3 unspecified Status: Acute Assessment and Plan: Worsening on admission creatinine at 2.7. Baseline is somewhere between 1.5-1.8. Please continue to monitor. Creatinine better at 2.0 today, which is improving with diuresis. Continue monitoring renal function with diuresis. (7) Acute kidney injury superimposed on CKD: Code(s): N17.9 - Acute kidney failure, unspecified; N18.9 - Chronic kidney disease, unspecified Status: Acute Assessment and Plan: Patient is on Lasix at this time. Please continue to monitor his BUN and creatinine. Renal consulted. Renal ultrasound done negative for obstruction (8) Atrial fibrillation with slow ventricular response: Code(s): I48.91 - Unspecified atrial fibrillation Status: Acute Assessment and Plan: Rate controlled. Continue with metoprolol and Eliquis (9) Type 2 diabetes mellitus treated with insulin: Code(s): E11.9 - Type 2 diabetes mellitus without complications; Z79.4 - penitentiary (current) use of insulin Status: Chronic Assessment and Plan: Glucose stable. Continue monitoring. Will continue Lantus but decrease from Home dosing at 18Units to 14 Units since hospitalized. Accu-Cheks AC and HS. Continue with home insulin. Hypoglycemic protcol in place. (10) Suspected COVID-19 virus infection: Code(s): Z20.822 - Contact with and (suspected) exposure to COVID-19 Status: Acute A
[2021-09-08] MEDS: MORPHINE SULFATE (*CRX) 4 MG/ML INJ IV PUSH (17:18)
[2021-09-08 17:24] LABS: Glucose Point of Care 148 mg/dl (65-105)
[2021-09-08] MEDS: INSULIN GLARGINE (*BKC) 100 UNITS/ML 14 UNITS SUB-Q (22:34)
[2021-09-08] MEDS: ATORVASTATIN 40 MG TABLET PO (22:35)
[2021-09-08 22:45] LABS: Glucose Point of Care 199 mg/dl (65-105)
[2021-09-09] VITALS (8 sets, daily range): BP systolic 114–123; BP diastolic 42–63; PULSE 51–75; RESP 16–22; TEMP 36.2–36.4; O2SAT 91–98
[2021-09-09 05:56] LABS: Kappa\\Lambda Light Chains 1.88 (0.26-1.65); Lambda Light Chain 60.7 mg/L (5.7-26.3)
[2021-09-09 06:32] LABS: Basophils Percent Auto 0.3 % (0.2-1.2); Eosinophils Absolute Auto 0.1 K/mm3 (0-0.3); Eosinophils Percent Auto 1.6 % (0-4.4); Hematocrit 28.3 % (42.0-52.0); Hemoglobin 8.5 g/dL (14.0-18.0); Immature Granulocyte Absolute 0.03 K/mm3 (0.00-0.031); Immature Granulocyte Percent A 0.4 % (0-0.5); Lymphocytes Absolute Auto 0.96 K/mm3 (0.9-3.2); Mean Corpuscular Hemoglobin 26.6 pg (26-34); Mean Corpuscular Volume 88.7 fl (80-100); Mean Platelet Volume 10.3 fl (7.4-10.4); Monocytes Absolute Auto 0.8 K/mm3 (0.1-0.6); Monocytes Percent Auto 10.3 % (2.6-8.5); Neutrophils Percent Auto 75.4 % (45.5-73.1); Platelet Count Result 257 k/mm3 (150-375); Red Blood Count 3.19 M/mm3 (4.6-6.20); Red Cell Distribution Width 20.4 % (11.5-14.5)
[2021-09-09 06:59] LABS: Anion Gap 9 mmol/L (8-16); Blood Urea Nitrogen 74 mg/dL (9-20); Calcium 8.2 mg/dL (8.4-10.2); Carbon Dioxide 33 mmol/L (22-30); Chloride 93 mmol/L (98-107); Estimated CRCL calculation 49 ml/min; Estimated Glomerular Filt Rate 39; Glucose 83 mg/dL (65-110); Magnesium 1.5 mg/dL (1.6-2.3); Potassium 3.8 mmol/L (3.4-5.0); Sodium 135 mmol/L (137-145)
[2021-09-09] MEDS: UMECLIDINIUM BROMIDE 62.5 MCG ELLIPTA 1 PUFF INHALATION (08:00)
[2021-09-09] MEDS: TAMSULOSIN HCL 0.4 MG CAPSULE PO (08:31)
[2021-09-09] MEDS: FUROSEMIDE INJ 40 MG/4 ML VIAL IV PUSH ×2 (08:31→16:52)
[2021-09-09] MEDS: PANTOPRAZOLE 40 MG TABLET PO ×2 (08:31→20:31)
[2021-09-09] MEDS: GABAPENTIN 300 MG CAPSULE 600 MG PO ×3 (08:31→16:52)
[2021-09-09] MEDS: METOPROLOL SUCCINATE EXT REL 50 MG TABCR 150 MG PO (08:32)
[2021-09-09] MEDS: NICOTINE (*PBKC) 21 MG PATCH 1 PATCH TRANSDERM (08:32)
[2021-09-09] MEDS: ACIDOPHILUS/BULGARICUS CHEWABLE TABLET 1 TABLET PO (08:33)
[2021-09-09] MEDS: MAGNESIUM OXIDE 400 MG TABLET PO (08:33)
[2021-09-09] MEDS: amLODIPine BESYLATE 5 MG TABLET 10 MG PO (08:33)
[2021-09-09] MEDS: buPROPion HCL XL (24 HR) 150 MG TABCR PO (08:33)
[2021-09-09] MEDS: DULoxetine HCL 60 MG CAPSULE.DR PO ×2 (08:33→16:52)
[2021-09-09] MEDS: APIXABAN 5 MG TABLET PO ×2 (08:33→16:52)
[2021-09-09 08:43] LABS: Glucose Point of Care 67 mg/dl (65-105)
[2021-09-09 08:44] LABS: Glucose Point of Care 74 mg/dl (65-105)
[2021-09-09] MEDS: MAGNESIUM SULF 4 GM/WATER100ML 4 GM/100 ML BAG IVPB (10:18)
--- NOTE | 2021-09-09 10:36 | PC.NURSE ---
patient to CT per bed
--- NOTE | 2021-09-09 10:50 | PC.NURSE ---
patient returned from ct
[2021-09-09 11:15] LABS: Glucose Point of Care 153 mg/dl (65-105)
[2021-09-09 12:01] LABS: Glucose Point of Care 138 mg/dl (65-105)
--- NOTE | 2021-09-09 12:07 | PM.IMPN ---
Progress Note: A&P Assessment and Plan (1) Confusion: Code(s): R41.0 - Disorientation, unspecified Status: Acute Assessment and Plan: Patient reports having more confusion than normal. He states he is unsure where he is. But otherwise answers orientation questions correctly. Patient told me today I had a TIA a few days ago but I did not tell anybody Patient ever had a CT scan of his brain when he came in so I will order 1 now. He cannot have an MRI because of having a nerve stimulator in place. -Pending CT Brain results to rule out stroke over the last few days causing his confusion Will continue monitoring his mental status. (2) Acute exacerbation of CHF (congestive heart failure): Qualifiers: Heart failure type: unspecified Qualified Code(s): I50.9 - Heart failure, unspecified Code(s): I50.9 - Heart failure, unspecified Status: Acute Assessment and Plan: Acute on chronic systolic congestive Heart failure. Presented with chest x-ray showing pulmonary edema and small bilateral pleural effusions. Patient was started on IV Lasix with a negative balance from admission. His creatinine is higher than his baseline and could be more elevated due to fluid overload status. Will continue with diuresis and monitoring his renal function. Patient was also on BiPAP prior to arrival due to respiratory acidosis likely due to CHF exacerbation. He is on 3 L via nasal cannula at this time will wean as tolerated. Continue monitoring weights daily, fluid status, renal function and electrolytes with diuresis. (3) UTI (urinary tract infection): Code(s): N39.0 - Urinary tract infection, site not specified Status: Acute Assessment and Plan: Urinalysis showing 2+ leukocyte esterase, WBCs 51-75. Urine culture showing no growth at this time. Will discontinue IV Rocephin at this time. (4) COPD (chronic obstructive pulmonary disease): Qualifiers: COPD type: unspecified COPD Qualified Code(s): J44.9 - Chronic obstructive pulmonary disease, unspecified Code(s): J44.9 - Chronic obstructive pulmonary disease, unspecified Status: Acute Assessment and Plan: Continue with home inhalers No wheezing on exam (5) ELAINE (obstructive sleep apnea): Code(s): G47.33 - Obstructive sleep apnea (adult) (pediatric) Status: Chronic Assessment and Plan: Continue with home settings on a CPAP once the patient is off the BiPAP. (6) Chronic kidney disease, stage 3: Code(s): N18.30 - Chronic kidney disease, stage 3 unspecified Status: Acute Assessment and Plan: Worsening on admission creatinine at 2.7. Baseline is somewhere between 1.5-1.8. Please continue to monitor. Creatinine better at 1.8 today, which is improving with diuresis. Continue monitoring renal function with diuresis. (7) Acute kidney injury superimposed on CKD: Code(s): N17.9 - Acute kidney failure, unspecified; N18.9 - Chronic kidney disease, unspecified Status: Acute Assessment and Plan: Patient is on Lasix at this time. Please continue to monitor his BUN and creatinine. Renal consulted. Renal ultrasound done negative for obstruction (8) Atrial fibrillation with slow ventricular response: Code(s): I48.91 - Unspecified atrial fibrillation Status: Acute Assessment and Plan: Rate controlled. Continue with metoprolol and Eliquis (9) Type 2 diabetes mellitus treated with insulin: Code(s): E11.9 - Type 2 diabetes mellitus without complications; Z79.4 - buttermilk drier operator (current) use of insulin Status: Chronic Assessment and Plan: Glucose stable. Continue monitoring. Will continue Lantus but decrease from Home dosing at 18Units to 14 Units since hospitalized. Accu-Cheks AC and HS. Continue with home insulin. Hypoglycemic protcol in place. (10) Suspected COVID-19 virus infection: Code(s
--- NOTE | 2021-09-09 14:06 | PCOTNOTE ---
Pt. declined occupational therapy services this date. Increased encouragement and attempted to educate on benefit of occupational therapy services. Patient continued to decline.
--- NOTE | 2021-09-09 16:45 | PM.PNNEP ---
Progress Note: A&P Assessment and Plan (1) Acute kidney injury: Code(s): N17.9 - Acute kidney failure, unspecified Status: Acute Assessment and Plan: slow improvement noted (if not back to baseline) precipitated by several issues: - decompensated respiratory failure - HTN a bit worse - significant diuretic burden - urinary tract infection (although culture is negative) follow trend of repeat labs with current interventions (2) Stage 3b chronic kidney disease: Code(s): N18.32 - Chronic kidney disease, stage 3b Status: Chronic Assessment and Plan: baseline creatinine running 1.6 - 2.1mg/dl for the last year likely a manifestation of his CHF, need for diuretics, pulmonary HTN, diabetes, and hypertension serological evaluation underway (multiple tests still pending) (3) Essential hypertension: Code(s): I10 - Essential (primary) hypertension Status: Acute Assessment and Plan: reasonable at this time follow trend of hemodynamics (4) Acute exacerbation of CHF (congestive heart failure): Code(s): I50.9 - Heart failure, unspecified Status: Acute Assessment and Plan: on diuretics follow I/Os, daily weights, and respiratory status (5) Acute hypercapnic respiratory failure: Code(s): J96.02 - Acute respiratory failure with hypercapnia Status: Acute Assessment and Plan: better at this time continue supportive therapy (6) Acute UTI: Code(s): N39.0 - Urinary tract infection, site not specified Status: Acute Assessment and Plan: urine culture negative on antibiotics (7) Type 2 diabetes mellitus treated with insulin: Code(s): E11.9 - Type 2 diabetes mellitus without complications; Z79.4 - shelter (current) use of insulin Status: Chronic Assessment and Plan: follow accu-cheks on sliding scale insulin Will continue to follow. Subjective Date/time seen: 09/09/21 16:45 No apparent issues or problems to report at the time of my visit; no acute concerns or complaints voiced; no events overnight or earlier this AM. Exam Narrative: General: WD/WN male in NAD Heart: normal S1 and S2; no rub Lungs: clear to auscultation Abdomen: soft, nontender, nondistended, positive bowel sounds Extremities: no cyanosis or clubbing; trace - 1+ edema Skin: warm and dry Objective Data Vital Signs Vital Signs: Vital Signs Temp Pulse Resp BP Pulse Ox 09/09/21 14:00 36.2 C L 58 L 22 H 120/48 L 93 09/09/21 08:32 75 09/09/21 08:10 94 09/09/21 08:00 94 09/09/21 06:19 36.4 C 75 18 123/63 95 09/08/21 23:19 53 L 92 09/08/21 23:10 53 L 93 09/08/21 22:20 36.7 C 52 L 18 125/52 L 93 09/08/21 20:00 18 93 Intake/Output Intake/Output: Intake & Output 09/06/21 09/07/21 09/08/21 09/09/21 23:59 23:59 23:59 23:59 Intake Total 290 1515 595 Output Total 1600 1200 1850 Balance -1310 635 -2787 Meds/Results Medications: Active Medications Generic Name Dose Route Start Last Admin Trade Name Freq PRN Reason Stop Dose Admin Acetaminophen 650 mg 09/05/21 13:54 09/06/21 17:32 Acetaminophen 325 Mg Tablet PO 650 mg Q4H PRN Administration Mild Pain (1-3) or Fever Hydrocodone Bitart/Acetaminophen 1 tab 09/05/21 13:54 09/09/21 16:51 Hydrocodone/Acetaminophen (*Crx) 5-325 Mg Tablet PO 1 tab Q4H PRN Administration Pain Rated 4-6 Amlodipine Besylate 10 mg 09/06/21 09:00 09/09/21 08:33 Amlodipine Besylate 5 Mg Tablet PO 10 mg DAILY CRISTINA Administration Apixaban 5 mg 09/06/21 09:00 09/09/21 16:52 Apixaban 5 Mg Tablet PO 5 mg BID CRISTINA Administration Atorvastatin Calcium 40 mg 09/05/21 21:00 09/08/21 22:35 Atorvastatin 40 Mg Tablet PO 40 mg HS CRISTINA Administration Bupropion HCl 150 mg 09/06/21 09:00 09/09/21 08
--- NOTE | 2021-09-09 16:45 | P.PNNP_ITS ---
Progress Note: A&P Assessment and Plan (1) Acute kidney injury: Code(s): N17.9 - Acute kidney failure, unspecified Status: Acute Assessment and Plan: * slow improvement noted (if not back to baseline) * precipitated by several issues: - decompensated respiratory failure - HTN a bit worse - significant diuretic burden - urinary tract infection (although culture is negative) * follow trend of repeat labs with current interventions (2) Stage 3b chronic kidney disease: Code(s): N18.32 - Chronic kidney disease, stage 3b Status: Chronic Assessment and Plan: * baseline creatinine running 1.6 - 2.1mg/dl for the last year * likely a manifestation of his CHF, need for diuretics, pulmonary HTN, diabetes , and hypertension * serological evaluation underway (multiple tests still pending) (3) Essential hypertension: Code(s): I10 - Essential (primary) hypertension Status: Acute Assessment and Plan: * reasonable at this time * follow trend of hemodynamics (4) Acute exacerbation of CHF (congestive heart failure): Code(s): I50.9 - Heart failure, unspecified Status: Acute Assessment and Plan: * on diuretics * follow I/Os, daily weights, and respiratory status (5) Acute hypercapnic respiratory failure: Code(s): J96.02 - Acute respiratory failure with hypercapnia Status: Acute Assessment and Plan: * better at this time * continue supportive therapy (6) Acute UTI: Code(s): N39.0 - Urinary tract infection, site not specified Status: Acute Assessment and Plan: * urine culture negative * on antibiotics (7) Type 2 diabetes mellitus treated with insulin: Code(s): E11.9 - Type 2 diabetes mellitus without complications; 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 Subjective Date/time seen: 09/09/21 16:45 No apparent issues or problems to report at the time of my visit; no acute concerns or complaints voiced; no events overnight or earlier this AM. Exam Narrative: General: WD/WN male in NAD Heart: normal S1 and S2; no rub Lungs: clear to auscultation Abdomen: soft, nontender, nondistended, positive bowel sounds Extremities: no cyanosis or clubbing; trace - 1+ edema Skin: warm and dry Objective Data Vital Signs Vital Signs: Vital Signs Temp Pulse Resp BP Pulse Ox 09/09/21 14:00 36.2 C L 58 L 22 H 120/48 L 93 09/09/21 08:32 75 09/09/21 08:10 94 09/09/21 08:00 94 09/09/21 06:19 36.4 C 75 18 123/63 95 09/08/21 23:19 53 L 92 09/08/21 23:10 53 L 93 09/08/21 22:20 36.7 C 52 L 18 125/52 L 93 09/08/21 20:00 18 93 Intake/Output Intake/Output: Intake & Output 09/06/21 09/07/21 09/08/21 09/09/21 23:59 23:59 23:59 23:59 Intake Total 290 1515 595 Output Total 1600 1200 1850 Balance -1316 827 -0607 Meds/Results Medications: Active Medications Generic Name Dose Route Start Last Admin Trade Name Freq PRN Reason Stop Dose Admin Acetaminophen 650
[2021-09-09] MEDS: HYDROcodone/acetaminophen (*CRX) 5-325 MG TABLET 1 TAB PO (16:51)
[2021-09-09 17:48] LABS: Glucose Point of Care 118 mg/dl (65-105)
[2021-09-09] MEDS: ATORVASTATIN 40 MG TABLET PO (20:30)
[2021-09-09] MEDS: INSULIN GLARGINE (*BKC) 100 UNITS/ML 10 UNITS SUB-Q (20:33)
[2021-09-09 23:36] LABS: Glucose Point of Care 115 mg/dl (65-105)
[2021-09-10] VITALS (13 sets, daily range): BP systolic 115–126; BP diastolic 45–63; PULSE 50–82; RESP 16–18; TEMP 35.9–36.3; O2SAT 90–96
[2021-09-10 06:30] LABS: Anion Gap 6 mmol/L (8-16); Blood Urea Nitrogen 78 mg/dL (9-20); Calcium 8.4 mg/dL (8.4-10.2); Carbon Dioxide 34 mmol/L (22-30); Chloride 94 mmol/L (98-107); Estimated CRCL calculation 42 ml/min; Estimated Glomerular Filt Rate 34; Glucose 94 mg/dL (65-110); Magnesium 2.2 mg/dL (1.6-2.3); Potassium 3.8 mmol/L (3.4-5.0); Sodium 134 mmol/L (137-145)
[2021-09-10 06:35] LABS: Hematocrit 29.4 % (42.0-52.0); Hemoglobin 8.9 g/dL (14.0-18.0); Mean Corpuscular HGB Conc 30.3 g/dl (32-36); Mean Corpuscular Hemoglobin 27.2 pg (26-34); Mean Corpuscular Volume 89.9 fl (80-100); Mean Platelet Volume 10.5 fl (7.4-10.4); Platelet Count Result 237 k/mm3 (150-375); Red Blood Count 3.27 M/mm3 (4.6-6.20); Red Cell Distribution Width 19.9 % (11.5-14.5); White Blood Count 8.5 K/mm3 (4.5-10.0)
[2021-09-10 06:37] LABS: NT Pro B Type Natriuretic Pept 6350 pg/mL (5-100)
[2021-09-10] MEDS: UMECLIDINIUM BROMIDE 62.5 MCG ELLIPTA 1 PUFF INHALATION (08:25)
[2021-09-10 08:58] LABS: Glucose Point of Care 88 mg/dl (65-105)
[2021-09-10] MEDS: ACIDOPHILUS/BULGARICUS CHEWABLE TABLET 1 TABLET PO (10:29)
[2021-09-10] MEDS: MAGNESIUM OXIDE 400 MG TABLET PO (10:29)
[2021-09-10] MEDS: TAMSULOSIN HCL 0.4 MG CAPSULE PO (10:29)
[2021-09-10] MEDS: amLODIPine BESYLATE 5 MG TABLET 10 MG PO (10:29)
[2021-09-10] MEDS: APIXABAN 5 MG TABLET PO ×2 (10:29→17:52)
[2021-09-10] MEDS: PANTOPRAZOLE 40 MG TABLET PO ×2 (10:29→21:02)
[2021-09-10] MEDS: buPROPion HCL XL (24 HR) 150 MG TABCR PO (10:29)
[2021-09-10] MEDS: DULoxetine HCL 60 MG CAPSULE.DR PO ×2 (10:29→17:52)
[2021-09-10] MEDS: GABAPENTIN 300 MG CAPSULE 600 MG PO ×3 (10:30→17:52)
[2021-09-10] MEDS: NICOTINE (*PBKC) 21 MG PATCH 1 PATCH TRANSDERM (10:30)
[2021-09-10 12:01] LABS: Glucose Point of Care 146 mg/dl (65-105)
--- NOTE | 2021-09-10 14:20 | PM.IMPN ---
Progress Note: A&P Assessment and Plan (1) Acute proctitis: Code(s): K62.89 - Other specified diseases of anus and rectum Status: Acute Assessment and Plan: Patient began having abd pain and diarrhea so a CT Abd was checked showing Interval development of abnormal thickening of the distal sigmoid colon and rectum, consistent with proctitis. Will start broadspectrum antibiotics with IV Zosyn to cover for UTI and proctitis Blood cultures being taken. (2) Acute exacerbation of CHF (congestive heart failure): Qualifiers: Heart failure type: unspecified Qualified Code(s): I50.9 - Heart failure, unspecified Code(s): I50.9 - Heart failure, unspecified Status: Acute Assessment and Plan: Acute on chronic systolic congestive Heart failure. Presented with chest x-ray showing pulmonary edema and small bilateral pleural effusions. Patient was started on IV Lasix with a negative balance from admission. This morning his creatinine increased from 1.8 to 2.0. I am holding his diuresis at this time. Upon my elevation he was having abd pain and a CT Abd was Preformed showing Moderate bilateral pleural effusions with underlying compressive atelectasis. Superimposed pneumonia not excluded. Trace ascites and body wall edema. Will monitor renal function and recheck labs in the morning still having ascites and pleural effusions that need to be improved prior to discharge. Patient was also on BiPAP prior to arrival due to respiratory acidosis likely due to CHF exacerbation. He is on 3 L via nasal cannula at this time will wean as tolerated. [facility] tells [facility] he is normally on 3L via NC. Continue monitoring weights daily, fluid status, renal function and electrolytes with diuresis. (3) UTI (urinary tract infection): Code(s): N39.0 - Urinary tract infection, site not specified Status: Acute Assessment and Plan: Urinalysis showing 2+ leukocyte esterase, WBCs 51-75. Urine culture showing no growth at this time. CT Abd 09/10/21 showing Interval development of abnormal thickening of the distal sigmoid colon and rectum, consistent with proctitis. Abnormal thickening of the bladder wall, consistent with cystitis. Will get Ua with reflux culture and Blood cultures for further evaluation Pending repeat UA . Has Lakhani catheter in place. (4) Confusion: Code(s): R41.0 - Disorientation, unspecified Status: Acute Assessment and Plan: Patient reports having more confusion than normal. He states he is unsure where he is. But otherwise answers orientation questions correctly. Patient told me 09/08/21 that I had a TIA a few days ago but I did not tell anybody Patient ever had a CT scan of his brain showed No acute intracranial abnormality. Age related findings. He cannot have an MRI because of having a nerve stimulator in place. His confusion seems to be clearing up and seems to be at his baseline. Will continue monitoring his mental status. (5) COPD (chronic obstructive pulmonary disease): Qualifiers: COPD type: unspecified COPD Qualified Code(s): J44.9 - Chronic obstructive pulmonary disease, unspecified Code(s): J44.9 - Chronic obstructive pulmonary disease, unspecified Status: Acute Assessment and Plan: Continue with home inhalers No wheezing on exam (6) ELAINE (obstructive sleep apnea): Code(s): G47.33 - Obstructive sleep apnea (adult) (pediatric) Status: Chronic Assessment and Plan: Continue with home settings on a CPAP once the patient is off the BiPAP. (7) Acute kidney injury superimposed on CKD: Code(s): N17.9 - Acute kidney failure, unspecified; N18.9 - Chronic kidney disease, unspecified Status: Acute Assessment and Plan: Worsening on admission creatinine at 2.7. Baseline is somewhere between 1.5-1.8. Please continue to monitor. Renal ultrasound done negative for obstru
--- NOTE | 2021-09-10 14:56 | PCOTNOTE ---
Attempted to see patient for OT this PM, patient refused. Patient initially sleeping, MILAD woke patient up with verbal and tactile cueing, patient still declined all ADLs or mobility with max encouragement.
--- NOTE | 2021-09-10 16:23 | P.PNNP_ITS ---
Progress Note: A&P Assessment and Plan (1) Acute kidney injury: Code(s): N17.9 - Acute kidney failure, unspecified Status: Acute Assessment and Plan: * slow improvement noted (if not back to baseline) * precipitated by several issues: - decompensated respiratory failure - HTN a bit worse - significant diuretic burden (on hold now) - urinary tract infection (although culture is negative) - recent proctitis * follow trend of repeat labs with current interventions (2) Stage 3b chronic kidney disease: Code(s): N18.32 - Chronic kidney disease, stage 3b Status: Chronic Assessment and Plan: * baseline creatinine running 1.6 - 2.1mg/dl for the last year * likely a manifestation of his CHF, need for diuretics, pulmonary HTN, diabetes, and hypertension * serological evaluation underway (multiple tests still pending) (3) Acute proctitis: Code(s): K62.89 - Other specified diseases of anus and rectum Status: Acute Assessment and Plan: * as noted by CT scan * follow blood cultures * on IV antibiotics (4) Acute exacerbation of CHF (congestive heart failure): Code(s): I50.9 - Heart failure, unspecified Status: Acute Assessment and Plan: * clinically better * diuretics on hold given rising creatinine * follow I/Os, daily weights, and respiratory status (5) Acute hypercapnic respiratory failure: Code(s): J96.02 - Acute respiratory failure with hypercapnia Status: Acute Assessment and Plan: * better at this time * continue supportive therapy (6) Essential hypertension: Code(s): I10 - Essential (primary) hypertension Status: Acute Assessment and Plan: * reasonable at this time * follow trend of hemodynamics (7) Type 2 diabetes mellitus treated with insulin: Code(s): E11.9 - Type 2 diabetes mellitus without complications; 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 Subjective Date/time seen: 09/10/21 16:23 Issues with abdominal pain earlier today in association with diarrhea so CT scan of abd/pelvis done which demonstrated evidence of proctitis; blood cultures taken and started on IV antibiotics; no other apparent issues or problems at this time; no issues/events overnight. Exam Narrative: General: WD/WN male in NAD Heart: normal S1 and S2; no rub Lungs: clear to auscultation Abdomen: soft, nontender, nondistended, positive bowel sounds Extremities: no cyanosis or clubbing; trace - 1+ edema Skin: warm and dry Objective Data Vital Signs Vital Signs: Vital Signs Temp Pulse Resp BP Pulse Ox 09/10/21 15:11 94 09/10/21 14:00 36.3 C L 51 L 17 126/61 90 09/10/21 13:17 50 L 09/10/21 11:14 93 09/10/21 10:35 94 09/10/21 05:56 35.9 C L 51 L 16 121/45 L 96 09/10/21 05:05 52 L 90 09/10/21 02:33 54 L 92 09/09/21 22:07 52 L 91 09/09/21 21:57 36.2 C L 51 L 16 114/42 L 98 09/09/21 20:00 91 Intake/Output Intake/Output: Intake & Output 09/07/21 09/08/21 09/09/21 09/10/21 23:59 23:59 23:59 23:59
--- NOTE | 2021-09-10 16:23 | PM.PNNEP ---
Progress Note: A&P Assessment and Plan (1) Acute kidney injury: Code(s): N17.9 - Acute kidney failure, unspecified Status: Acute Assessment and Plan: slow improvement noted (if not back to baseline) precipitated by several issues: - decompensated respiratory failure - HTN a bit worse - significant diuretic burden (on hold now) - urinary tract infection (although culture is negative) - recent proctitis follow trend of repeat labs with current interventions (2) Stage 3b chronic kidney disease: Code(s): N18.32 - Chronic kidney disease, stage 3b Status: Chronic Assessment and Plan: baseline creatinine running 1.6 - 2.1mg/dl for the last year likely a manifestation of his CHF, need for diuretics, pulmonary HTN, diabetes, and hypertension serological evaluation underway (multiple tests still pending) (3) Acute proctitis: Code(s): K62.89 - Other specified diseases of anus and rectum Status: Acute Assessment and Plan: as noted by CT scan follow blood cultures on IV antibiotics (4) Acute exacerbation of CHF (congestive heart failure): Code(s): I50.9 - Heart failure, unspecified Status: Acute Assessment and Plan: clinically better diuretics on hold given rising creatinine follow I/Os, daily weights, and respiratory status (5) Acute hypercapnic respiratory failure: Code(s): J96.02 - Acute respiratory failure with hypercapnia Status: Acute Assessment and Plan: better at this time continue supportive therapy (6) Essential hypertension: Code(s): I10 - Essential (primary) hypertension Status: Acute Assessment and Plan: reasonable at this time follow trend of hemodynamics (7) Type 2 diabetes mellitus treated with insulin: Code(s): E11.9 - Type 2 diabetes mellitus without complications; 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 Subjective Date/time seen: 09/10/21 16:23 Issues with abdominal pain earlier today in association with diarrhea so CT scan of abd/pelvis done which demonstrated evidence of proctitis; blood cultures taken and started on IV antibiotics; no other apparent issues or problems at this time; no issues/events overnight. Exam Narrative: General: WD/WN male in NAD Heart: normal S1 and S2; no rub Lungs: clear to auscultation Abdomen: soft, nontender, nondistended, positive bowel sounds Extremities: no cyanosis or clubbing; trace - 1+ edema Skin: warm and dry Objective Data Vital Signs Vital Signs: Vital Signs Temp Pulse Resp BP Pulse Ox 09/10/21 15:11 94 09/10/21 14:00 36.3 C L 51 L 17 126/61 90 09/10/21 13:17 50 L 09/10/21 11:14 93 09/10/21 10:35 94 09/10/21 05:56 35.9 C L 51 L 16 121/45 L 96 09/10/21 05:05 52 L 90 09/10/21 02:33 54 L 92 09/09/21 22:07 52 L 91 09/09/21 21:57 36.2 C L 51 L 16 114/42 L 98 09/09/21 20:00 91 Intake/Output Intake/Output: Intake & Output 09/07/21 09/08/21 09/09/21 09/10/21 23:59 23:59 23:59 23:59 Intake Total 290 1515 985 640 Output Total 1600 1200 1850 700 Balance -1310 315 -865 -60 Meds/Results Medications: Active Medications Generic Name Dose Route Start Last Admin Trade Name Freq PRN Reason Stop Dose Admin Acetaminophen 650 mg 09/05/21 13:54 09/06/21 17:32 Acetaminophen 325 Mg Tablet PO 650 mg Q4H PRN Administration Mild Pain (1-3) or Fever Hydrocodone Bitart/Acetaminophen 1 tab 09/05/21 13:54 09/09/21 16:51 Hydrocodone/Acetaminophen (*Crx) 5-325 Mg Tablet PO 1 tab Q4H PRN Administration Pain Rated 4-6 Amlodipine Besylate 10 mg 09/06/21 09:00 09/10/21 10:29 Amlodipine Besylate 5 Mg Tablet PO 10
[2021-09-10 17:00] LABS: Glucose Point of Care 167 mg/dl (65-105)
[2021-09-10] MEDS: FERROUS SULFATE 324 MG TABLET PO (17:52)
[2021-09-10] MEDS: ATORVASTATIN 40 MG TABLET PO (21:02)
[2021-09-10] MEDS: INSULIN GLARGINE (*BKC) 100 UNITS/ML 10 UNITS SUB-Q (21:06)
[2021-09-10 21:18] LABS: Complement Total CH50 >60 U/mL (31-60)
[2021-09-10] MEDS: DOCUSATE SODIUM 100 MG CAPSULE PO (21:22)
[2021-09-10] MEDS: HYDROcodone/acetaminophen (*CRX) 5-325 MG TABLET 1 TAB PO (21:22)
[2021-09-10 21:35] LABS: Add Urine Microscopic? YES; Appearance Urine Cloudy (Clear); Bilirubin Urine Negative (Negative); Color Urine Yellow (Yellow); Glucose Urine UA Negative (Negative); Ketones Urine Negative (Negative); Leukocyte Esterase Ur 2+ LEU/UL (Negative); Mucus Urine Rare /lpf; Nitrate Urine Negative (Negative); Protein Urine 2+ mg/dL (Negative); Specific Grav Ur 1.015 (1.001-1.035); Urobilinogen Urine Negative mg/dL (<2.0); WBC Urine 16-20 /hpf
[2021-09-10 21:36] LABS: Blood Urine Negative (Negative)
[2021-09-10 22:46] LABS: Glucose Point of Care 173 mg/dl (65-105)
[2021-09-11] VITALS (10 sets, daily range): BP systolic 124–130; BP diastolic 48–70; PULSE 53–81; RESP 16–18; TEMP 36.1–36.4; O2SAT 93–98
[2021-09-11 06:22] LABS: Basophils Percent Auto 0.3 % (0.2-1.2); Eosinophils Absolute Auto 0.2 K/mm3 (0-0.3); Eosinophils Percent Auto 1.5 % (0-4.4); Hematocrit 29.7 % (42.0-52.0); Hemoglobin 9.4 g/dL (14.0-18.0); Immature Granulocyte Absolute 0.04 K/mm3 (0.00-0.031); Immature Granulocyte Percent A 0.3 % (0-0.5); Lymphocytes Absolute Auto 0.86 K/mm3 (0.9-3.2); Lymphocytes Percent Auto 6.9 % (18.3-44.2); Mean Corpuscular HGB Conc 31.6 g/dl (32-36); Mean Corpuscular Hemoglobin 27.6 pg (26-34); Mean Corpuscular Volume 87.4 fl (80-100); Mean Platelet Volume 10.6 fl (7.4-10.4); Monocytes Absolute Auto 1.1 K/mm3 (0.1-0.6); Monocytes Percent Auto 8.9 % (2.6-8.5); Neutrophils Absolute Auto 10.2 K/mm3 (1.3-6.7); Neutrophils Percent Auto 82.1 % (45.5-73.1); Platelet Count Result 258 k/mm3 (150-375); Red Cell Distribution Width 19.3 % (11.5-14.5); White Blood Count 12.4 K/mm3 (4.5-10.0)
[2021-09-11 06:50] LABS: Alanine Aminotransferase 13 U/L (4-50); Albumin Level 3.2 g/dL (3.5-5.1); Alkaline Phosphatase 154 U/L (38-126); Anion Gap 8 mmol/L (8-16); Aspartate Amino Transferase 24 U/L (17-59); Bilirubin,Total 0.5 mg/dL (0.2-1.3); Blood Urea Nitrogen 86 mg/dL (9-20); CRP 4.6 mg/dL (<1.0); Calcium 8.5 mg/dL (8.4-10.2); Carbon Dioxide 35 mmol/L (22-30); Chloride 93 mmol/L (98-107); Estimated CRCL calculation 40 ml/min; Estimated Glomerular Filt Rate 32; Glucose 109 mg/dL (65-110); Magnesium 2.1 mg/dL (1.6-2.3); Potassium 3.9 mmol/L (3.4-5.0); Sodium 136 mmol/L (137-145)
[2021-09-11] MEDS: UMECLIDINIUM BROMIDE 62.5 MCG ELLIPTA 1 PUFF INHALATION (08:08)
[2021-09-11 08:36] LABS: Glucose Point of Care 104 mg/dl (65-105)
[2021-09-11] MEDS: ACIDOPHILUS/BULGARICUS CHEWABLE TABLET 1 TABLET PO (09:07)
[2021-09-11] MEDS: APIXABAN 5 MG TABLET PO ×2 (09:07→17:39)
[2021-09-11] MEDS: FERROUS SULFATE 324 MG TABLET PO ×2 (09:07→17:39)
[2021-09-11] MEDS: TAMSULOSIN HCL 0.4 MG CAPSULE PO (09:07)
[2021-09-11] MEDS: DULoxetine HCL 60 MG CAPSULE.DR PO ×2 (09:07→17:39)
[2021-09-11] MEDS: METOPROLOL SUCCINATE EXT REL 50 MG TABCR 150 MG PO (09:07)
[2021-09-11] MEDS: GABAPENTIN 300 MG CAPSULE 600 MG PO ×3 (09:07→17:38)
[2021-09-11] MEDS: PANTOPRAZOLE 40 MG TABLET PO ×2 (09:07→20:26)
[2021-09-11] MEDS: MAGNESIUM OXIDE 400 MG TABLET PO (09:07)
[2021-09-11] MEDS: amLODIPine BESYLATE 5 MG TABLET 10 MG PO (09:08)
[2021-09-11] MEDS: buPROPion HCL XL (24 HR) 150 MG TABCR PO (09:09)
[2021-09-11] MEDS: NICOTINE (*PBKC) 21 MG PATCH 1 PATCH TRANSDERM (09:10)
--- NOTE | 2021-09-11 10:45 | PM.IMPN ---
Progress Note: A&P Assessment and Plan (1) Unresponsive episode: Code(s): R41.89 - Other symptoms and signs involving cognitive functions and awareness Status: Acute Assessment and Plan: During my evaluation with him he intermittently stairs often does not respond to my questions. Frequently he also begins to respond to my questions but then only says 1 or 2 words and stops talking and stares off. I am concerned about seizure-like activity given his CT showing cerebral atrophy and mild small-vessel disease. Will consult Neurology for their input and order an EEG to be completed. (2) Acute proctitis: Code(s): K62.89 - Other specified diseases of anus and rectum Status: Acute Assessment and Plan: Patient began having abd pain and diarrhea so a CT Abd was checked showing Interval development of abnormal thickening of the distal sigmoid colon and rectum, consistent with proctitis. Will start broadspectrum antibiotics with IV Zosyn to cover for UTI and proctitis Patient is having rectal pain and will see what GI says. GI Consulted and appreciate their input. Blood cultures pending (3) Acute exacerbation of CHF (congestive heart failure): Qualifiers: Heart failure type: unspecified Qualified Code(s): I50.9 - Heart failure, unspecified Code(s): I50.9 - Heart failure, unspecified Status: Acute Assessment and Plan: Acute on chronic systolic congestive Heart failure. Presented with chest x-ray showing pulmonary edema and small bilateral pleural effusions. Patient was started on IV Lasix with a negative balance from admission. This morning his creatinine increased from 2.0 to 2.1. Since his CT showed Moderate bilateral pleural effusions with underlying compressive atelectasis. Superimposed pneumonia not excluded. Trace ascites and body wall edema. I am worried about increasing fluid amounts. I ordered 1 dose of Bumex and will recheck BMP this afternoon to monitor renal function and electrolytes. Will monitor renal function and recheck labs in the morning still having ascites and pleural effusions that need to be improved prior to discharge. Patient was also on BiPAP prior to arrival due to respiratory acidosis likely due to CHF exacerbation. He his oxygen requirement is increasing today, will switch to IV Bumex and monitor renal function and diuresis. Normally at Intermediate he is on 2L via NC. Continue monitoring weights daily, fluid status, renal function and electrolytes with diuresis. (4) UTI (urinary tract infection): Code(s): N39.0 - Urinary tract infection, site not specified Status: Acute Assessment and Plan: Urinalysis showing 2+ leukocyte esterase, WBCs 51-75. Urine culture showing no growth at this time. CT Abd 09/10/21 showing Interval development of abnormal thickening of the distal sigmoid colon and rectum, consistent with proctitis. Abnormal thickening of the bladder wall, consistent with cystitis. UA showed 2+ leuk est, WBC 16-20. Blood cultures for further evaluation Has Lakhani catheter in place. (5) COPD (chronic obstructive pulmonary disease): Qualifiers: COPD type: unspecified COPD Qualified Code(s): J44.9 - Chronic obstructive pulmonary disease, unspecified Code(s): J44.9 - Chronic obstructive pulmonary disease, unspecified Status: Acute Assessment and Plan: Continue with home inhalers No wheezing on exam (6) ELAINE (obstructive sleep apnea): Code(s): G47.33 - Obstructive sleep apnea (adult) (pediatric) Status: Chronic Assessment and Plan: Continue with home settings on a CPAP once the patient is off the BiPAP. (7) Acute kidney injury superimposed on CKD: Code(s): N17.9 - Acute kidney failure, unspecified; N18.9 - Chronic kidney disease, unspecified Status: Acute Assessment and Plan: Worsening on admission creatinine at 2.7. Base
[2021-09-11 11:56] LABS: Glucose Point of Care 113 mg/dl (65-105)
--- NOTE | 2021-09-11 11:58 | PCNFU ---
Nutrition Follow-Up Complete: Increased protein needs related to left heel deep tissue pressure ulcer as evidenced by Seamus supplementation BID. Goal: Patient to meet estimated nutritional needs. Patient is progressing towards goal. no new goal at this time. Pt current nutrition is a heart healthy diet. Last recorded weight is 95.9 kg. recommend re-weighing pt. prior to discharge. Bowel Motility: + BM 09/11/2021 Labs Reviewed: Hgb 9.4, Hct 29.7, Alb 3.2, Na 136, GFR 32, BUN 86, Cr 2.1 Meds Noted: Lipitor, Eliquis, Norvasc, Colace Capsule, Neurontin, Ferrous Sulfate, Novolog, Lantus, Toprol Xl, Mag-ox, Protonix, Miralax, Flomax Skin: Left heel deep tissue pressure ulcer. Additional Notes: Checked in with pt. He is tolerating his current diet consuming on average 74% of meals. He is on Seamus BID providing 90 calories and 2.5 grams of protein. He had no additional nutrition related questions and/or concerns. Monitor patient's labs, medications, weight, and oral intake every 5 days.
[2021-09-11] MEDS: BUMETANIDE INJ 1 MG/4 ML VIAL IV PUSH ×2 (12:33→17:45)
--- NOTE | 2021-09-11 12:41 | WPDGICN ---
Assessment and Plan Assessment and plan (1) Acute proctitis: Code(s): K62.89 - Other specified diseases of anus and rectum Status: Acute Assessment and Plan: probably proctitis, he has been symptomatic last [address] scan may need sigmoidoscopy which can do it on Tuesday denies rectal bleeding but more constipated ? Stercoral colitis vs proctitis also started on iv antibiotics because pyuria (2) Abnormality of rectum: Code(s): K62.9 - Disease of anus and rectum, unspecified Status: Acute (3) Acute exacerbation of CHF (congestive heart failure): Code(s): I50.9 - Heart failure, unspecified Status: Acute Assessment and Plan: treated by primary team (4) Acute respiratory failure with hypoxia and hypercapnia: Code(s): J96.01 - Acute respiratory failure with hypoxia; J96.02 - Acute respiratory failure with hypercapnia Status: Acute Assessment and Plan: required bipap on admission, better now (5) Pyuria: Code(s): R82.81 - Pyuria Status: Acute (6) Atrial fibrillation with slow ventricular response: Code(s): I48.91 - Unspecified atrial fibrillation Status: Acute (7) Unresponsive episode: Code(s): R41.89 - Other symptoms and signs involving cognitive functions and awareness Status: Acute Assessment and Plan: resolved after medical treatment (8) Acute on chronic renal failure: Code(s): N17.9 - Acute kidney failure, unspecified; N18.9 - Chronic kidney disease, unspecified Status: Acute GI Consult Note Consult date/time: 09/11/21 12:41 Reason for consult: abnormal CT scan rectum c/w proctitis, abdominal pain HPI: Ector Oconnor is a 61 year old male with history of COPD, CHF, diabetes, hypertension, smoker and chronic respiratory failure who was admitted 6 days ago with acute respiratory failure with hypercapnia and CHF exacerbation, also confusion treated medically and also Bipap, also noted worsening renal failure (CKD with baseline creatinine 1.6-1.9). Last 3 days with lower abdominal pain and also perianal discomfort, he also says that has been more constipated last few days. CT scan a/p was ordered and reviewed, showed interval development of abnormal thickening of the distal sigmoid colon and rectum, consistent with proctitis, abnormal thickening of the bladder wall, consistent with cystitis, moderate bilateral pleural effusions with underlying compressive atelectasis. Superimposed pneumonia not excluded. He has been started on antibiotics because also abnormal urine (he has payne catheter). He says that last colonoscopy 5 years ago. Review of Systems Constitutional: Constitutional: Reports weakness Eyes: Eyes: Reports no additional eye complaints ENT: Reports Normal hearing present Cardiovascular: Cardiovascular: Denies lightheadedness Respiratory: Respiratory: Reports dyspnea on exertion Gastrointestinal: Gastrointestinal: Reports abdominal pain Genitourinary: Comments: payne in place Musculoskeletal: Musculoskeletal: Denies neck pain Integumentary/Breasts: Skin/Breast: Denies dry skin Neurologic: Reports confusion (on arrival) Psychiatric: Psychiatric: Reports confusion [facility] Past Medical History Medical History (Updated 09/11/21 @ 12:56 by Ari Chaparro MD) Abnormality of rectum Acute on chronic renal failure Atrial fibrillation CHF (congestive heart failure) Chronic anticoagulation Chronic kidney disease, stage 3 COPD (chronic obstructive pulmonary disease) Coronary artery disease CVA (cerebral vascular accident) Depression Diabetic neuropathy Essential hypertension ELAINE (obstructive sleep apnea) Sciatica Tobacco abuse Type 2 diabetes mellitus treated with insulin Surgical History Surgical History History of intravascular stent placement Superficial left leg Hx of CABG Family History Famil
--- NOTE | 2021-09-11 13:17 | P.PNNP_ITS ---
Progress Note: A&P Assessment and Plan (1) Acute kidney injury: Code(s): N17.9 - Acute kidney failure, unspecified Status: Acute Assessment and Plan: * had improved but worsening again * precipitated by several issues: - decompensated respiratory failure - fluctuating hemodynamics - significant diuretic burden (resuming PRN diuretics given recent imaging) - urinary tract infection (although culture is negative) - recent proctitis * follow trend of repeat labs with current interventions (2) Stage 3b chronic kidney disease: Code(s): N18.32 - Chronic kidney disease, stage 3b Status: Chronic Assessment and Plan: * baseline creatinine running 1.6 - 2.1mg/dl for the last year * likely a manifestation of his CHF, need for diuretics, pulmonary HTN, diabetes, and hypertension * serological evaluation underway (multiple tests still pending) * may have to accept a higher creatinine to maintain his volume status (i.e. need for chronic diuretics) (3) Acute proctitis: Code(s): K62.89 - Other specified diseases of anus and rectum Status: Acute Assessment and Plan: * as noted by CT scan * follow blood cultures * on IV antibiotics * GI recommendations noted (4) Acute exacerbation of CHF (congestive heart failure): Code(s): I50.9 - Heart failure, unspecified Status: Acute Assessment and Plan: * clinically better * diuretics on hold given rising creatinine * follow I/Os, daily weights, and respiratory status (5) Acute hypercapnic respiratory failure: Code(s): J96.02 - Acute respiratory failure with hypercapnia Status: Acute Assessment and Plan: * better at this time * continue supportive therapy (6) Essential hypertension: Code(s): I10 - Essential (primary) hypertension Status: Acute Assessment and Plan: * reasonable at this time * follow trend of hemodynamics (7) Type 2 diabetes mellitus treated with insulin: Code(s): E11.9 - Type 2 diabetes mellitus without complications; Z79.4 - shelter (current) use of insulin Status: Chronic Assessment and Plan: * follow accu-cheks * on sliding scale insulin Will continue to follow. Subjective Date/time seen: 09/11/21 13:17 Complaining of lower abdominal as well as rectal pain since earlier this mo rning; denies any shortness of breath but remains on oxygen (which I think is chronic); apparently some intermittent confusion and episodes of staring off with conversation today so Neurology consulted for possible seizure activity; CXR with evidence of congestion so getting PRN diuretics. Exam Narrative: General: WD/WN male in NAD Heart: normal S1 and S2; no rub Lungs: clear anteriorly but decreased at bases Abdomen: soft, nontender, nondistended, positive bowel sounds Extremities: no cyanosis or clubbing; trace - 1+ edema Skin: warm and intact Objective Data Vital Signs Vital Signs: Vital Signs Temp Pulse Resp BP Pulse Ox 09/11/21 09:12 93 09/11/21 09:07 62 09/11/21 08:08 94 09/11/21 06:00 36.1 C L 81 18 129/57 L 94 09/11/21 02:49 59 L 96 09/10/21 22:55 64 92 09/10/21 22:02 91 09/10/21 21:44 36.2 C L 82 18 115/63 95 09/10/21 21:35
--- NOTE | 2021-09-11 13:17 | PM.PNNEP ---
Progress Note: A&P Assessment and Plan (1) Acute kidney injury: Code(s): N17.9 - Acute kidney failure, unspecified Status: Acute Assessment and Plan: had improved but worsening again precipitated by several issues: - decompensated respiratory failure - fluctuating hemodynamics - significant diuretic burden (resuming PRN diuretics given recent imaging) - urinary tract infection (although culture is negative) - recent proctitis follow trend of repeat labs with current interventions (2) Stage 3b chronic kidney disease: Code(s): N18.32 - Chronic kidney disease, stage 3b Status: Chronic Assessment and Plan: baseline creatinine running 1.6 - 2.1mg/dl for the last year likely a manifestation of his CHF, need for diuretics, pulmonary HTN, diabetes, and hypertension serological evaluation underway (multiple tests still pending) may have to accept a higher creatinine to maintain his volume status (i.e. need for chronic diuretics) (3) Acute proctitis: Code(s): K62.89 - Other specified diseases of anus and rectum Status: Acute Assessment and Plan: as noted by CT scan follow blood cultures on IV antibiotics GI recommendations noted (4) Acute exacerbation of CHF (congestive heart failure): Code(s): I50.9 - Heart failure, unspecified Status: Acute Assessment and Plan: clinically better diuretics on hold given rising creatinine follow I/Os, daily weights, and respiratory status (5) Acute hypercapnic respiratory failure: Code(s): J96.02 - Acute respiratory failure with hypercapnia Status: Acute Assessment and Plan: better at this time continue supportive therapy (6) Essential hypertension: Code(s): I10 - Essential (primary) hypertension Status: Acute Assessment and Plan: reasonable at this time follow trend of hemodynamics (7) Type 2 diabetes mellitus treated with insulin: Code(s): E11.9 - Type 2 diabetes mellitus without complications; Z79.4 - exterminator termite (current) use of insulin Status: Chronic Assessment and Plan: follow accu-cheks on sliding scale insulin Will continue to follow. Subjective Date/time seen: 09/11/21 13:17 Complaining of lower abdominal as well as rectal pain since earlier this morning; denies any shortness of breath but remains on oxygen (which I think is chronic); apparently some intermittent confusion and episodes of staring off with conversation today so Neurology consulted for possible seizure activity; CXR with evidence of congestion so getting PRN diuretics. Exam Narrative: General: WD/WN male in NAD Heart: normal S1 and S2; no rub Lungs: clear anteriorly but decreased at bases Abdomen: soft, nontender, nondistended, positive bowel sounds Extremities: no cyanosis or clubbing; trace - 1+ edema Skin: warm and intact Objective Data Vital Signs Vital Signs: Vital Signs Temp Pulse Resp BP Pulse Ox 09/11/21 09:12 93 09/11/21 09:07 62 09/11/21 08:08 94 09/11/21 06:00 36.1 C L 81 18 129/57 L 94 09/11/21 02:49 59 L 96 09/10/21 22:55 64 92 09/10/21 22:02 91 09/10/21 21:44 36.2 C L 82 18 115/63 95 09/10/21 21:35 90 09/10/21 20:00 92 Intake/Output Intake/Output: Intake & Output 09/08/21 09/09/21 09/10/21 09/11/21 23:59 23:59 23:59 23:59 Intake Total 4436 650 4374 430 Output Total 1200 1850 1300 400 Balance 315 867 785 30 Meds/Results Medications: Active Medications Generic Name Dose Route Start Last Admin Trade Name Freq PRN Reason Stop Dose Admin Acetaminophen 650 mg 09/05/21 13:54 09/06/21 17:32 Acetaminophen 325 Mg Tablet PO 650 mg Q4H PRN Administration Mild Pain (1-3) or Fever Hydrocodone Bitart/Acetaminophen 1 tab 09/05/21 13:54 09/10/21 21:22 Hyd
[2021-09-11 14:32] LABS: Anion Gap 5 mmol/L (8-16); Blood Urea Nitrogen 82 mg/dL (9-20); Calcium 8.1 mg/dL (8.4-10.2); Carbon Dioxide 36 mmol/L (22-30); Chloride 93 mmol/L (98-107); Estimated CRCL calculation 38 ml/min; Estimated Glomerular Filt Rate 31; Glucose 150 mg/dL (65-110); Potassium 3.9 mmol/L (3.4-5.0); Sodium 134 mmol/L (137-145)
--- NOTE | 2021-09-11 15:37 | WPDNEUROLOGY ---
Neurology EEG Report General Information Date of Study: 09/11/21 TEST eeg DIAGNOSIS possible seizures CONDITION OF RECORDING sleep EEG NUMBER [id number] CLINICAL HISTORY patient slept throughout the tracing with no particular history available from the patient EEG DESCRIPTION whole record consists of low voltage to medium voltage 2 to 3 hertz per 2nd delta activity admixed was superimposed by low-voltage 15 to 18 hertz per 2nd beta. Hyperventilation not done. Photic stimulation not done. Non paroxysmal. Nonfocal. Nonlateralizing. IMPRESSION Abnormal record due to the presence of bihemispheric delta activity with no evidence of paroxysmal discharge throughout the tracing. Abnormalities could be suggestive for underlying organic a metabolic encephalopathy or neuro degenerative process but there is no evidence of any paroxysmal activity.
[2021-09-11 15:58] LABS: Base Excess ABG 9.5 mEq/l (+/-2.0); Carboxyhemoglobin 0.3 % THb (0-2.0); Fractional Inspired Oxygen 36 %; HCO3 ABG 35.5 mEq/l (22.0-26.0); Methemoglobin ABG 0.4 %THb (0-1.5); Oxygen Content ABG 12.3 %vol (16.0-22.0); Oxygen Saturation ABG 93.5 % (95.0-100.0); Oxyhemoglobin 91.7 % THb (90.0-100.0); PCO2 ABG 57.1 mmHg (35.0-45.0); PO2 ABG 68.4 mmHg (80.0-100.0); Reduced Hemoglobin 7.6 %THb (0-5.0); Total Hemoglobin 9.5 g/dL (12.0-18.0); pH ABG 7.412 (7.350-7.450)
[2021-09-11 15:59] LABS: Device NASAL CANNULA; Site Drawn RIGHT BRACHIAL
[2021-09-11 16:18] LABS: Glucose Point of Care 107 mg/dl (65-105)
[2021-09-11] MEDS: MORPHINE SULFATE (*CRX) 4 MG/ML INJ IV PUSH (17:49)
[2021-09-11] MEDS: ATORVASTATIN 40 MG TABLET PO (20:26)
[2021-09-11 21:08] LABS: Glucose Point of Care 87 mg/dl (65-105)
[2021-09-11 23:59] LABS: Vitamin D 1,25 (OH)2 Total 11 pg/mL (18-72); Vitamin D2 1,25 (OH)2 <8 pg/mL; Vitamin D3 1,25 (OH)2 11 pg/mL
[2021-09-12] VITALS (9 sets, daily range): BP systolic 122–129; BP diastolic 47–62; PULSE 47–74; RESP 16–18; TEMP 35.9–37.7; O2SAT 96–100
[2021-09-12 06:04] LABS: Anion Gap 6 mmol/L (8-16); Blood Urea Nitrogen 87 mg/dL (9-20); Calcium 8.5 mg/dL (8.4-10.2); Carbon Dioxide 38 mmol/L (22-30); Chloride 93 mmol/L (98-107); Estimated CRCL calculation 36 ml/min; Estimated Glomerular Filt Rate 29; Glucose 83 mg/dL (65-110); Potassium 3.7 mmol/L (3.4-5.0); Sodium 137 mmol/L (137-145)
[2021-09-12 06:11] LABS: Basophils Absolute Auto 0.1 K/mm3 (0.0-0.1); Basophils Percent Auto 0.7 % (0.2-1.2); Eosinophils Absolute Auto 0.3 K/mm3 (0-0.3); Eosinophils Percent Auto 3.6 % (0-4.4); Hematocrit 27.1 % (42.0-52.0); Hemoglobin 8.4 g/dL (14.0-18.0); Immature Granulocyte Absolute 0.05 K/mm3 (0.00-0.031); Immature Granulocyte Percent A 0.6 % (0-0.5); Lymphocytes Absolute Auto 1.01 K/mm3 (0.9-3.2); Lymphocytes Percent Auto 11.3 % (18.3-44.2); Mean Corpuscular Volume 90.3 fl (80-100); Mean Platelet Volume 10.3 fl (7.4-10.4); Monocytes Absolute Auto 0.9 K/mm3 (0.1-0.6); Monocytes Percent Auto 9.6 % (2.6-8.5); Neutrophils Absolute Auto 6.6 K/mm3 (1.3-6.7); Neutrophils Percent Auto 74.2 % (45.5-73.1); Platelet Count Result 241 k/mm3 (150-375); Red Cell Distribution Width 19.4 % (11.5-14.5); White Blood Count 8.9 K/mm3 (4.5-10.0)
[2021-09-12 08:14] LABS: IFOB Positive Control Positive; Immunochemical Fecal Occult Bl Positive (N)
[2021-09-12] MEDS: MAGNESIUM OXIDE 400 MG TABLET PO (08:48)
[2021-09-12] MEDS: TAMSULOSIN HCL 0.4 MG CAPSULE PO (08:48)
[2021-09-12] MEDS: APIXABAN 5 MG TABLET PO ×2 (08:48→17:08)
[2021-09-12] MEDS: amLODIPine BESYLATE 5 MG TABLET 10 MG PO (08:48)
[2021-09-12] MEDS: PANTOPRAZOLE 40 MG TABLET PO (08:48)
[2021-09-12] MEDS: FERROUS SULFATE 324 MG TABLET PO ×2 (08:48→17:08)
[2021-09-12] MEDS: buPROPion HCL XL (24 HR) 150 MG TABCR PO (08:48)
[2021-09-12] MEDS: ACIDOPHILUS/BULGARICUS CHEWABLE TABLET 1 TABLET PO (08:48)
[2021-09-12] MEDS: DULoxetine HCL 60 MG CAPSULE.DR PO ×2 (08:48→17:08)
[2021-09-12] MEDS: GABAPENTIN 300 MG CAPSULE 600 MG PO ×3 (08:48→17:08)
[2021-09-12] MEDS: NICOTINE (*PBKC) 21 MG PATCH 1 PATCH TRANSDERM (08:52)
[2021-09-12 09:01] LABS: Glucose Point of Care 90 mg/dl (65-105)
[2021-09-12] MEDS: UMECLIDINIUM BROMIDE 62.5 MCG ELLIPTA 1 PUFF INHALATION (09:17)
--- NOTE | 2021-09-12 11:13 | WPDGIPROGNO ---
Progress Note: A&P Assessment and Plan (1) Acute proctitis: Code(s): K62.89 - Other specified diseases of anus and rectum Status: Acute Assessment and Plan: pain better, had FOBT which would be expected from proctitis we can do colonoscopy Tuesday denies obvious blood in stool (2) Iron deficiency anemia: Code(s): D50.9 - Iron deficiency anemia, unspecified Status: Acute Assessment and Plan: probably multifactorial from aocd, renal failure, etc colonoscopy (3) Occult blood in stools: Code(s): R19.5 - Other fecal abnormalities Status: Acute (4) Acute on chronic renal failure: Code(s): N17.9 - Acute kidney failure, unspecified; N18.9 - Chronic kidney disease, unspecified Status: Acute Assessment and Plan: by nephrology (5) Acute exacerbation of CHF (congestive heart failure): Code(s): I50.9 - Heart failure, unspecified Status: Acute Assessment and Plan: treated and stable (6) Acute hypercapnic respiratory failure: Code(s): J96.02 - Acute respiratory failure with hypercapnia Status: Acute Assessment and Plan: improved (7) Altered mental status: Qualifiers: Altered mental status type: unspecified Qualified Code(s): R41.82 - Altered mental status, unspecified Code(s): R41.82 - Altered mental status, unspecified Status: Acute Assessment and Plan: resolved, had EEG by neurology Subjective Date/time seen: 09/12/21 11:13 Interval history: perianal discomfort and abdominal pain better. FOBT was positive Review of Systems Review of Systems: All systems reviewed & are unremarkable except as noted in HPI and below Exam Const: General: comfortable, no acute distress and ill appearing chronically Other: using oxygen HENMT: General nose exam: Normal nares present Eyes: Sclera: sclerae normal Neck: Neck: supple Resp: Auscultation: diminished lung sounds Other: Inspiratory crackles noted to bilateral mid lung diehl Cardio: Rhythm: abnormal rhythm irregularly irregular GI: Inspection: non-distended GI Palp: Yes Soft to palpation, No Tenderness to palpation present (GI) and No Guarding due to palpation present (GI) Auscultation: normal bowel sounds Urinary Catheter: Urinary Catheter: patent and draining Skin: General skin exam: no rashes or lesions noted and erythema Neuro: Speech: normal speech Extrem: Other: chronic venous stasis Psych: Mental Status: mental status grossly normal Objective Data Vital Signs Vital Signs: Vital Signs - 24 hr 09/11/21 14:00 09/11/21 20:00 09/11/21 22:00 Temperature 97.5 F L 97 F L Pulse Rate 56 L 78 Respiratory Rate 16 16 Blood Pressure 124/48 L 130/70 Pulse Oximetry 96 97 97 09/11/21 22:37 09/11/21 22:39 09/12/21 02:02 Temperature Pulse Rate 53 L 52 L Respiratory Rate Blood Pressure Pulse Oximetry 98 98 97 09/12/21 05:57 09/12/21 08:25 09/12/21 09:19 Temperature 96.6 F L Pulse Rate 57 L Respiratory Rate 16 Blood Pressure 129/48 L Pulse Oximetry 96 100 97 Intake/Output Intake/Output: Intake & Output 09/09/21 09/10/21 09/11/21 09/12/21 23:59 23:59 23:59 23:59 Intake Total 985 2085 730 170 Output Total 1850 1300 1150 550 Balance -865 785 -420 -380 Meds/Results Medications: Active Medications Generic Name Dose Route Start Last Admin Trade Name Freq PRN Reason Stop Dose Admin Acetaminophen 650 mg 09/05/21 13:54 09/06/21 17:32 Acetaminophen 325 Mg Tablet PO 650 mg Q4H PRN Administration Mild Pain (1-3) or Fever Hydrocodone Bitart/Acetaminophen 1 tab 09/12/21 10:38 Hydrocodone/Acetaminophen (*Crx) 5-325 Mg Tablet PO Q6H PRN Pain Rated 4-6 Amlodipine Besylate 10 mg 09/06/21 09:00 09/12/21 08:48 Amlodipine Besylate 5 Mg Tablet PO 10 mg DAILY CRISTINA Administration Apixaban 5 mg 09/06/21 09:00 09/12/21 08:48 Apixaban 5 Mg Tablet
[2021-09-12 12:00] LABS: Glucose Point of Care 177 mg/dl (65-105)
--- NOTE | 2021-09-12 13:56 | P.PNNP_ITS ---
Progress Note: A&P Assessment and Plan (1) Acute kidney injury: Code(s): N17.9 - Acute kidney failure, unspecified Status: Acute Assessment and Plan: * had improved but fluctuating at this time * precipitated by several issues: - decompensated respiratory failure - HTN (hemodynamics fluctuating) - significant diuretic burden (resuming PRN diuretics given recent imaging) - urinary tract infection (although culture is negative) - recent proctitis * follow trend of repeat labs with current interventions (2) Stage 3b chronic kidney disease: Code(s): N18.32 - Chronic kidney disease, stage 3b Status: Chronic Assessment and Plan: * baseline creatinine running 1.6 - 2.1mg/dl for the last year * likely a manifestation of his CHF, need for diuretics, pulmonary HTN, diabetes, and hypertension * serological evaluation underway (multiple tests still pending) * may need to accept a higher creatinine to maintain his volume status (3) Acute proctitis: Code(s): K62.89 - Other specified diseases of anus and rectum Status: Acute Assessment and Plan: * as noted by CT scan * follow blood cultures * on IV antibiotics * GI following with recommendations noted (4) Acute exacerbation of CHF (congestive heart failure): Code(s): I50.9 - Heart failure, unspecified Status: Acute Assessment and Plan: * clinically better * diuretics on hold given rising creatinine * follow I/Os, daily weights, and respiratory status (5) Acute hypercapnic respiratory failure: Code(s): J96.02 - Acute respiratory failure with hypercapnia Status: Acute Assessment and Plan: * better at this time * continue supportive therapy (6) Essential hypertension: Code(s): I10 - Essential (primary) hypertension Status: Acute Assessment and Plan: * reasonable at this time * follow trend of hemodynamics (7) Type 2 diabetes mellitus treated with insulin: Code(s): E11.9 - Type 2 diabetes mellitus without complications; Z79.4 - exterminator helper termite (current) use of insulin Status: Chronic Assessment and Plan: * follow accu-cheks * on sliding scale insulin Will continue to follow. Subjective Date/time seen: 09/12/21 13:56 Respiratory status/breathing seems relatively stable; scheduled diuretics on ho ld (but has been getting PRN bumex); mentation seems relatively stable (on/off confusion noted); EEG results noted; no apparent distress voiced; no issues/events overnight or earlier this AM. Exam Narrative: General: WD/WN male in NAD Heart: normal S1 and S2; no rub Lungs: clear anteriorly but decreased at bases Abdomen: soft, nontender, nondistended, positive bowel sounds Extremities: no cyanosis or clubbing; trace - 1+ edema Skin: no rash or nodules Objective Data Vital Signs Vital Signs: Vital Signs Temp Pulse Resp BP Pulse Ox 09/12/21 13:02 47 L 09/12/21 09:19 97 09/12/21 08:25 100 09/12/21 05:57 35.9 C L 57 L 16 129/48 L 96 09/12/21 02:02 52 L 97 09/11/21 22:39 98 09/11/21 22:37 53 L 98 09/11/21 22:00 36.1 C L 78 16 130/70 97 09/11/21 20:00 97 09/11/21 14:00 36.4 C L 56 L 16 124/48 L 96 Intake/Output
--- NOTE | 2021-09-12 13:56 | PM.PNNEP ---
Progress Note: A&P Assessment and Plan (1) Acute kidney injury: Code(s): N17.9 - Acute kidney failure, unspecified Status: Acute Assessment and Plan: had improved but fluctuating at this time precipitated by several issues: - decompensated respiratory failure - HTN (hemodynamics fluctuating) - significant diuretic burden (resuming PRN diuretics given recent imaging) - urinary tract infection (although culture is negative) - recent proctitis follow trend of repeat labs with current interventions (2) Stage 3b chronic kidney disease: Code(s): N18.32 - Chronic kidney disease, stage 3b Status: Chronic Assessment and Plan: baseline creatinine running 1.6 - 2.1mg/dl for the last year likely a manifestation of his CHF, need for diuretics, pulmonary HTN, diabetes, and hypertension serological evaluation underway (multiple tests still pending) may need to accept a higher creatinine to maintain his volume status (3) Acute proctitis: Code(s): K62.89 - Other specified diseases of anus and rectum Status: Acute Assessment and Plan: as noted by CT scan follow blood cultures on IV antibiotics GI following with recommendations noted (4) Acute exacerbation of CHF (congestive heart failure): Code(s): I50.9 - Heart failure, unspecified Status: Acute Assessment and Plan: clinically better diuretics on hold given rising creatinine follow I/Os, daily weights, and respiratory status (5) Acute hypercapnic respiratory failure: Code(s): J96.02 - Acute respiratory failure with hypercapnia Status: Acute Assessment and Plan: better at this time continue supportive therapy (6) Essential hypertension: Code(s): I10 - Essential (primary) hypertension Status: Acute Assessment and Plan: reasonable at this time follow trend of hemodynamics (7) Type 2 diabetes mellitus treated with insulin: Code(s): E11.9 - Type 2 diabetes mellitus without complications; Z79.4 - intermediate (current) use of insulin Status: Chronic Assessment and Plan: follow accu-cheks on sliding scale insulin Will continue to follow. Subjective Date/time seen: 09/12/21 13:56 Respiratory status/breathing seems relatively stable; scheduled diuretics on hold (but has been getting PRN bumex); mentation seems relatively stable (on/off confusion noted); EEG results noted; no apparent distress voiced; no issues/events overnight or earlier this AM. Exam Narrative: General: WD/WN male in NAD Heart: normal S1 and S2; no rub Lungs: clear anteriorly but decreased at bases Abdomen: soft, nontender, nondistended, positive bowel sounds Extremities: no cyanosis or clubbing; trace - 1+ edema Skin: no rash or nodules Objective Data Vital Signs Vital Signs: Vital Signs Temp Pulse Resp BP Pulse Ox 09/12/21 13:02 47 L 09/12/21 09:19 97 09/12/21 08:25 100 09/12/21 05:57 35.9 C L 57 L 16 129/48 L 96 09/12/21 02:02 52 L 97 09/11/21 22:39 98 09/11/21 22:37 53 L 98 09/11/21 22:00 36.1 C L 78 16 130/70 97 09/11/21 20:00 97 09/11/21 14:00 36.4 C L 56 L 16 124/48 L 96 Intake/Output Intake/Output: Intake & Output 09/09/21 09/10/21 09/11/21 09/12/21 23:59 23:59 23:59 23:59 Intake Total 985 2085 730 390 Output Total 1850 1300 1150 550 Balance -865 785 -420 -160 Meds/Results Medications: Active Medications Generic Name Dose Route Start Last Admin Trade Name Marciano PRN Reason Stop Dose Admin Acetaminophen 650 mg 09/05/21 13:54 09/06/21 17:32 Acetaminophen 325 Mg Tablet PO 650 mg Q4H PRN Administration Mild Pain (1-3) or Fever Hydrocodone Bitart/Acetaminophen 1 tab 09/12/21 10:38 Hydrocodone/Acetaminophen (*Crx) 5-325 Mg Tablet PO Q6H PRN Pain Rated
--- NOTE | 2021-09-12 15:41 | PM.IMPN ---
Progress Note: A&P Assessment and Plan (1) Unresponsive episode: Code(s): R41.89 - Other symptoms and signs involving cognitive functions and awareness Status: Acute Assessment and Plan: Now seems to have resolved. Was much more awake today. CT showing cerebral atrophy and mild small-vessel disease. Neurology recommendations appreciated. EEG showed bihemispheric delta activity with no evidence of seizure activity. (2) Acute proctitis: Code(s): K62.89 - Other specified diseases of anus and rectum Status: Acute Assessment and Plan: Patient began having abd pain and diarrhea so a CT Abd was checked showing Interval development of abnormal thickening of the distal sigmoid colon and rectum, consistent with proctitis. Currently on Zosyn for presumed proctitis and urine tract infection. Gastroenterology service have evaluated the patient and planned to do sigmoidoscopy on Tuesday. Follow cultures. (3) Acute exacerbation of CHF (congestive heart failure): Qualifiers: Heart failure type: unspecified Qualified Code(s): I50.9 - Heart failure, unspecified Code(s): I50.9 - Heart failure, unspecified Status: Acute Assessment and Plan: Acute on chronic systolic congestive Heart failure. Presented with chest x-ray showing pulmonary edema and small bilateral pleural effusions. Patient was started on IV Lasix with a negative balance from admission. Currently Lasix/Bumex is put on hold. He seems euvolemic on clinical exam. Strict intake output record and daily weight. Continue to monitor renal parameters and electrolytes. Patient was also on BiPAP prior to arrival due to respiratory acidosis likely due to CHF exacerbation. Now BiPAP can be stopped and he can be resumed on his home CPAP. He is on 3 L of oxygen at his baseline. Today he was on 3 L of oxygen but his oxygen saturation was in high 90s. He was weaned down to 2 L at the bedside. . (4) UTI (urinary tract infection): Code(s): N39.0 - Urinary tract infection, site not specified Status: Acute Assessment and Plan: Urinalysis showing 2+ leukocyte esterase, WBCs 51-75. Urine culture showing no growth at this time. CT Abd 09/10/21 showing Interval development of abnormal thickening of the distal sigmoid colon and rectum, consistent with proctitis. Abnormal thickening of the bladder wall, consistent with cystitis. Currently on Zosyn for presumed proctitis and urine tract infection. UA showed 2+ leuk est, WBC 16-20. Follow cultures Has Lakhani catheter in place. (5) COPD (chronic obstructive pulmonary disease): Qualifiers: COPD type: unspecified COPD Qualified Code(s): J44.9 - Chronic obstructive pulmonary disease, unspecified Code(s): J44.9 - Chronic obstructive pulmonary disease, unspecified Status: Acute Assessment and Plan: Continue with home inhalers No wheezing on exam (6) ELAINE (obstructive sleep apnea): Code(s): G47.33 - Obstructive sleep apnea (adult) (pediatric) Status: Chronic Assessment and Plan: Continue with home settings on a CPAP (7) Acute kidney injury superimposed on CKD: Code(s): N17.9 - Acute kidney failure, unspecified; N18.9 - Chronic kidney disease, unspecified Status: Acute Assessment and Plan: Worsening on admission creatinine at 2.7. Baseline is somewhere between 1.5-1.8. Please continue to monitor. Renal ultrasound done negative for obstruction Creatinine is 2.3 today. Diuretics have been put on hold. He seems euvolemic on clinical exam. He is on 3 L of oxygen which is his baseline. Continue monitoring renal function and electrolytes (8) Atrial fibrillation with slow ventricular response: Code(s): I48.91 - Unspecified atrial fibrillation Status: Acute Assessment and Plan: Continue heart rate monitoring. Continue Eliquis (9) Type 2 diabete
[2021-09-12 16:51] LABS: Albumin 54 %; Creat 24 Hr 0.98 g/24 h (0.50-2.15); Measured Kappa Chains 3.18 mg/dL (<2.00); Measured Lambda Chains 1.61 mg/dL (<2.00); Pro/Creat Ratio 1658 mg/g creat (<=114); Total Kappa Chains 79.5 mg/24 h; Total Lambda Chains 40.25 mg/24 h
[2021-09-12 16:55] LABS: Glucose Point of Care 166 mg/dl (65-105)
[2021-09-12] MEDS: ACETAMINOPHEN 325 MG TABLET 650 MG PO (17:13)
[2021-09-12] MEDS: HYDROcodone/acetaminophen (*CRX) 5-325 MG TABLET 1 TAB PO (20:25)
[2021-09-12] MEDS: ATORVASTATIN 40 MG TABLET PO (20:26)
[2021-09-12] MEDS: INSULIN GLARGINE (*BKC) 100 UNITS/ML SUB-Q (20:27)
[2021-09-12 21:48] LABS: Glucose Point of Care 185 mg/dl (65-105)
[2021-09-13] VITALS (9 sets, daily range): BP systolic 118–137; BP diastolic 50–58; PULSE 56–79; RESP 18–20; TEMP 35.5–36.6; O2SAT 93–98
[2021-09-13 06:33] LABS: Anion Gap 6 mmol/L (8-16); Blood Urea Nitrogen 88 mg/dL (9-20); Calcium 8.6 mg/dL (8.4-10.2); Carbon Dioxide 36 mmol/L (22-30); Chloride 94 mmol/L (98-107); Estimated CRCL calculation 35 ml/min; Estimated Glomerular Filt Rate 28; Glucose 120 mg/dL (65-110); Potassium 3.6 mmol/L (3.4-5.0); Sodium 136 mmol/L (137-145)
[2021-09-13 07:01] LABS: Basophils Absolute Auto 0.1 K/mm3 (0.0-0.1); Basophils Percent Auto 0.6 % (0.2-1.2); Eosinophils Absolute Auto 0.3 K/mm3 (0-0.3); Eosinophils Percent Auto 2.8 % (0-4.4); Hematocrit 29.3 % (42.0-52.0); Hemoglobin 9.1 g/dL (14.0-18.0); Immature Granulocyte Absolute 0.04 K/mm3 (0.00-0.031); Immature Granulocyte Percent A 0.4 % (0-0.5); Lymphocytes Absolute Auto 1.03 K/mm3 (0.9-3.2); Lymphocytes Percent Auto 10.8 % (18.3-44.2); Mean Corpuscular HGB Conc 31.1 g/dl (32-36); Mean Corpuscular Hemoglobin 27.3 pg (26-34); Mean Platelet Volume 10.3 fl (7.4-10.4); Monocytes Absolute Auto 0.9 K/mm3 (0.1-0.6); Monocytes Percent Auto 9.6 % (2.6-8.5); Neutrophils Absolute Auto 7.2 K/mm3 (1.3-6.7); Neutrophils Percent Auto 75.8 % (45.5-73.1); Platelet Count Result 249 k/mm3 (150-375); Red Blood Count 3.33 M/mm3 (4.6-6.20); Red Cell Distribution Width 19.2 % (11.5-14.5); White Blood Count 9.5 K/mm3 (4.5-10.0)
[2021-09-13 08:24] LABS: Glucose Point of Care 137 mg/dl (65-105)
[2021-09-13] MEDS: UMECLIDINIUM BROMIDE 62.5 MCG ELLIPTA 1 PUFF INHALATION (08:58)
[2021-09-13] MEDS: MAGNESIUM OXIDE 400 MG TABLET PO (09:18)
[2021-09-13] MEDS: amLODIPine BESYLATE 5 MG TABLET 10 MG PO (09:18)
[2021-09-13] MEDS: GABAPENTIN 300 MG CAPSULE 600 MG PO ×3 (09:19→17:32)
[2021-09-13] MEDS: TAMSULOSIN HCL 0.4 MG CAPSULE PO (09:19)
[2021-09-13] MEDS: ACIDOPHILUS/BULGARICUS CHEWABLE TABLET 1 TABLET PO (09:19)
[2021-09-13] MEDS: METOPROLOL SUCCINATE EXT REL 50 MG TABCR 150 MG PO (09:19)
[2021-09-13] MEDS: PANTOPRAZOLE 40 MG TABLET PO (09:19)
[2021-09-13] MEDS: APIXABAN 5 MG TABLET PO ×2 (09:20→17:30)
[2021-09-13] MEDS: FERROUS SULFATE 324 MG TABLET PO ×2 (09:20→17:31)
[2021-09-13] MEDS: DULoxetine HCL 60 MG CAPSULE.DR PO ×2 (09:20→17:33)
[2021-09-13] MEDS: buPROPion HCL XL (24 HR) 150 MG TABCR PO (09:20)
[2021-09-13] MEDS: NICOTINE (*PBKC) 21 MG PATCH 1 PATCH TRANSDERM (09:21)
--- NOTE | 2021-09-13 09:50 | WPDGIPROGNO ---
Progress Note: A&P Assessment and Plan (1) Acute proctitis: Code(s): K62.89 - Other specified diseases of anus and rectum Status: Acute Assessment and Plan: also had + FOBT which would be expected from proctitis bowel prep today and will do a colonoscopy tomorrow denies obvious blood in stool and hb is stable (2) Iron deficiency anemia: Code(s): D50.9 - Iron deficiency anemia, unspecified Status: Acute Assessment and Plan: probably multifactorial from aocd, renal failure, etc colonoscopy tomorrow hb stable (3) Occult blood in stools: Code(s): R19.5 - Other fecal abnormalities Status: Acute Assessment and Plan: no report of obvious bleeding (4) Acute on chronic renal failure: Code(s): N17.9 - Acute kidney failure, unspecified; N18.9 - Chronic kidney disease, unspecified Status: Acute Assessment and Plan: by nephrology (5) Acute exacerbation of CHF (congestive heart failure): Code(s): I50.9 - Heart failure, unspecified Status: Acute Assessment and Plan: treated and stable (6) Acute hypercapnic respiratory failure: Code(s): J96.02 - Acute respiratory failure with hypercapnia Status: Acute Assessment and Plan: improved (7) Altered mental status: Qualifiers: Altered mental status type: unspecified Qualified Code(s): R41.82 - Altered mental status, unspecified Code(s): R41.82 - Altered mental status, unspecified Status: Acute Assessment and Plan: slightly confused today per RN, had EEG by neurology Subjective Date/time seen: 09/13/21 09:50 Interval history: today he is more confused but he is comfortable, no abdominal pain Review of Systems Review of Systems: All systems reviewed & are unremarkable except as noted in HPI and below Exam Const: General: comfortable, no acute distress and ill appearing chronically HENMT: General nose exam: Normal nares present Eyes: Sclera: sclerae normal Neck: Neck: supple Resp: Auscultation: diminished lung sounds Other: Inspiratory crackles noted to bilateral mid lung diehl Cardio: Rhythm: abnormal rhythm irregularly irregular GI: Inspection: non-distended GI Palp: Yes Soft to palpation, No Tenderness to palpation present (GI) and No Guarding due to palpation present (GI) Auscultation: normal bowel sounds Urinary Catheter: Urinary Catheter: patent and draining Skin: General skin exam: no rashes or lesions noted and erythema Neuro: Speech: normal speech Other: awake but more confused today Extrem: General: pedal edema Other: chronic venous stasis Psych: Attitude: not belligerent Objective Data Vital Signs Vital Signs: Vital Signs - 24 hr 09/12/21 13:02 09/12/21 14:00 09/12/21 20:00 Temperature 99.9 F H Pulse Rate 47 L 51 L Respiratory Rate 18 Blood Pressure 122/62 Pulse Oximetry 96 96 09/12/21 22:00 09/12/21 22:05 09/13/21 02:37 Temperature 97 F L Pulse Rate 70 74 57 L Respiratory Rate 16 Blood Pressure 123/47 L Pulse Oximetry 98 96 93 09/13/21 06:00 09/13/21 08:59 09/13/21 09:19 Temperature 95.9 F L Pulse Rate 79 78 78 Respiratory Rate 20 Blood Pressure 137/52 L Pulse Oximetry 97 98 Intake/Output Intake/Output: Intake & Output 09/10/21 09/11/21 09/12/21 09/13/21 23:59 23:59 23:59 23:59 Intake Total 2085 730 1060 50 Output Total 1300 1150 1150 650 Balance 469 -198 -90 -234 Meds/Results Medications: Active Medications Generic Name Dose Route Start Last Admin Trade Name Freq PRN Reason Stop Dose Admin Acetaminophen 650 mg 09/05/21 13:54 09/12/21 17:13 Acetaminophen 325 Mg Tablet PO 650 mg Q4H PRN Administration Mild Pain (1-3) or Fever Hydrocodone Bitart/Acetaminophen 1 tab 09/12/21 10:38 09/12/21 20:25 Hydrocodone/Acetaminophen (*Crx) 5-325 Mg Tablet PO 1 tab Q6H PRN Administration Pain Rated 4-6 Amlodipine Bes
[2021-09-13 12:23] LABS: Glucose Point of Care 105 mg/dl (65-105)
--- NOTE | 2021-09-13 12:47 | PM.IMPN ---
Progress Note: A&P Assessment and Plan (1) Unresponsive episode: Code(s): R41.89 - Other symptoms and signs involving cognitive functions and awareness Status: Acute Assessment and Plan: Now seems to have resolved. Was much more awake today but still with confusion. Unclear baseline. CT showing cerebral atrophy and mild small-vessel disease. Neurology recommendations appreciated. EEG showed bihemispheric delta activity with no evidence of seizure activity. (2) Acute proctitis: Code(s): K62.89 - Other specified diseases of anus and rectum Status: Acute Assessment and Plan: Patient began having abd pain and diarrhea so a CT Abd was checked showing Interval development of abnormal thickening of the distal sigmoid colon and rectum, consistent with proctitis. Currently on Zosyn for presumed proctitis and urinary tract infection. Can be stop in the next 1-2 days if no significant infectious proctitis is seen on colonoscopy. Gastroenterology service have evaluated the patient and planned to do colonoscopy on Tuesday. He is being prepped today overnight. He will NPO overnight as well. Follow cultures. (3) Acute exacerbation of CHF (congestive heart failure): Qualifiers: Heart failure type: unspecified Qualified Code(s): I50.9 - Heart failure, unspecified Code(s): I50.9 - Heart failure, unspecified Status: Acute Assessment and Plan: Acute on chronic systolic congestive Heart failure. Presented with chest x-ray showing pulmonary edema and small bilateral pleural effusions. Patient was started on IV Lasix. Currently Lasix/Bumex is put on hold. He seems euvolemic on clinical exam. Strict intake output record and daily weight. Continue to monitor renal parameters and electrolytes. Patient was also on BiPAP at the time of arrival due to respiratory acidosis likely due to CHF exacerbation. Now BiPAP has stopped. He is using his CPAP at nighttime and seems to be compliant with its use. He is on 3 L of oxygen at his baseline. Today he was on 3 L of oxygen but his oxygen saturation was in high 90s. He was weaned down to 2 L at the bedside. . (4) UTI (urinary tract infection): Code(s): N39.0 - Urinary tract infection, site not specified Status: Acute Assessment and Plan: Urinalysis showing 2+ leukocyte esterase, WBCs 51-75. Urine culture showing no growth at this time. CT Abd 09/10/21 showing Interval development of abnormal thickening of the distal sigmoid colon and rectum, consistent with proctitis. Abnormal thickening of the bladder wall, consistent with cystitis. Currently on Zosyn for presumed proctitis and urine tract infection. It can potentially be stopped in 1-2 days if no significant infectious proctitis seen on colonoscopy. Follow cultures Has Lakhani catheter in place. (5) COPD (chronic obstructive pulmonary disease): Qualifiers: COPD type: unspecified COPD Qualified Code(s): J44.9 - Chronic obstructive pulmonary disease, unspecified Code(s): J44.9 - Chronic obstructive pulmonary disease, unspecified Status: Acute Assessment and Plan: Continue with home inhalers No wheezing on exam (6) ELAINE (obstructive sleep apnea): Code(s): G47.33 - Obstructive sleep apnea (adult) (pediatric) Status: Chronic Assessment and Plan: Continue with home settings on a CPAP His seems compliant to the use of CPAP. (7) Acute kidney injury superimposed on CKD: Code(s): N17.9 - Acute kidney failure, unspecified; N18.9 - Chronic kidney disease, unspecified Status: Acute Assessment and Plan: Worsening on admission creatinine at 2.7. Baseline is somewhere between 1.5-1.8. Please continue to monitor. Renal ultrasound done negative for obstruction Creatinine is 2.4 today. Diuretics have been put on hold. He seems euvolemic on clinical exam. He is on 3 L of oxyge
--- NOTE | 2021-09-13 13:38 | PM.PNNEP ---
Progress Note: A&P Assessment and Plan (1) Acute kidney injury: Code(s): N17.9 - Acute kidney failure, unspecified Status: Acute Assessment and Plan: had improved but fluctuating at this time precipitated by several issues: - decompensated respiratory failure - HTN (hemodynamics fluctuating) - significant diuretic burden (resuming PRN diuretics given recent imaging) - urinary tract infection (although culture is negative) - recent proctitis follow trend of repeat labs with current interventions (2) Stage 3b chronic kidney disease: Code(s): N18.32 - Chronic kidney disease, stage 3b Status: Chronic Assessment and Plan: baseline creatinine running 1.6 - 2.1mg/dl for the last year likely a manifestation of his CHF, need for diuretics, pulmonary HTN, diabetes, and hypertension serological evaluation underway (multiple tests still pending) may need to accept a higher creatinine to maintain his volume status (3) Acute proctitis: Code(s): K62.89 - Other specified diseases of anus and rectum Status: Acute Assessment and Plan: as noted by CT scan follow blood cultures on IV antibiotics GI following with recommendations noted - colonoscopy tomorrow (4) Acute exacerbation of CHF (congestive heart failure): Code(s): I50.9 - Heart failure, unspecified Status: Acute Assessment and Plan: clinically better diuretics on hold given rising creatinine follow I/Os, daily weights, and respiratory status (5) Acute hypercapnic respiratory failure: Code(s): J96.02 - Acute respiratory failure with hypercapnia Status: Acute Assessment and Plan: better at this time continue supportive therapy (6) Essential hypertension: Code(s): I10 - Essential (primary) hypertension Status: Acute Assessment and Plan: reasonable at this time follow trend of hemodynamics (7) Type 2 diabetes mellitus treated with insulin: Code(s): E11.9 - Type 2 diabetes mellitus without complications; Z79.4 - rn long term care (current) use of insulin Status: Chronic Assessment and Plan: follow accu-cheks on sliding scale insulin Will continue to follow. Subjective Date/time seen: 09/13/21 13:38 Mentation seems stable in not better (oriented but has bouts of confusion); no apparent distress voiced at the time of my visit; bowel prep today for colonoscopy tomorrow per GI; no issues/events overnight or earlier this morning; no change in respiratory status. Exam Narrative: General: WD/WN male in NAD Heart: normal S1 and S2; no rub Lungs: clear anteriorly but decreased at bases Abdomen: soft, nontender, nondistended, positive bowel sounds Extremities: no cyanosis or clubbing; trace - 1+ edema Skin: warm and dry Objective Data Vital Signs Vital Signs: Vital Signs Temp Pulse Resp BP Pulse Ox 09/13/21 09:19 78 09/13/21 08:59 78 98 09/13/21 08:10 95 09/13/21 06:00 35.5 C L 79 20 137/52 L 97 09/13/21 02:37 57 L 93 09/12/21 22:05 74 96 09/12/21 22:00 36.1 C L 70 16 123/47 L 98 09/12/21 20:00 96 Intake/Output Intake/Output: Intake & Output 09/10/21 09/11/21 09/12/21 09/13/21 23:59 23:59 23:59 23:59 Intake Total 2085 730 1060 100 Output Total 1300 1150 1150 650 Balance 78 -420 -90 -550 Meds/Results Medications: Active Medications Generic Name Dose Route Start Last Admin Trade Name Freq PRN Reason Stop Dose Admin Acetaminophen 650 mg 09/05/21 13:54 09/12/21 17:13 Acetaminophen 325 Mg Tablet PO 650 mg Q4H PRN Administration Mild Pain (1-3) or Fever Hydrocodone Bitart/Acetaminophen 1 tab 09/12/21 10:38 09/12/21 20:25 Hydrocodone/Acetaminophen (*Crx) 5-325 Mg Tablet PO 1 tab Q6H PRN Administration Pain Rated 4-6 Amlodipine Besylate 10 m
--- NOTE | 2021-09-13 13:38 | P.PNNP_ITS ---
Progress Note: A&P Assessment and Plan (1) Acute kidney injury: Code(s): N17.9 - Acute kidney failure, unspecified Status: Acute Assessment and Plan: * had improved but fluctuating at this time * precipitated by several issues: - decompensated respiratory failure - HTN (hemodynamics fluctuating) - significant diuretic burden (resuming PRN diuretics given recent imaging) - urinary tract infection (although culture is negative) - recent proctitis * follow trend of repeat labs with current interventions (2) Stage 3b chronic kidney disease: Code(s): N18.32 - Chronic kidney disease, stage 3b Status: Chronic Assessment and Plan: * baseline creatinine running 1.6 - 2.1mg/dl for the last year * likely a manifestation of his CHF, need for diuretics, pulmonary HTN, diabetes, and hypertension * serological evaluation underway (multiple tests still pending) * may need to accept a higher creatinine to maintain his volume status (3) Acute proctitis: Code(s): K62.89 - Other specified diseases of anus and rectum Status: Acute Assessment and Plan: * as noted by CT scan * follow blood cultures * on IV antibiotics * GI following with recommendations noted - colonoscopy tomorrow (4) Acute exacerbation of CHF (congestive heart failure): Code(s): I50.9 - Heart failure, unspecified Status: Acute Assessment and Plan: * clinically better * diuretics on hold given rising creatinine * follow I/Os, daily weights, and respiratory status (5) Acute hypercapnic respiratory failure: Code(s): J96.02 - Acute respiratory failure with hypercapnia Status: Acute Assessment and Plan: * better at this time * continue supportive therapy (6) Essential hypertension: Code(s): I10 - Essential (primary) hypertension Status: Acute Assessment and Plan: * reasonable at this time * follow trend of hemodynamics (7) Type 2 diabetes mellitus treated with insulin: Code(s): E11.9 - Type 2 diabetes mellitus without complications; Z79.4 - [facility] (curre [facility] use of insulin Status: Chronic Assessment and Plan: * follow accu-cheks * on sliding scale insulin Will continue to follow. Subjective Date/time seen: 09/13/21 13:38 Mentation seems stable in not better (oriented but has bouts of confusion); no apparent distress voiced at the time of my visit; bowel prep today for colono scopy tomorrow per GI; no issues/events overnight or earlier this morning; no change in respiratory status. Exam Narrative: General: WD/WN male in NAD Heart: normal S1 and S2; no rub Lungs: clear anteriorly but decreased at bases Abdomen: soft, nontender, nondistended, positive bowel sounds Extremities: no cyanosis or clubbing; trace - 1+ edema Skin: warm and dry Objective Data Vital Signs Vital Signs: Vital Signs Temp Pulse Resp BP Pulse Ox 09/13/21 09:19 78 09/13/21 08:59 78 98 09/13/21 08:10 95 09/13/21 06:00 35.5 C L 79 20 137/52 L 97 09/13/21 02:37 57 L 93 09/12/21 22:05 74 96 09/12/21 22:00 36.1 C L 70 16 123/47 L 98 09/12/21 20:00 96 Intake/Output Intake/Output: Intake & Output 09/10/21 11
[2021-09-13 16:52] LABS: Glucose Point of Care 95 mg/dl (65-105)
[2021-09-13] MEDS: BISACODYL 5 MG TABLET EC 20 MG PO (17:37)
[2021-09-13] MEDS: PEG (High)/E-LYTE SOLN 4,000 ML BTL 4000 ML PO (17:38)
[2021-09-13] MEDS: ATORVASTATIN 40 MG TABLET PO (22:06)
[2021-09-14] VITALS (13 sets, daily range): BP systolic 71–149; BP diastolic 43–128; PULSE 54–93; RESP 16–20; TEMP 36.2–37.3; O2SAT 91–100
[2021-09-14] MEDS: MAGNESIUM CITRATE 300 ML BTL PO (03:58)
[2021-09-14 07:04] LABS: Anion Gap 9 mmol/L (8-16); Blood Urea Nitrogen 69 mg/dL (9-20); Calcium 8.6 mg/dL (8.4-10.2); Carbon Dioxide 35 mmol/L (22-30); Chloride 96 mmol/L (98-107); Estimated CRCL calculation 34 ml/min; Estimated Glomerular Filt Rate 31; Glucose 105 mg/dL (65-110); Magnesium 2.6 mg/dL (1.6-2.3); Sodium 140 mmol/L (137-145)
--- NOTE | 2021-09-14 07:41 | PCNSR ---
On 09/14/21, the student,Mikayla Chavis, provided care and completed [facility] documentation on this patient. I have reviewed the student's documentation and agree with the findings.
[2021-09-14 08:06] LABS: Glucose Point of Care 104 mg/dl (65-105)
[2021-09-14] MEDS: UMECLIDINIUM BROMIDE 62.5 MCG ELLIPTA 1 PUFF INHALATION (08:51)
[2021-09-14] MEDS: METOPROLOL SUCCINATE EXT REL 50 MG TABCR 150 MG PO (09:12)
[2021-09-14] MEDS: PANTOPRAZOLE 40 MG TABLET PO (09:12)
--- NOTE | 2021-09-14 11:00 | WPDANESEPPF ---
Anes - Initial Pre Proc Eval Procedure: Operation Date: 09/14/21 14:30 Proposed Procedures p Colonoscopy - Ari Chaparro MD Date/Time: 09/14/21 11:00 Surgeon: Meir Veliz MD Pre Op Diagnosis: CHF exacerbation, KIET, COVID PUI, UTI, Patient Data Age: 61 Gender: M Height: 1.78 m Weight: 94.5 kg Last Vital Signs Temp 36.2 C L 09/14/21 06:00 Pulse 78 09/14/21 09:12 Resp 18 09/14/21 06:00 BP 133/56 L 09/14/21 06:00 Pulse Ox 91 09/14/21 08:53 Allergies Allergy/AdvReac Type Severity Reaction Status Date / Time codeine AdvReac Intermediate NAUSAE/VOMI Verified 09/05/21 12:00 TING Home Medications Medication Instructions Recorded Confirmed Type Acidophilus 1 cap PO DAILY 07/21/21 09/05/21 History Eliquis 5 mg PO BID 07/21/21 09/05/21 History acetaminophen 650 mg PO Q4H PRN 07/21/21 09/05/21 History amlodipine 10 mg PO DAILY 07/21/21 09/05/21 History atorvastatin 40 mg PO HS 07/21/21 09/05/21 History bupropion HCl 150 mg PO DAILY 07/21/21 09/05/21 History cyclobenzaprine 10 mg PO HS PRN 07/21/21 09/05/21 History docusate sodium 100 mg PO BID PRN 07/21/21 09/05/21 History duloxetine 60 mg PO BID 07/21/21 09/05/21 History gabapentin 600 mg PO TID 07/21/21 09/05/21 History ipratropium bromide 2.5 ml INHALATION Q6H PRN 07/21/21 09/05/21 History magnesium oxide 400 mg PO DAILY 07/21/21 09/05/21 History metolazone 2.5 mg PO 2XW 07/21/21 09/05/21 History metoprolol succinate 150 mg PO DAILY 07/21/21 09/05/21 History nicotine 1 patch TRANSDERMAL DAILY 07/21/21 09/05/21 History pantoprazole 40 mg PO QAM 07/21/21 09/05/21 History tamsulosin 0.4 mg PO DAILY 07/21/21 09/05/21 History insulin aspart U-100 [Novolog See Rx Instructions .ROUTE .COMPLEX 08/01/21 09/05/21 History U-100 Insulin aspart] Lantus U-100 Insulin 18 unit SUBCUT HS #0 ml 08/12/21 09/05/21 Rx albuterol sulfate 2.5 mg INHALATION Q6HRT PRN #30 ea 08/12/21 09/05/21 Rx furosemide 40 mg PO BIDWM #30 tablet 08/12/21 09/05/21 Rx polyethylene glycol 3350 [Miralax] 17 g PO QAM PRN #30 ea 08/12/21 09/05/21 Rx tramadol 50 mg PO Q6H PRN #10 tablet 08/12/21 09/05/21 Rx umeclidinium [Incruse Ellipta] 1 inh INHALATION DAILYRT #30 ea 08/12/21 09/05/21 Rx Laboratory Tests 09/13/21 09/13/21 09/13/21 12:20 16:48 22:02 Sodium Potassium Chloride Carbon Dioxide Anion Gap BUN Creatinine Estim Creat Clear Calc Estimated GFR Glucose POC Capillary Glucose 105 mg/dl mg/dl 95 mg/dl mg/dl Pending (65-105) (65-105) Calcium Magnesium 09/14/21 09/14/21 05:38 07:50 Sodium 140 mmol/L mmol/L (137-145) Potassium 3.0 mmol/L L mmol/L (3.4-5.0) Chloride 96 mmol/L L mmol/L (98-107) Carbon Dioxide 35 mmol/L H mmol/L (22-30) Anion Gap 9 mmol/L mmol/L (8-16) BUN 69 mg/dL H D mg/dL (9-20) Creatinine 2.20 mg/dL H mg/dL (0.7-1.3) Estim Creat Clear Calc 34 ml/min ml/min Estimated GFR 31 L (59 - ) Glucose 105 mg/dL mg/dL (65-110) POC Capillary Glucose 104 mg/dl mg/dl (65-105) Calcium 8.6 mg/dL mg/dL (8.4-10.2) Magnesium 2.6 mg/dL H mg/dL (1.6-2.3) Patient hx anesthesia problems: none Family hx anesthesia problems: none Results Review: All pre-operative results and documents have been reviewed as part of the pre-operative evaluation. [facility] Past Medical History Medical History (Updated 09/12/21 @ 11:15 by Ari Chaparro MD) Abnormality of rectum Acute on chronic renal failure Atrial fibrillation CHF (congestive heart failure) Chronic anticoagulation Chronic kidney disease, stage 3 COPD (chronic obstructive pulmonary disease) Coronary artery disease CVA (cerebral vascular accident) Depression Diabetic neuropathy Essential hypertension Occult blood in stools
--- NOTE | 2021-09-14 11:42 | PCOTNOTE ---
Attempted OT treatment, per RN hold therapy today due to increased confusion, will follow and attempt at later time.
[2021-09-14 11:56] LABS: Glucose Point of Care 110 mg/dl (65-105)
--- NOTE | 2021-09-14 12:54 | PM.IMPN ---
Progress Note: A&P Assessment and Plan (1) Unresponsive episode: Code(s): R41.89 - Other symptoms and signs involving cognitive functions and awareness Status: Acute Assessment and Plan: Acute altered mental status seems to have resolved. Patient is fully awake and alert. Summa confusion persists as his baseline remains unclear. CT showing cerebral atrophy and mild small-vessel disease. Neurology recommendations appreciated. EEG showed bihemispheric delta activity with no evidence of seizure activity. (2) Acute proctitis: Code(s): K62.89 - Other specified diseases of anus and rectum Status: Acute Assessment and Plan: Patient began was symptomatic with abdominal pain and diarrhea; CT Abd was checked showing Interval development of abnormal thickening of the distal sigmoid colon and rectum, consistent with proctitis. Currently on Zosyn for presumed proctitis and urinary tract infection. C patient scheduled for colonoscopy today. Follow up on Gastroenterology notes. (3) Acute exacerbation of CHF (congestive heart failure): Qualifiers: Heart failure type: unspecified Qualified Code(s): I50.9 - Heart failure, unspecified Code(s): I50.9 - Heart failure, unspecified Status: Acute Assessment and Plan: Acute on chronic systolic congestive Heart failure. Presented with chest x-ray showing pulmonary edema and small bilateral pleural effusions. Patient was appropriately started on IV Lasix. Currently Lasix/Bumex is put on hold. He seems euvolemic on clinical exam. Repeat chest x-ray on 09/11/2021 shows unchanged pulmonary edema. However patient is symptomatically much improved. Repeat chest x-ray. Strict intake output record and daily weight. Continue to monitor renal parameters and electrolytes. Patient was also on BiPAP at the time of arrival due to respiratory acidosis likely due to CHF exacerbation. Now BiPAP has stopped. He is using his CPAP at nighttime and seems to be compliant with its use. He is on 3 L of oxygen at his baseline. Today he was on 3 L of oxygen but his oxygen saturation was in high 90s. He was weaned down to 2 L at the bedside. . (4) UTI (urinary tract infection): Code(s): N39.0 - Urinary tract infection, site not specified Status: Acute Assessment and Plan: Urinalysis showing 2+ leukocyte esterase, WBCs 51-75. Urine culture showing no growth. CT Abd 09/10/21 showing Interval development of abnormal thickening of the distal sigmoid colon and rectum, consistent with proctitis. Abnormal thickening of the bladder wall, consistent with cystitis. Currently on Zosyn for presumed proctitis and urine tract infection. I Follow cultures Has Lakhani catheter in place. (5) COPD (chronic obstructive pulmonary disease): Qualifiers: COPD type: unspecified COPD Qualified Code(s): J44.9 - Chronic obstructive pulmonary disease, unspecified Code(s): J44.9 - Chronic obstructive pulmonary disease, unspecified Status: Acute Assessment and Plan: Continue with home inhalers No wheezing on exam (6) ELAINE (obstructive sleep apnea): Code(s): G47.33 - Obstructive sleep apnea (adult) (pediatric) Status: Chronic Assessment and Plan: Continue with home settings on a CPAP His seems compliant to the use of CPAP. (7) Acute kidney injury superimposed on CKD: Code(s): N17.9 - Acute kidney failure, unspecified; N18.9 - Chronic kidney disease, unspecified Status: Acute Assessment and Plan: Worsening on admission creatinine at 2.7. Baseline is somewhere between 1.5-1.8. Please continue to monitor. Renal ultrasound done negative for obstruction Creatinine is 2.2 today. Diuretics have been put on hold. He seems euvolemic on clinical exam. He is on 3 L of oxygen at the bedside though chart says 5 L. His baseline oxygen requirement is 3 L. Continue monitoring william
[2021-09-14] MEDS: LACTATED RINGERS 1,000 ML 150 ML IV CONT (13:15)
[2021-09-14 13:24] LABS: Glucose Point of Care 95 mg/dl (65-105)
--- NOTE | 2021-09-14 14:48 | SUR.PHASEII ---
DR DUOMNT NOTIFIED OF PT'S PACU BLOOD PRESSURE AT 149/128, HEART RATE 54 AT 1418, BLOOD PRESSURE 71/43 AND HEART RATE 53 AT 1428, BLOOD PRESSURE 75/45 AND HEART RATE 52 AT 1438. PT AROUSABLE AT THIS TIME, OTHERWISE SLEEPING COMFORTABLY. [address], 02 SAT 94%. NO NOTICEABLE BLOOD NOTED. LR RUNNING WIDE OPEN. ORDERS TO CONTINUE LR AND MONITOR PT AT THIS TIME. WILL KEEP DR DUMONT UPDATED. KIP PARKER CALLED REPORT TO [facility] ON 3RD FLOOR.
--- NOTE | 2021-09-14 14:59 | SUR.PHASEII ---
DR DUMONT NOTIFIED THAT PT IS AWAKE, TALKING/JOKING WITH NURSE, BLOOD PRESSURE 91/45, HEART RATE 58, NO RECTAL BLEEDING NOTED. NO NEW ORDERS RECEIVED. KEITH LEAL UPDATED. WILL CONTINUE WITH TRANSFER TO [facility].
[2021-09-14 16:09] LABS: Glucose Point of Care 99 mg/dl (65-105)
[2021-09-14] MEDS: buPROPion HCL XL (24 HR) 150 MG TABCR PO (17:04)
[2021-09-14] MEDS: DULoxetine HCL 60 MG CAPSULE.DR PO (17:04)
[2021-09-14] MEDS: GABAPENTIN 300 MG CAPSULE 600 MG PO (17:04)
[2021-09-14] MEDS: FERROUS SULFATE 324 MG TABLET PO (17:04)
[2021-09-14] MEDS: TAMSULOSIN HCL 0.4 MG CAPSULE PO (17:04)
[2021-09-14] MEDS: amLODIPine BESYLATE 5 MG TABLET 10 MG PO (17:04)
[2021-09-14] MEDS: ACIDOPHILUS/BULGARICUS CHEWABLE TABLET 1 TABLET PO (17:04)
[2021-09-14] MEDS: MAGNESIUM OXIDE 400 MG TABLET PO (17:05)
[2021-09-14] MEDS: NICOTINE (*PBKC) 21 MG PATCH 1 PATCH TRANSDERM (17:05)
[2021-09-14] MEDS: ATORVASTATIN 40 MG TABLET PO (20:41)
[2021-09-14] MEDS: MESALAMINE 1,000 MG SUPP.RECT 1000 MG RECTAL (20:58)
[2021-09-14 21:18] LABS: Glucose Point of Care 148 mg/dl (65-105)
[2021-09-15 00:23] VITALS: O2SAT 96
[2021-09-15 06:00] VITALS: BP 145/80; PULSE 92; RESP 20; TEMP 36.7; O2SAT 93
[2021-09-15 07:47] LABS: Glucose Point of Care 161 mg/dl (65-105)
[2021-09-15] MEDS: UMECLIDINIUM BROMIDE 62.5 MCG ELLIPTA 1 PUFF INHALATION (09:23)
--- NOTE | 2021-09-15 10:34 | WPDNEURCNPN ---
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 Encephalopathy plan is to repeat the EEG again Consult date: 09/15/21 HPI: Ector Oconnor is a 61 year old male admitted to the hospital with ongoing history of 1. COPD 2. So this congestive heart failure 3. Diabetes mellitus 4. Hypertension 5. Chronic respiratory failure and 6. History of smoking tobacco patient was admitted because of increasing shortness of breath with lethargy initial chest x-ray documented bilateral perihilar predominant opacity and possibility of the congestive heart failure with pulmonary edema versus pneumonia, patient has been seen by the environmental studies department chair gastroenterology and most recently he had an unresponsive episode but his EEG revealed bihemispheric delta activity with no evidence of seizure discharge attributed to metabolic encephalopathy in addition to other multiple medical problems Review of Systems Review of Systems: All systems reviewed & are unremarkable except as noted in HPI and below PMFSH Past Medical History Medical History Abnormality of rectum Acute on chronic renal failure Atrial fibrillation CHF (congestive heart failure) Chronic anticoagulation Chronic kidney disease, stage 3 COPD (chronic obstructive pulmonary disease) Coronary artery disease CVA (cerebral vascular accident) Depression Diabetic neuropathy Essential hypertension Occult blood in stools ELAINE (obstructive sleep apnea) Sciatica Tobacco abuse Type 2 diabetes mellitus treated with insulin Surgical History Surgical History History of intravascular stent placement Superficial left leg Hx of CABG Family History Family History Other Unknown family medical history Social History Social History Social History: The patient is listed as being and disabled. It was noted that the patient was a heavy smoker according to his old records. He has a daughter yohana oconnor listed as a durable power admitted attorneys and another daughter Aristides Christian listed as next of kin. Advance directive on file here Code status: DNR/DNI Smoking packs per day: 3 Smoking cigarettes per day: 60.0 Years smoked: 47 Smoking pack-years: 141.00 Smoking status: Former smoker Spiritual care concerns: No Meds Home Medications and Allergies Home Medications Medication Instructions Recorded Confirmed Type Acidophilus 1 cap PO DAILY 07/21/21 09/05/21 History Eliquis 5 mg PO BID 07/21/21 09/05/21 History acetaminophen 650 mg PO Q4H PRN 07/21/21 09/05/21 History amlodipine 10 mg PO DAILY 07/21/21 09/05/21 History atorvastatin 40 mg PO HS 07/21/21 09/05/21 History bupropion HCl 150 mg PO DAILY 07/21/21 09/05/21 History cyclobenzaprine 10 mg PO HS PRN 07/21/21 09/05/21 History docusate sodium 100 mg PO BID PRN 07/21/21 09/05/21 History duloxetine 60 mg PO BID 07/21/21 09/05/21 History gabapentin 600 mg PO TID 07/21/21 09/05/21 History ipratropium bromide 2.5 ml INHALATION Q6H PRN 07/21/21 09/05/21 History magnesium oxide 400 mg PO DAILY 07/21/21 09/05/21 History metolazone 2.5 mg PO 2XW 07/21/21 09/05/21 History metoprolol succinate 150 mg PO DAILY 07/21/21 09/05/21 History nicotine 1 patch TRANSDERMAL DAILY 07/21/21 09/05/21 History pantoprazole 40 mg PO QAM 07/21/21 09/05/21 History tamsulosin 0.4 mg PO DAILY 07/21/21 09/05/21 History insulin aspart U-100 [Novolog See Rx Instructions .ROUTE .COMPLEX 08/01/21 09/05/21 History U-100 Insulin aspart] Lantus U-100 Insulin 18 unit SUBCUT HS #0 ml 08/12/21 09/05/21 Rx albuterol sulfate 2.5 mg INHALATION Q6HRT PRN #30 ea 08/12/21 09/05/21 Rx furosemide 40 mg PO BIDWM #30 tablet 08/12/21 09/05/21 Rx polyethylene glycol 3350 [Miralax] 17 g PO QAM PRN #30 ea 08/12/21 09/05/21 Rx tramadol 50 mg PO
[2021-09-15] MEDS: GABAPENTIN 300 MG CAPSULE 600 MG PO (10:52)
[2021-09-15] MEDS: NICOTINE (*PBKC) 21 MG PATCH 1 PATCH TRANSDERM (10:52)
[2021-09-15] MEDS: PANTOPRAZOLE 40 MG TABLET PO (10:52)
[2021-09-15] MEDS: DULoxetine HCL 60 MG CAPSULE.DR PO (10:53)
[2021-09-15] MEDS: TAMSULOSIN HCL 0.4 MG CAPSULE PO (10:53)
[2021-09-15] MEDS: MAGNESIUM OXIDE 400 MG TABLET PO (10:53)
[2021-09-15] MEDS: amLODIPine BESYLATE 5 MG TABLET PO (10:53)
[2021-09-15] MEDS: ACIDOPHILUS/BULGARICUS CHEWABLE TABLET 1 TABLET PO (10:53)
[2021-09-15] MEDS: FERROUS SULFATE 324 MG TABLET PO (10:53)
[2021-09-15 10:54] VITALS: PULSE 92
[2021-09-15] MEDS: buPROPion HCL XL (24 HR) 150 MG TABCR PO (10:54)
[2021-09-15] MEDS: METOPROLOL SUCCINATE EXT REL 50 MG TABCR 150 MG PO (10:54)
--- NOTE | 2021-09-15 11:00 | PCPTNOTE ---
Attempted PT this A.M., however patient would not keep eyes open and continue with participation. Patient only participated to assist with repositioning in bed to take medication.
[2021-09-15 11:47] LABS: Glucose Point of Care 134 mg/dl (65-105)
--- NOTE | 2021-09-15 11:57 | PM.IMPN ---
Progress Note: A&P Assessment and Plan (1) Unresponsive episode: Code(s): R41.89 - Other symptoms and signs involving cognitive functions and awareness Status: Acute Assessment and Plan: Acute altered mental status seems to have resolved. Patient is fully awake and alert, but confused. Some confusion persists as his baseline remains unclear. CT showing cerebral atrophy and mild small-vessel disease. Neurology recommendations appreciated. EEG showed bihemispheric delta activity with no evidence of seizure activity. Per Neurology EEG will be repeated. (2) Acute proctitis: Code(s): K62.89 - Other specified diseases of anus and rectum Status: Acute Assessment and Plan: Patient began was symptomatic with abdominal pain and diarrhea; CT Abd was checked showing Interval development of abnormal thickening of the distal sigmoid colon and rectum, consistent with proctitis. Currently on Zosyn for presumed proctitis and urinary tract infection. Colonoscopy reveals polyps that were resected. Mild to moderate proctitis was identified. Stop the Zosyn tomorrow. (3) Acute exacerbation of CHF (congestive heart failure): Qualifiers: Heart failure type: unspecified Qualified Code(s): I50.9 - Heart failure, unspecified Code(s): I50.9 - Heart failure, unspecified Status: Acute Assessment and Plan: Acute on chronic systolic congestive Heart failure. Presented with chest x-ray showing pulmonary edema and small bilateral pleural effusions. Patient was appropriately started on IV Lasix. Currently Lasix/Bumex is put on hold. He seems euvolemic on clinical exam. Repeat chest x-ray on 09/11/2021 shows unchanged pulmonary edema. However patient is symptomatically much improved. Repeat chest x-ray. Strict intake output record and daily weight. Continue to monitor renal parameters and electrolytes. Patient was also on BiPAP at the time of arrival due to respiratory acidosis likely due to CHF exacerbation. Now BiPAP has stopped. He is using his CPAP at nighttime and seems to be compliant with its use. He is on 3 L of oxygen at his baseline. Today he was on 3 L of oxygen but his oxygen saturation was in high 90s. He was weaned down to 2 L at the bedside. . (4) UTI (urinary tract infection): Code(s): N39.0 - Urinary tract infection, site not specified Status: Acute Assessment and Plan: Urinalysis showing 2+ leukocyte esterase, WBCs 51-75. Urine culture showing no growth. CT Abd 09/10/21 showing Interval development of abnormal thickening of the distal sigmoid colon and rectum, consistent with proctitis. Abnormal thickening of the bladder wall, consistent with cystitis. Currently on Zosyn for [id number] proctitis and urine tract infection. I Follow cultures Has Lakhani catheter in place. (5) COPD (chronic obstructive pulmonary disease): Qualifiers: COPD type: unspecified COPD Qualified Code(s): J44.9 - Chronic obstructive pulmonary disease, unspecified Code(s): J44.9 - Chronic obstructive pulmonary disease, unspecified Status: Acute Assessment and Plan: Continue with home inhalers No wheezing on exam (6) ELAINE (obstructive sleep apnea): Code(s): G47.33 - Obstructive sleep apnea (adult) (pediatric) Status: Chronic Assessment and Plan: Continue with home settings on a CPAP His seems compliant to the use of CPAP. (7) Acute kidney injury superimposed on CKD: Code(s): N17.9 - Acute kidney failure, unspecified; N18.9 - Chronic kidney disease, unspecified Status: Acute Assessment and Plan: Worsening on admission creatinine at 2.7. Baseline is somewhere between 1.5-1.8. Please continue to monitor. Renal ultrasound done negative for obstruction Creatinine is 2.2 on 09/14/2021. Repeat creatinine tomorrow. Diuretics have been put on hold. He seems euvolemic on clinical exa
[2021-09-15 12:37] LABS: Basophils Absolute Auto 0.1 K/mm3 (0.0-0.1); Basophils Percent Auto 0.9 % (0.2-1.2); Eosinophils Absolute Auto 0.5 K/mm3 (0-0.3); Eosinophils Percent Auto 5.7 % (0-4.4); Hematocrit 32.1 % (42.0-52.0); Hemoglobin 9.9 g/dL (14.0-18.0); Immature Granulocyte Absolute 0.03 K/mm3 (0.00-0.031); Immature Granulocyte Percent A 0.4 % (0-0.5); Lymphocytes Absolute Auto 1.08 K/mm3 (0.9-3.2); Lymphocytes Percent Auto 13.3 % (18.3-44.2); Mean Corpuscular HGB Conc 30.8 g/dl (32-36); Mean Corpuscular Volume 90.9 fl (80-100); Mean Platelet Volume 9.8 fl (7.4-10.4); Monocytes Absolute Auto 0.6 K/mm3 (0.1-0.6); Monocytes Percent Auto 7.5 % (2.6-8.5); Neutrophils Absolute Auto 5.9 K/mm3 (1.3-6.7); Neutrophils Percent Auto 72.2 % (45.5-73.1); Platelet Count Result 259 k/mm3 (150-375); Red Blood Count 3.53 M/mm3 (4.6-6.20); Red Cell Distribution Width 20.2 % (11.5-14.5); White Blood Count 8.1 K/mm3 (4.5-10.0)
[2021-09-15 12:50] LABS: Anion Gap 4 mmol/L (8-16); Blood Urea Nitrogen 54 mg/dL (9-20); Calcium 8.5 mg/dL (8.4-10.2); Carbon Dioxide 37 mmol/L (22-30); Chloride 98 mmol/L (98-107); Estimated CRCL calculation 43 ml/min; Estimated Glomerular Filt Rate 41; Glucose 158 mg/dL (65-110); Potassium 3.5 mmol/L (3.4-5.0); Sodium 139 mmol/L (137-145)
--- NOTE | 2021-09-15 12:52 | WPDANESPN ---
Anes - Prog Note Post-Op Date/Time: 09/15/21 12:52 Cardiovascular status: normal Respiratory status: normal Airway patency: baseline Mental status: baseline Post-Op hydration status: normal Vital Signs: Last Vital Signs Temp 36.7 C 09/15/21 06:00 Pulse 92 09/15/21 10:54 Resp 20 09/15/21 06:00 BP 145/80 H 09/15/21 06:00 Pulse Ox 93 09/15/21 06:00 Pain Score (VAS): 0 I/O: Intake & Output 09/14/21 09/15/21 09/15/21 23:59 07:59 15:59 Intake Total 782 100 Output Total 750 600 Balance 32 -500 Laboratory Tests 09/15/21 12:19 09/14/21 09/14/21 09/14/21 13:22 16:06 20:39 WBC RBC Hgb Hct MCV MCH MCHC RDW Plt Count MPV Immature Gran % (Auto) Neut % (Auto) Lymph % (Auto) Bibb % (Auto) Eos % (Auto) Baso % (Auto) Lymph # (Auto) Bibb # (Auto) Eos # (Auto) Baso # (Auto) Abs Immat Gran (auto) Absolute Neuts (auto) Absolute Nucleated RBC Nucleated RBC % Sodium Potassium Chloride Carbon Dioxide Anion Gap BUN Creatinine Estim Creat Clear Calc Estimated GFR Glucose POC Capillary Glucose 95 99 148 H Calcium 09/15/21 09/15/21 09/15/21 07:41 11:41 12:19 WBC Pending RBC Pending Hgb Pending Hct Pending MCV Pending MCH Pending MCHC Pending RDW Pending Plt Count Pending MPV Pending Immature Gran % (Auto) Pending Neut % (Auto) Pending Lymph % (Auto) Pending Bibb % (Auto) Pending Eos % (Auto) Pending Baso % (Auto) Pending Lymph # (Auto) Pending Bibb # (Auto) Pending Eos # (Auto) Pending Baso # (Auto) Pending Abs Immat Gran (auto) Pending Absolute Neuts (auto) Pending Absolute Nucleated RBC Pending Nucleated RBC % Pending Sodium Potassium Chloride Carbon Dioxide Anion Gap BUN Creatinine Estim Creat Clear Calc Estimated GFR Glucose POC Capillary Glucose 161 H 134 H Calcium 09/15/21 12:19 WBC RBC Hgb Hct MCV MCH MCHC RDW Plt Count MPV Immature Gran % (Auto) Neut % (Auto) Lymph % (Auto) Bibb % (Auto) Eos % (Auto) Baso % (Auto) Lymph # (Auto) Bibb # (Auto) Eos # (Auto) Baso # (Auto) Abs Immat Gran (auto) Absolute Neuts (auto) Absolute Nucleated RBC Nucleated RBC % Sodium 139 Potassium 3.5 Chloride 98 Carbon Dioxide 37 H Anion Gap 4 L BUN 54 H D Creatinine 1.70 H Estim Creat Clear Calc 43 Estimated GFR 41 L Glucose 158 H POC Capillary Glucose Calcium 8.5 Post-procedural complaints: none Patient Feedback: Patient satisfied with anesthetic care.
--- NOTE | 2021-09-15 13:51 | WPDGIPROGNO ---
Progress Note: A&P Assessment and Plan (1) Acute proctitis: Code(s): K62.89 - Other specified diseases of anus and rectum Status: Acute Assessment and Plan: mild inflammation near anal verge yesterday with pending bx ok to discontinue antibiotic will use canasa suppository for 4 weeks ok to resume eliquis on 09/17 colonoscopy in 3 years (2) Occult blood in stools: Code(s): R19.5 - Other fecal abnormalities Status: Acute Assessment and Plan: from colonoscopy findings (3) Acute on chronic renal failure: Code(s): N17.9 - Acute kidney failure, unspecified; N18.9 - Chronic kidney disease, unspecified Status: Acute Assessment and Plan: creatinine stable 1.7-2.2 (4) Confusion: Code(s): R41.0 - Disorientation, unspecified Status: Acute Assessment and Plan: resolved, neurology on board (5) Acute hypercapnic respiratory failure: Code(s): J96.02 - Acute respiratory failure with hypercapnia Status: Acute Assessment and Plan: resolved (6) Atrial fibrillation with slow ventricular response: Code(s): I48.91 - Unspecified atrial fibrillation Status: Acute Subjective Date/time seen: 09/15/21 13:51 Interval history: no new events, colonoscopy with few polyps removed and mild proctitis. Review of Systems Review of Systems: All systems reviewed & are unremarkable except as noted in HPI and below Exam Const: General: comfortable, no acute distress and ill appearing chronically HENMT: General nose exam: Normal nares present Eyes: Sclera: sclerae normal Neck: Neck: supple Resp: Auscultation: diminished lung sounds Cardio: Rhythm: abnormal rhythm irregularly irregular GI: Inspection: non-distended GI Palp: Yes Soft to palpation, No Tenderness to palpation present (GI) and No Guarding due to palpation present (GI) Auscultation: normal bowel sounds Urinary Catheter: Urinary Catheter: patent and draining Skin: General skin exam: no rashes or lesions noted Neuro: Speech: normal speech Other: awake and alert Extrem: General: pedal edema Other: chronic venous stasis Psych: Attitude: not belligerent Objective Data Vital Signs Vital Signs: Vital Signs - 24 hr 09/14/21 14:18 09/14/21 14:28 09/14/21 14:38 Temperature Pulse Rate 54 L 54 L 58 L Respiratory Rate 16 16 18 Blood Pressure 149/128 H 71/43 L 75/45 L Pulse Oximetry 97 94 94 09/14/21 14:48 09/14/21 14:58 09/14/21 20:00 Temperature Pulse Rate 56 L 58 L Respiratory Rate 16 18 Blood Pressure 85/50 L 91/45 L Pulse Oximetry 95 95 96 09/14/21 22:21 09/15/21 00:23 09/15/21 06:00 Temperature 98.0 F 98.0 F Pulse Rate 69 92 Respiratory Rate 20 20 Blood Pressure 78/53 L 145/80 H Pulse Oximetry 94 96 93 09/15/21 10:54 Temperature Pulse Rate 92 Respiratory Rate Blood Pressure Pulse Oximetry Intake/Output Intake/Output: Intake & Output 09/12/21 09/13/21 09/14/21 09/15/21 23:59 23:59 23:59 23:59 Intake Total 1538 734 3350 100 Output Total 1150 1550 1400 600 Balance -90 -980 682 -500 Meds/Results Medications: Active Medications Generic Name Dose Route Start Last Admin Trade Name Freq PRN Reason Stop Dose Admin Acetaminophen 650 mg 09/05/21 13:54 09/12/21 17:13 Acetaminophen 325 Mg Tablet PO 650 mg Q4H PRN Administration Mild Pain (1-3) or Fever Hydrocodone Bitart/Acetaminophen 1 tab 09/12/21 10:38 09/12/21 20:25 Hydrocodone/Acetaminophen (*Crx) 5-325 Mg Tablet PO 1 tab Q6H PRN Administration Pain Rated 4-6 Amlodipine Besylate 5 mg 09/15/21 09:00 09/15/21 10:53 Amlodipine Besylate 5 Mg Tablet PO 5 mg DAILY CRISTINA Administration Atorvastatin Calcium 40 mg 09/05/21 21:00 09/14/21 20:41 Atorvastatin 40 Mg Tablet PO 40 mg HS CRISTINA Administration Bupropion HCl 150 mg 09/06/21 09:00 09/15/21 10:54 Bupropion Hcl Xl (24 Hr) 150 Mg Tabcr PO 150 mg D
--- NOTE | 2021-09-15 14:24 | P.PNNP_ITS ---
Progress Note: A&P Assessment and Plan (1) Acute kidney injury: Code(s): N17.9 - Acute kidney failure, unspecified Status: Acute Assessment and Plan: * improving by recent labs * precipitated by several issues: - decompensated respiratory failure - HTN (hemodynamics fluctuating) - significant diuretic burden (resuming PRN diuretics given recent imaging) - urinary tract infection (although culture is negative) - recent proctitis * follow trend of repeat labs with current interventions (2) Stage 3b chronic kidney disease: Code(s): N18.32 - Chronic kidney disease, stage 3b Status: Chronic Assessment and Plan: * baseline creatinine running 1.6 - 2.1mg/dl for the last year * likely a manifestation of his CHF, need for diuretics, pulmonary HTN, diabetes, and hypertension * may need to accept a higher creatinine to maintain his volume status * probably okay to [facility] (3) Acute proctitis: Code(s): K62.89 - Other specified diseases of anus and rectum Status: Acute Assessment and Plan: * as noted by CT scan * follow blood cultures * on IV antibiotics * GI following with recommendations noted * s/p colonoscopy with a few polyps and known proctitis (4) Acute exacerbation of CHF (congestive heart failure): Code(s): I50.9 - Heart failure, unspecified Status: Acute Assessment and Plan: * clinically better * diuretics on hold given rising creatinine - probably okay to restart * recheck CXR * follow I/Os, daily weights, and respiratory status (5) Acute hypercapnic respiratory failure: Code(s): J96.02 - Acute respiratory failure with hypercapnia Status: Acute Assessment and Plan: * better at this time * continue supportive therapy (6) Essential hypertension: Code(s): I10 - Essential (primary) hypertension Status: Acute Assessment and Plan: * reasonable at this time * follow trend of hemodynamics (7) Type 2 diabetes mellitus treated with insulin: Code(s): E11.9 - Type 2 diabetes mellitus without complications; Z79.4 - exterminator helper termite (current) use of insulin Status: Chronic Assessment and Plan: * follow accu-cheks * on sliding scale insulin Will continue to follow. Subjective Date/time seen: 09/15/21 14:24 Unable to see yesterday as was out of room for procedure (colonoscopy); tolerated procedure reasonably well with findings of a few polyps that were removed and mild proctitis; no other acute issues/events noted at this time; feels okay on my visit with him Exam Narrative: General: WD/WN male in NAD Heart: normal S1 and S2; no rub Lungs: clear anteriorly but decreased at bases Abdomen: soft, nontender, nondistended, positive bowel sounds Extremities: no cyanosis or clubbing; trace - 1+ edema Skin: warm and intact Objective Data Vital Signs Vital Signs: Vital Signs Temp Pulse Resp BP Pulse Ox 09/15/21 10:54 92 09/15/21 06:00 36.7 C 92 20 145/80 H 93 09/15/21 00:23 96 09/14/21 22:21 36.7 C 69 20 78/53 L 94 09/14/21 20:00 96 Intake/Output Intake/Output: Intake & Output 09/12/21 09/13/21 09/14/21 09/15/21 23:59 23:59 23:59 23:59
--- NOTE | 2021-09-15 14:24 | PM.PNNEP ---
Progress Note: A&P Assessment and Plan (1) Acute kidney injury: Code(s): N17.9 - Acute kidney failure, unspecified Status: Acute Assessment and Plan: improving by recent labs precipitated by several issues: - decompensated respiratory failure - HTN (hemodynamics fluctuating) - significant diuretic burden (resuming PRN diuretics given recent imaging) - urinary tract infection (although culture is negative) - recent proctitis follow trend of repeat labs with current interventions (2) Stage 3b chronic kidney disease: Code(s): N18.32 - Chronic kidney disease, stage 3b Status: Chronic Assessment and Plan: baseline creatinine running 1.6 - 2.1mg/dl for the last year likely a manifestation of his CHF, need for diuretics, pulmonary HTN, diabetes, and hypertension may need to accept a higher creatinine to maintain his volume status probably okay to restart [facility] (3) Acute proctitis: Code(s): K62.89 - Other specified diseases of anus and rectum Status: Acute Assessment and Plan: as noted by CT scan follow blood cultures on IV antibiotics GI following with recommendations noted s/p colonoscopy with a few polyps and known proctitis (4) Acute exacerbation of CHF (congestive heart failure): Code(s): I50.9 - Heart failure, unspecified Status: Acute Assessment and Plan: clinically better diuretics on hold given rising creatinine - probably okay to restart recheck CXR follow I/Os, daily weights, and respiratory status (5) Acute hypercapnic respiratory failure: Code(s): J96.02 - Acute respiratory failure with hypercapnia Status: Acute Assessment and Plan: better at this time continue supportive therapy (6) Essential hypertension: Code(s): I10 - Essential (primary) hypertension Status: Acute Assessment and Plan: reasonable at this time follow trend of hemodynamics (7) Type 2 diabetes mellitus treated with insulin: Code(s): E11.9 - Type 2 diabetes mellitus without complications; Z79.4 - terminal operations supervisor (current) use of insulin Status: Chronic Assessment and Plan: follow accu-cheks on sliding scale insulin Will continue to follow. Subjective Date/time seen: 09/15/21 14:24 Unable to see yesterday as was out of room for procedure (colonoscopy); tolerated procedure reasonably well with findings of a few polyps that were removed and mild proctitis; no other acute issues/events noted at this time; feels okay on my visit with him Exam Narrative: General: WD/WN male in NAD Heart: normal S1 and S2; no rub Lungs: clear anteriorly but decreased at bases Abdomen: soft, nontender, nondistended, positive bowel sounds Extremities: no cyanosis or clubbing; trace - 1+ edema Skin: warm and intact Objective Data Vital Signs Vital Signs: Vital Signs Temp Pulse Resp BP Pulse Ox 09/15/21 10:54 92 09/15/21 06:00 36.7 C 92 20 145/80 H 93 09/15/21 00:23 96 09/14/21 22:21 36.7 C 69 20 78/53 L 94 09/14/21 20:00 96 Intake/Output Intake/Output: Intake & Output 09/12/21 09/13/21 09/14/21 09/15/21 23:59 23:59 23:59 23:59 Intake Total 8895 376 7419 150 Output Total 1150 1550 1400 1400 Balance -90 -980 682 -1250 Meds/Results Medications: Active Medications Generic Name Dose Route Start Last Admin Trade Name Freq PRN Reason Stop Dose Admin Acetaminophen 650 mg 09/05/21 13:54 09/12/21 17:13 Acetaminophen 325 Mg Tablet PO 650 mg Q4H PRN Administration Mild Pain (1-3) or Fever Hydrocodone Bitart/Acetaminophen 1 tab 09/12/21 10:38 09/12/21 20:25 Hydrocodone/Acetaminophen (*Crx) 5-325 Mg Tablet PO 1 tab Q6H PRN Administration Pain Rated 4-6 Amlodipine Besylate 5 mg 09/15/21 09:00 09/15/21 10:53 Amlodipine
[2021-09-15 16:53] LABS: Glucose Point of Care 141 mg/dl (65-105)
[2021-09-15 17:18] VITALS: BP 145/73; PULSE 90; RESP 20; TEMP 36.7; O2SAT 92
[2021-09-15 20:00] VITALS: PULSE 68; RESP 18; O2SAT 98
[2021-09-15 21:52] VITALS: BP 80/49; PULSE 68; RESP 18; TEMP 36.2; O2SAT 98
[2021-09-15] MEDS: MESALAMINE 1,000 MG SUPP.RECT 1000 MG RECTAL (22:29)
[2021-09-15] MEDS: ATORVASTATIN 40 MG TABLET PO (22:29)
[2021-09-15] MEDS: INSULIN GLARGINE (*BKC) 100 UNITS/ML SUB-Q (22:30)
[2021-09-15 22:47] LABS: Glucose Point of Care 174 mg/dl (65-105)
[2021-09-16] MEDS: ACETAMINOPHEN 325 MG TABLET 650 MG PO (00:13)
[2021-09-16 05:50] VITALS: BP 83/54; PULSE 60; RESP 20; TEMP 36.4; O2SAT 98
[2021-09-16 06:31] LABS: Basophils Absolute Auto 0.1 K/mm3 (0.0-0.1); Basophils Percent Auto 0.8 % (0.2-1.2); Eosinophils Absolute Auto 0.5 K/mm3 (0-0.3); Eosinophils Percent Auto 7.4 % (0-4.4); Hematocrit 29.9 % (42.0-52.0); Hemoglobin 9.1 g/dL (14.0-18.0); Immature Granulocyte Absolute 0.02 K/mm3 (0.00-0.031); Immature Granulocyte Percent A 0.3 % (0-0.5); Lymphocytes Absolute Auto 1.16 K/mm3 (0.9-3.2); Lymphocytes Percent Auto 17.5 % (18.3-44.2); Mean Corpuscular HGB Conc 30.4 g/dl (32-36); Mean Corpuscular Hemoglobin 27.4 pg (26-34); Mean Corpuscular Volume 90.1 fl (80-100); Mean Platelet Volume 9.9 fl (7.4-10.4); Monocytes Absolute Auto 0.6 K/mm3 (0.1-0.6); Monocytes Percent Auto 9.7 % (2.6-8.5); Neutrophils Absolute Auto 4.3 K/mm3 (1.3-6.7); Neutrophils Percent Auto 64.3 % (45.5-73.1); Platelet Count Result 244 k/mm3 (150-375); Red Blood Count 3.32 M/mm3 (4.6-6.20); Red Cell Distribution Width 19.9 % (11.5-14.5); White Blood Count 6.6 K/mm3 (4.5-10.0)
[2021-09-16 06:53] LABS: Anion Gap 2 mmol/L (8-16); Blood Urea Nitrogen 41 mg/dL (9-20); Calcium 8.3 mg/dL (8.4-10.2); Carbon Dioxide 34 mmol/L (22-30); Chloride 103 mmol/L (98-107); Estimated CRCL calculation 52 ml/min; Estimated Glomerular Filt Rate 52; Glucose 125 mg/dL (65-110); Potassium 2.9 mmol/L (3.4-5.0); Sodium 139 mmol/L (137-145)
[2021-09-16 08:35] LABS: Glucose Point of Care 122 mg/dl (65-105)
[2021-09-16] MEDS: UMECLIDINIUM BROMIDE 62.5 MCG ELLIPTA 1 PUFF INHALATION (09:26)
[2021-09-16] MEDS: FERROUS SULFATE 324 MG TABLET PO ×2 (10:13→18:23)
[2021-09-16] MEDS: DULoxetine HCL 60 MG CAPSULE.DR PO ×2 (10:13→18:23)
[2021-09-16] MEDS: amLODIPine BESYLATE 5 MG TABLET PO (10:13)
[2021-09-16] MEDS: PANTOPRAZOLE 40 MG TABLET PO (10:13)
[2021-09-16] MEDS: ACIDOPHILUS/BULGARICUS CHEWABLE TABLET 1 TABLET PO (10:13)
[2021-09-16 10:14] VITALS: PULSE 80
[2021-09-16] MEDS: buPROPion HCL XL (24 HR) 150 MG TABCR PO (10:14)
[2021-09-16] MEDS: METOPROLOL SUCCINATE EXT REL 50 MG TABCR 150 MG PO (10:14)
[2021-09-16] MEDS: TAMSULOSIN HCL 0.4 MG CAPSULE PO (10:14)
[2021-09-16] MEDS: MAGNESIUM OXIDE 400 MG TABLET PO (10:15)
[2021-09-16] MEDS: GABAPENTIN 300 MG CAPSULE 600 MG PO ×2 (10:15→18:22)
--- NOTE | 2021-09-16 11:36 | PCOTNOTE ---
Attempted to see patient twice this am. First attempt, patient was eating breakfast. Second attempt, patient declined due to frequent bowel movements.
[2021-09-16 11:42] LABS: Glucose Point of Care 147 mg/dl (65-105)
--- NOTE | 2021-09-16 12:54 | PCNFU ---
Nutrition Follow-Up Complete: Increased protein needs related to left heel deep tissue pressure ulcer as evidenced by Seamus supplementation BID. Goal: Patient to meet estimated nutritional needs. Patient is progressing towards goal. We will continue goal. Pt current nutrition is DBCC. Last recorded weight is 94.3 kg, down from 99.9 kg on admit. Bowel Motility:+BM 09/16 Labs Reviewed:K 2.9,Cr 1.4,BUN 41, GFR 52, Glu 125 Meds Noted:Norvasc, Wellbutrin, Cymbalta, Ferrous Sulfate,Toprol, Lantus, Mag oxide. Skin: left heel-Deep tissue Additional Notes:Nutrition follow up. Patient is consuming greater than 75% of [facility] diet for breakfast today. Still confused at time. Agree with diet orders. Monitoring: patient's labs, medications, weight, and oral intake every 5 days.
[2021-09-16 14:54] VITALS: BP 89/63; PULSE 76; RESP 14; TEMP 36.4; O2SAT 91
--- NOTE | 2021-09-16 15:34 | PM.IMPN ---
Progress Note: A&P Assessment and Plan (1) Unresponsive episode: Code(s): R41.89 - Other symptoms and signs involving cognitive functions and awareness Status: Acute Assessment and Plan: Acute altered mental status seems to have resolved. . (2) Acute proctitis: Code(s): K62.89 - Other specified diseases of anus and rectum Status: Acute Assessment and Plan: Patient began was symptomatic with abdominal pain and diarrhea; CT Abd was checked showing Interval development of abnormal thickening of the distal sigmoid colon and rectum, consistent with proctitis. Currently on Zosyn for presumed proctitis and urinary tract infection. Colonoscopy reveals polyps that were resected. Mild to moderate proctitis was identified. (3) Acute exacerbation of CHF (congestive heart failure): Qualifiers: Heart failure type: unspecified Qualified Code(s): I50.9 - Heart failure, unspecified Code(s): I50.9 - Heart failure, unspecified Status: Acute Assessment and Plan: Acute on chronic systolic congestive Heart failure. Presented with chest x-ray showing pulmonary edema and small bilateral pleural effusions. Patient was appropriately started on IV Lasix. Currently Lasix/Bumex is put on hold. He seems euvolemic on clinical exam. Repeat chest x-ray on 09/11/2021 shows unchanged pulmonary edema. However patient is symptomatically much improved. Repeat chest x-ray. Strict intake output record and daily weight. Continue to monitor renal parameters and electrolytes. Patient was also on BiPAP at the time of arrival due to respiratory acidosis likely due to CHF exacerbation. Now BiPAP has stopped. He is using his CPAP at nighttime and seems to be compliant with its use. Pt s bp are low . (4) UTI (urinary tract infection): Code(s): N39.0 - Urinary tract infection, site not specified Status: Acute Assessment and Plan: Urinalysis showing 2+ leukocyte esterase, WBCs 51-75. Urine culture showing no growth. CT Abd 09/10/21 showing Interval development of abnormal thickening of the distal sigmoid colon and rectum, consistent with proctitis. Abnormal thickening of the bladder wall, consistent with cystitis. Follow cultures Has Lakhani catheter in place. (5) COPD (chronic obstructive pulmonary disease): Qualifiers: COPD type: unspecified COPD Qualified Code(s): J44.9 - Chronic obstructive pulmonary disease, unspecified Code(s): J44.9 - Chronic obstructive pulmonary disease, unspecified Status: Acute Assessment and Plan: Continue with home inhalers No wheezing on exam (6) ELAINE (obstructive sleep apnea): Code(s): G47.33 - Obstructive sleep apnea (adult) (pediatric) Status: Chronic Assessment and Plan: Continue with home settings on a CPAP His seems compliant to the use of CPAP. (7) Acute kidney injury superimposed on CKD: Code(s): N17.9 - Acute kidney failure, unspecified; N18.9 - Chronic kidney disease, unspecified Status: Acute Assessment and Plan: Worsening on admission creatinine at 2.7. Baseline is somewhere between 1.5-1.8. Please continue to monitor. Renal ultrasound done negative for obstruction Creatinine is 2.2 on 09/14/2021. Repeat creatinine tomorrow. Diuretics have been put on hold. He seems euvolemic on clinical exam. He is on 3 L of oxygen at the bedside though chart says 5 L. His baseline oxygen requirement is 3 L. Continue monitoring renal function and electrolytes (8) Atrial fibrillation with slow ventricular response: Code(s): I48.91 - Unspecified atrial fibrillation Status: Acute Assessment and Plan: Currently rate control with metoprolol 150 mg p.o. daily. Continue heart rate monitoring. Continue Eliquis (9) Type 2 diabetes mellitus treated with insulin: Code(s): E11.9 - Type 2 diabetes mellitus without complications
--- NOTE | 2021-09-16 15:44 | P.PNNP_ITS ---
Progress Note: A&P Assessment and Plan (1) Acute kidney injury: Code(s): N17.9 - Acute kidney failure, unspecified Status: Acute Assessment and Plan: * improving by recent labs * precipitated by several issues: - decompensated respiratory failure - HTN (hemodynamics fluctuating) - significant diuretic burden (resuming PRN diuretics given recent imaging) - urinary tract infection (although culture is negative) - recent proctitis * follow trend of repeat labs with current interventions (2) Stage 3b chronic kidney disease: Code(s): N18.32 - Chronic kidney disease, stage 3b Status: Chronic Assessment and Plan: * baseline creatinine running 1.6 - 2.1mg/dl for the last year * likely a manifestation of his CHF, need for diuretics, pulmonary HTN, diabetes, and hypertension * may need to accept a higher creatinine to maintain his volume status * probably okay to restart chronic diuretics - follow-up on CXR (3) Acute proctitis: Code(s): K62.89 - Other specified diseases of anus and rectum Status: Acute Assessment and Plan: * as noted by CT scan * follow blood cultures * on IV antibiotics * GI following with recommendations noted * s/p colonoscopy with a few polyps and known proctitis (4) Acute exacerbation of CHF (congestive heart failure): Code(s): I50.9 - Heart failure, unspecified Status: Acute Assessment and Plan: * clinically better * diuretics on hold given rising creatinine - probably okay to restart diuretics * recheck CXR * follow I/Os, daily weights, and respiratory status (5) Acute hypercapnic respiratory failure: Code(s): J96.02 - Acute respiratory failure with hypercapnia Status: Acute Assessment and Plan: * better at this time * continue supportive therapy (6) Essential hypertension: Code(s): I10 - Essential (primary) hypertension Status: Acute Assessment and Plan: * reasonable at this time * follow trend of hemodynamics (7) Type 2 diabetes mellitus treated with insulin: Code(s): E11.9 - Type 2 diabetes mellitus without complications; Z79.4 - correction (current) use of insulin Status: Chronic Assessment and Plan: * follow accu-cheks * on sliding scale insulin Will continue to follow. Subjective Date/time seen: 09/16/21 15:44 No real significant change noted from when I last saw him; no apparent distress voiced at the time of my visit; feels reasonably well; intermittent confusion seems to persist. Exam Narrative: General: WD/WN male in NAD Heart: normal S1 and S2; no rub Lungs: clear anteriorly but decreased at bases Abdomen: soft, nontender, nondistended, positive bowel sounds Extremities: no cyanosis or clubbing; trace - 1+ edema Skin: warm and intact Objective Data Vital Signs Vital Signs: Vital Signs Temp Pulse Resp BP Pulse Ox 09/16/21 14:54 36.4 C L 76 14 89/63 L 91 09/16/21 10:14 80 09/16/21 05:50 36.4 C L 60 20 83/54 L 98 09/15/21 21:52 36.2 C L 68 18 80/49 L 98 09/15/21 20:00 68 18 98 09/15/21 17:18 36.7 C 90 20 145/73 H 92 Intake/Output Intake/Output: Intake & Output 09/13/21 09/14/21 09/15/21 09/16/21 23:59 23:59 23:5
--- NOTE | 2021-09-16 15:44 | PM.PNNEP ---
Progress Note: A&P Assessment and Plan (1) Acute kidney injury: Code(s): N17.9 - Acute kidney failure, unspecified Status: Acute Assessment and Plan: improving by recent labs precipitated by several issues: - decompensated respiratory failure - HTN (hemodynamics fluctuating) - significant diuretic burden (resuming PRN diuretics given recent imaging) - urinary tract infection (although culture is negative) - recent proctitis follow trend of repeat labs with current interventions (2) Stage 3b chronic kidney disease: Code(s): N18.32 - Chronic kidney disease, stage 3b Status: Chronic Assessment and Plan: baseline creatinine running 1.6 - 2.1mg/dl for the last year likely a manifestation of his CHF, need for diuretics, pulmonary HTN, diabetes, and hypertension may need to accept a higher creatinine to maintain his volume status probably okay to restart chronic diuretics - follow-up on CXR (3) Acute proctitis: Code(s): K62.89 - Other specified diseases of anus and rectum Status: Acute Assessment and Plan: as noted by CT scan follow blood cultures on IV antibiotics GI following with recommendations noted s/p colonoscopy with a few polyps and known proctitis (4) Acute exacerbation of CHF (congestive heart failure): Code(s): I50.9 - Heart failure, unspecified Status: Acute Assessment and Plan: clinically better diuretics on hold given rising creatinine - probably okay to restart diuretics recheck CXR follow I/Os, daily weights, and respiratory status (5) Acute hypercapnic respiratory failure: Code(s): J96.02 - Acute respiratory failure with hypercapnia Status: Acute Assessment and Plan: better at this time continue supportive therapy (6) Essential hypertension: Code(s): I10 - Essential (primary) hypertension Status: Acute Assessment and Plan: reasonable at this time follow trend of hemodynamics (7) Type 2 diabetes mellitus treated with insulin: Code(s): E11.9 - Type 2 diabetes mellitus without complications; Z79.4 - moth exterminator (current) use of insulin Status: Chronic Assessment and Plan: follow accu-cheks on sliding scale insulin Will continue to follow. Subjective Date/time seen: 09/16/21 15:44 No real significant change noted from when I last saw him; no apparent distress voiced at the time of my visit; feels reasonably well; intermittent confusion seems to persist. Exam Narrative: General: WD/WN male in NAD Heart: normal S1 and S2; no rub Lungs: clear anteriorly but decreased at bases Abdomen: soft, nontender, nondistended, positive bowel sounds Extremities: no cyanosis or clubbing; trace - 1+ edema Skin: warm and intact Objective Data Vital Signs Vital Signs: Vital Signs Temp Pulse Resp BP Pulse Ox 09/16/21 14:54 36.4 C L 76 14 89/63 L 91 09/16/21 10:14 80 09/16/21 05:50 36.4 C L 60 20 83/54 L 98 09/15/21 21:52 36.2 C L 68 18 80/49 L 98 09/15/21 20:00 68 18 98 09/15/21 17:18 36.7 C 90 20 145/73 H 92 Intake/Output Intake/Output: Intake & Output 09/13/21 09/14/21 09/15/21 09/16/21 23:59 23:59 23:59 23:59 Intake Total 570 2082 320 630 Output Total 1550 1400 1400 550 Balance -980 682 -1080 80 Meds/Results Medications: Active Medications Generic Name Dose Route Start Last Admin Trade Name Freq PRN Reason Stop Dose Admin Acetaminophen 650 mg 09/05/21 13:54 09/16/21 00:13 Acetaminophen 325 Mg Tablet PO 650 mg Q4H PRN Administration Mild Pain (1-3) or Fever Hydrocodone Bitart/Acetaminophen 1 tab 09/12/21 10:38 09/12/21 20:25 Hydrocodone/Acetaminophen (*Crx) 5-325 Mg Tablet PO 1 tab Q6H PRN Administration Pain Rated 4-6 Amlodipine Besylate 5 mg 09/15/21 09:00 09/16/21 10:13
--- NOTE | 2021-09-16 15:44 | WPDGIPROGNO ---
Progress Note: A&P Assessment and Plan (1) Acute proctitis: Code(s): K62.89 - Other specified diseases of anus and rectum Status: Acute Assessment and Plan: mild inflammation near anal verge, bx still pending ok to discontinue systemic antibiotic and continue canasa suppository for 4 weeks ok to resume eliquis tomorrow (he is on chronic AC) colonoscopy in 3 years call if questions (2) Occult blood in stools: Code(s): R19.5 - Other fecal abnormalities Status: Acute Assessment and Plan: from colonoscopy findings (3) Acute on chronic renal failure: Code(s): N17.9 - Acute kidney failure, unspecified; N18.9 - Chronic kidney disease, unspecified Status: Acute Assessment and Plan: creatinine improving, now 1.4 (4) Confusion: Code(s): R41.0 - Disorientation, unspecified Status: Acute Assessment and Plan: resolved, neurology on board (5) Acute hypercapnic respiratory failure: Code(s): J96.02 - Acute respiratory failure with hypercapnia Status: Acute Assessment and Plan: resolved (6) Atrial fibrillation with slow ventricular response: Code(s): I48.91 - Unspecified atrial fibrillation Status: Acute Assessment and Plan: resume eliquis tomorrow Subjective Date/time seen: 09/16/21 15:44 Interval history: no major changes Review of Systems Review of Systems: All systems reviewed & are unremarkable except as noted in HPI and below Exam Const: General: comfortable, no acute distress and ill appearing chronically HENMT: General nose exam: Normal nares present Eyes: Sclera: sclerae normal Neck: Neck: supple Resp: Auscultation: diminished lung sounds Cardio: Rhythm: abnormal rhythm irregularly irregular GI: Inspection: non-distended GI Palp: Yes Soft to palpation, No Tenderness to palpation present (GI) and No Guarding due to palpation present (GI) Auscultation: normal bowel sounds Skin: General skin exam: no rashes or lesions noted Neuro: Speech: normal speech Other: awake and alert Extrem: General: pedal edema Other: chronic venous stasis Psych: Attitude: not belligerent Objective Data Vital Signs Vital Signs: Vital Signs - 24 hr 09/15/21 17:18 09/15/21 20:00 09/15/21 21:52 Temperature 98.0 F 97.1 F L Pulse Rate 90 68 68 Respiratory Rate 20 18 18 Blood Pressure 145/73 H 80/49 L Pulse Oximetry 92 98 98 09/16/21 05:50 09/16/21 10:14 09/16/21 14:54 Temperature 97.5 F L 97.5 F L Pulse Rate 60 80 76 Respiratory Rate 20 14 Blood Pressure 83/54 L 89/63 L Pulse Oximetry 98 91 Intake/Output Intake/Output: Intake & Output 09/13/21 09/14/21 09/15/21 09/16/21 23:59 23:59 23:59 23:59 Intake Total 570 2082 320 580 Output Total 1550 1400 1400 550 Balance -980 152 -0184 30 Meds/Results Medications: Active Medications Generic Name Dose Route Start Last Admin Trade Name Freq PRN Reason Stop Dose Admin Acetaminophen 650 mg 09/05/21 13:54 09/16/21 00:13 Acetaminophen 325 Mg Tablet PO 650 mg Q4H PRN Administration Mild Pain (1-3) or Fever Hydrocodone Bitart/Acetaminophen 1 tab 09/12/21 10:38 09/12/21 20:25 Hydrocodone/Acetaminophen (*Crx) 5-325 Mg Tablet PO 1 tab Q6H PRN Administration Pain Rated 4-6 Amlodipine Besylate 5 mg 09/15/21 09:00 09/16/21 10:13 Amlodipine Besylate 5 Mg Tablet PO 5 mg DAILY CRISTINA Administration Atorvastatin Calcium 40 mg 09/05/21 21:00 09/15/21 22:29 Atorvastatin 40 Mg Tablet PO 40 mg HS CRISTINA Administration Bupropion HCl 150 mg 09/06/21 09:00 09/16/21 10:14 Bupropion Hcl Xl (24 Hr) 150 Mg Tabcr PO 150 mg DAILY CRISTINA Administration Dextrose 12.5 gm 09/05/21 15:57 Dextrose 50% 25 Gm/50 Ml Syringe IV PUSH PRN PRN Hypoglycemia Protocol Docusate Sodium 100 mg 09/05/21 18:48 09/10/21 21:22 Docusate Sodium 100 Mg Capsule PO 100 mg BID PRN Administratio
[2021-09-16 17:10] LABS: Glucose Point of Care 118 mg/dl (65-105)
[2021-09-16 18:17] LABS: Anion Gap 6 mmol/L (8-16); Blood Urea Nitrogen 33 mg/dL (9-20); Calcium 8.5 mg/dL (8.4-10.2); Carbon Dioxide 34 mmol/L (22-30); Chloride 101 mmol/L (98-107); Estimated CRCL calculation 56 ml/min; Estimated Glomerular Filt Rate 56; Glucose 131 mg/dL (65-110); Sodium 141 mmol/L (137-145)
[2021-09-16] MEDS: metroNIDAZOLE 250 MG TABLET 500 MG PO ×2 (18:22→23:20)
[2021-09-16] MEDS: KCL 20 MEQ/SW 100 ML 100 ML 50 MEQ IVPB (18:23)
[2021-09-16 20:00] VITALS: PULSE 67; RESP 20; O2SAT 95
[2021-09-16] MEDS: ATORVASTATIN 40 MG TABLET PO (20:30)
[2021-09-16] MEDS: MESALAMINE 1,000 MG SUPP.RECT 1000 MG RECTAL (20:32)
[2021-09-16] MEDS: INSULIN GLARGINE (*BKC) 100 UNITS/ML SUB-Q (21:18)
[2021-09-16 22:00] VITALS: BP 110/54; PULSE 60; RESP 20; TEMP 36.6; O2SAT 92
[2021-09-16 22:22] LABS: Glucose Point of Care 184 mg/dl (65-105)
[2021-09-17] VITALS (7 sets, daily range): BP systolic 126–139; BP diastolic 52–74; PULSE 64–71; RESP 16–18; TEMP 36.3–36.8; O2SAT 92–100
[2021-09-17] MEDS: metroNIDAZOLE 250 MG TABLET 500 MG PO ×3 (05:48→17:33)
[2021-09-17 06:56] LABS: Anion Gap 0 mmol/L (8-16); Blood Urea Nitrogen 41 mg/dL (9-20); Calcium 8.5 mg/dL (8.4-10.2); Carbon Dioxide 39 mmol/L (22-30); Chloride 102 mmol/L (98-107); Estimated CRCL calculation 49 ml/min; Estimated Glomerular Filt Rate 48; Glucose 124 mg/dL (65-110); Potassium 3.8 mmol/L (3.4-5.0); Sodium 141 mmol/L (137-145)
[2021-09-17 07:18] LABS: Hematocrit 31.7 % (42.0-52.0); Hemoglobin 9.7 g/dL (14.0-18.0); Mean Corpuscular HGB Conc 30.6 g/dl (32-36); Mean Corpuscular Hemoglobin 28.5 pg (26-34); Mean Corpuscular Volume 93.2 fl (80-100); Platelet Count Result 253 k/mm3 (150-375); Red Cell Distribution Width 19.5 % (11.5-14.5); White Blood Count 8.8 K/mm3 (4.5-10.0)
[2021-09-17 08:19] LABS: Glucose Point of Care 111 mg/dl (65-105)
[2021-09-17] MEDS: GABAPENTIN 300 MG CAPSULE 600 MG PO ×3 (09:17→17:32)
[2021-09-17] MEDS: TAMSULOSIN HCL 0.4 MG CAPSULE PO (09:17)
[2021-09-17] MEDS: NICOTINE (*PBKC) 21 MG PATCH 1 PATCH TRANSDERM (09:17)
[2021-09-17] MEDS: buPROPion HCL XL (24 HR) 150 MG TABCR PO (09:18)
[2021-09-17] MEDS: DULoxetine HCL 60 MG CAPSULE.DR PO ×2 (09:18→17:32)
[2021-09-17] MEDS: MAGNESIUM OXIDE 400 MG TABLET PO (09:18)
[2021-09-17] MEDS: ACIDOPHILUS/BULGARICUS CHEWABLE TABLET 1 TABLET PO (09:18)
[2021-09-17] MEDS: FERROUS SULFATE 324 MG TABLET PO ×2 (09:18→17:32)
[2021-09-17] MEDS: PANTOPRAZOLE 40 MG TABLET PO (09:18)
[2021-09-17] MEDS: UMECLIDINIUM BROMIDE 62.5 MCG ELLIPTA 1 PUFF INHALATION (10:29)
[2021-09-17 12:18] LABS: Glucose Point of Care 195 mg/dl (65-105)
--- NOTE | 2021-09-17 14:28 | PM.IMPN ---
Progress Note: A&P Assessment and Plan (1) Unresponsive episode: Code(s): R41.89 - Other symptoms and signs involving cognitive functions and awareness Status: Acute Assessment and Plan: Acute altered mental status seems to have resolved. (2) Acute proctitis: Code(s): K62.89 - Other specified diseases of anus and rectum Status: Acute Assessment and Plan: Patient began was symptomatic with abdominal pain and diarrhea; CT Abd was checked showing Interval development of abnormal thickening of the distal sigmoid colon and rectum, consistent with proctitis. Colonoscopy reveals polyps that were resected. Mild to moderate proctitis was identified. Pt came off his iv abx on oarl now and ac suppository (3) Acute exacerbation of CHF (congestive heart failure): Qualifiers: Heart failure type: unspecified Qualified Code(s): I50.9 - Heart failure, unspecified Code(s): I50.9 - Heart failure, unspecified Status: Acute Assessment and Plan: Acute on chronic systolic congestive Heart failure. Presented with chest x-ray showing pulmonary edema and small bilateral pleural effusions. Patient was appropriately started on IV Lasix. Currently Lasix/Bumex is put on hold. He seems euvolemic on clinical exam. Repeat chest x-ray on 09/11/2021 shows unchanged pulmonary edema. However patient is symptomatically much improved. Repeat chest x-ray. Strict intake output record and daily weight. Continue to monitor renal parameters and electrolytes. Patient was also on BiPAP at the time of arrival due to respiratory acidosis likely due to CHF exacerbation. Now BiPAP has stopped. He is using his CPAP at nighttime and seems to be compliant with its use. Bp is better . (4) UTI (urinary tract infection): Code(s): N39.0 - Urinary tract infection, site not specified Status: Acute Assessment and Plan: Urinalysis showing 2+ leukocyte esterase, WBCs 51-75. Urine culture showing no growth. CT Abd 09/10/21 showing Interval development of abnormal thickening of the distal sigmoid colon and rectum, consistent with proctitis. Abnormal thickening of the bladder wall, consistent with cystitis. Follow cultures Has Lakhani catheter in place. (5) COPD (chronic obstructive pulmonary disease): Qualifiers: COPD type: unspecified COPD Qualified Code(s): J44.9 - Chronic obstructive pulmonary disease, unspecified Code(s): J44.9 - Chronic obstructive pulmonary disease, unspecified Status: Acute Assessment and Plan: Continue with home inhalers No wheezing on exam (6) ELAINE (obstructive sleep apnea): Code(s): G47.33 - Obstructive sleep apnea (adult) (pediatric) Status: Chronic Assessment and Plan: Continue with home settings on a CPAP His seems compliant to the use of CPAP. (7) Acute kidney injury superimposed on CKD: Code(s): N17.9 - Acute kidney failure, unspecified; N18.9 - Chronic kidney disease, unspecified Status: Acute Assessment and Plan: Worsening on admission creatinine at 2.7. Baseline is somewhere between 1.5-1.8. Please continue to monitor. Renal ultrasound done negative for obstruction Creatinine is 2.2 on 09/14/2021. Repeat creatinine tomorrow. Diuretics have been put on hold. He seems euvolemic on clinical exam. He is on 3 L of oxygen at the bedside though chart says 5 L. His baseline oxygen requirement is 3 L. Continue monitoring renal function and electrolytes (8) Atrial fibrillation with slow ventricular response: Code(s): I48.91 - Unspecified atrial fibrillation Status: Acute Assessment and Plan: Currently rate control with metoprolol 150 mg p.o. daily. Continue heart rate monitoring. Continue Eliquis (9) Type 2 diabetes mellitus treated with insulin: Code(s): E11.9 - Type 2 diabetes mellitus without complications; Z79.4 - technician terminal and repeater (c
[2021-09-17 16:31] LABS: Glucose Point of Care 147 mg/dl (65-105)
[2021-09-17] MEDS: ATORVASTATIN 40 MG TABLET PO (21:33)
[2021-09-17] MEDS: INSULIN GLARGINE (*BKC) 100 UNITS/ML SUB-Q (21:33)
[2021-09-17] MEDS: APIXABAN 5 MG TABLET PO (21:33)
[2021-09-17] MEDS: MESALAMINE 1,000 MG SUPP.RECT 1000 MG RECTAL (21:45)
[2021-09-17 22:00] LABS: Glucose Point of Care 193 mg/dl (65-105)
[2021-09-18] MEDS: metroNIDAZOLE 250 MG TABLET 500 MG PO ×3 (01:05→12:24)
[2021-09-18 06:00] VITALS: BP 132/54; PULSE 71; RESP 20; TEMP 36.6; O2SAT 99
[2021-09-18 06:23] LABS: Hematocrit 29.7 % (42.0-52.0); Hemoglobin 9.2 g/dL (14.0-18.0); Mean Corpuscular Volume 90.3 fl (80-100); Platelet Count Result 243 k/mm3 (150-375); Red Blood Count 3.29 M/mm3 (4.6-6.20); Red Cell Distribution Width 18.8 % (11.5-14.5); White Blood Count 10.7 K/mm3 (4.5-10.0)
[2021-09-18 06:38] LABS: Alanine Aminotransferase 13 U/L (4-50); Albumin Level 2.9 g/dL (3.5-5.1); Alkaline Phosphatase 145 U/L (38-126); Anion Gap 3 mmol/L (8-16); Aspartate Amino Transferase 22 U/L (17-59); Bilirubin,Total 0.4 mg/dL (0.2-1.3); Blood Urea Nitrogen 43 mg/dL (9-20); Calcium 8.3 mg/dL (8.4-10.2); Carbon Dioxide 34 mmol/L (22-30); Chloride 98 mmol/L (98-107); Estimated CRCL calculation 43 ml/min; Estimated Glomerular Filt Rate 41; Glucose 144 mg/dL (65-110); Potassium 3.3 mmol/L (3.4-5.0); Sodium 135 mmol/L (137-145)
[2021-09-18] MEDS: UMECLIDINIUM BROMIDE 62.5 MCG ELLIPTA 1 PUFF INHALATION (06:59)
[2021-09-18 07:01] VITALS: PULSE 71; O2SAT 98
[2021-09-18 08:00] VITALS: PULSE 71; RESP 20; O2SAT 98
[2021-09-18 08:14] LABS: Glucose Point of Care 139 mg/dl (65-105)
[2021-09-18] MEDS: MAGNESIUM OXIDE 400 MG TABLET PO (09:19)
[2021-09-18] MEDS: FERROUS SULFATE 324 MG TABLET PO (09:19)
[2021-09-18] MEDS: ACIDOPHILUS/BULGARICUS CHEWABLE TABLET 1 TABLET PO (09:19)
[2021-09-18] MEDS: DULoxetine HCL 60 MG CAPSULE.DR PO (09:19)
[2021-09-18] MEDS: buPROPion HCL XL (24 HR) 150 MG TABCR PO (09:20)
[2021-09-18] MEDS: PANTOPRAZOLE 40 MG TABLET PO (09:20)
[2021-09-18] MEDS: APIXABAN 5 MG TABLET PO (09:20)
[2021-09-18] MEDS: GABAPENTIN 300 MG CAPSULE 600 MG PO ×2 (09:20→12:23)
[2021-09-18] MEDS: TAMSULOSIN HCL 0.4 MG CAPSULE PO (09:20)
[2021-09-18] MEDS: NICOTINE (*PBKC) 21 MG PATCH 1 PATCH TRANSDERM (09:20)
[2021-09-18 12:31] LABS: Glucose Point of Care 155 mg/dl (65-105)
[2021-09-18 14:11] VITALS: BP 128/61; PULSE 73; RESP 14; TEMP 36.7; O2SAT 99
--- NOTE | 2021-09-18 14:40 | PM.DS ---
DS: Admitting Diagnosis Discharge Date 09/18/2021 Admitting Diagnosis Shortness of breath DS: Discharge Diagnosis Discharge Diagnosis (1) Unresponsive episode: Code(s): R41.89 - Other symptoms and signs involving cognitive functions and awareness Status: Acute Assessment and Plan: Acute altered mental status seems to have resolved. (2) Acute proctitis: Code(s): K62.89 - Other specified diseases of anus and rectum Status: Acute Assessment and Plan: Patient was admitted with abdominal pain and diarrhea. CT Abdomen was checked showing interval development of abnormal thickening of the distal sigmoid colon and rectum, consistent with proctitis. Colonoscopy reveals polyps that were resected. Mild to moderate proctitis was identified. Pt came off his iv antibiotics on oral now and AC suppository. Pt can be discharged to the SNF. (3) Acute exacerbation of CHF (congestive heart failure): Qualifiers: Heart failure type: unspecified Qualified Code(s): I50.9 - Heart failure, unspecified Code(s): I50.9 - Heart failure, unspecified Status: Acute Assessment and Plan: Acute on chronic systolic congestive Heart failure. Presented with chest x-ray showing pulmonary edema and small bilateral pleural effusions. Patient was appropriately started on IV Lasix. Currently Lasix/Bumex is put on hold. He seems euvolemic on clinical exam. (4) UTI (urinary tract infection): Code(s): N39.0 - Urinary tract infection, site not specified Status: Acute Assessment and Plan: Urinalysis showing 2+ leukocyte esterase, WBCs 51-75. Urine culture showing no growth. CT Abd 09/10/21 showing Interval development of abnormal thickening of the distal sigmoid colon and rectum, consistent with proctitis. Abnormal thickening of the bladder wall, consistent with cystitis. (5) COPD (chronic obstructive pulmonary disease): Qualifiers: COPD type: unspecified COPD Qualified Code(s): J44.9 - Chronic obstructive pulmonary disease, unspecified Code(s): J44.9 - Chronic obstructive pulmonary disease, unspecified Status: Acute Assessment and Plan: Continue with home inhalers No wheezing on exam (6) ELAINE (obstructive sleep apnea): Code(s): G47.33 - Obstructive sleep apnea (adult) (pediatric) Status: Chronic Assessment and Plan: Continue with home settings on a CPAP His seems compliant to the use of CPAP. (7) Acute kidney injury superimposed on CKD: Code(s): N17.9 - Acute kidney failure, unspecified; N18.9 - Chronic kidney disease, unspecified Status: Acute Assessment and Plan: Worsening on admission creatinine at 2.7. Baseline is somewhere between 1.5-1.8. pt back to baseline 1.7 (8) Atrial fibrillation with slow ventricular response: Code(s): I48.91 - Unspecified atrial fibrillation Status: Acute Assessment and Plan: Currently rate control with metoprolol 150 mg p.o. daily. Continue heart rate monitoring. Continue Eliquis (9) Type 2 diabetes mellitus treated with insulin: Code(s): E11.9 - Type 2 diabetes mellitus without complications; Z79.4 - [facility] (current) use of insulin Status: Chronic Assessment and Plan: Glucose stable. Continue monitoring. Continue with decreased dose of 10 Units. Fasting blood glucose was 105 yesterday. Accu-Chek in the 99-161 range today Accu-Cheks AC and HS. Hypoglycemic protocol in place. (10) Hypokalemia: Code(s): E87.6 - Hypokalemia Status: Acute Assessment and Plan: Replace as needed (11) Iron deficiency anemia: Code(s): D50.9 - Iron deficiency anemia, unspecified Status: Acute Assessment and Plan: Patient found to have iron deficiency anemia with a hemoglobin of 8.8, hematocrit 28%. % saturation is 10, ferritin low at 85. Continue PPI Received IV Venofer 300
[2021-09-18 15:23] LABS: EDCOVIDSCREEN Negative (Negative)
[2021-09-18 16:51] LABS: Glucose Point of Care 163 mg/dl (65-105)
== END 2021-09-18 17:10 | DRG 291 ==
LOC: ANHED 14:13 → ANHIMU 14:28 → ANH3MEDSUR 09-08 07:12 → ANHIMU 09-21 11:47
PROVIDERS: Family Medicine; Internal Medicine; Internal Medicine Gastroenterology; Internal Medicine Nephrology; Nurse Practitioner; Physician Assistant; Admitting Provider Internal Medicine; Emergency Provider Emergency Medicine; PCP Internal Medicine; Visit Provider Internal Medicine Critical Care Medicine
PROC: 0DJD8ZZ Inspection of Lower Intestinal Tract, Via Natural or Artificial Opening Endoscopic (ICD-10-PCS; CPT 45378; principal; 2021-09-14 14:30)
DX: I13.0 Hypertensive heart and chronic kidney disease with heart failure and stage 1 through stage 4 chronic kidney disease, or unspecified chronic kidney disease (principal); J96.22 Acute and chronic respiratory failure with hypercapnia; I50.23 Acute on chronic systolic (congestive) heart failure; Z66 Do not resuscitate; Z20.822 Contact with and (suspected) exposure to COVID-19; G93.41 Metabolic encephalopathy; N17.9 Acute kidney failure, unspecified; N39.0 Urinary tract infection, site not specified; I48.91 Unspecified atrial fibrillation; Z79.01 Long term (current) use of anticoagulants; E11.22 Type 2 diabetes mellitus with diabetic chronic kidney disease; Z79.4 Long term (current) use of insulin; J44.9 Chronic obstructive pulmonary disease, unspecified; I25.10 Atherosclerotic heart disease of native coronary artery without angina pectoris; Z86.73 Personal history of transient ischemic attack (TIA), and cerebral infarction without residual deficits; F32.A Depression, unspecified; E11.40 Type 2 diabetes mellitus with diabetic neuropathy, unspecified; G47.33 Obstructive sleep apnea (adult) (pediatric); E66.01 Morbid (severe) obesity due to excess calories; Z68.29 Body mass index [BMI] 29.0-29.9, adult; Z87.891 Personal history of nicotine dependence; E87.6 Hypokalemia; N18.32 Chronic kidney disease, stage 3b; D50.9 Iron deficiency anemia, unspecified; E34.9 Endocrine disorder, unspecified; K62.89 Other specified diseases of anus and rectum; K63.5 Polyp of colon
CPT/HCPCS: 36415; 36600; 51701; 70450; 71045; 74176; 76775; 80048; 80053; 81001; 82274; 82330; 82375; 82550; 82570; 82652; 82728; 82803; 82805; 82948; 83050; 83540; 83550; 83605; 83615; 83735; 83880; 83883; 83970; 84100; 84156; 84300; 84443; 85025; 85027; 85610; 85730; 86038; 86140; 86160; 86162; 86334; 86335; 87040; 87086; 87426; 88305; 93005; 94002; 94003; 94640; 94660; 95816; 96365; 96375; 97110; 97161; 97166; 97530; 97535; 99291; A9270; C9803; G0378; J0696; J1756; J1815; J1940; J2001; J2270; J2543; J2704; J3475; J3480; J7120; U0003; U0005

== ENCOUNTER 2021-09-29 09:49 | Inpatient (IN) | payer MEDICARE, MEDICAID, SELFPAY ==
[2021-09-29] VITALS (18 sets, daily range): BP systolic 104–126; BP diastolic 55–72; PULSE 48–67; RESP 13–21; TEMP 37.1; O2SAT 96–100; BMI 27.6
--- NOTE | ~2021-09-29 | XR_ITS ---
EXAMINATION: XR chest 1V portable DATE: 10/02/2021 06:25 INDICATION: Respiratory failure TECHNIQUE: frontal view of the chest was obtained. COMPARISON: Chest radiograph dated 10/01/2021 FINDINGS: Endotracheal tube tip 6.2 cm above the sanya. Nasogastric tube extends below the left hemidiaphragm with distal tip collimated off the study. Hazy opacities throughout the right lung with more dense opacities in the right lower lung zone consi stent with moderate to large posterior layering right pleural effusion and associated atelectasis and /or pneumonia. Mild opacities in the left mid and lower lung zones which could similar represent atel ectasis and/or pneumonia. No pneumothorax or evident residual left pleural effusion post thoracentesi s from one day prior. Cardiomegaly. Median sternotomy wires and mediastinal surgical clips are seen, likely from prior coronary artery bypass grafting. Spinal stimulator leads project over the mid to l ower thoracic central canal. IMPRESSION: 1. Moderate to large right pleural effusion. 2. Opacities in the bilateral mid and lower lung zones which could represent atelectasis and/or pneum onia. 3. Cardiomegaly. 4. Endotracheal tube tip 6.2 cm above the sanya. Consider advancement by 4 cm. Reviewed, dictated and finalized at location A. SHED CLOTH EXAMINER IMPRESSION: 1. Moderate to large right pleural effusion. 2. Opacities in the bilateral mid and lower lung zones which could represent at electasis and/or pneumonia. 3. Cardiomegaly. 4. Endotracheal tube tip 6.2 cm above the sanya. Consider advancement by 4 cm.
--- NOTE | ~2021-09-29 | CT_ITS ---
EXAMINATION: CT diagnostic chest wo con DATE: 10/08/2021 13:30 INDICATION: Shortness of breath, pneumonia versus congestive heart failure TECHNIQUE: Computed tomography (CT) of the chest was performed without intravenous contrast. The dose -length product (DLP) was 474.01 mGy-cm. Automated exposure control and iterative reconstruction tech nique were employed. COMPARISON: 10/01/2021 FINDINGS: There are moderate-sized pleural effusions with slight improvement. Respiratory motion rodney fact slightly limits the examination. There are widespread groundglass opacities with apparent smooth interlobular septal thickening with improvement since the comparison examination. There are more foc al dependent airspace opacities of the lungs which have also improved. There is no pneumothorax. Card iomegaly is noted. There are changes of coronary artery bypass grafting. Mild mediastinal lymphadenop athy is again noted. There is moderate bilateral gynecomastia. Anasarca is noted. There is moderate t horacic spondylosis. Leads from a neurostimulator device and in the central spinal canal at the level of the T7 vertebral body. IMPRESSION: 1. Cardiomegaly with slightly improved pulmonary edema. 2. Moderate-sized pleural effusions with slight improvement. 3. Dependent airspace opacities of the lungs, likely atelectasis. 4. Mediastinal lymphadenopathy, likely reactive. Reviewed, dictated and finalized at location A. L PAINTER
--- NOTE | ~2021-09-29 | XR_ITS ---
XR abdomen NG/feed tube insert INDICATION: Evaluate NG tube position. TECHNIQUE: Limited KUB perform for evaluating NG tube . COMPARISON: No prior studies for comparison. FINDINGS: NG tube tip in the stomach. Visualized bowel gas pattern is unremarkable. IMPRESSION: 1: NG tube tip in the stomach. Reviewed, dictated and finalized at location B. R TAILER
--- NOTE | ~2021-09-29 | XR_ITS ---
XR chest ET placement 09/29/2021 10:20 Indication: Shortness of breath. Endotracheal tube placement. Procedure: AP portable chest Comparison: Comparison to multiple prior studies sequentially, with oldest reviewed study dated 07/31. Findings: There is an endotracheal tube, tip 6.3 cm above the sanya. NG tube in the stomach. Status post median sternotomy for CABG pericardium megaly. Spinal stimulator leads are present. There is dif fuse bilateral airspace disease unchanged. Small pleural effusions. No pneumothorax. Impression: 1: Stable diffuse bilateral airspace disease which may represent pneumonia and/or edema. 2: Moderate cardiomegaly. 3: Small pleural effusions. Reviewed, dictated and finalized at location B. PLANTATION WORKER Impression: 1: Stable diffuse bilateral airspace disease which may represent pneumonia and/ or edema. 2: Moderate cardiomegaly. 3: Small pleural effusions.
--- NOTE | ~2021-09-29 | XR_ITS ---
EXAMINATION: XR chest 1V portable DATE: 10/01/2021 05:56 INDICATION: Respiratory failure TECHNIQUE: frontal view of the chest was obtained. COMPARISON: Chest radiograph dated 09/30/2021 FINDINGS: Endotracheal tube tip 3.2 cm above the sanya. Nasogastric tube extends below the left hemidiaphragm with distal tip collimated off the study. Increasing lower lung predominant opacities throughout both lungs consistent with increasing moderate to large bilateral pleural effusions with associated atelectasis and/or pneumonia. No pneumothorax. Cardiomegaly. Median sternotomy wires and mediastinal surgical clips are seen, likely from prior ruddy nary artery bypass grafting. Spinal stimulator leads project over the mid to lower thoracic central c anal with distal tips at the mid thoracic spine. Lower cervical anterior plate and screw fixation wit h anterior plate and screw fixation. IMPRESSION: 1. Increasing moderate to large bilateral pleural effusions with associated atelectasis and/or pneumo yahaira. 2. Cardiomegaly. Reviewed, dictated and finalized at location A. ET PUSHER IMPRESSION: 1. Increasing moderate to large bilateral pleural effusions with associated ate lectasis and/or pneumonia. 2. Cardiomegaly.
--- NOTE | ~2021-09-29 | CT_ITS ---
EXAMINATION: CT brain wo con EXAM DATE: 09/29/2021 12:09 INDICATION: Altered mental status. Intubated one week. TECHNIQUE: Spiral CT of the head was performed without contrast. Axial, coronal and sagittal images were reviewed. The dose-length product (DLP) for this examination was 756.67 mGy-cm. The exposure w as tailored according to patient size, and iterative reconstruction (ASIR) was used as additional dos e reduction technique. Comparison is made to prior examination from 09/11/2021. FINDINGS: There is small old right frontal lobe infarction. There is no acute intraparenchymal hemorr radihka. No evidence of intraparenchymal brain mass lesion. No evidence of acute infarction. Please n ote that initial head CT has limited sensitivity for small or acute infarctions. There is mild to mo derate periventricular and subcortical hypodensity, nonspecific but probably related to small vessel ischemic disease. There is mild to moderate prominence of the sulci and ventricles related to cereb ral atrophy. There is intracranial carotid arteriosclerosis. There are no extra-axial collections. There is no mass effect or midline shift. The orbits are unremarkable. Soft tissue is unremarkabl e. The visualized sinuses and mastoid air cells are well aerated. There are no areas of abnormal e nhancement on the postcontrast images. IMPRESSION: 1. No acute intracranial findings. 2. Chronic age related findings. 3. 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 Reviewed, dictated and finalized at location A. TERY COUNSELOR
--- NOTE | ~2021-09-29 | XR_ITS ---
EXAMINATION: XR chest 1V portable DATE: 09/30/2021 06:23 INDICATION: Respiratory failure TECHNIQUE: frontal view of the chest was obtained. COMPARISON: Chest radiograph dated 09/29/2021 FINDINGS: Endotracheal tube tip 2.4 cm above the sanya. Nasogastric tube tip in proximal side port in the body of the stomach. Increasing gradient lower lung predominant hazy airspace opacities throughout both lungs with bluntin g at the right costophrenic angle consistent with small to moderate-sized right and small left upkeep mechanic iorly layering pleural effusions. Superimposed interstitial and airspace opacities. No pneumothorax. Cardiomegaly. Median sternotomy wires and mediastinal surgical clips are seen, likely from prior ruddy nary artery bypass grafting. Cholecystectomy clips in right upper quadrant. Lower cervical anterior s faith fusion with anterior plate and screw fixation. Spinal stimulator leads project over the central canal of the mid to lower thoracic spine with distal tips at the level of T6-T7. IMPRESSION: 1. Mild pulmonary edema with increasing small to moderate left and small right pleural effusions. 2. Opacities in the lower lung zones which could represent associated atelectasis and/or pneumonia. 3. Cardiomegaly. Reviewed, dictated and finalized at location A. METER OPERATOR IMPRESSION: 1. Mild pulmonary edema with increasing small to moderate left and small right pleural effusions. 2. Opacities in the lower lung zones which could represent associated atelectas is and/or pneumonia. 3. Cardiomegaly.
--- NOTE | ~2021-09-29 | XR_ITS ---
EXAMINATION: XR chest 1V portable DATE: 10/07/2021 08:48 INDICATION: Chronic obstructive pulmonary disease. TECHNIQUE: A single frontal view of the chest was obtained on 2 radiographs. COMPARISON: Chest single view 10/06/2021, chest CT 10/01/2021 FINDINGS: There is a diffuse interstitial pattern in the lungs, consistent with mild pulmonary edema. There are airspace opacities in left mid and lower lung zones. There is a small left pleural effusio n. Cardiomegaly is noted. Electrodes overlie thoracic spine. Median sternotomy wires and mediastinal surgical clips are seen, likely from prior coronary artery bypass grafting. There are changes of ante rior fusion procedure in cervical spine. Surgical clips overlie right neck. IMPRESSION: 1. Mild pulmonary edema. 2. Worsened airspace opacities in left mid and lower lung zones, consistent with atelectasis versus p neumonia. 3. Small left pleural effusion. 4. Cardiomegaly. Reviewed, dictated and finalized at location A. NG PLANT OPERATOR IMPRESSION: 1. Mild pulmonary edema. 2. Worsened airspace opacities in left mid and lower lung zones, consistent wit h atelectasis versus pneumonia. 3. Small left pleural effusion. 4. Cardiomegaly.
--- NOTE | ~2021-09-29 | XR_ITS ---
XR_[id number]_CR 10/01/2021 14:00 Indication: Postthoracentesis Procedure: AP portable chest Comparison: 10/01/2021 Findings: Status post median sternotomy for CABG. NG tube is present. Cardiomegaly with diffuse bilat eral airspace disease. Small right pleural effusion. No pneumothorax identified. No acute osseous abn ormality. Impression: 1: Cardiomegaly with diffuse bilateral airspace disease which may represent edema or pneumonia. 2: Small right pleural effusion. No pneumothorax identified post procedure. Reviewed, dictated and finalized at location B. A BEAN ROASTER HELPER Impression: 1: Cardiomegaly with diffuse bilateral airspace disease which may represent ana rosa ma or pneumonia. 2: Small right pleural effusion. No pneumothorax identified post procedure.
--- NOTE | ~2021-09-29 | XR_ITS ---
EXAMINATION: XR chest 1V portable DATE: 10/04/2021 11:03 INDICATION: Respiratory failure. Mechanical ventilation. Endotracheal tube repositioning TECHNIQUE: frontal view of the chest was obtained. COMPARISON: Chest radiograph dated 10/04/2021 at 5:18 AM FINDINGS: Endotracheal tube tip 1.6 cm above the sanya. Nasogastric tube tip in the body of the stomach. Bilateral basilar, hazy airspace opacities and patchy airspace opacities consistent with small bilate ral posteriorly layering pleural effusions and associated atelectasis and/or pneumonia. Pneumothorax. Cardiomegaly. Median sternotomy wires and mediastinal surgical clips are seen, likely from prior cor onary artery bypass grafting. . Instrumented lower cervical anterior spinal fusion. Spinal stimulator leads project over the central canal of the mid to lower thoracic spine. IMPRESSION: 1. Endotracheal tube tip in expected position 1.6 cm above the sanya. 2. Unchanged small bilateral posteriorly layering pleural effusions and superimposed patchy airspace opacities which could represent atelectasis, pneumonia or pulmonary edema. 3. Cardiomegaly. Reviewed, dictated and finalized at location A. TRONIC ORGAN TECHNICIAN IMPRESSION: 1. Endotracheal tube tip in expected position 1.6 cm above the sanya. 2. Unchanged small bilateral posteriorly layering pleural effusions and superim posed patchy airspace opacities which could represent atelectasis, pneumonia or pulmonary edema. 3. Cardiomegaly.
--- NOTE | ~2021-09-29 | XR_ITS ---
EXAMINATION: XR chest 1V portable DATE: 10/06/2021 06:05 INDICATION: Respiratory failure. TECHNIQUE: A single frontal view of the chest was obtained. COMPARISON: Chest single view 10/04/2021, chest CT 10/01/2021 FINDINGS: There are small pleural effusions. There are airspace opacities in the mid and lower lung z ones. No pneumothorax. Cardiomegaly is noted. Median sternotomy wires and mediastinal surgical clips are seen, likely from prior coronary artery bypass grafting. Electrodes overlie thoracic spine. There are changes of anterior fusion procedure in cervical spine. There are old healed bilateral rib fract ures. IMPRESSION: 1. Small pleural effusions. 2. Airspace opacities in the mid and lower lung zones with interval improvement, consistent with pulm onary edema versus pneumonia. 3. Cardiomegaly. Reviewed, dictated and finalized at location A. TRYMAN IMPRESSION: 1. Small pleural effusions. 2. Airspace opacities in the mid and lower lung zones with interval improvement , consistent with pulmonary edema versus pneumonia. 3. Cardiomegaly.
--- NOTE | ~2021-09-29 | XR_ITS ---
EXAMINATION: XR chest 1V portable DATE: 10/04/2021 06:14 INDICATION: Respiratory failure and mechanical ventilation TECHNIQUE: frontal view of the chest was obtained. COMPARISON: Chest radiograph dated 10/03/2021 FINDINGS: Endotracheal tube tip 7.8 cm above the sanya. Nasogastric tube tip in the body of the stomach. No significant change in a gradient of basilar predominant hazy airspace opacities consistent with po sterior layering small bilateral pleural effusions. There has been some interval improvement in the s uperimposed subtle bilateral patchy airspace opacities. No pneumothorax. Cardiomegaly. Median sternot teja wires and mediastinal surgical clips are seen, likely from prior coronary artery bypass grafting. Instrumented lower cervical anterior spinal fusion. Spinal stimulator leads project over the centra l canal of the mid to lower thoracic spine. IMPRESSION: 1. Endotracheal tube tip 7.8 cm above the sanya. Recommend advancement by 5 cm. 2. Small bilateral posteriorly layering pleural effusions. 3. Interval improvement in subtle patchy bilateral airspace opacities which could represent superimpo sed atelectasis, pneumonia or pulmonary edema. 4. Cardiomegaly. Reviewed, dictated and finalized at location A. GN TECHNOLOGY PROFESSOR IMPRESSION: 1. Endotracheal tube tip 7.8 cm above the sanya. Recommend advancement by 5 cm . 2. Small bilateral posteriorly layering pleural effusions. 3. Interval improvement in subtle patchy bilateral airspace opacities which cou ld represent superimposed atelectasis, pneumonia or pulmonary edema. 4. Cardiomegaly.
--- NOTE | ~2021-09-29 | US_ITS ---
EXAMINATION: US renal BI EXAM DATE: 09/29/2021 14:29 INDICATION: Acute kidney insufficiency. TECHNIQUE: Multiple grayscale and Doppler images of the kidneys were obtained (by a technologist who performed the scan) and subsequently reviewed. Comparison is made to prior examination from 09/06/2021 . FINDINGS: There is bilateral renal cortical thinning. Right kidney: There is normal contour and echogenicity. It measures 10.4 x 5.3 x 5.9 centimeters. T here are no focal renal lesions identified. There is no hydronephrosis. Left kidney: There is normal contour and echogenicity. It measures 12.2 x 7.0 x 5.8 centimeters. Sev eral left renal cysts measuring up to 2 cm. There is no hydronephrosis. Lakhani catheter in collapsed bladder. IMPRESSION: 1. Bilateral renal cortical thinning. 2. No hydronephrosis. Reviewed, dictated and finalized at location A. ICE STATION MANAGER
--- NOTE | ~2021-09-29 | XR_ITS ---
[id number]_CR 10/02/2021 13:17 Indication: Post thoracentesis for right pleural effusion Procedure: AP portable chest Comparison: 10/01/2021 Findings: Endotracheal tube tip 7 cm above the sanya. Status post median sternotomy for CABG. There is bilateral airspace disease. Spinal stimulator leads are present. No significant effusion or pneumo thorax. No acute osseous abnormality. Impression: 1: Diffuse bilateral airspace disease, most likely interstitial edema. Pneumonia less favored. 2: Cardiomegaly. Reviewed, dictated and finalized at location A. NING INTERN Impression: 1: Diffuse bilateral airspace disease, most likely interstitial edema. Pneumoni a less favored. 2: Cardiomegaly.
--- NOTE | ~2021-09-29 | US_ITS ---
EXAMINATION: US thoracentesis DATE: 10/01/2021 15:40 INDICATION: Left pleural effusion TECHNIQUE: The procedure and its risks and benefits were discussed with the patient. Potential risks discussed included bleeding, infection, and pneumothorax. The patient understood the risks and agreed to proceed. The skin was prepped and draped in sterile fashion. 1% lidocaine was used for local anes thesia. Under ultrasound guidance, a 5 Fr catheter with trochar was advanced into the large left pleu ral effusion. Fluid was aspirated. The catheter was removed, and a dressing was applied. There were n o immediate complications. FINDINGS: Ultrasound images demonstrate a large left pleural effusion and the catheter within the fluid. IMPRESSION: 1. Successful ultrasound-guided thoracentesis yielding 1200 mL of clear rosario-colored fluid. Reviewed, dictated and finalized at location A. COUNSELOR IMPRESSION: 1. Successful ultrasound-guided thoracentesis yielding 1200 mL of clear rosario- colored fluid.
--- NOTE | ~2021-09-29 | US_ITS ---
EXAMINATION: US thoracentesis DATE: 10/02/2021 13:20 INDICATION: Left pleural effusion TECHNIQUE: The procedure and its risks and benefits were discussed with the patient's daughter and po wer of senior attorney. Potential risks discussed included bleeding, infection, and pneumothorax. The patien t understood the risks and agreed to proceed. The skin was prepped and draped in sterile fashion. 1% lidocaine was used for local anesthesia. Under ultrasound guidance, a 5 Fr catheter with trochar was advanced into the right pleural effusion. Fluid was aspirated. The catheter was removed, and a dressi ng was applied. There were no immediate complications. FINDINGS: Ultrasound images demonstrate a moderate-sized right pleural effusion and the catheter within the flu id. IMPRESSION: 1. Successful ultrasound-guided thoracentesis yielding 800 mL of clear yellow fluid. Reviewed, dictated and finalized at location A. ROUTE SUPERVISOR
--- NOTE | ~2021-09-29 | CT_ITS ---
EXAMINATION: CT diagnostic chest wo con DATE: 10/01/2021 01:30 INDICATION: pneumonia and pleural effusions TECHNIQUE: Computed tomography (CT) of the chest was performed without intravenous contrast. Addition al 3D reconstructions utilizing coronal maximum intensity projection (MIP) were performed. Automated exposure control and iterative reconstruction technique were employed. The dose-length product was 85 4.68 mGy-cm. COMPARISON: None FINDINGS: Endotracheal tube tip 3.7 cm above the sanya. Nasogastric tube tip in the proximal body of the stoma ch. Large bilateral posterior layering pleural effusions with complete collapse of the right lower lo be and dependent atelectasis in the remaining lobes of the bilateral lungs. Groundglass opacities and mild smooth septal line thickening in the bilateral upper lobes consistent with mild pulmonary edema . No definitive superimposed pneumonia although this cannot be excluded. No pneumothorax. Cardiomegal y. Atherosclerotic coronary artery calcification. Postoperative change of prior median sternotomy and coronary artery bypass grafting. Decreased attenuation of the blood pool relative to myocardium cons istent with anemia. Thoracic aorta is normal in caliber. Enlargement of the central pulmonary arterie s consistent with pulmonary arterial hypertension. Mild likely reactive mediastinal lymphadenopathy. Cholecystectomy clips at the gallbladder fossa. Visualized upper abdomen is otherwise unremarkable. M oderate thoracic spondylosis. Spinal stimulator lead in the mid to lower thoracic central canal with distal tip at the level of T6-T7. Scattered body wall edema. C5-C7 anterior spinal fusion with anteri or plate and screw fixation. Old bilateral rib fractures. IMPRESSION: 1. Likely congestive heart failure with cardiomegaly, mild pulmonary edema and large bilateral rail grinder ior layering pleural effusions. 2. Enlargement of the central pulmonary arteries consistent with pulmonary arterial hypertension. 3. Mild likely reactive mediastinal lymphadenopathy. Reviewed, dictated and finalized at location A. UNITY CENTER WORKER IMPRESSION: 1. Likely congestive heart failure with cardiomegaly, mild pulmonary edema and large bilateral posterior layering pleural effusions. 2. Enlargement of the central pulmonary arteries consistent with pulmonary reji rial hypertension. 3. Mild likely reactive mediastinal lymphadenopathy.
--- NOTE | ~2021-09-29 | XR_ITS ---
EXAMINATION: XR chest 1V portable DATE: 10/03/2021 07:30 INDICATION: Respiratory failure TECHNIQUE: frontal view of the chest was obtained. COMPARISON: Chest radiograph dated 10/02/2021 FINDINGS: Endotracheal tube tip 7.0 cm above the sanya. Nasogastric tube extends below the left hemidiaphragm with distal tip collimated off the study. Gradient of hazy airspace opacities in the bilateral mid and lower lung zones consistent with residua l small bilateral posteriorly layering pleural effusions. Superimposed subtle patchy airspace. No pne umothorax. Cardiomegaly. Median sternotomy wires and mediastinal surgical clips are seen, likely from prior coronary artery bypass grafting. Instrumented lower cervical anterior spinal fusion. Spinal st imulator leads project over the central canal of the mid to lower thoracic spine. IMPRESSION: 1. Increasing small bilateral posterior layering pleural effusions. 2. Subtle more patchy airspace opacities in the bilateral mid and lower lung zones which could repres ent superimposed atelectasis, pneumonia or pulmonary edema. 3. Cardiomegaly. Reviewed, dictated and finalized at location A. INE CLOTH EXAMINER IMPRESSION: 1. Increasing small bilateral posterior layering pleural effusions. 2. Subtle more patchy airspace opacities in the bilateral mid and lower lung zo mitchell which could represent superimposed atelectasis, pneumonia or pulmonary shayy a. 3. Cardiomegaly.
--- NOTE | 2021-09-29 09:55 | ECG_ITS ---
Measurements Intervals [place] Rate: 48 P: 72 OR: 191 QRS: 54 QRSD: 138 T: 199 QT: 513 QTc: 463 Interpretive Statements ATRIAL FLUTTER/TACHYCARDIA WITH SLOW VENTRICULAR RESPONSE LEFT BUNDLE BRANCH BLOCK BASELINE ARTIFACT- I, II, III, AVR, AVL, AVF, V1-V6 ABNORMAL ECG Electronically Signed On 09-29-2021 10:12:18 [employer] by Cecilio Soto D.O.
--- NOTE | 2021-09-29 10:15 | PC.NURSE ---
patient's Lakhani cath replaced due to dirty appearance and device instability
[2021-09-29 10:21] LABS: Basophils Percent Auto 0.4 % (0.2-1.2); Eosinophils Absolute Auto 0.2 K/mm3 (0-0.3); Eosinophils Percent Auto 2.1 % (0-4.4); Hematocrit 29.2 % (42.0-52.0); Hemoglobin 8.8 g/dL (14.0-18.0); Immature Granulocyte Absolute 0.03 K/mm3 (0.00-0.031); Immature Granulocyte Percent A 0.4 % (0-0.5); Lymphocytes Absolute Auto 0.89 K/mm3 (0.9-3.2); Lymphocytes Percent Auto 11.9 % (18.3-44.2); Mean Corpuscular HGB Conc 30.1 g/dl (32-36); Mean Corpuscular Hemoglobin 29.6 pg (26-34); Mean Corpuscular Volume 98.3 fl (80-100); Monocytes Absolute Auto 0.6 K/mm3 (0.1-0.6); Neutrophils Absolute Auto 5.8 K/mm3 (1.3-6.7); Neutrophils Percent Auto 77.2 % (45.5-73.1); Nucleated Red Blood Cells Perc 0.4 % (0.0-0.2); Platelet Count Result 242 k/mm3 (150-375); Red Blood Count 2.97 M/mm3 (4.6-6.20); Red Cell Distribution Width 21.5 % (11.5-14.5); White Blood Count 7.5 K/mm3 (4.5-10.0)
[2021-09-29 10:23] LABS: Alveolar/Arterial O2 Gradient 528.2 mmHg; Base Excess ABG -2.4 mEq/l (+/-2.0); Fractional Inspired Oxygen 100 %; HCO3 ABG 23.9 mEq/l (22.0-26.0); Oxygen Content ABG 13.5 %vol (16.0-22.0); Oxygen Saturation ABG 98.5 % (95.0-100.0); Oxyhemoglobin 96.7 % THb (90.0-100.0); PCO2 ABG 48.1 mmHg (35.0-45.0); PO2 ABG 136.7 mmHg (80.0-100.0); PO2 FiO2 Ratio Arterial Blood 1.37 %; Total Hemoglobin 9.7 g/dL (12.0-18.0); pH ABG 7.314 (7.350-7.450)
[2021-09-29 10:24] LABS: Arterial Blood Gas Ventilator rate 18 /MIN; Device VENTILATOR; Modified Allen's Test Pass; Site Drawn RIGHT RADIAL
--- NOTE | 2021-09-29 10:24 | ED.GENADULT ---
HPI - General Adult General Chief complaint: Unspecified Stated complaint: resp distress Time Seen by Provider: 09/29/21 09:54 Source: EMS History of Present Illness HPI narrative: Patient is a 61 y/o male brought in by EMS for respiratory failure. Patient was supposed to be on BiPap, but he would not keep it on. He pulse ox was in 70s when EMS arrived. He was electively intubated by EMS. He was given Etomidate, Ketamine and Fentanyl for intubation. Currently he remains intubated and sedated. He is unable to provide any history. Related Data Home Medications Medication Instructions Recorded Confirmed Acidophilus 1 cap PO DAILY 07/21/21 09/05/21 Eliquis 5 mg PO BID 07/21/21 09/05/21 acetaminophen 650 mg PO Q4H PRN 07/21/21 09/05/21 amlodipine 10 mg PO DAILY 07/21/21 09/05/21 atorvastatin 40 mg PO HS 07/21/21 09/05/21 bupropion HCl 150 mg PO DAILY 07/21/21 09/05/21 cyclobenzaprine 10 mg PO HS PRN 07/21/21 09/05/21 docusate sodium 100 mg PO BID PRN 07/21/21 09/05/21 duloxetine 60 mg PO BID 07/21/21 09/05/21 gabapentin 600 mg PO TID 07/21/21 09/05/21 ipratropium bromide 2.5 ml INHALATION Q6H PRN 07/21/21 09/05/21 magnesium oxide 400 mg PO DAILY 07/21/21 09/05/21 metolazone 2.5 mg PO 2XW 07/21/21 09/05/21 metoprolol succinate 150 mg PO DAILY 07/21/21 09/05/21 nicotine 1 patch TRANSDERMAL DAILY 07/21/21 09/05/21 pantoprazole 40 mg PO QAM 07/21/21 09/05/21 tamsulosin 0.4 mg PO DAILY 07/21/21 09/05/21 insulin aspart U-100 [Novolog See Rx Instructions .ROUTE .COMPLEX 08/01/21 09/05/21 U-100 Insulin aspart] ferrous sulfate 324 mg PO BID 09/29/21 09/29/21 furosemide 40 mg PO BID 09/29/21 09/29/21 ipratropium-albuterol 3 ml INHALATION QID 09/29/21 09/29/21 lorazepam [Ativan] 1 mg PO BID PRN 09/29/21 09/29/21 Allergies Allergy/AdvReac Type Severity Reaction Status Date / Time codeine AdvReac Intermediate NAUSAE/VOMI Verified 09/05/21 12:00 TING Review of Systems Review of Systems: ROS unobtainable: Yes unobtainable due to mental status PMFSH Past Medical History Medical History Abnormality of rectum Acute on chronic renal failure Atrial fibrillation CHF (congestive heart failure) Chronic anticoagulation Chronic kidney disease, stage 3 COPD (chronic obstructive pulmonary disease) Coronary artery disease CVA (cerebral vascular accident) Depression Diabetic neuropathy Essential hypertension Occult blood in stools ELAINE (obstructive sleep apnea) Sciatica Tobacco abuse Type 2 diabetes mellitus treated with insulin Surgical History Surgical History History of intravascular stent placement Superficial left leg Hx of CABG Family History Family History Other Unknown family medical history Social History Social History Social History: The patient is listed as being and disabled. It was noted that the patient was a heavy smoker according to his old records. He has a daughter yohana albarran listed as a durable power family law attorney and another daughter Aristides Christian listed as next of kin. Advance directive on file here Code status: DNR/DNI Smoking packs per day: 3 Smoking cigarettes per day: 60.0 Years smoked: 47 Smoking pack-years: 141.00 Smoking status: Former smoker Alcohol intake: unknown Substance use: unknown Spiritual care concerns: No Exam Const: General: no acute distress, well developed and ill appearing Orientation/consciousness: lethargic HENMT: Head: normocephalic Ears: external ears normal General nose exam: Normal external nose present Eyes: General: appearance normal, both eyes and all related structures Conjunctivae: conjunctivae normal Neck: Neck: normal visual inspection and full ROM Chest: Chest palpation & inspection: normal inspection of the
[2021-09-29 10:25] LABS: Arterial Blood Gas PEEP 10 cmH2O; Arterial Blood Gas Tidal Volume 450 ml; Arterial Blood Gas Vent Mode CMV
[2021-09-29 10:31] LABS: Alanine Aminotransferase 22 U/L (4-50); Albumin Level 3.1 g/dL (3.5-5.1); Alkaline Phosphatase 146 U/L (38-126); Anion Gap 9 mmol/L (8-16); Aspartate Amino Transferase 23 U/L (17-59); Bilirubin,Total 0.7 mg/dL (0.2-1.3); Blood Urea Nitrogen 56 mg/dL (9-20); Calcium 8.2 mg/dL (8.4-10.2); Carbon Dioxide 24 mmol/L (22-30); Chloride 102 mmol/L (98-107); Estimated CRCL calculation 25 ml/min; Estimated Glomerular Filt Rate 15; Glucose 83 mg/dL (65-110); INR 1.9; Potassium 4.9 mmol/L (3.4-5.0); Prothrombin Time 21.3 Seconds (11.1-14.7); Sodium 135 mmol/L (137-145)
[2021-09-29 10:50] LABS: NT Pro B Type Natriuretic Pept 10000 pg/mL (5-100); Troponin I 0.022 ng/mL (0.000-0.034)
--- NOTE | 2021-09-29 12:45 | WPDCNINT ---
Assessment and Plan Assessment and plan (1) Acute and chronic respiratory failure, unspecified whether with hypoxia or hypercapnia: Code(s): J96.20 - Acute and chronic respiratory failure, unspecified whether with hypoxia or hypercapnia Status: Acute Assessment and Plan: Likely multifactorial secondary to CHF COPD Does not appear to be pneumonia as patient has normal WBC and no report of fever from nursing. Considering patient's chest x-ray is significantly abnormal will start empiric antibiotics. Blood culture sent. His lactic acid level was normal Will send sputum culture BNP was 10,000 Urine Legionella Hold Lasix at this time due to significant elevation in creatinine and soft blood pressure Bronchodilators (2) Acute on chronic renal failure: Code(s): N17.9 - Acute kidney failure, unspecified; N18.9 - Chronic kidney disease, unspecified Status: Acute Assessment and Plan: Patient was discharged on Lasix and this could be secondary to intravascular volume depletion Monitor urine output electrolytes and creatinine Renal ultrasound Check CK (3) Acute exacerbation of CHF (congestive heart failure): Code(s): I50.9 - Heart failure, unspecified Status: Acute Assessment and Plan: ECHO 07/21 Summary 1. Complete two-dimensional, color flow and Doppler transthoracic echocardiogram is performed. 2. Left ventricular chamber dimension is moderately enlarged. 3. Left ventricular systolic function is mildly reduced, estimated at 45-50%. 4. There is moderately increased left ventricular wall thickness. 5. Left atrial chamber dimension is moderately enlarged. 6. There is trace mitral valve regurgitation. Hold Lasix at this time due to low blood pressure and elevated creatinine (4) Person under investigation for COVID-19: Code(s): Z20.822 - Contact with and (suspected) exposure to COVID-19 Status: Acute Assessment and Plan: COVID-19 suspected. SARS-CoV-2 PCR sent and results pending Patient is in Airborne, Droplet and Contact Isolation (5) COPD (chronic obstructive pulmonary disease): Qualifiers: COPD type: unspecified COPD Qualified Code(s): J44.9 - Chronic obstructive pulmonary disease, unspecified Code(s): J44.9 - Chronic obstructive pulmonary disease, unspecified Status: Acute Assessment and Plan: See above (6) Hypotension: Code(s): I95.9 - Hypotension, unspecified Status: Acute Assessment and Plan: Could be secondary to sedation His lactic acid level was normal Will give a small fluid bolus and cautious IV fluids (7) Atrial fibrillation with slow ventricular response: Code(s): I48.91 - Unspecified atrial fibrillation Status: Acute Assessment and Plan: Ventricular rate is controlled 60s this time Or beta-mt due to low blood pressure Lovenox instead of Eliquis at this Additional Plan DVT prophylaxis -switch to Lovenox subQ Stress ulcer prophylaxis -start PPI Nutrition -NPO Code Status -patient has advanced directive form states that he is DNR in the event of cardiac arrest but otherwise the option of intubation and full treatment is checked Total Critical Care Time - 45minutes Due to a high probability of clinically significant, life threatening deterioration, the patient required my highest level of preparedness to intervene emergently and I personally spent this critical care time directly and personally managing the patient. This critical care time included obtaining a history; examining the patient; pulse oximetry; ordering and review of studies; arranging urgent treatment with development of a management plan; evaluation of patient's response to treatment; frequent reassessment; and discussions with other providers. It was exclusive of separately billable procedures and treating other patients and teaching time. Please see Assessment and Plan section and the rest of the
--- NOTE | 2021-09-29 12:53 | ADMGEN ---
This patient, Ector Oconnor, was admitted to Intensive Care Unit-9 at 1245. Patient/family oriented to hospital policies and general routines including ID bracelet, bed and alarms, visiting hours, pain management, procedures, bathroom and other care routines, personal items, smoking policy, room service/diet, and visiting hours. Information on how to activate the Rapid Response Team has been discussed. Patient/Family are encouraged to report perceived risks to care and to ask questions if they do not understand what they are told or what they should do.
[2021-09-29] MEDS: SODIUM CHLORIDE 0.9% IV 1,000 ML 999 ML IV CONT (13:05)
[2021-09-29] MEDS: DOXYCYCLINE IV 100 MG in SODIUM CHLORIDE 0.9% IV 100 ML IVPB ×2 (13:27→21:06)
[2021-09-29] MEDS: ENOXAPARIN 100 MG/ML SYRINGE 90 MG SUB-Q (13:32)
[2021-09-29] MEDS: SODIUM CHLORIDE 0.9% IV 1,000 ML 100 ML IV CONT (13:33)
[2021-09-29 13:45] LABS: Troponin I 0.023 ng/mL (0.000-0.034)
[2021-09-29 13:52] LABS: Glucose Point of Care 116 mg/dl (65-105)
[2021-09-29] MEDS: cefTRIAXone 2 GM in SODIUM CHLORIDE 0.9% IV 100 ML 200 ML IVPB (14:08)
[2021-09-29] MEDS: MIDAZOLAM HCL (*CRX) 2 MG/2 ML VIAL IV PUSH ×2 (14:08→23:47)
[2021-09-29 14:20] LABS: Creatine Kinase 20 U/L (55-170)
[2021-09-29 14:33] LABS: Add Urine Microscopic? YES; Appearance Urine Cloudy (Clear); Bilirubin Urine Negative (Negative); Color Urine Amber (Yellow); Glucose Urine UA Negative (Negative); Ketones Urine Trace mg/dL (Negative); Leukocyte Esterase Ur 3+ LEU/UL (Negative); Nitrate Urine Negative (Negative); Protein Urine 3+ mg/dL (Negative); RBC Urine 21-50 /hpf (0-2); Specific Grav Ur 1.018 (1.001-1.035); Squamous Epithelial Cell Urine Rare /hpf (Few); Urobilinogen Urine Negative mg/dL (<2.0); WBC Urine >75 /hpf
[2021-09-29 14:35] LABS: Blood Urine Negative (Negative)
[2021-09-29] MEDS: FENTANYL 2,500MCG/NS250ML(*CRX 2,500 MCG/250 ML BAG IV CONT (14:41)
[2021-09-29 15:04] LABS: Creatinine Urine 162.8 mg/dL
[2021-09-29 15:09] LABS: Sodium Urine Random 32 meq/L
[2021-09-29] MEDS: SILVERGEL (ELTA) 45 ML 1 APPLIC TOPICAL (16:19)
[2021-09-29 17:14] LABS: Troponin I 0.022 ng/mL (0.000-0.034)
--- NOTE | 2021-09-29 17:45 | PM.IMHP ---
H&P: HPI History of Present Illness Date/Time: 09/29/21 17:45 Chief Complaint: Unresponsive. Narrative: This is a 61-year-old male with history of stroke, coronary artery disease, congestive heart failure, atrial fibrillation on long-term anticoagulation, insulin-dependent diabetes, chronic kidney disease, obstructive sleep apnea, chronic respiratory failure, COPD, and several other comorbidities who presented to the emergency department earlier today via EMS from [facility] for evaluation after he was found unresponsive. He is currently sedated on mechanical ventilation and thus he is unable to provide history and as such all of the following is obtained via a review of his electronic medical records. This will be his 4th admission to the hospital since mid to late July 2021 and each time he was admitted with hypoxic and hypercapnic respiratory failure either requiring BiPAP or mechanical ventilation. Most recently he was [facility] on 09/18/2021 to [facility]. It is my understanding that he is supposed to be on a BiPAP at nighttime though staff report that he frequently takes it off. It is my understanding that he was alert approximately an hour prior to arrival to the ER at which time he was found minimally responsive with agonal respirations. He was intubated in the field. Workup in the emergency department showed worsening renal function and airspace disease consistent with pneumonia verses edema. He has been admitted in this setting. At the time my evaluation he is sedated on mechanical ventilation and is not awake enough to follow commands and Review of Systems Review of Systems: Unable to obtain given clinical condition. [facility] Past Medical History Medical History (Updated 09/29/21 @ 22:51 by Susana Mortensen PA-C) Cerebrovascular accident Chronic anticoagulation Chronic kidney disease, stage 3 Chronic obstructive pulmonary disease Congestive heart failure Coronary artery disease Depression Diabetic neuropathy Essential hypertension Obstructive sleep apnea treated with BiPAP Paroxysmal atrial fibrillation Peripheral vascular disease Sciatica Tobacco abuse Type 2 diabetes mellitus treated with insulin Surgical History Surgical History (Updated 09/29/21 @ 22:51 by Susana Mortensen PA-C) History of cervical spinal surgery History of colonoscopy with polypectomy History of coronary artery bypass graft History of intravascular stent placement Left superficial femoral artery. History of vascular surgery Left superficial femoral artery stent. Right mid superficial femoral artery angioplasty. Status post insertion of spinal cord stimulator Family History Family History Other Unknown family medical history Social History Social History (Updated 09/29/21 @ 22:53 by Susana Mortensen PA-C) Social History: The patient is listed as being and disabled. Smoked up to 3 packs of cigarettes a day for 45+ years. Mention of alcohol or illicit substance use. His daughter Anna Oconnor is his healthcare power of assistant county attorney. Code status: Full code. Smoking packs per day: 3 Smoking cigarettes per day: 60.0 Years smoked: 47 Smoking pack-years: 141.00 Meds Home Medications and Allergies Home Medications Medication Instructions Recorded Confirmed Type Acidophilus 1 cap PO DAILY 07/21/21 09/29/21 History Eliquis 5 mg PO BID 07/21/21 09/29/21 History acetaminophen 650 mg PO Q4H PRN 07/21/21 09/29/21 History amlodipine 10 mg PO DAILY 07/21/21 09/29/21 History atorvastatin 40 mg PO HS 07/21/21 09/29/21 History bupropion HCl 150 mg PO DAILY 07/21/21 09/29/21 History cyclobenzaprine 10 mg PO HS PRN 07/21/21 09/29/21 History docusate sodium 100 mg PO BID PRN 07/21/21 09/29/21 History duloxetine 60 mg PO BID 07/21/21 09/29/21 History gabapentin 600 mg PO TID 07/21/21 09/29/21 History ipratropium bromide 2.5
[2021-09-29 20:38] LABS: Glucose Point of Care 85 mg/dl (65-105)
[2021-09-29 20:45] LABS: Glucose Point of Care 72 mg/dl (65-105)
[2021-09-29] MEDS: MESALAMINE 1,000 MG SUPP.RECT 1000 MG RECTAL (21:07)
[2021-09-29] MEDS: MINERAL OIL/WHITE PETROLATUM OINTMENT 1 APPLIC EACH EYE (21:07)
[2021-09-29] MEDS: DEXTROSE 5%/0.9% SOD CHL 1,000 ML 125 ML IV CONT (22:04)
[2021-09-30] VITALS (29 sets, daily range): BP systolic 114–140; BP diastolic 53–75; PULSE 54–86; RESP 18–21; TEMP 36.3–37.1; O2SAT 92–100; BMI 28.0
[2021-09-30 01:08] LABS: Glucose Point of Care 108 mg/dl (65-105)
[2021-09-30 04:53] LABS: Hematocrit 29.8 % (42.0-52.0); Mean Corpuscular HGB Conc 30.2 g/dl (32-36); Mean Corpuscular Hemoglobin 28.7 pg (26-34); Mean Corpuscular Volume 94.9 fl (80-100); Mean Platelet Volume 9.5 fl (7.4-10.4); Platelet Count Result 244 k/mm3 (150-375); Red Blood Count 3.14 M/mm3 (4.6-6.20); Red Cell Distribution Width 21.2 % (11.5-14.5); White Blood Count 10.1 K/mm3 (4.5-10.0)
[2021-09-30] MEDS: DEXTROSE 5%/0.9% SOD CHL 1,000 ML 125 ML IV CONT ×2 (05:01→12:35)
[2021-09-30 05:17] LABS: Alanine Aminotransferase 19 U/L (4-50); Alkaline Phosphatase 152 U/L (38-126); Anion Gap 11 mmol/L (8-16); Aspartate Amino Transferase 24 U/L (17-59); Bilirubin,Total 0.5 mg/dL (0.2-1.3); Blood Urea Nitrogen 53 mg/dL (9-20); Calcium 7.9 mg/dL (8.4-10.2); Carbon Dioxide 24 mmol/L (22-30); Chloride 104 mmol/L (98-107); Estimated CRCL calculation 20 ml/min; Estimated Glomerular Filt Rate 15; Glucose 97 mg/dL (65-110); Phosphorus 5.9 mg/dL (2.5-4.5); Potassium 4.2 mmol/L (3.4-5.0); Sodium 139 mmol/L (137-145)
[2021-09-30 05:25] LABS: Alveolar/Arterial O2 Gradient 145.4 mmHg; Carboxyhemoglobin 0.3 % THb (0-2.0); Fractional Inspired Oxygen 40 %; HCO3 ABG 22.9 mEq/l (22.0-26.0); Methemoglobin ABG 0.4 %THb (0-1.5); Oxygen Saturation ABG 96.2 % (95.0-100.0); Oxyhemoglobin 94.8 % THb (90.0-100.0); PCO2 ABG 44.4 mmHg (35.0-45.0); PO2 ABG 88.7 mmHg (80.0-100.0); PO2 FiO2 Ratio Arterial Blood 2.22 %; Reduced Hemoglobin 4.5 %THb (0-5.0); Total Hemoglobin 11.2 g/dL (12.0-18.0); pH ABG 7.331 (7.350-7.450)
[2021-09-30 05:26] LABS: Arterial Blood Gas Vent Mode CMV; Arterial Blood Gas Ventilator rate 18 /MIN; Device VENTILATOR; Modified Allen's Test Pass; Site Drawn LEFT RADIAL
[2021-09-30 05:27] LABS: Arterial Blood Gas PEEP 10 cmH2O; Arterial Blood Gas Tidal Volume 450 ml
[2021-09-30] MEDS: DOXYCYCLINE IV 100 MG in SODIUM CHLORIDE 0.9% IV 100 ML IVPB ×2 (09:33→20:24)
[2021-09-30] MEDS: PANTOPRAZOLE SODIUM IV 40 MG VIAL IV PUSH (09:34)
[2021-09-30] MEDS: SILVERGEL (ELTA) 45 ML 1 APPLIC TOPICAL (09:34)
[2021-09-30] MEDS: MINERAL OIL/WHITE PETROLATUM OINTMENT 1 APPLIC EACH EYE ×2 (09:35→20:24)
[2021-09-30] MEDS: MIDAZOLAM HCL (*CRX) 2 MG/2 ML VIAL IV PUSH ×3 (09:57→20:35)
[2021-09-30 12:06] LABS: Glucose Point of Care 110 mg/dl (65-105)
[2021-09-30] MEDS: cefTRIAXone 2 GM in SODIUM CHLORIDE 0.9% IV 100 ML 200 ML IVPB (13:21)
[2021-09-30] MEDS: ENOXAPARIN 100 MG/ML SYRINGE 90 MG SUB-Q (13:21)
[2021-09-30 13:30] LABS: Glucose Point of Care 106 mg/dl (65-105)
--- NOTE | 2021-09-30 14:21 | WPDINTPN ---
Progress Note: A&P Assessment and Plan (1) Acute and chronic respiratory failure, unspecified whether with hypoxia or hypercapnia: Code(s): J96.20 - Acute and chronic respiratory failure, unspecified whether with hypoxia or hypercapnia Status: Acute Assessment and Plan: Likely multifactorial secondary to CHF COPD Does not appear to be pneumonia as patient has normal WBC and no report of fever from nursing. Considering patient's chest x-ray is significantly abnormal patient was started on empiric antibiotics. Blood culture sent. His lactic acid level was normal sputum culture is also ordered BNP was 10,000 Urine Legionella is ordered and pending Hold Lasix at this time due to significant elevation in creatinine and soft blood pressure Bronchodilators FiO2 is down at 40% I will will wean PEEP ABG and chest x-ray reviewed (2) Acute on chronic renal failure: Code(s): N17.9 - Acute kidney failure, unspecified; N18.9 - Chronic kidney disease, unspecified Status: Acute Assessment and Plan: Patient was discharged on Lasix and this could be secondary to intravascular volume depletion UA suggests prerenal Continue cautious IV fluids Monitor urine output electrolytes and creatinine Renal ultrasound shows no hydronephrosis Normal CK Consult nephrology (3) Acute exacerbation of CHF (congestive heart failure): Code(s): I50.9 - Heart failure, unspecified Status: Acute Assessment and Plan: ECHO 07/21 Summary 1. Complete two-dimensional, color flow and Doppler transthoracic echocardiogram is performed. 2. Left ventricular chamber dimension is moderately enlarged. 3. Left ventricular systolic function is mildly reduced, estimated at 45-50%. 4. There is moderately increased left ventricular wall thickness. 5. Left atrial chamber dimension is moderately enlarged. 6. There is trace mitral valve regurgitation. Hold Lasix at this time due to elevated creatinine (4) Person under investigation for COVID-19: Code(s): Z20.822 - Contact with and (suspected) exposure to COVID-19 Status: Acute Assessment and Plan: COVID-19 suspected. SARS-CoV-2 PCR sent and results pending Patient is in Airborne, Droplet and Contact Isolation (5) COPD (chronic obstructive pulmonary disease): Qualifiers: COPD type: unspecified COPD Qualified Code(s): J44.9 - Chronic obstructive pulmonary disease, unspecified Code(s): J44.9 - Chronic obstructive pulmonary disease, unspecified Status: Acute Assessment and Plan: See above (6) Hypotension: Code(s): I95.9 - Hypotension, unspecified Status: Acute Assessment and Plan: Could be secondary to sedation His lactic acid level was normal Resolved with a a small fluid bolus and cautious IV fluids (7) Atrial fibrillation with slow ventricular response: Code(s): I48.91 - Unspecified atrial fibrillation Status: Acute Assessment and Plan: Ventricular rate is controlled 60s this time Cold beta-mt due to low blood pressure Lovenox instead of Eliquis at this Additional Plan DVT prophylaxis -switch to Lovenox subQ Stress ulcer prophylaxis -start PPI Nutrition -start tube feeds today Code Status -patient has advanced directive form states that he is DNR in the event of cardiac arrest but otherwise the option of intubation and full treatment is checked Total Critical Care Time -30 minutes Due to a high probability of clinically significant, life threatening deterioration, the patient required my highest level of preparedness to intervene emergently and I personally spent this critical care time directly and personally managing the patient. This critical care time included obtaining a history; examining the patient; pulse oximetry; ordering and review of studies; arranging urgent treatment with development of a management plan; evaluation of patient's response to treatment; fr
[2021-09-30 17:56] LABS: Glucose Point of Care 105 mg/dl (65-105)
[2021-09-30 17:58] LABS: SARS-CoV-2 RNA PCR Negative
--- NOTE | 2021-09-30 19:46 | PM.CNNEP ---
Assessment and Plan Assessment and plan (1) Chronic kidney disease, stage 3b: Code(s): N18.32 - Chronic kidney disease, stage 3b Status: Acute Assessment and Plan: The patient has chronic kidney disease stage IIIB. His GFR generally runs in the 30s and low 40s. The cause of his CKD is multi factorial. He has hypertension, diabetes, chronic diuretic use, congestive heart failure with mildly low ejection fraction and signs of right heart dysfunction., His baseline creatinine is such that he has CKD stage IIIB (2) KIET (acute kidney injury): Code(s): N17.9 - Acute kidney failure, unspecified Status: Acute Assessment and Plan: The patient has acute kidney injury. He is on large doses of diuretics since the last hospital stay. Possibly he has dehydration. He has BPH and so could have prostatic obstruction as well. He could have obstruction also. Will check a renal ultrasound. Allergic interstitial nephritis would be remotely possible because he is been in and out of the hospital so much these last 2 or 3 months. But there are not strong indicators such as rash or peripheral eosinophilia. He was not on an antibiotic recently in the [facility]. Rhabdo is always a possibility but his CK is normal. Glomerulonephritis is unlikely this clinical scenario. (3) Acute on chronic respiratory failure with hypoxia and hypercapnia: Code(s): J96.21 - Acute and chronic respiratory failure with hypoxia; J96.22 - Acute and chronic respiratory failure with hypercapnia Status: Acute Assessment and Plan: The patient is on the ventilator. He has hypercarbic respiratory failure. He is getting supportive care. (4) Essential hypertension: Code(s): I10 - Essential (primary) hypertension Status: Acute Assessment and Plan: His blood pressure is under good control (5) Congestive heart failure: Code(s): I50.9 - Heart failure, unspecified Status: Acute Assessment and Plan: Even as high as his creatinine is, his chest x-ray still shows pleural effusions and pulmonary edema. Will see how this plays out. (6) Paroxysmal atrial fibrillation: Code(s): I48.0 - Paroxysmal atrial fibrillation Status: Acute Assessment and Plan: His heart rate is well controlled (7) ELAINE (obstructive sleep apnea): Code(s): G47.33 - Obstructive sleep apnea (adult) (pediatric) Status: Chronic Assessment and Plan: He is on the ventilator. History of Present Illness Reason for Consult Consult date: 09/30/21 Chief Complaint Chief complaint: acute on chronic respiratory failure History of Present Illness Narrative: Ector is an unfortunate 61-year-old gentleman who has multiple medical problems including chronic kidney disease stage 3, hypertension, congestive heart failure, stroke, diabetes, neuropathy, nephropathy, tobacco abuse, sciatica, paroxysmal atrial fibrillation, sleep apnea who uses a BiPAP, coronary disease, stroke. The patient has been in and out of the hospital for the last 3 months or so with respiratory failure. He lives in a [facility] and was found unresponsive. Apparently he was seen earlier in the day and was fine. Because of his unresponsiveness 911 was called they found him with agonal breathing and so the intubated him in the field and brought him to the emergency room. He was evaluated in the ER and found to be in respiratory failure. His pCO2 was very high. His creatinine was also very high over his usual level. He was admitted to the ICU and renal consultation was requested. The patient cannot give a history. Review of Systems Review of Systems: ROS unobtainable: Yes unobtainable due to medical condition [facility] Past Medical History Medical History (Updated 09/30/21 @ 19:51 by Prasad Villeda MD) Cerebrovascular accident Chronic anticoagulation Chronic kidney disease, stage 3 Chronic kidney disease, stag
[2021-09-30] MEDS: MESALAMINE 1,000 MG SUPP.RECT 1000 MG RECTAL (20:27)
[2021-09-30 20:42] LABS: Glucose Point of Care 106 mg/dl (65-105)
[2021-09-30] MEDS: FENTANYL 2,500MCG/NS250ML(*CRX 2,500 MCG/250 ML BAG 10 MCG IV CONT (23:14)
[2021-10-01] VITALS (24 sets, daily range): BP systolic 118–150; BP diastolic 61–97; PULSE 76–118; RESP 18–26; TEMP 36.8–37.2; O2SAT 95–100
--- NOTE | 2021-10-01 | ECHO_ITS ---
Patient Info Name: Ector Oconnor Age: 61 years : 1960 Gender: Male Ht: 72 in Wt: 196 lbs BSA: 2.14 m2 HR: 98 bpm BP: 141 / 98 mmHg Heart Rhythm: Sinus Rhythm Technical Quality: Fair Exam Date: 10/01/2021 3:20 PM Exam Location: [facility] Exam Room: ICU9 Patient Status: Inpatient Admit Date: 09/29/2021 Staff Ordering Physician: Kamaljit Canales MD Wall Scraper: Yumi Bernal RDCS Attending Provider: Charlotte Romero MD Exam Type: CA echo doppler color flow Study Info Indications - CHF Complete two-dimensional, color flow and Doppler transthoracic echocardiogram is performed. Summary 1. Complete two-dimensional, color flow and Doppler transthoracic echocardiogram is performed. 2. Normal left ventricular size with moderate concentric hypertrophy. No segmental wall motion abnormalities but there is moderate global hypokinesis. Calculated ejection fraction is 30 1% but visually appears better, 35-40%. Grade 2 diastolic dysfunction is present. 3. Left atrial chamber dimension is moderately enlarged. 4. Aortic valve sclerosis without stenosis. 5. Mild pulmonary hypertension, estimated pulmonary arterial systolic pressure is 40 mmHg. 6. Normal sinus rhythm. Left Ventricle Left ventricular chamber dimension is normal. Left ventricular systolic function is moderately reduced, estimated at 35-40%. There is moderately increased left ventricular wall thickness. Left ventricular septal wall motion is normal. The left ventricular diastolic function is grade II diastolic dysfunction. Right Ventricle Right ventricular chamber dimension is normal. Right ventricular systolic function is normal. Left Atria Left atrial chamber dimension is moderately enlarged. Right Atria Right atrial chamber dimension is normal. Aortic Valve The aortic valve is trileaflet. There is moderate aortic valve sclerosis. There is no aortic valve stenosis. There is no aortic valve regurgitation. Pulmonic Valve The pulmonic valve is normal. There is no pulmonic valve stenosis. There is no pulmonic regurgitation. Mitral Valve The mitral valve has normal leaflets. There is no mitral valve stenosis. There is no mitral valve regurgitation. There is moderate mitral valve calcification. Tricuspid Valve The tricuspid valve leaflets are normal. There is no significant tricuspid valve stenosis. There is trace tricuspid valve regurgitation. Mild pulmonary hypertension, estimated pulmonary arterial systolic pressure is 40 mmHg. Pericardium/Pleural The pericardium appears normal. There is no pericardial effusion. Inferior Vena Cava Normal inferior vena cava with >50% collapse upon inspiration consistent with Empty right atrial pressure, 10 mmHg. Aorta The aortic root size at the sinus of Valsalva is normal. The prox ascending aorta size is normal. Left Ventricular Outflow Tract Name Value Normal LVOT 2D LVOT Diameter 2.1 cm LVOT Doppler LVOT Peak Gradient 6 mmHg LVOT Mean Gradient 3 mmHg LVOT VTI
[2021-10-01 00:36] LABS: Glucose Point of Care 120 mg/dl (65-105)
[2021-10-01] MEDS: MIDAZOLAM HCL (*CRX) 2 MG/2 ML VIAL IV PUSH ×2 (00:54→06:22)
[2021-10-01] MEDS: DEXTROSE 5%/0.9% SOD CHL 1,000 ML 75 ML IV CONT ×2 (00:56→18:49)
[2021-10-01 04:33] LABS: Alveolar/Arterial O2 Gradient 117.9 mmHg; Base Excess ABG -1.5 mEq/l (+/-2.0); Fractional Inspired Oxygen 35 %; HCO3 ABG 24.1 mEq/l (22.0-26.0); Methemoglobin ABG 0.4 %THb (0-1.5); Oxygen Content ABG 15.2 %vol (16.0-22.0); Oxygen Saturation ABG 95.3 % (95.0-100.0); Oxyhemoglobin 94.3 % THb (90.0-100.0); PCO2 ABG 44.4 mmHg (35.0-45.0); PO2 FiO2 Ratio Arterial Blood 2.29 %; Reduced Hemoglobin 5.3 %THb (0-5.0); Total Hemoglobin 11.4 g/dL (12.0-18.0); pH ABG 7.353 (7.350-7.450)
[2021-10-01 04:34] LABS: Arterial Blood Gas Vent Mode CMV; Arterial Blood Gas Ventilator rate 18 /MIN; Device VENTILATOR; Modified Allen's Test Pass; Site Drawn RIGHT RADIAL
[2021-10-01 04:35] LABS: Arterial Blood Gas PEEP 7 cmH2O; Arterial Blood Gas Tidal Volume 450 ml
[2021-10-01 05:11] LABS: Hematocrit 29.8 % (42.0-52.0); Hemoglobin 9.2 g/dL (14.0-18.0); Mean Corpuscular HGB Conc 30.9 g/dl (32-36); Mean Corpuscular Hemoglobin 29.9 pg (26-34); Mean Corpuscular Volume 96.8 fl (80-100); Mean Platelet Volume 9.8 fl (7.4-10.4); Platelet Count Result 215 k/mm3 (150-375); Red Blood Count 3.08 M/mm3 (4.6-6.20); Red Cell Distribution Width 21.8 % (11.5-14.5); White Blood Count 8.8 K/mm3 (4.5-10.0)
[2021-10-01 05:24] LABS: Alanine Aminotransferase 15 U/L (4-50); Albumin Level 2.7 g/dL (3.5-5.1); Alkaline Phosphatase 136 U/L (38-126); Anion Gap 7 mmol/L (8-16); Aspartate Amino Transferase 21 U/L (17-59); Bilirubin,Total 0.4 mg/dL (0.2-1.3); Blood Urea Nitrogen 51 mg/dL (9-20); Calcium 7.7 mg/dL (8.4-10.2); Carbon Dioxide 23 mmol/L (22-30); Chloride 108 mmol/L (98-107); Estimated CRCL calculation 21 ml/min; Estimated Glomerular Filt Rate 16; Glucose 134 mg/dL (65-110); Phosphorus 5.1 mg/dL (2.5-4.5); Potassium 3.6 mmol/L (3.4-5.0); Sodium 138 mmol/L (137-145)
--- NOTE | 2021-10-01 06:35 | P.CDI_ITS ---
CDI Query Clarification Request -Acute exacerbation of CHF documented - ECHO 07/21 Summary: 1. Complete two-dimensional, color flow and Doppler transthoracic echocardiogram is performed. 2. Left ventricular chamber dimension is moderately enlarged. 3. Left ventricular systolic function is mildly reduced, estimated at 45-50%. 4. There is moderately increased left ventricular wall thickness. 5. Left atrial chamber dimension is moderately enlarged. 6. There is trace mitral valve regurgitation. has been documented Please further clarify type of acute CHF: * Systolic * Diastolic * Both systolic and diastolic * Unable to determine
[2021-10-01 08:06] LABS: Glucose Point of Care 122 mg/dl (65-105)
[2021-10-01] MEDS: DOXYCYCLINE IV 100 MG in SODIUM CHLORIDE 0.9% IV 100 ML IVPB ×2 (08:06→21:41)
[2021-10-01] MEDS: PANTOPRAZOLE SODIUM IV 40 MG VIAL IV PUSH (08:08)
[2021-10-01] MEDS: MINERAL OIL/WHITE PETROLATUM OINTMENT 1 APPLIC EACH EYE ×2 (08:08→21:44)
[2021-10-01] MEDS: SILVERGEL (ELTA) 45 ML 1 APPLIC TOPICAL (08:08)
--- NOTE | 2021-10-01 12:05 | PCFNICU ---
ICU Rounding Note: Pt current nutrition is Nepro tube feedings. Last recorded weight is 89.2 kg down from 94 kg on admit. Bowel Motility:+BM reported 10/01 Labs Reviewed:Glu 134m PO4 5.1, GFR 16, BUN 51, Alb 2.7, Hgb 9.2,Hct 29.8 Meds Noted:Versed, Protonix Skin: stage 2 PU-left heel. Additional Notes: Patient remains on mechanical vent. Tube feedings are currently on hold due to emesis and elevated residuals of 500 ml. Following daily in ICU rounds. Assessing/reassessing every Tuesday and Tuesday.
[2021-10-01 12:36] LABS: Glucose Point of Care 99 mg/dl (65-105)
--- NOTE | 2021-10-01 12:59 | PM.PNNEP ---
Progress Note: A&P Assessment and Plan (1) Chronic kidney disease, stage 3b: Code(s): N18.32 - Chronic kidney disease, stage 3b Status: Acute Assessment and Plan: The patient has chronic kidney disease stage IIIB. His GFR generally runs in the 30s and low 40s. this CKD is due to hypertension, diabetes, chronic diuretic use, congestive heart failure with mildly low ejection fraction and signs of right heart dysfunction. His baseline creatinine is such that he has CKD stage IIIB (2) KIET (acute kidney injury): Code(s): N17.9 - Acute kidney failure, unspecified Status: Acute Assessment and Plan: The patient has acute kidney injury. Renal ultrasound showed bilateral cortical thinning. No hydronephrosis Urine electrolytes are pre renal urine protein to creatinine ratio in the past has been in the nephrotic range. He is on large doses of diuretics since the last hospital stay. These may have led to some pre renal azotemia however he still has pulmonary infiltrates on his CT scan consistent with congestive heart failure. Will repeat a CT to see if this has gotten worse. he receives substantial amounts of fluid yesterday with general treatment but his creatinine has not improved much. Will see what the echocardiogram shows. If his LV is bad then he might benefit from Dobutamine plus diuretics. (3) Acute on chronic respiratory failure with hypoxia and hypercapnia: Code(s): J96.21 - Acute and chronic respiratory failure with hypoxia; J96.22 - Acute and chronic respiratory failure with hypercapnia Status: Acute Assessment and Plan: The patient is on the ventilator. He has hypercarbic respiratory failure. He is getting supportive care. (4) Essential hypertension: Code(s): I10 - Essential (primary) hypertension Status: Acute Assessment and Plan: His blood pressure is under good control (5) Congestive heart failure: Code(s): I50.9 - Heart failure, unspecified Status: Acute Assessment and Plan: Even as high as his creatinine is, his chest x-ray still shows pleural effusions and pulmonary edema. Will see how the chest x-ray looks (6) Paroxysmal atrial fibrillation: Code(s): I48.0 - Paroxysmal atrial fibrillation Status: Acute Assessment and Plan: His heart rate is well controlled (7) ELAINE (obstructive sleep apnea): Code(s): G47.33 - Obstructive sleep apnea (adult) (pediatric) Status: Chronic Assessment and Plan: He is on the ventilator. Subjective Date/time seen: 10/01/21 12:59 Interval history: patient is on the ventilator. He is sedated. Exam Narrative: WDWN on the ventilator, on sedatives, in NAD skin no rash head ncat lungs Course and symmetric cor reg no rub abd BS+ nontender and soft ext no edema. Objective Data Vital Signs Vital Signs: Vital Signs - 24 hr 09/30/21 14:00 09/30/21 14:15 09/30/21 16:00 Temperature 36.8 C Pulse Rate 65 66 67 Respiratory Rate 18 18 Blood Pressure 128/62 126/60 Pulse Oximetry 96 96 93 09/30/21 16:37 09/30/21 18:00 09/30/21 19:45 Temperature Pulse Rate 69 71 75 Respiratory Rate 20 Blood Pressure 124/70 Pulse Oximetry 92 98 96 09/30/21 20:00 09/30/21 20:38 09/30/21 22:00 Temperature 37.1 C Pulse Rate 75 86 85 Respiratory Rate 18 18 19 Blood Pressure 123/59 L 136/66 Pulse Oximetry 96 95 09/30/21 23:14 09/30/21 23:20 09/30/21 23:53 Temperature 36.8 C Pulse Rate 86 85 86 Respiratory Rate 18 18 Blood Pressure 140/65 Pulse Oximetry 95 95 09/30/21 23:55 10/01/21 00:00 10/01/21 02:00 Temperature Pulse Rate 86 85 Respiratory Rate 18 Blood Pressure 132/61 Pulse Oximetry 94 95 10/01/21 02:24 10/01/21 03:45 10/01/21 04:00 Temperature 36.8 C Pulse Rate 85 76 Respiratory Rate 20 Blood Pressure 126/61 Pulse Oximetry 95 96 96 10/01/21 05:05
--- NOTE | 2021-10-01 13:32 | WPDINTPN ---
Progress Note: A&P Assessment and Plan (1) Acute and chronic respiratory failure, unspecified whether with hypoxia or hypercapnia: Code(s): J96.20 - Acute and chronic respiratory failure, unspecified whether with hypoxia or hypercapnia Status: Acute Assessment and Plan: Likely multifactorial secondary to CHF COPD, ? Pneumonia Does not appear to be pneumonia as patient has normal WBC and no report of fever from nursing. Considering patient's chest x-ray is significantly abnormal patient was started on empiric antibiotics. Blood culture sent. His lactic acid level was normal sputum culture is also ordered BNP was 10,000 Urine Legionella is ordered and pending Hold Lasix at this time due to significant elevation in creatinine Bronchodilators FiO2 is down at 40% peep is at 7 ABG and chest x-ray reviewed CT Chest IMPRESSION: 1. Likely congestive heart failure with cardiomegaly, mild pulmonary edema and large bilateral posterior layering pleural effusions. 2. Enlargement of the central pulmonary arteries consistent with pulmonary arterial hypertension. 3. Mild likely reactive mediastinal lymphadenopathy. Will perform sedation holiday Request ultrasound-guided right thoracentesis (2) Acute on chronic renal failure: Code(s): N17.9 - Acute kidney failure, unspecified; N18.9 - Chronic kidney disease, unspecified Status: Acute Assessment and Plan: Patient was discharged on Lasix and this could be secondary to intravascular volume depletion UA suggests prerenal Continue cautious IV fluids S patient is overall volume overloaded Monitor urine output electrolytes and creatinine. Creatinine has not made any significant improvement Renal ultrasound shows no hydronephrosis Normal CK Discussed with nephrology Repeat echocardiogram (3) Acute exacerbation of CHF (congestive heart failure): Code(s): I50.9 - Heart failure, unspecified Status: Acute Assessment and Plan: ECHO 07/21 Summary 1. Complete two-dimensional, color flow and Doppler transthoracic echocardiogram is performed. 2. Left ventricular chamber dimension is moderately enlarged. 3. Left ventricular systolic function is mildly reduced, estimated at 45-50%. 4. There is moderately increased left ventricular wall thickness. 5. Left atrial chamber dimension is moderately enlarged. 6. There is trace mitral valve regurgitation. Repeat echocardiogram ordered as per Nephrology recommendation Hold Lasix at this time due to elevated creatinine (4) Person under investigation for COVID-19: Code(s): Z20.822 - Contact with and (suspected) exposure to COVID-19 Status: Acute Assessment and Plan: COVID-19 suspected. SARS-CoV-2 PCR negative (5) COPD (chronic obstructive pulmonary disease): Qualifiers: COPD type: unspecified COPD Qualified Code(s): J44.9 - Chronic obstructive pulmonary disease, unspecified Code(s): J44.9 - Chronic obstructive pulmonary disease, unspecified Status: Acute Assessment and Plan: See above (6) Hypotension: Code(s): I95.9 - Hypotension, unspecified Status: Acute Assessment and Plan: Could be secondary to sedation His lactic acid level was normal Resolved with a a small fluid bolus and cautious IV fluids (7) Atrial fibrillation with slow ventricular response: Code(s): I48.91 - Unspecified atrial fibrillation Status: Acute Assessment and Plan: Ventricular rate is controlled 60s this time Cold beta-mt due to low blood pressure Lovenox instead of Eliquis at this Additional Plan DVT prophylaxis -switch to Lovenox subQ Stress ulcer prophylaxis -start PPI Nutrition -continue tube feeds today add Reglan for high residuals Code Status -patient has advanced directive form states that he is DNR in the event of cardiac arrest but otherwise the option of intubation and full treatment is checked Total Critical Care T
[2021-10-01] MEDS: cefTRIAXone 2 GM in SODIUM CHLORIDE 0.9% IV 100 ML 200 ML IVPB (14:35)
[2021-10-01] MEDS: ENOXAPARIN 100 MG/ML SYRINGE 90 MG SUB-Q (14:36)
[2021-10-01 17:28] LABS: Glucose Point of Care 116 mg/dl (65-105)
[2021-10-01] MEDS: METOCLOPRAMIDE HCL 10 MG/10 ML SOLN UDC PO ×2 (17:52→18:35)
[2021-10-01 19:38] LABS: Legionella pneumophila Ag Ur Not Detected (Not Detected)
[2021-10-01] MEDS: MESALAMINE 1,000 MG SUPP.RECT 1000 MG RECTAL (21:41)
[2021-10-01 22:14] LABS: Glucose Point of Care 123 mg/dl (65-105)
[2021-10-01] MEDS: IPRATROPIUM BR 0.02% INH SOLN 0.5 MG/2.5 ML VIAL INHALATION (23:09)
[2021-10-01] MEDS: ALBUTEROL SULFATE NEB 2.5 MG/0.5 ML INH INHALATION (23:10)
[2021-10-02] VITALS (24 sets, daily range): BP systolic 123–157; BP diastolic 57–98; PULSE 84–118; RESP 14–21; TEMP 36–37; O2SAT 95–98
[2021-10-02] MEDS: METOCLOPRAMIDE HCL 10 MG/10 ML SOLN UDC PO ×4 (00:04→17:39)
[2021-10-02 01:14] LABS: Glucose Point of Care 128 mg/dl (65-105)
[2021-10-02] MEDS: FENTANYL 2,500MCG/NS250ML(*CRX 2,500 MCG/250 ML BAG 10 MCG IV CONT (03:55)
[2021-10-02 04:18] LABS: Glucose Point of Care 136 mg/dl (65-105)
[2021-10-02 05:40] LABS: Hematocrit 31.9 % (42.0-52.0); Hemoglobin 9.5 g/dL (14.0-18.0); Mean Corpuscular HGB Conc 29.8 g/dl (32-36); Mean Corpuscular Hemoglobin 28.7 pg (26-34); Mean Corpuscular Volume 96.4 fl (80-100); Mean Platelet Volume 10.1 fl (7.4-10.4); Platelet Count Result 216 k/mm3 (150-375); Red Blood Count 3.31 M/mm3 (4.6-6.20); Red Cell Distribution Width 21.3 % (11.5-14.5)
[2021-10-02 06:06] LABS: Alanine Aminotransferase 14 U/L (4-50); Albumin Level 2.8 g/dL (3.5-5.1); Alkaline Phosphatase 158 U/L (38-126); Anion Gap 8 mmol/L (8-16); Aspartate Amino Transferase 21 U/L (17-59); Bilirubin,Total 0.4 mg/dL (0.2-1.3); Blood Urea Nitrogen 51 mg/dL (9-20); Calcium 8.1 mg/dL (8.4-10.2); Carbon Dioxide 24 mmol/L (22-30); Chloride 109 mmol/L (98-107); Estimated CRCL calculation 22 ml/min; Estimated Glomerular Filt Rate 17; Glucose 135 mg/dL (65-110); Magnesium 1.9 mg/dL (1.6-2.3); Phosphorus 4.9 mg/dL (2.5-4.5); Potassium 3.4 mmol/L (3.4-5.0); Sodium 141 mmol/L (137-145)
[2021-10-02 07:12] LABS: Alveolar/Arterial O2 Gradient 83.3 mmHg; Base Excess ABG -3.1 mEq/l (+/-2.0); Carboxyhemoglobin 0.3 % THb (0-2.0); Fractional Inspired Oxygen 30 %; HCO3 ABG 20.9 mEq/l (22.0-26.0); Methemoglobin ABG 0.4 %THb (0-1.5); Oxygen Content ABG 14.2 %vol (16.0-22.0); Oxygen Saturation ABG 97.1 % (95.0-100.0); Oxyhemoglobin 95.4 % THb (90.0-100.0); PCO2 ABG 33.7 mmHg (35.0-45.0); PO2 FiO2 Ratio Arterial Blood 3.03 %; Reduced Hemoglobin 3.9 %THb (0-5.0); Total Hemoglobin 10.5 g/dL (12.0-18.0)
[2021-10-02 07:18] LABS: Device VENTILATOR; Modified Allen's Test Unable to perform; Site Drawn RIGHT RADIAL
[2021-10-02 07:20] LABS: Arterial Blood Gas PEEP 7 cmH2O; Arterial Blood Gas Tidal Volume 450 ml; Arterial Blood Gas Vent Mode CMV; Arterial Blood Gas Ventilator rate 18 /MIN
[2021-10-02] MEDS: DOXYCYCLINE IV 100 MG in SODIUM CHLORIDE 0.9% IV 100 ML IVPB ×2 (08:54→21:01)
[2021-10-02] MEDS: MINERAL OIL/WHITE PETROLATUM OINTMENT 1 APPLIC EACH EYE ×2 (08:55→21:01)
[2021-10-02] MEDS: PANTOPRAZOLE SODIUM IV 40 MG VIAL IV PUSH (08:56)
[2021-10-02] MEDS: SILVERGEL (ELTA) 45 ML 1 APPLIC TOPICAL (08:56)
[2021-10-02] MEDS: MIDAZOLAM HCL (*CRX) 2 MG/2 ML VIAL IV PUSH ×3 (10:21→21:12)
[2021-10-02] MEDS: DEXTROSE 5%/0.9% SOD CHL 1,000 ML 75 ML IV CONT (10:26)
[2021-10-02 10:29] LABS: Glucose Point of Care 130 mg/dl (65-105)
--- NOTE | 2021-10-02 11:20 | WPDINTPN ---
Progress Note: A&P Assessment and Plan (1) Acute and chronic respiratory failure, unspecified whether with hypoxia or hypercapnia: Code(s): J96.20 - Acute and chronic respiratory failure, unspecified whether with hypoxia or hypercapnia Status: Acute Assessment and Plan: Likely multifactorial secondary to CHF COPD, ? Pneumonia Does not appear to be pneumonia as patient has normal WBC and no report of fever from nursing. Considering patient's chest x-ray is significantly abnormal patient was started on empiric antibiotics. Blood culture sent. His lactic acid level was normal sputum culture is also ordered BNP was 10,000 Urine Legionella is ordered and pending Hold Lasix at this time due to significant elevation in creatinine Bronchodilators FiO2 is down at 40% peep is at 7 ABG Reviewed Chest x-ray reviewed and advance ET tube by [address] Chest IMPRESSION: 1. Likely congestive heart failure with cardiomegaly, mild pulmonary edema and large bilateral posterior layering pleural effusions. 2. Enlargement of the central pulmonary arteries consistent with pulmonary arterial hypertension. 3. Mild likely reactive mediastinal lymphadenopathy. Will perform sedation holiday 10/01 ultrasound-guided left thoracentesis with 1200 mL, requested IR to perform right thoracentesis today Alert him to weaning trial post thoracentesis (2) Acute on chronic renal failure: Code(s): N17.9 - Acute kidney failure, unspecified; N18.9 - Chronic kidney disease, unspecified Status: Acute Assessment and Plan: Patient was discharged on Lasix and this could be secondary to intravascular volume depletion UA suggests prerenal Continue cautious IV fluids as patient is overall volume overloaded Monitor urine output electrolytes and creatinine. Creatinine has not made any significant improvement Renal ultrasound shows no hydronephrosis Normal CK Discussed with nephrology Repeat echocardiogram showed Summary 1. Complete two-dimensional, color flow and Doppler transthoracic echocardiogram is performed. 2. Normal left ventricular size with moderate concentric hypertrophy. No segmental wall motion abnormalities but there is moderate global hypokinesis. Calculated ejection fraction is 30 1% but visually appears better, 35-40%. Grade 2 diastolic dysfunction is present. 3. Left atrial chamber dimension is moderately enlarged. 4. Aortic valve sclerosis without stenosis. 5. Mild pulmonary hypertension, estimated pulmonary arterial systolic pressure is 40 mmHg. 6. Normal sinus rhythm. (3) Acute exacerbation of CHF (congestive heart failure): Code(s): I50.9 - Heart failure, unspecified Status: Acute Assessment and Plan: ECHO 07/21 Summary 1. Complete two-dimensional, color flow and Doppler transthoracic echocardiogram is performed. 2. Left ventricular chamber dimension is moderately enlarged. 3. Left ventricular systolic function is mildly reduced, estimated at 45-50%. 4. There is moderately increased left ventricular wall thickness. 5. Left atrial chamber dimension is moderately enlarged. 6. There is trace mitral valve regurgitation. Repeat echocardiogram ordered as per Nephrology recommendation Summary 1. Complete two-dimensional, color flow and Doppler transthoracic echocardiogram is performed. 2. Normal left ventricular size with moderate concentric hypertrophy. No segmental wall motion abnormalities but there is moderate global hypokinesis. Calculated ejection fraction is 30 1% but visually appears better, 35-40%. Grade 2 diastolic dysfunction is present. 3. Left atrial chamber dimension is moderately enlarged. 4. Aortic valve sclerosis without stenosis. 5. Mild pulmonary hypertension, estimated pulmonary arterial systolic pressure is 40 mmHg. 6. Normal sinus rhythm. Hold Lasix at this time due to elevated creatinine (4) Person under investigation for COVID-19: Code(s): Z20.8
--- NOTE | 2021-10-02 12:01 | PCNFU ---
Nutrition Follow-Up Complete: Inadequate Oral Intake as related to mechanical ventilation as evidenced by NPO. Goal: Meet estimated nutritional needs Patient is progressing towards goal. We will continue current goal. Pt current nutrition is Nepro at 50 ml/hr over 22 hours. Last recorded weight is 91.9 kg, down from 94 kg on admit. Bowel Motility:+BM reported 10/01 Labs Reviewed:PO4 4.9,GFR 17, BUN 51, Cr 3.6,Glu 135,Alb 2.8 Meds Noted:Vancomycin, Synthroid, Protonix, Lovenox, Zosyn, NS, Versed, Reglan. Skin: Stage IV Pressure ulcer-left heels Additional Notes: Patient currently on mechanical vent with tube feedings at goal rate of Nepro at 50ml/hr and tolerating. Current tube feeding is providing 1980 kcals/ 89 gms protein/ 800 ml fluid. Free water flush 30 ml q 4 hours. Thoracentesis 10/01 removing 1200 ml fluid. Plans for additional thoracentesis today. Monitoring: Will monitor every Tuesday and Tuesday.
--- NOTE | 2021-10-02 12:15 | PM.PNNEP ---
Progress Note: A&P Assessment and Plan (1) Chronic kidney disease, stage 3b: Code(s): N18.32 - Chronic kidney disease, stage 3b Status: Acute Assessment and Plan: The patient has chronic kidney disease stage IIIB. His GFR generally runs in the 30s and low 40s. this CKD is due to hypertension, diabetes, chronic diuretic use, congestive heart failure with mildly low ejection fraction and signs of right heart dysfunction. His baseline creatinine is such that he has CKD stage IIIB (2) KIET (acute kidney injury): Code(s): N17.9 - Acute kidney failure, unspecified Status: Acute Assessment and Plan: The patient has acute kidney injury. Renal ultrasound showed bilateral cortical thinning. No hydronephrosis Urine electrolytes are pre renal urine protein to creatinine ratio in the past has been in the nephrotic range. echocardiogram shows mildly reduced LV function and mild pulmonary hypertension. Most likely pre renal from his cardiac status. The patient seems to be improving from the respiratory standpoint. Creatinine is coming down slowly. (3) Acute on chronic respiratory failure with hypoxia and hypercapnia: Code(s): J96.21 - Acute and chronic respiratory failure with hypoxia; J96.22 - Acute and chronic respiratory failure with hypercapnia Status: Acute Assessment and Plan: The patient is on the ventilator. He has hypercarbic respiratory failure. He is getting supportive care. (4) Essential hypertension: Code(s): I10 - Essential (primary) hypertension Status: Acute Assessment and Plan: His blood pressure is under good control He is on no antihypertensives. (5) Congestive heart failure: Code(s): I50.9 - Heart failure, unspecified Status: Acute Assessment and Plan: Even as high as his creatinine is, his chest x-ray still shows pleural effusions and pulmonary edema. Intake/output is about even. (6) Paroxysmal atrial fibrillation: Code(s): I48.0 - Paroxysmal atrial fibrillation Status: Acute Assessment and Plan: His heart rate is well controlled (7) ELAINE (obstructive sleep apnea): Code(s): G47.33 - Obstructive sleep apnea (adult) (pediatric) Status: Chronic Assessment and Plan: He is on the ventilator. Subjective Date/time seen: 10/02/21 12:15 Interval history: patient is on the ventilator. He is sedated. he looks comfortable Exam Narrative: WDWN on the ventilator, on sedatives, in NAD skin no rash head ncat lungs Course and symmetric cor reg no rub or gallop abd BS+ nontender and soft ext 1+ edema. Objective Data Vital Signs Vital Signs: Vital Signs - 24 hr 10/01/21 13:05 10/01/21 13:45 10/01/21 14:00 Temperature Pulse Rate 91 97 90 Respiratory Rate 18 26 H 18 Blood Pressure 134/64 136/64 149/97 H Pulse Oximetry 98 98 97 10/01/21 15:23 10/01/21 16:00 10/01/21 17:20 Temperature 37.2 C Pulse Rate 77 94 101 H Respiratory Rate 18 Blood Pressure 118/81 Pulse Oximetry 99 98 100 10/01/21 18:00 10/01/21 20:00 10/01/21 22:00 Temperature 37.0 C Pulse Rate 96 82 117 H Respiratory Rate 19 20 20 Blood Pressure 135/91 H 131/93 H 150/74 H Pulse Oximetry 98 98 98 10/01/21 22:57 10/01/21 23:05 10/01/21 23:15 Temperature Pulse Rate 117 H 117 H 118 H Respiratory Rate 20 20 Blood Pressure Pulse Oximetry 99 10/02/21 00:00 10/02/21 00:14 10/02/21 02:00 Temperature 37.0 C Pulse Rate 100 110 H 110 H Respiratory Rate 20 18 20 Blood Pressure 124/98 H 138/72 Pulse Oximetry 98 98 10/02/21 03:55 10/02/21 04:00 10/02/21 06:00 Temperature 36.2 C L Pulse Rate 110 H 110 H 108 H Respiratory Rate 18 20 20 Blood Pressure 140/85 151/82 H Pulse Oximetry 97 97 10/02/21 06:40 10/02/21 08:00 10/02/21 08:54 Temperature 36.0 C L Pulse Rate 100 102 H 102 H Respiratory Rate 18 Blood Pressur
[2021-10-02] MEDS: cefTRIAXone 2 GM in SODIUM CHLORIDE 0.9% IV 100 ML 200 ML IVPB (13:13)
[2021-10-02] MEDS: ENOXAPARIN 100 MG/ML SYRINGE 90 MG SUB-Q (14:00)
[2021-10-02 14:03] LABS: Glucose Point of Care 130 mg/dl (65-105)
[2021-10-02 16:17] LABS: Glucose Point of Care 120 mg/dl (65-105)
[2021-10-02 20:33] LABS: Glucose Point of Care 99 mg/dl (65-105)
[2021-10-02] MEDS: MESALAMINE 1,000 MG SUPP.RECT 1000 MG RECTAL (21:02)
[2021-10-03] VITALS (24 sets, daily range): BP systolic 109–170; BP diastolic 58–93; PULSE 80–124; RESP 10–30; TEMP 35.8–37.1; O2SAT 92–97
[2021-10-03 00:06] LABS: Glucose Point of Care 110 mg/dl (65-105)
[2021-10-03] MEDS: FENTANYL 2,500MCG/NS250ML(*CRX 2,500 MCG/250 ML BAG 10 MCG IV CONT (00:35)
[2021-10-03] MEDS: DEXTROSE 5%/0.9% SOD CHL 1,000 ML 75 ML IV CONT ×2 (00:36→18:30)
[2021-10-03] MEDS: METOCLOPRAMIDE HCL 10 MG/10 ML SOLN UDC PO ×4 (00:36→18:30)
[2021-10-03] MEDS: MIDAZOLAM HCL (*CRX) 2 MG/2 ML VIAL IV PUSH (05:17)
[2021-10-03 05:19] LABS: Alveolar/Arterial O2 Gradient 77.8 mmHg; Base Excess ABG -1.7 mEq/l (+/-2.0); Carboxyhemoglobin 0.2 % THb (0-2.0); Fractional Inspired Oxygen 30 %; HCO3 ABG 22.4 mEq/l (22.0-26.0); Methemoglobin ABG 0.4 %THb (0-1.5); Oxygen Content ABG 15.6 %vol (16.0-22.0); Oxygen Saturation ABG 97.3 % (95.0-100.0); Oxyhemoglobin 95.9 % THb (90.0-100.0); PCO2 ABG 35.8 mmHg (35.0-45.0); PO2 FiO2 Ratio Arterial Blood 3.13 %; Reduced Hemoglobin 3.5 %THb (0-5.0); Total Hemoglobin 11.5 g/dL (12.0-18.0); pH ABG 7.415 (7.350-7.450)
[2021-10-03 05:20] LABS: Device VENTILATOR; Modified Allen's Test Pass; Site Drawn RIGHT RADIAL
[2021-10-03 05:21] LABS: Arterial Blood Gas Ventilator rate 18 /MIN
[2021-10-03 05:22] LABS: Arterial Blood Gas PEEP 7 cmH2O; Arterial Blood Gas Tidal Volume 450 ml
[2021-10-03 05:27] LABS: Glucose Point of Care 137 mg/dl (65-105)
[2021-10-03 07:18] LABS: Alanine Aminotransferase 14 U/L (4-50); Albumin Level 2.4 g/dL (3.5-5.1); Alkaline Phosphatase 200 U/L (38-126); Anion Gap 7 mmol/L (8-16); Aspartate Amino Transferase 21 U/L (17-59); Bilirubin,Total 0.3 mg/dL (0.2-1.3); Blood Urea Nitrogen 46 mg/dL (9-20); Calcium 7.8 mg/dL (8.4-10.2); Carbon Dioxide 22 mmol/L (22-30); Chloride 112 mmol/L (98-107); Estimated CRCL calculation 24 ml/min; Estimated Glomerular Filt Rate 19; Glucose 150 mg/dL (65-110); Magnesium 1.9 mg/dL (1.6-2.3); Phosphorus 4.1 mg/dL (2.5-4.5); Sodium 141 mmol/L (137-145)
[2021-10-03 07:23] LABS: Hematocrit 30.3 % (42.0-52.0); Hemoglobin 9.2 g/dL (14.0-18.0); Mean Corpuscular HGB Conc 30.4 g/dl (32-36); Mean Corpuscular Hemoglobin 28.6 pg (26-34); Mean Corpuscular Volume 94.1 fl (80-100); Mean Platelet Volume 10.1 fl (7.4-10.4); Platelet Count Result 206 k/mm3 (150-375); Red Blood Count 3.22 M/mm3 (4.6-6.20); Red Cell Distribution Width 20.7 % (11.5-14.5); White Blood Count 6.9 K/mm3 (4.5-10.0)
[2021-10-03] MEDS: POTASSIUM CHLORIDE 20 MEQ PACKET (FOR LIQUID) 40 MEQ FEED TUBE ×2 (08:38→12:52)
[2021-10-03] MEDS: PANTOPRAZOLE SODIUM IV 40 MG VIAL IV PUSH (08:40)
[2021-10-03] MEDS: SILVERGEL (ELTA) 45 ML 1 APPLIC TOPICAL (08:40)
[2021-10-03] MEDS: MINERAL OIL/WHITE PETROLATUM OINTMENT 1 APPLIC EACH EYE ×2 (08:41→21:03)
[2021-10-03 08:48] LABS: Glucose Point of Care 136 mg/dl (65-105)
[2021-10-03] MEDS: DOXYCYCLINE IV 100 MG in SODIUM CHLORIDE 0.9% IV 100 ML IVPB ×2 (08:51→21:03)
--- NOTE | 2021-10-03 09:41 | WPDINTPN ---
Progress Note: A&P Assessment and Plan (1) Acute and chronic respiratory failure, unspecified whether with hypoxia or hypercapnia: Code(s): J96.20 - Acute and chronic respiratory failure, unspecified whether with hypoxia or hypercapnia Status: Acute Assessment and Plan: Likely multifactorial secondary to CHF COPD, ? Pneumonia Does not appear to be pneumonia as patient has normal WBC and no report of fever from nursing. Considering patient's chest x-ray is significantly abnormal patient was started on empiric antibiotics. Blood culture sent. His lactic acid level was normal sputum culture is also ordered BNP was 10,000 Urine Legionella is ordered and pending Hold Lasix at this time due to significant elevation in creatinine Bronchodilators FiO2 is down at 40% peep is at 7 ABG Reviewed Chest x-ray reviewed and advance ET tube by [address] Chest IMPRESSION: 1. Likely congestive heart failure with cardiomegaly, mild pulmonary edema and large bilateral posterior layering pleural effusions. 2. Enlargement of the central pulmonary arteries consistent with pulmonary arterial hypertension. 3. Mild likely reactive mediastinal lymphadenopathy. Will perform sedation holiday 10/01 ultrasound-guided left thoracentesis with 1200 mL, 10/02 ultrasound-guided right thoracentesis with 800 cc of fluid was removed Patient was placed on sedation holiday and weaning trial but he kept on having apnea alarm. Continue to hold sedation and try again later today (2) Acute on chronic renal failure: Code(s): N17.9 - Acute kidney failure, unspecified; N18.9 - Chronic kidney disease, unspecified Status: Acute Assessment and Plan: Patient was discharged on Lasix and this could be secondary to intravascular volume depletion UA suggests prerenal Continue cautious IV fluids as patient is overall volume overloaded Monitor urine output electrolytes and creatinine. Creatinine slowly improved t Renal ultrasound shows no hydronephrosis Normal CK Discussed with nephrology Repeat echocardiogram showed Summary 1. Complete two-dimensional, color flow and Doppler transthoracic echocardiogram is performed. 2. Normal left ventricular size with moderate concentric hypertrophy. No segmental wall motion abnormalities but there is moderate global hypokinesis. Calculated ejection fraction is 30 1% but visually appears better, 35-40%. Grade 2 diastolic dysfunction is present. 3. Left atrial chamber dimension is moderately enlarged. 4. Aortic valve sclerosis without stenosis. 5. Mild pulmonary hypertension, estimated pulmonary arterial systolic pressure is 40 mmHg. 6. Normal sinus rhythm. (3) Acute exacerbation of CHF (congestive heart failure): Code(s): I50.9 - Heart failure, unspecified Status: Acute Assessment and Plan: ECHO 07/21 Summary 1. Complete two-dimensional, color flow and Doppler transthoracic echocardiogram is performed. 2. Left ventricular chamber dimension is moderately enlarged. 3. Left ventricular systolic function is mildly reduced, estimated at 45-50%. 4. There is moderately increased left ventricular wall thickness. 5. Left atrial chamber dimension is moderately enlarged. 6. There is trace mitral valve regurgitation. Repeat echocardiogram ordered as per Nephrology recommendation Summary 1. Complete two-dimensional, color flow and Doppler transthoracic echocardiogram is performed. 2. Normal left ventricular size with moderate concentric hypertrophy. No segmental wall motion abnormalities but there is moderate global hypokinesis. Calculated ejection fraction is 30 1% but visually appears better, 35-40%. Grade 2 diastolic dysfunction is present. 3. Left atrial chamber dimension is moderately enlarged. 4. Aortic valve sclerosis without stenosis. 5. Mild pulmonary hypertension, estimated pulmonary arterial systolic pressure is 40 mmHg. 6. Normal sinus rhythm. Hold Lasix at this time
--- NOTE | 2021-10-03 10:03 | P.PNNP_ITS ---
Progress Note: A&P Assessment and Plan (1) KIET (acute kidney injury): Code(s): N17.9 - Acute kidney failure, unspecified Status: Acute Assessment and Plan: * suspect due to chronic prerenal azotemia from reduced EF (cardiorenal syndrome) and pulmonary HTN * evaluation to date demonstrates: * renal ultrasound with bilateral cortical thinning but no hydronephrosis * prerenal urine electrolytes * proteinuria by recent and previous admissions * Echo with reduced LV function + pulmonary HTN * slow improvement in creatinine/renal function noted * follow trend of repeat labs and UOP (2) Chronic kidney disease, stage 3b: Code(s): N18.32 - Chronic kidney disease, stage 3b Status: Chronic Assessment and Plan: * baseline creatinine running 1.6 - 2.1mg/dl for the last year * CKD due to chronic need for diuretics, CHF (with depressed EF + right heart dysfunction), pulmonary HTN, diabetes, and hypertension (3) Acute on chronic respiratory failure with hypoxia and hypercapnia: Code(s): J96.21 - Acute and chronic respiratory failure with hypoxia; J96.22 - Acute and chronic respiratory failure with hypercapnia Status: Acute Assessment and Plan: * due to CHF + COPD +/- pneumonia * s/p bilateral thoracenteses * continue ventilator support * weaning as tolerated * supportive care (4) Essential hypertension: Code(s): I10 - Essential (primary) hypertension Status: Acute Assessment and Plan: * previously hypotensive on admission * suspect a possible component of intravascular volume depletion * s/p IVFs which improved low BP * reasonable control at this time * follow trend of hemodynamics (5) Congestive heart failure: Code(s): I50.9 - Heart failure, unspecified Status: Acute Assessment and Plan: * as noted by imaging studies to date * diuretics on hold but will likely need to resume * follow I/Os and respiratory status (6) Paroxysmal atrial fibrillation: Code(s): I48.0 - Paroxysmal atrial fibrillation Status: Acute Assessment and Plan: * rate control strategy * on anticoagulation (7) Diabetes: Code(s): E11.9 - Type 2 diabetes mellitus without complications Status: Chronic Assessment and Plan: * follow accu-cheks * on sliding scale insulin Will continue to follow. Subjective Date/time seen: 10/03/21 10:03 Chart reviewed; remains on mechanical ventilation as well as sedation at the time of my visit; remains hemodynamically stable; no apparent issues or problems overnight or earlier this AM; no distress noted. Exam Narrative: General: WD/WN male intubated/sedated but in NAD Heart: normal S1 and S2; no rub Lungs: coarse breath sounds throughout Abdomen: soft, nontender, nondistended, positive bowel sounds Extremities: no cyanosis or clubbing; 1+ edema Skin: warm and dry Objective Data Vital Signs Vital Signs: Vital Signs Temp Pulse Resp BP Pulse Ox 10/03/21 10:00 82 18 139/61 96 10/03/21 08:41 103 H 96 10/03/21 08:00 35.8 C L 105 H 18 109/58 L 96 10/03/21 06:00 102 H 16 161/68 H 96 10/03/21 04:46 86 96 10/03/21 04:00 36.9 C 83 14 142/62 H 95 10/03/21 02:31 114 H 96 10/03/21 02:00 114 H 18 153/70 H 96 10/03/21 00:35 98 18 10/03/21
--- NOTE | 2021-10-03 10:03 | PM.PNNEP ---
Progress Note: A&P Assessment and Plan (1) KIET (acute kidney injury): Code(s): N17.9 - Acute kidney failure, unspecified Status: Acute Assessment and Plan: suspect due to chronic prerenal azotemia from reduced EF (cardiorenal syndrome) and pulmonary HTN evaluation to date demonstrates: renal ultrasound with bilateral cortical thinning but no hydronephrosis prerenal urine electrolytes proteinuria by recent and previous admissions Echo with reduced LV function + pulmonary HTN slow improvement in creatinine/renal function noted follow trend of repeat labs and UOP (2) Chronic kidney disease, stage 3b: Code(s): N18.32 - Chronic kidney disease, stage 3b Status: Chronic Assessment and Plan: baseline creatinine running 1.6 - 2.1mg/dl for the last year CKD due to chronic need for diuretics, CHF (with depressed EF + right heart dysfunction), pulmonary HTN, diabetes, and hypertension (3) Acute on chronic respiratory failure with hypoxia and hypercapnia: Code(s): J96.21 - Acute and chronic respiratory failure with hypoxia; J96.22 - Acute and chronic respiratory failure with hypercapnia Status: Acute Assessment and Plan: due to CHF + COPD +/- pneumonia s/p bilateral thoracenteses continue ventilator support weaning as tolerated supportive care (4) Essential hypertension: Code(s): I10 - Essential (primary) hypertension Status: Acute Assessment and Plan: previously hypotensive on admission suspect a possible component of intravascular volume depletion s/p IVFs which improved low BP reasonable control at this time follow trend of hemodynamics (5) Congestive heart failure: Code(s): I50.9 - Heart failure, unspecified Status: Acute Assessment and Plan: as noted by imaging studies to date diuretics on hold but will likely need to resume follow I/Os and respiratory status (6) Paroxysmal atrial fibrillation: Code(s): I48.0 - Paroxysmal atrial fibrillation Status: Acute Assessment and Plan: rate control strategy on anticoagulation (7) Diabetes: Code(s): E11.9 - Type 2 diabetes mellitus without complications Status: Chronic Assessment and Plan: follow accu-cheks on sliding scale insulin Will continue to follow. Subjective Date/time seen: 10/03/21 10:03 Chart reviewed; remains on mechanical ventilation as well as sedation at the time of my visit; remains hemodynamically stable; no apparent issues or problems overnight or earlier this AM; no distress noted. Exam Narrative: General: WD/WN male intubated/sedated but in NAD Heart: normal S1 and S2; no rub Lungs: coarse breath sounds throughout Abdomen: soft, nontender, nondistended, positive bowel sounds Extremities: no cyanosis or clubbing; 1+ edema Skin: warm and dry Objective Data Vital Signs Vital Signs: Vital Signs Temp Pulse Resp BP Pulse Ox 10/03/21 10:00 82 18 139/61 96 10/03/21 08:41 103 H 96 10/03/21 08:00 35.8 C L 105 H 18 109/58 L 96 10/03/21 06:00 102 H 16 161/68 H 96 10/03/21 04:46 86 96 10/03/21 04:00 36.9 C 83 14 142/62 H 95 10/03/21 02:31 114 H 96 10/03/21 02:00 114 H 18 153/70 H 96 10/03/21 00:35 98 18 10/03/21 00:30 102 H 96 10/03/21 00:00 36.8 C 103 H 10 L 156/89 H 96 10/02/21 22:15 101 H 97 10/02/21 22:00 84 14 157/75 H 97 10/02/21 20:00 36.4 C L 94 17 137/57 L 97 10/02/21 19:00 99 95 10/02/21 18:00 36.9 C 102 H 18 137/65 96 10/02/21 16:00 36.1 C L 98 18 140/77 95 10/02/21 15:31 95 18 Intake/Output Intake/Output: Intake & Output 09/30/21 10/01/21 10/02/21 10/03/21 23:59 23:59 23:59 23:59 Intake Total 3620 1954 3323 760 Output Total 1050 2000 1800 625 Balance 1700 -86 1523 135 Meds/Results Medications: Active Medications Generic Name Dose Route Start
[2021-10-03] MEDS: cefTRIAXone 2 GM in SODIUM CHLORIDE 0.9% IV 100 ML 200 ML IVPB (12:51)
[2021-10-03] MEDS: ENOXAPARIN 100 MG/ML SYRINGE 90 MG SUB-Q (13:07)
[2021-10-03 13:11] LABS: Glucose Point of Care 125 mg/dl (65-105)
[2021-10-03 20:54] LABS: Glucose Point of Care 129 mg/dl (65-105)
[2021-10-03] MEDS: MESALAMINE 1,000 MG SUPP.RECT 1000 MG RECTAL (21:07)
[2021-10-03 21:18] LABS: Glucose Point of Care 134 mg/dl (65-105)
[2021-10-03] MEDS: dexmedeTOMIDine 400 MCG/100 ML 400 MCG/100 ML BAG IV CONT (22:49)
[2021-10-04] VITALS (23 sets, daily range): BP systolic 81–161; BP diastolic 58–114; PULSE 40–106; RESP 10–24; TEMP 36.6–37.1; O2SAT 94–100
[2021-10-04 05:00] LABS: Glucose Point of Care 163 mg/dl (65-105)
[2021-10-04] MEDS: dexmedeTOMIDine 400 MCG/100 ML 400 MCG/100 ML BAG 12.35 MCG IV CONT ×3 (05:26→16:05)
[2021-10-04] MEDS: DEXTROSE 5%/0.9% SOD CHL 1,000 ML 75 ML IV CONT (05:29)
[2021-10-04 05:39] LABS: Hematocrit 31.2 % (42.0-52.0); Hemoglobin 9.4 g/dL (14.0-18.0); Mean Corpuscular HGB Conc 30.1 g/dl (32-36); Mean Corpuscular Hemoglobin 28.8 pg (26-34); Mean Corpuscular Volume 95.7 fl (80-100); Mean Platelet Volume 9.7 fl (7.4-10.4); Platelet Count Result 191 k/mm3 (150-375); Red Blood Count 3.26 M/mm3 (4.6-6.20); Red Cell Distribution Width 20.2 % (11.5-14.5); White Blood Count 7.4 K/mm3 (4.5-10.0)
[2021-10-04 05:53] LABS: Alanine Aminotransferase 15 U/L (4-50); Albumin Level 2.5 g/dL (3.5-5.1); Alkaline Phosphatase 254 U/L (38-126); Anion Gap 4 mmol/L (8-16); Aspartate Amino Transferase 25 U/L (17-59); Bilirubin,Total 0.3 mg/dL (0.2-1.3); Blood Urea Nitrogen 42 mg/dL (9-20); Calcium 7.8 mg/dL (8.4-10.2); Carbon Dioxide 23 mmol/L (22-30); Chloride 116 mmol/L (98-107); Estimated CRCL calculation 28 ml/min; Estimated Glomerular Filt Rate 23; Glucose 182 mg/dL (65-110); Magnesium 1.7 mg/dL (1.6-2.3); Phosphorus 3.6 mg/dL (2.5-4.5); Potassium 3.8 mmol/L (3.4-5.0); Sodium 143 mmol/L (137-145)
[2021-10-04 06:13] LABS: Alveolar/Arterial O2 Gradient 85.5 mmHg; Base Excess ABG -2.4 mEq/l (+/-2.0); Carboxyhemoglobin 0.5 % THb (0-2.0); Fractional Inspired Oxygen 30 %; HCO3 ABG 21.7 mEq/l (22.0-26.0); Methemoglobin ABG 0.4 %THb (0-1.5); Oxygen Content ABG 17.4 %vol (16.0-22.0); Oxygen Saturation ABG 96.7 % (95.0-100.0); PCO2 ABG 35.2 mmHg (35.0-45.0); Reduced Hemoglobin 4.1 %THb (0-5.0); pH ABG 7.408 (7.350-7.450)
[2021-10-04 06:14] LABS: Arterial Blood Gas Vent Mode CMV; Arterial Blood Gas Ventilator rate 18 /MIN; Device VENTILATOR; Modified Allen's Test Unable to perform; Site Drawn RIGHT RADIAL
[2021-10-04 06:15] LABS: Arterial Blood Gas PEEP 7 cmH2O; Arterial Blood Gas Tidal Volume 450 ml
[2021-10-04] MEDS: DOXYCYCLINE IV 100 MG in SODIUM CHLORIDE 0.9% IV 100 ML IVPB ×2 (08:55→21:00)
[2021-10-04] MEDS: PANTOPRAZOLE SODIUM IV 40 MG VIAL IV PUSH (08:55)
[2021-10-04] MEDS: SILVERGEL (ELTA) 45 ML 1 APPLIC TOPICAL (08:56)
[2021-10-04] MEDS: MINERAL OIL/WHITE PETROLATUM OINTMENT 1 APPLIC EACH EYE ×2 (08:56→21:01)
[2021-10-04] MEDS: INSULIN ASPART (*BKC) 100 UNITS/ML SUB-Q ×2 (09:01→12:24)
--- NOTE | 2021-10-04 09:50 | WPDINTPN ---
Progress Note: A&P Assessment and Plan (1) Acute and chronic respiratory failure, unspecified whether with hypoxia or hypercapnia: Code(s): J96.20 - Acute and chronic respiratory failure, unspecified whether with hypoxia or hypercapnia Status: Acute Assessment and Plan: Likely multifactorial secondary to CHF COPD, ? Pneumonia Does not appear to be pneumonia as patient has normal WBC and no report of fever from nursing. Considering patient's chest x-ray is significantly abnormal patient was started on empiric antibiotics. Blood culture sent. His lactic acid level was normal sputum culture is also ordered BNP was 10,000 Urine Legionella is ordered and pending Start Lasix as creatinine has improved and blood pressure is adequate Bronchodilators FiO2 is down at 40% peep is at 7 ABG Reviewed Chest x-ray reviewed and advance ET tube CT Chest IMPRESSION: 1. Likely congestive heart failure with cardiomegaly, mild pulmonary edema and large bilateral posterior layering pleural effusions. 2. Enlargement of the central pulmonary arteries consistent with pulmonary arterial hypertension. 3. Mild likely reactive mediastinal lymphadenopathy. Will perform sedation holiday 10/01 ultrasound-guided left thoracentesis with 1200 mL, 10/02 ultrasound-guided right thoracentesis with 800 cc of fluid was removed yesterday patient was placed on sedation holiday and weaning trial but he kept on having apnea alarm. I will try pressure support weaning trial again today (2) Acute on chronic renal failure: Code(s): N17.9 - Acute kidney failure, unspecified; N18.9 - Chronic kidney disease, unspecified Status: Acute Assessment and Plan: Patient was discharged on Lasix and this could be secondary to intravascular volume depletion UA suggests prerenal will hold further fluids at this time Monitor urine output electrolytes and creatinine. Creatinine slowly improved Renal ultrasound shows no hydronephrosis Normal CK Discussed with nephrology Repeat echocardiogram showed Summary 1. Complete two-dimensional, color flow and Doppler transthoracic echocardiogram is performed. 2. Normal left ventricular size with moderate concentric hypertrophy. No segmental wall motion abnormalities but there is moderate global hypokinesis. Calculated ejection fraction is 30 1% but visually appears better, 35-40%. Grade 2 diastolic dysfunction is present. 3. Left atrial chamber dimension is moderately enlarged. 4. Aortic valve sclerosis without stenosis. 5. Mild pulmonary hypertension, estimated pulmonary arterial systolic pressure is 40 mmHg. 6. Normal sinus rhythm. (3) Acute exacerbation of CHF (congestive heart failure): Code(s): I50.9 - Heart failure, unspecified Status: Acute Assessment and Plan: ECHO 07/21 Summary 1. Complete two-dimensional, color flow and Doppler transthoracic echocardiogram is performed. 2. Left ventricular chamber dimension is moderately enlarged. 3. Left ventricular systolic function is mildly reduced, estimated at 45-50%. 4. There is moderately increased left ventricular wall thickness. 5. Left atrial chamber dimension is moderately enlarged. 6. There is trace mitral valve regurgitation. Repeat echocardiogram ordered as per Nephrology recommendation Summary 1. Complete two-dimensional, color flow and Doppler transthoracic echocardiogram is performed. 2. Normal left ventricular size with moderate concentric hypertrophy. No segmental wall motion abnormalities but there is moderate global hypokinesis. Calculated ejection fraction is 30 1% but visually appears better, 35-40%. Grade 2 diastolic dysfunction is present. 3. Left atrial chamber dimension is moderately enlarged. 4. Aortic valve sclerosis without stenosis. 5. Mild pulmonary hypertension, estimated pulmonary arterial systolic pressure is 40 mmHg. 6. Normal sinus rhythm. start low-dose Lasix (4) Person under
[2021-10-04 09:52] LABS: Glucose Point of Care 201 mg/dl (65-105)
[2021-10-04] MEDS: MIDAZOLAM HCL (*CRX) 2 MG/2 ML VIAL IV PUSH ×2 (10:11→17:58)
[2021-10-04] MEDS: FUROSEMIDE INJ 40 MG/4 ML VIAL IV PUSH (10:12)
--- NOTE | 2021-10-04 11:38 | PM.PNNEP ---
Progress Note: A&P Assessment and Plan (1) KIET (acute kidney injury): Code(s): N17.9 - Acute kidney failure, unspecified Status: Acute Assessment and Plan: suspect due to chronic prerenal azotemia from reduced EF (cardiorenal syndrome) and pulmonary HTN evaluation to date demonstrates: renal ultrasound with bilateral cortical thinning but no hydronephrosis prerenal urine electrolytes proteinuria by recent and previous admissions Echo with reduced LV function + pulmonary HTN slow improvement in creatinine/renal function noted follow trend of repeat labs and UOP (2) Chronic kidney disease, stage 3b: Code(s): N18.32 - Chronic kidney disease, stage 3b Status: Chronic Assessment and Plan: baseline creatinine running 1.6 - 2.1mg/dl for the last year CKD due to chronic need for diuretics, CHF (with depressed EF + right heart dysfunction), pulmonary HTN, diabetes, and hypertension (3) Acute on chronic respiratory failure with hypoxia and hypercapnia: Code(s): J96.21 - Acute and chronic respiratory failure with hypoxia; J96.22 - Acute and chronic respiratory failure with hypercapnia Status: Acute Assessment and Plan: due to CHF + COPD +/- pneumonia s/p bilateral thoracenteses continue ventilator support weaning as tolerated supportive care (4) Essential hypertension: Code(s): I10 - Essential (primary) hypertension Status: Acute Assessment and Plan: previously hypotensive on admission suspect a possible component of intravascular volume depletion s/p IVFs which improved low BP reasonable control at this time follow trend of hemodynamics (5) Congestive heart failure: Code(s): I50.9 - Heart failure, unspecified Status: Acute Assessment and Plan: as noted by imaging studies to date agree with PRN IV diuretics - follow UOP to assess response follow I/Os and respiratory status (6) Paroxysmal atrial fibrillation: Code(s): I48.0 - Paroxysmal atrial fibrillation Status: Acute Assessment and Plan: rate control strategy on anticoagulation (7) Diabetes: Code(s): E11.9 - Type 2 diabetes mellitus without complications Status: Chronic Assessment and Plan: follow accu-cheks on sliding scale insulin Will continue to follow. Subjective Date/time seen: 10/04/21 11:38 No real change since last seen - remains of full ventilator support along with sedation; remains hemodynamically stable without the need for pressor support; creatinine/kidney function appears to be slowly improving; no new issues/events overnight or earlier this morning. Exam Narrative: General: WD/WN male intubated/sedated but in NAD Heart: normal S1 and S2; no rub Lungs: coarse breath sounds throughout Abdomen: soft, nontender, nondistended, positive bowel sounds Extremities: no cyanosis or clubbing; 1+ edema Skin: warm and intact Objective Data Vital Signs Vital Signs: Vital Signs Temp Pulse Resp BP Pulse Ox 10/04/21 11:18 96 94 10/04/21 10:13 79 10/04/21 10:00 36.6 C 48 L 18 152/65 H 95 10/04/21 09:03 79 97 10/04/21 08:00 36.9 C 64 18 161/71 H 96 10/04/21 06:00 67 10 L 147/95 H 98 10/04/21 05:40 92 18 98 10/04/21 05:26 68 18 10/04/21 04:00 36.7 C 91 19 154/77 H 97 10/04/21 02:15 91 99 10/04/21 02:00 36.7 C 76 14 158/72 H 98 10/04/21 00:00 101 H 18 123/91 H 96 10/03/21 23:16 110 H 96 10/03/21 22:49 123 H 11 L 10/03/21 22:00 116 H 18 153/91 H 97 10/03/21 20:10 124 H 96 10/03/21 20:00 37.1 C 124 H 17 161/78 H 97 10/03/21 18:00 110 H 18 170/81 H 95 10/03/21 17:15 81 96 10/03/21 16:00 36.2 C L 89 18 153/75 H 96 Intake/Output Intake/Output: Intake & Output 10/01/21 10/02/21 10/03/21 10/04/21 23:59 23:59 23:59 23:59 Intake Total 6621 7795 5425 7652 Out
--- NOTE | 2021-10-04 11:38 | P.PNNP_ITS ---
Progress Note: A&P Assessment and Plan (1) KIET (acute kidney injury): Code(s): N17.9 - Acute kidney failure, unspecified Status: Acute Assessment and Plan: * suspect due to chronic prerenal azotemia from reduced EF (cardiorenal syndrome) and pulmonary HTN * evaluation to date demonstrates: * renal ultrasound with bilateral cortical thinning but no hydronephrosis * prerenal urine electrolytes * proteinuria by recent and previous admissions * Echo with reduced LV function + pulmonary HTN * slow improvement in creatinine/renal function noted * follow trend of repeat labs and UOP (2) Chronic kidney disease, stage 3b: Code(s): N18.32 - Chronic kidney disease, stage 3b Status: Chronic Assessment and Plan: * baseline creatinine running 1.6 - 2.1mg/dl for the last year * CKD due to chronic need for diuretics, CHF (with depressed EF + right heart dysfunction), pulmonary HTN, diabetes, and hypertension (3) Acute on chronic respiratory failure with hypoxia and hypercapnia: Code(s): J96.21 - Acute and chronic respiratory failure with hypoxia; J96.22 - Acute and chronic respiratory failure with hypercapnia Status: Acute Assessment and Plan: * due to CHF + COPD +/- pneumonia * s/p bilateral thoracenteses * continue ventilator support * weaning as tolerated * supportive care (4) Essential hypertension: Code(s): I10 - Essential (primary) hypertension Status: Acute Assessment and Plan: * previously hypotensive on admission * suspect a possible component of intravascular volume depletion * s/p IVFs which improved low BP * reasonable control at this time * follow trend of hemodynamics (5) Congestive heart failure: Code(s): I50.9 - Heart failure, unspecified Status: Acute Assessment and Plan: * as noted by imaging studies to date * agree with PRN IV diuretics - follow UOP to assess response * follow I/Os and respiratory status (6) Paroxysmal atrial fibrillation: Code(s): I48.0 - Paroxysmal atrial fibrillation Status: Acute Assessment and Plan: * rate control strategy * on anticoagulation (7) Diabetes: Code(s): E11.9 - Type 2 diabetes mellitus without complications Status: Chronic Assessment and Plan: * follow accu-cheks * on sliding scale insulin Will continue to follow. Subjective Date/time seen: 10/04/21 11:38 No real change since last seen - remains of full ventilator support along with sedation; remains hemodynamically stable without the need for pressor support; creatinine/kidney function appears to be slowly improving; no new issues/events overnight or earlier this morning. Exam Narrative: General: WD/WN male intubated/sedated but in NAD Heart: normal S1 and S2; no rub Lungs: coarse breath sounds throughout Abdomen: soft, nontender, nondistended, positive bowel sounds Extremities: no cyanosis or clubbing; 1+ edema Skin: warm and intact Objective Data Vital Signs Vital Signs: Vital Signs Temp Pulse Resp BP Pulse Ox 10/04/21 11:18 96 94 10/04/21 10:13 79 10/04/21 10:00 36.6 C 48 L 18 152/65 H 95 10/04/21 09:03 79 97 10/04/21 08:00 36.9 C 64 18 161/71 H 96 10/04/21 06:00 67 10 L 147/95 H 98 10/04/21 05:40 92 18 98 10/04/21 05:26 68 18
[2021-10-04] MEDS: METOCLOPRAMIDE HCL 10 MG/10 ML SOLN UDC PO ×3 (12:23→17:29)
[2021-10-04 12:24] LABS: Glucose Point of Care 210 mg/dl (65-105)
[2021-10-04] MEDS: cefTRIAXone 2 GM in SODIUM CHLORIDE 0.9% IV 100 ML 200 ML IVPB (13:36)
[2021-10-04] MEDS: ENOXAPARIN 100 MG/ML SYRINGE 90 MG SUB-Q (13:36)
[2021-10-04 16:10] LABS: Glucose Point of Care 81 mg/dl (65-105)
[2021-10-04] MEDS: MESALAMINE 1,000 MG SUPP.RECT 1000 MG RECTAL (21:00)
[2021-10-04] MEDS: DEXTROSE 50% 25 GM/50 ML SYRINGE IV PUSH (21:04)
[2021-10-04] MEDS: dexmedeTOMIDine 400 MCG/100 ML 400 MCG/100 ML BAG 17.29 MCG IV CONT (21:10)
[2021-10-04 21:15] LABS: Glucose Point of Care 61 mg/dl (65-105)
[2021-10-04 22:08] LABS: Glucose Point of Care 93 mg/dl (65-105)
[2021-10-04 23:32] LABS: Glucose Point of Care 99 mg/dl (65-105)
[2021-10-05] VITALS (17 sets, daily range): BP systolic 123–171; BP diastolic 59–90; PULSE 40–130; RESP 12–19; TEMP 36.2–37.3; O2SAT 92–100
[2021-10-05] MEDS: METOCLOPRAMIDE HCL 10 MG/10 ML SOLN UDC PO ×2 (01:00→05:22)
[2021-10-05 05:21] LABS: Glucose Point of Care 126 mg/dl (65-105)
[2021-10-05 05:24] LABS: Alveolar/Arterial O2 Gradient 91.1 mmHg; Base Excess ABG -2.6 mEq/l (+/-2.0); Carboxyhemoglobin 0.3 % THb (0-2.0); Fractional Inspired Oxygen 30 %; HCO3 ABG 20.3 mEq/l (22.0-26.0); Methemoglobin ABG 0.3 %THb (0-1.5); Oxygen Content ABG 14.5 %vol (16.0-22.0); Oxygen Saturation ABG 97.3 % (95.0-100.0); Oxyhemoglobin 95.4 % THb (90.0-100.0); PCO2 ABG 29.2 mmHg (35.0-45.0); PO2 ABG 88.5 mmHg (80.0-100.0); PO2 FiO2 Ratio Arterial Blood 2.95 %; Total Hemoglobin 10.7 g/dL (12.0-18.0); pH ABG 7.461 (7.350-7.450)
[2021-10-05 05:30] LABS: Arterial Blood Gas PEEP 7 cmH2O; Arterial Blood Gas Tidal Volume 450 ml; Arterial Blood Gas Vent Mode CMV; Arterial Blood Gas Ventilator rate 18 /MIN; Device VENTILATOR; Modified Allen's Test Pass; Site Drawn RIGHT RADIAL
[2021-10-05] MEDS: dexmedeTOMIDine 400 MCG/100 ML 400 MCG/100 ML BAG 7.41 MCG IV CONT (07:54)
[2021-10-05] MEDS: FUROSEMIDE INJ 40 MG/4 ML VIAL IV PUSH (07:57)
[2021-10-05] MEDS: DOXYCYCLINE IV 100 MG in SODIUM CHLORIDE 0.9% IV 100 ML IVPB ×2 (08:00→20:39)
[2021-10-05] MEDS: PANTOPRAZOLE SODIUM IV 40 MG VIAL IV PUSH (08:00)
[2021-10-05 08:01] LABS: Hematocrit 34.5 % (42.0-52.0); Hemoglobin 10.3 g/dL (14.0-18.0); Mean Corpuscular HGB Conc 29.9 g/dl (32-36); Mean Corpuscular Hemoglobin 28.6 pg (26-34); Mean Corpuscular Volume 95.8 fl (80-100); Mean Platelet Volume 10.1 fl (7.4-10.4); Platelet Count Result 205 k/mm3 (150-375); Red Cell Distribution Width 19.5 % (11.5-14.5)
[2021-10-05] MEDS: MINERAL OIL/WHITE PETROLATUM OINTMENT 1 APPLIC EACH EYE ×2 (08:03→20:41)
[2021-10-05] MEDS: SILVERGEL (ELTA) 45 ML 1 APPLIC TOPICAL (08:03)
[2021-10-05 08:12] LABS: Glucose Point of Care 142 mg/dl (65-105)
[2021-10-05 08:12] LABS: Alanine Aminotransferase 14 U/L (4-50); Albumin Level 2.5 g/dL (3.5-5.1); Alkaline Phosphatase 231 U/L (38-126); Anion Gap 2 mmol/L (8-16); Aspartate Amino Transferase 25 U/L (17-59); Bilirubin,Total 0.3 mg/dL (0.2-1.3); Blood Urea Nitrogen 43 mg/dL (9-20); Calcium 8.2 mg/dL (8.4-10.2); Carbon Dioxide 25 mmol/L (22-30); Chloride 113 mmol/L (98-107); Estimated CRCL calculation 34 ml/min; Estimated Glomerular Filt Rate 25; Glucose 144 mg/dL (65-110); Magnesium 1.7 mg/dL (1.6-2.3); Potassium 3.5 mmol/L (3.4-5.0); Sodium 140 mmol/L (137-145)
[2021-10-05 08:53] LABS: Alveolar/Arterial O2 Gradient 134.1 mmHg; Base Excess ABG -1.6 mEq/l (+/-2.0); Fractional Inspired Oxygen 40 %; HCO3 ABG 23.5 mEq/l (22.0-26.0); Modified Allen's Test Pass; Oxygen Content ABG 14.6 %vol (16.0-22.0); Oxygen Saturation ABG 97.7 % (95.0-100.0); Oxyhemoglobin 96.3 % THb (90.0-100.0); PCO2 ABG 40.9 mmHg (35.0-45.0); PO2 ABG 104.1 mmHg (80.0-100.0); Site Drawn RIGHT RADIAL; Total Hemoglobin 10.7 g/dL (12.0-18.0); pH ABG 7.377 (7.350-7.450)
[2021-10-05 08:54] LABS: Device VENTILATOR
[2021-10-05 08:55] LABS: Arterial Blood Gas PEEP 7 cmH2O; Arterial Blood Gas Pressure Support 5 cmH2O; Arterial Blood Gas Vent Mode SPONTANEOUS
--- NOTE | 2021-10-05 09:29 | P.PNNP_ITS ---
Progress Note: A&P Assessment and Plan (1) KIET (acute kidney injury): Code(s): N17.9 - Acute kidney failure, unspecified Status: Acute Assessment and Plan: * suspect due to chronic prerenal azotemia from reduced EF (cardiorenal syndrome) and pulmonary HTN * evaluation to date demonstrates: * renal ultrasound with bilateral cortical thinning but no hydronephrosis * prerenal urine electrolytes * proteinuria by recent and previous admissions * Echo with reduced LV function + pulmonary HTN * creatinine is gradually improving. Down to 2.6 today. * He is making urine (2) Chronic kidney disease, stage 3b: Code(s): N18.32 - Chronic kidney disease, stage 3b Status: Chronic Assessment and Plan: * baseline creatinine running 1.6 - 2.1mg/dl for the last year * CKD due to chronic need for diuretics, CHF (with depressed EF + right heart dysfunction), pulmonary HTN, diabetes, and hypertension (3) Acute on chronic respiratory failure with hypoxia and hypercapnia: Code(s): J96.21 - Acute and chronic respiratory failure with hypoxia; J96.22 - Acute and chronic respiratory failure with hypercapnia Status: Acute Assessment and Plan: * due to CHF + COPD +/- pneumonia * s/p bilateral thoracenteses * continue ventilator support * weaning as tolerated * supportive care (4) Essential hypertension: Code(s): I10 - Essential (primary) hypertension Status: Acute Assessment and Plan: * previously hypotensive on admission * suspect a possible component of intravascular volume depletion * s/p IVFs which improved low BP * somewhat generous. Will allow this blood pressure while his kidneys are recovering * follow trend of hemodynamics (5) Congestive heart failure: Code(s): I50.9 - Heart failure, unspecified Status: Acute Assessment and Plan: * as noted by imaging studies to date * agree with PRN IV diuretics - follow UOP to assess response * follow I/Os and respiratory status (6) Paroxysmal atrial fibrillation: Code(s): I48.0 - Paroxysmal atrial fibrillation Status: Acute Assessment and Plan: * rate control strategy * on anticoagulation (7) Diabetes: Code(s): E11.9 - Type 2 diabetes mellitus without complications Status: Chronic Assessment and Plan: * follow accu-cheks * on sliding scale insulin Will continue to follow. Subjective Date/time seen: 10/05/21 09:29 Interval history: patient is on the ventilator. Somewhat agitated. No shortness of breath Exam Narrative: General: WD/WN male intubated/sedated but in NAD Heart: normal S1 and S2; no rub or gallop Lungs: coarse breath sounds throughout Abdomen: soft, nontender, nondistended, positive bowel sounds Extremities: no cyanosis or clubbing; 1+ edema Skin: no rash Objective Data Vital Signs Vital Signs: Vital Signs - 24 hr 10/04/21 10:00 10/04/21 10:13 10/04/21 11:18 Temperature 36.6 C Pulse Rate 48 L 79 96 Respiratory Rate 18 Blood Pressure 152/65 H Pulse Oximetry 95 94 10/04/21 12:00 10/04/21 14:00 10/04/21 14:08 Temperature 36.6 C 36.6 C Pulse Rate 48 L 48 L 46 L Respiratory Rate 18 18 Blood Pressure 147/114 H 153/60 H Pulse Oximetry 95 97 98 10/04/21 16
--- NOTE | 2021-10-05 09:29 | PM.PNNEP ---
Progress Note: A&P Assessment and Plan (1) KIET (acute kidney injury): Code(s): N17.9 - Acute kidney failure, unspecified Status: Acute Assessment and Plan: suspect due to chronic prerenal azotemia from reduced EF (cardiorenal syndrome) and pulmonary HTN evaluation to date demonstrates: renal ultrasound with bilateral cortical thinning but no hydronephrosis prerenal urine electrolytes proteinuria by recent and previous admissions Echo with reduced LV function + pulmonary HTN creatinine is gradually improving. Down to 2.6 today. He is making urine (2) Chronic kidney disease, stage 3b: Code(s): N18.32 - Chronic kidney disease, stage 3b Status: Chronic Assessment and Plan: baseline creatinine running 1.6 - 2.1mg/dl for the last year CKD due to chronic need for diuretics, CHF (with depressed EF + right heart dysfunction), pulmonary HTN, diabetes, and hypertension (3) Acute on chronic respiratory failure with hypoxia and hypercapnia: Code(s): J96.21 - Acute and chronic respiratory failure with hypoxia; J96.22 - Acute and chronic respiratory failure with hypercapnia Status: Acute Assessment and Plan: due to CHF + COPD +/- pneumonia s/p bilateral thoracenteses continue ventilator support weaning as tolerated supportive care (4) Essential hypertension: Code(s): I10 - Essential (primary) hypertension Status: Acute Assessment and Plan: previously hypotensive on admission suspect a possible component of intravascular volume depletion s/p IVFs which improved low BP somewhat generous. Will allow this blood pressure while his kidneys are recovering follow trend of hemodynamics (5) Congestive heart failure: Code(s): I50.9 - Heart failure, unspecified Status: Acute Assessment and Plan: as noted by imaging studies to date agree with PRN IV diuretics - follow UOP to assess response follow I/Os and respiratory status (6) Paroxysmal atrial fibrillation: Code(s): I48.0 - Paroxysmal atrial fibrillation Status: Acute Assessment and Plan: rate control strategy on anticoagulation (7) Diabetes: Code(s): E11.9 - Type 2 diabetes mellitus without complications Status: Chronic Assessment and Plan: follow accu-cheks on sliding scale insulin Will continue to follow. Subjective Date/time seen: 10/05/21 09:29 Interval history: patient is on the ventilator. Somewhat agitated. No shortness of breath Exam Narrative: General: WD/WN male intubated/sedated but in NAD Heart: normal S1 and S2; no rub or gallop Lungs: coarse breath sounds throughout Abdomen: soft, nontender, nondistended, positive bowel sounds Extremities: no cyanosis or clubbing; 1+ edema Skin: no rash Objective Data Vital Signs Vital Signs: Vital Signs - 24 hr 10/04/21 10:00 10/04/21 10:13 10/04/21 11:18 Temperature 36.6 C Pulse Rate 48 L 79 96 Respiratory Rate 18 Blood Pressure 152/65 H Pulse Oximetry 95 94 10/04/21 12:00 10/04/21 14:00 10/04/21 14:08 Temperature 36.6 C 36.6 C Pulse Rate 48 L 48 L 46 L Respiratory Rate 18 18 Blood Pressure 147/114 H 153/60 H Pulse Oximetry 95 97 98 10/04/21 16:00 10/04/21 16:05 10/04/21 16:42 Temperature 37.1 C Pulse Rate 77 60 60 Respiratory Rate 24 H Blood Pressure 81/58 L Pulse Oximetry 100 98 10/04/21 18:00 10/04/21 20:00 10/04/21 20:27 Temperature 36.6 C Pulse Rate 62 61 68 Respiratory Rate 18 18 Blood Pressure 143/61 H 142/62 H Pulse Oximetry 98 98 98 10/04/21 22:00 10/04/21 23:45 10/05/21 00:00 Temperature 36.6 C Pulse Rate 60 40 L 40 L Respiratory Rate 12 12 Blood Pressure 153/67 H 144/59 H Pulse Oximetry 97 98 93 10/05/21 02:00 10/05/21 02:50 10/05/21 04:00 Temperature Pulse Rate 78 60 83 Respiratory Rate 18 13 Blood Pressure 155/71 H 155/63 H Pulse Oximetry 94
--- NOTE | 2021-10-05 10:57 | WPDINTPN ---
Progress Note: A&P Assessment and Plan (1) Acute and chronic respiratory failure, unspecified whether with hypoxia or hypercapnia: Code(s): J96.20 - Acute and chronic respiratory failure, unspecified whether with hypoxia or hypercapnia Status: Acute Assessment and Plan: Likely multifactorial secondary to CHF COPD, ? Pneumonia Does not appear to be pneumonia as patient has normal WBC and no report of fever from nursing. Considering patient's chest x-ray is significantly abnormal patient was started on empiric antibiotics. Blood culture sent. His lactic acid level was normal sputum culture is also ordered BNP was 10,000 Urine Legionella negative continue Lasix as creatinine has improved and blood pressure is adequate Bronchodilators 5/7 PSV SBT done for more than 1 hour. RSBI, ABGI and Vitals acceptable. Pt awake and following commands. Will extubate and monitor. NPO for now. Bipap PRN ABG and Chest x-ray reviewed CT Chest IMPRESSION: 1. Likely congestive heart failure with cardiomegaly, mild pulmonary edema and large bilateral posterior layering pleural effusions. 2. Enlargement of the central pulmonary arteries consistent with pulmonary arterial hypertension. 3. Mild likely reactive mediastinal lymphadenopathy. 12/ ultrasound-guided left thoracentesis with 1200 mL, 12/3 ultrasound-guided right thoracentesis with 800 cc of fluid was removed (2) Acute on chronic renal failure: Code(s): N17.9 - Acute kidney failure, unspecified; N18.9 - Chronic kidney disease, unspecified Status: Acute Assessment and Plan: Patient was discharged on Lasix and this could be secondary to intravascular volume depletion UA suggests prerenal he was given IV fluids but now off Monitor urine output electrolytes and creatinine. Creatinine slowly improved Renal ultrasound shows no hydronephrosis Normal CK Discussed with nephrology Repeat echocardiogram showed Summary 1. Complete two-dimensional, color flow and Doppler transthoracic echocardiogram is performed. 2. Normal left ventricular size with moderate concentric hypertrophy. No segmental wall motion abnormalities but there is moderate global hypokinesis. Calculated ejection fraction is 30 1% but visually appears better, 35-40%. Grade 2 diastolic dysfunction is present. 3. Left atrial chamber dimension is moderately enlarged. 4. Aortic valve sclerosis without stenosis. 5. Mild pulmonary hypertension, estimated pulmonary arterial systolic pressure is 40 mmHg. 6. Normal sinus rhythm. (3) Acute exacerbation of CHF (congestive heart failure): Code(s): I50.9 - Heart failure, unspecified Status: Acute Assessment and Plan: ECHO 07/21 Summary 1. Complete two-dimensional, color flow and Doppler transthoracic echocardiogram is performed. 2. Left ventricular chamber dimension is moderately enlarged. 3. Left ventricular systolic function is mildly reduced, estimated at 45-50%. 4. There is moderately increased left ventricular wall thickness. 5. Left atrial chamber dimension is moderately enlarged. 6. There is trace mitral valve regurgitation. Repeat echocardiogram ordered as per Nephrology recommendation Summary 1. Complete two-dimensional, color flow and Doppler transthoracic echocardiogram is performed. 2. Normal left ventricular size with moderate concentric hypertrophy. No segmental wall motion abnormalities but there is moderate global hypokinesis. Calculated ejection fraction is 30 1% but visually appears better, 35-40%. Grade 2 diastolic dysfunction is present. 3. Left atrial chamber dimension is moderately enlarged. 4. Aortic valve sclerosis without stenosis. 5. Mild pulmonary hypertension, estimated pulmonary arterial systolic pressure is 40 mmHg. 6. Normal sinus rhythm. continue low-dose Lasix (4) Person under investigation for COVID-19: Code(s): Z20.822 - Contact with and (suspected) exposure to COVID-19
--- NOTE | 2021-10-05 11:45 | PCFNICU ---
ICU Rounding Note: Pt current nutrition is Nepro at 50 ml/hr over 22 hours. Last recorded weight is 100.9 kg, up from 94 kcals on admit. Bowel Motility:+BM reported 10/04 Labs Reviewed:GFR 25, BUN 43, Cr 2.6,Glu 144, Alb 2.5,Hgb 10.3, Hct 34.5 Meds Noted: Precedex,Reglan,Protonix, Canasa. Skin: stage 2 pressure ulcer-left heels. Additional Notes: Patient remains on mechanical vent and has been tolerating tube feedings of Nepro at 50 ml/hr per nursing. Tube feedings on hold. Pending extubation today, breathing trial started. Following daily in ICU rounds. Will monitor every Tuesday and Tuesday..
[2021-10-05 13:38] LABS: Glucose Point of Care 131 mg/dl (65-105)
[2021-10-05] MEDS: cefTRIAXone 2 GM in SODIUM CHLORIDE 0.9% IV 100 ML 200 ML IVPB (14:32)
[2021-10-05] MEDS: ENOXAPARIN 100 MG/ML SYRINGE 90 MG SUB-Q (14:37)
[2021-10-05 16:54] LABS: Glucose Point of Care 123 mg/dl (65-105)
[2021-10-05 20:37] LABS: Glucose Point of Care 106 mg/dl (65-105)
[2021-10-05] MEDS: MESALAMINE 1,000 MG SUPP.RECT 1000 MG RECTAL (20:42)
[2021-10-05] MEDS: LABETALOL HCL INJ 100 MG/20 ML VIAL 20 MG IV PUSH (20:47)
[2021-10-05] MEDS: HYDROcodone/acetaminophen (*CRX) 5-325 MG TABLET 1 TAB PO (20:47)
[2021-10-06] VITALS (11 sets, daily range): BP systolic 119–164; BP diastolic 69–98; PULSE 82–125; RESP 12–20; TEMP 36.5–36.9; O2SAT 91–100
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
[2021-10-06] MEDS: LABETALOL HCL INJ 100 MG/20 ML VIAL 20 MG IV PUSH (00:28)
[2021-10-06 00:29] LABS: Glucose Point of Care 107 mg/dl (65-105)
[2021-10-06 05:36] LABS: Alanine Aminotransferase 17 U/L (4-50); Albumin Level 2.9 g/dL (3.5-5.1); Alkaline Phosphatase 263 U/L (38-126); Anion Gap 8 mmol/L (8-16); Aspartate Amino Transferase 31 U/L (17-59); Bilirubin,Total 0.4 mg/dL (0.2-1.3); Blood Urea Nitrogen 38 mg/dL (9-20); Calcium 8.5 mg/dL (8.4-10.2); Carbon Dioxide 23 mmol/L (22-30); Chloride 111 mmol/L (98-107); Estimated CRCL calculation 30 ml/min; Estimated Glomerular Filt Rate 25; Glucose 111 mg/dL (65-110); Magnesium 1.4 mg/dL (1.6-2.3); Phosphorus 4.5 mg/dL (2.5-4.5); Potassium 3.5 mmol/L (3.4-5.0); Sodium 142 mmol/L (137-145)
[2021-10-06 05:41] LABS: Hematocrit 35.8 % (42.0-52.0); Hemoglobin 10.7 g/dL (14.0-18.0); Mean Corpuscular HGB Conc 29.9 g/dl (32-36); Mean Corpuscular Hemoglobin 28.9 pg (26-34); Mean Corpuscular Volume 96.8 fl (80-100); Mean Platelet Volume 10.5 fl (7.4-10.4); Platelet Count Result 228 k/mm3 (150-375); White Blood Count 7.8 K/mm3 (4.5-10.0)
--- NOTE | 2021-10-06 07:39 | P.CDI_ITS ---
CDI Query Clarification Request -Acute exacerbation of CHF has been documented -10/01 Echo summary: EF calculated 30% visual 35-40%, grade 2 diastolic dysfunction Please further specify type of CHF: * Systolic * Diastolic * Both systolic and diastolic * Unable to determine <Ban Booth RN - Last Filed: 10/06/21 07:43>
--- NOTE | 2021-10-06 07:39 | WPDCDIQUERY2 ---
CDI Query Clarification Request -Acute exacerbation of CHF has been documented -10/01 Echo summary: EF calculated 30% visual 35-40%, grade 2 diastolic dysfunction Please further specify type of CHF: Systolic Diastolic Both systolic and diastolic Unable to determine <Ban Booth RN - Last Filed: 10/06/21 07:43>
[2021-10-06 08:13] LABS: Glucose Point of Care 83 mg/dl (65-105)
[2021-10-06 08:13] LABS: Glucose Point of Care 103 mg/dl (65-105)
[2021-10-06] MEDS: FUROSEMIDE INJ 40 MG/4 ML VIAL IV PUSH (08:46)
[2021-10-06] MEDS: MAGNESIUM SULF 2 GM/WATER 50ML 2 GM/50 ML BAG IVPB (08:46)
[2021-10-06] MEDS: DOXYCYCLINE IV 100 MG in SODIUM CHLORIDE 0.9% IV 100 ML IVPB (08:47)
[2021-10-06] MEDS: SILVERGEL (ELTA) 45 ML 1 APPLIC TOPICAL (08:50)
[2021-10-06] MEDS: PANTOPRAZOLE SODIUM IV 40 MG VIAL IV PUSH (08:50)
[2021-10-06] MEDS: METOPROLOL TARTRATE 25 MG TABLET PO ×2 (08:50→20:43)
--- NOTE | 2021-10-06 09:28 | P.PNNP_ITS ---
Progress Note: A&P Assessment and Plan (1) KIET (acute kidney injury): Code(s): N17.9 - Acute kidney failure, unspecified Status: Acute Assessment and Plan: * suspect due to chronic prerenal azotemia from reduced EF (cardiorenal syndrome) and pulmonary HTN * evaluation to date demonstrates: * renal ultrasound with bilateral cortical thinning but no hydronephrosis * prerenal urine electrolytes * proteinuria by recent and previous admissions * Echo with reduced LV function + pulmonary HTN * creatinine is gradually improving. The creatinine is about the same today of 2.6. * He is making urine (2) Chronic kidney disease, stage 3b: Code(s): N18.32 - Chronic kidney disease, stage 3b Status: Chronic Assessment and Plan: * baseline creatinine running 1.6 - 2.1mg/dl for the last year * CKD due to chronic need for diuretics, CHF (with depressed EF + right heart dysfunction), pulmonary HTN, diabetes, and hypertension (3) Acute on chronic respiratory failure with hypoxia and hypercapnia: Code(s): J96.21 - Acute and chronic respiratory failure with hypoxia; J96.22 - Acute and chronic respiratory failure with hypercapnia Status: Acute Assessment and Plan: * due to CHF + COPD +/- pneumonia * s/p bilateral thoracenteses * continue ventilator support * weaning as tolerated * supportive care (4) Essential hypertension: Code(s): I10 - Essential (primary) hypertension Status: Acute Assessment and Plan: * previously hypotensive on admission * suspect a possible component of intravascular volume depletion * s/p IVFs which improved low BP * BP is up and down. Systolic runs between 123 and 161. * He is on metoprolol 25q12. (5) Congestive heart failure: Code(s): I50.9 - Heart failure, unspecified Status: Acute Assessment and Plan: * as noted by imaging studies to date * agree with PRN IV diuretics - follow UOP to assess response * follow I/Os and respiratory status (6) Paroxysmal atrial fibrillation: Code(s): I48.0 - Paroxysmal atrial fibrillation Status: Acute Assessment and Plan: * rate control strategy * on anticoagulation (7) Diabetes: Code(s): E11.9 - Type 2 diabetes mellitus without complications Status: Chronic Assessment and Plan: * follow accu-cheks * on sliding scale insulin Subjective Date/time seen: 10/06/21 09:28 Interval history: patient is now extubated. Awake and interactive. No shortness of breath Exam Narrative: General: WD/WN male intubated/sedated but in NAD Heart: normal S1 and S2; no rub Lungs: coarse breath sounds throughout Abdomen: soft, nontender, nondistended, positive bowel sounds Extremities: no cyanosis or clubbing; trace to1+ 1+ edema Skin: no rash or subQ nodules Objective Data Vital Signs Vital Signs: Vital Signs - 24 hr 10/05/21 10:00 10/05/21 12:00 10/05/21 14:00 Temperature 36.2 C L Pulse Rate 81 81 124 H Respiratory Rate 18 13 14 Blood Pressure 146/65 H 138/68 123/82 Pulse Oximetry 98 95 96 10/05/21 16:00 10/05/21 18:00 10/05/21 20:00 Temperature 37.3 C 37.1 C Pulse Rate 127 H 128 H 129 H Respiratory Rate 13 17 19 Blood Pressure 171/77 H 165/81 H 161/81 H Pulse Oximetry 96 95 94 10/05/21
--- NOTE | 2021-10-06 09:28 | PM.PNNEP ---
Progress Note: A&P Assessment and Plan (1) KIET (acute kidney injury): Code(s): N17.9 - Acute kidney failure, unspecified Status: Acute Assessment and Plan: suspect due to chronic prerenal azotemia from reduced EF (cardiorenal syndrome) and pulmonary HTN evaluation to date demonstrates: renal ultrasound with bilateral cortical thinning but no hydronephrosis prerenal urine electrolytes proteinuria by recent and previous admissions Echo with reduced LV function + pulmonary HTN creatinine is gradually improving. The creatinine is about the same today of 2.6. He is making urine (2) Chronic kidney disease, stage 3b: Code(s): N18.32 - Chronic kidney disease, stage 3b Status: Chronic Assessment and Plan: baseline creatinine running 1.6 - 2.1mg/dl for the last year CKD due to chronic need for diuretics, CHF (with depressed EF + right heart dysfunction), pulmonary HTN, diabetes, and hypertension (3) Acute on chronic respiratory failure with hypoxia and hypercapnia: Code(s): J96.21 - Acute and chronic respiratory failure with hypoxia; J96.22 - Acute and chronic respiratory failure with hypercapnia Status: Acute Assessment and Plan: due to CHF + COPD +/- pneumonia s/p bilateral thoracenteses continue ventilator support weaning as tolerated supportive care (4) Essential hypertension: Code(s): I10 - Essential (primary) hypertension Status: Acute Assessment and Plan: previously hypotensive on admission suspect a possible component of intravascular volume depletion s/p IVFs which improved low BP BP is up and down. Systolic runs between 123 and 161. He is on metoprolol 25q12. (5) Congestive heart failure: Code(s): I50.9 - Heart failure, unspecified Status: Acute Assessment and Plan: as noted by imaging studies to date agree with PRN IV diuretics - follow UOP to assess response follow I/Os and respiratory status (6) Paroxysmal atrial fibrillation: Code(s): I48.0 - Paroxysmal atrial fibrillation Status: Acute Assessment and Plan: rate control strategy on anticoagulation (7) Diabetes: Code(s): E11.9 - Type 2 diabetes mellitus without complications Status: Chronic Assessment and Plan: follow accu-cheks on sliding scale insulin Subjective Date/time seen: 10/06/21 09:28 Interval history: patient is now extubated. Awake and interactive. No shortness of breath Exam Narrative: General: WD/WN male intubated/sedated but in NAD Heart: normal S1 and S2; no rub Lungs: coarse breath sounds throughout Abdomen: soft, nontender, nondistended, positive bowel sounds Extremities: no cyanosis or clubbing; trace to1+ 1+ edema Skin: no rash or subQ nodules Objective Data Vital Signs Vital Signs: Vital Signs - 24 hr 10/05/21 10:00 10/05/21 12:00 10/05/21 14:00 Temperature 36.2 C L Pulse Rate 81 81 124 H Respiratory Rate 18 13 14 Blood Pressure 146/65 H 138/68 123/82 Pulse Oximetry 98 95 96 10/05/21 16:00 10/05/21 18:00 10/05/21 20:00 Temperature 37.3 C 37.1 C Pulse Rate 127 H 128 H 129 H Respiratory Rate 13 17 19 Blood Pressure 171/77 H 165/81 H 161/81 H Pulse Oximetry 96 95 94 10/05/21 20:47 10/05/21 22:00 10/06/21 00:00 Temperature 36.8 C Pulse Rate 130 H 89 125 H Respiratory Rate 12 20 Blood Pressure 138/75 160/70 H Pulse Oximetry 94 93 10/06/21 00:28 10/06/21 02:00 10/06/21 04:00 Temperature 36.5 C Pulse Rate 118 H 100 102 H Respiratory Rate 12 15 Blood Pressure 123/72 161/80 H Pulse Oximetry 95 93 10/06/21 06:00 10/06/21 08:50 Temperature Pulse Rate 82 89 Respiratory Rate 13 Blood Pressure 149/69 H Pulse Oximetry 92 Intake/Output Intake/Output: Intake & Output 10/03/21 10/04/21 10/05/21 10/06/21 23:59 23:59 23:59 23:59 Intake Total 2505 7886 1529 150 Output Total 1375 2400 2875 100
--- NOTE | 2021-10-06 12:10 | PCFNICU ---
ICU Rounding Note: Pt current nutrition is NPO Last recorded weight is 96.1 kg, up from 94 kg on admit. Bowel Motility:+BM reported 10/06 Labs Reviewed:Glu 111, GFR 25, Mg 1.4,BUN 38, Cr 2.6,Glu 111,Alb 2.9,Hct 35.8,Hgb 10.7 Meds Noted:Lopressor, Protonix. Skin:Stage 2 pressure ulcer-coccyx. Additional Notes: Patient has been extubated. 3 Liters 02. NPO orders at this time. Awaiting bedside swallow evaluation today. Following daily in ICU rounds. Will reassess every 3 days.
--- NOTE | 2021-10-06 12:58 | PCSTNOTE ---
Please refer to the Bedside Swallow Evaluation in the EMR. Please note, silent aspiration cannot be ruled out at bedside.
[2021-10-06 13:22] LABS: Glucose Point of Care 130 mg/dl (65-105)
--- NOTE | 2021-10-06 13:25 | PM.IMPN ---
Progress Note: A&P Assessment and Plan (1) Acute on chronic respiratory failure with hypoxia and hypercapnia: Code(s): J96.21 - Acute and chronic respiratory failure with hypoxia; J96.22 - Acute and chronic respiratory failure with hypercapnia Status: Acute Assessment and Plan: extubated (2) Acute on chronic renal failure: Code(s): N17.9 - Acute kidney failure, unspecified; N18.9 - Chronic kidney disease, unspecified Status: Acute Assessment and Plan: Chest x-ray today showed findings concerning for pulmonary edema on admission rpt cxr deja Am (3) Acute exacerbation of CHF (congestive heart failure): Qualifiers: Heart failure type: unspecified Qualified Code(s): I50.9 - Heart failure, unspecified Code(s): I50.9 - Heart failure, unspecified Status: Acute Assessment and Plan: Most recent echocardiogram showed mildly reduced systolic function with an EF estimated 45 to 50%. Unable to diurese given soft blood pressures and worsening renal function. Pt is on metazolone. (4) Person under investigation for COVID-19: Code(s): Z20.822 - Contact with and (suspected) exposure to COVID-19 Status: Ruled-out Assessment and Plan: Covid negative . (5) Chronic obstructive pulmonary disease: Code(s): J44.9 - Chronic obstructive pulmonary disease, unspecified Status: Acute Assessment and Plan: COPD excerbation on iv ABX (6) Atrial fibrillation with slow ventricular response: Code(s): I48.91 - Unspecified atrial fibrillation Status: Acute Assessment and Plan: On beta-mt at home. He has been started on therapeutic Lovenox as he is NPO and cannot take Eliquis. (7) Type 2 diabetes mellitus treated with insulin: Code(s): E11.9 - Type 2 diabetes mellitus without complications; Z79.4 - intermediate project manager (current) use of insulin Status: Chronic Assessment and Plan: Initiate sliding scale insulin, Accu-Cheks, and hypoglycemic protocol. Subjective Date/time seen: 10/06/21 13:25 Interval history: 61-year-old male with history of stroke, coronary artery disease, congestive heart failure, atrial fibrillation on long-term anticoagulation, insulin-dependent diabetes, chronic kidney disease, obstructive sleep apnea, chronic respiratory failure, COPD, and several other comorbidities who presented to the emergency department earlier today via EMS from [facility] for evaluation after he was found unresponsive. He is currently sedated on mechanical ventilation and thus he is unable to provide history and as such all of the following is obtained via a review of his electronic medical records. This will be his 4th admission to the hospital since mid to late July 2021 and each time he was admitted with hypoxic and hypercapnic respiratory failure either requiring BiPAP or mechanical ventilation. Pt is much better stable for transfer to medical floor. Review of Systems Review of Systems: All systems reviewed & are unremarkable except as noted in HPI and below Exam Narrative: General: extubated talking alert awake well . Respiratory: clear lung diehl Cardiovascular: Bradycardic with S1-S2. Gastrointestinal: Abdomen is soft, nontender, and nondistended with positive bowel sounds. Skin: Warm and dry. Ulcerations of the left heel and left llanos. Extremities: No cyanosis, clubbing, or edema. Radial pulses palpable. Pedal pulses diminished but palpable. Objective Data Vital Signs Vital Signs: Vital Signs - 24 hr 10/05/21 14:00 10/05/21 16:00 10/05/21 18:00 Temperature 37.3 C Pulse Rate 124 H 127 H 128 H Respiratory Rate 14 13 17 Blood Pressure 123/82 171/77 H 165/81 H Pulse Oximetry 96 96 95 10/05/21 20:00 10/05/21 20:47 10/05/21 22:00 Temperature 37.1 C Pulse Rate 129 H 130 H 89 Respiratory Rate 19 12 Blood Pressure 161/81 H 138/75 Pulse Oximetry 94
--- NOTE | 2021-10-06 13:57 | PCOTNOTE ---
Attempted OT evaluation, patient was working with speech therapy at time of OT eval attempt, will follow and attempt at later time.
--- NOTE | 2021-10-06 14:10 | WPDINTPN ---
Progress Note: A&P Assessment and Plan (1) Acute and chronic respiratory failure, unspecified whether with hypoxia or hypercapnia: Code(s): J96.20 - Acute and chronic respiratory failure, unspecified whether with hypoxia or hypercapnia Status: Acute Assessment and Plan: Likely multifactorial secondary to CHF COPD, ? Pneumonia -extubated on 10/05/2020 Does not appear to be pneumonia as patient has normal WBC and no report of fever from nursing. Considering patient's chest x-ray is significantly abnormal -off antibiotics. Blood and urine cultures are negative BNP was 10,000 Urine Legionella negative -continue Lasix -continue Bronchodilators -Speech to evaluate for swallow test -PT/OT has been ordered -will place patient on BiPAP at night and while asleep CT Chest IMPRESSION: 1. Likely congestive heart failure with cardiomegaly, mild pulmonary edema and large bilateral posterior layering pleural effusions. 2. Enlargement of the central pulmonary arteries consistent with pulmonary arterial hypertension. 3. Mild likely reactive mediastinal lymphadenopathy. 10/01 ultrasound-guided left thoracentesis with 1200 mL, 10/02 ultrasound-guided right thoracentesis with 800 cc of fluid was removed (2) Acute on chronic renal failure: Code(s): N17.9 - Acute kidney failure, unspecified; N18.9 - Chronic kidney disease, unspecified Status: Acute Assessment and Plan: Patient was discharged on Lasix and this could be secondary to intravascular volume depletion UA suggests prerenal he was given IV fluids but now off Monitor urine output electrolytes and creatinine. Creatinine slowly improving Renal ultrasound shows no hydronephrosis Normal CK Discussed with nephrology Repeat echocardiogram showed Summary 1. Complete two-dimensional, color flow and Doppler transthoracic echocardiogram is performed. 2. Normal left ventricular size with moderate concentric hypertrophy. No segmental wall motion abnormalities but there is moderate global hypokinesis. Calculated ejection fraction is 30 1% but visually appears better, 35-40%. Grade 2 diastolic dysfunction is present. 3. Left atrial chamber dimension is moderately enlarged. 4. Aortic valve sclerosis without stenosis. 5. Mild pulmonary hypertension, estimated pulmonary arterial systolic pressure is 40 mmHg. 6. Normal sinus rhythm. (3) Acute exacerbation of CHF (congestive heart failure): Code(s): I50.9 - Heart failure, unspecified Status: Acute Assessment and Plan: ECHO 07/21 Summary 1. Complete two-dimensional, color flow and Doppler transthoracic echocardiogram is performed. 2. Left ventricular chamber dimension is moderately enlarged. 3. Left ventricular systolic function is mildly reduced, estimated at 45-50%. 4. There is moderately increased left ventricular wall thickness. 5. Left atrial chamber dimension is moderately enlarged. 6. There is trace mitral valve regurgitation. Repeat echocardiogram ordered as per Nephrology recommendation Summary 1. Complete two-dimensional, color flow and Doppler transthoracic echocardiogram is performed. 2. Normal left ventricular size with moderate concentric hypertrophy. No segmental wall motion abnormalities but there is moderate global hypokinesis. Calculated ejection fraction is 30 1% but visually appears better, 35-40%. Grade 2 diastolic dysfunction is present. 3. Left atrial chamber dimension is moderately enlarged. 4. Aortic valve sclerosis without stenosis. 5. Mild pulmonary hypertension, estimated pulmonary arterial systolic pressure is 40 mmHg. 6. Normal sinus rhythm. continue low-dose Lasix (4) Person under investigation for COVID-19: Code(s): Z20.822 - Contact with and (suspected) exposure to COVID-19 Status: Ruled-out Assessment and Plan: COVID-19 suspected. SARS-CoV-2 PCR negative (5) COPD (chronic obstructive pulmonary disease):
[2021-10-06 17:16] LABS: Glucose Point of Care 158 mg/dl (65-105)
[2021-10-06] MEDS: buPROPion HCL XL (24 HR) 150 MG TABCR PO (17:20)
[2021-10-06] MEDS: GABAPENTIN 300 MG CAPSULE 600 MG PO ×2 (17:20→20:43)
[2021-10-06] MEDS: amLODIPine BESYLATE 5 MG TABLET 10 MG PO (17:20)
[2021-10-06] MEDS: NICOTINE (*PBKC) 21 MG PATCH 1 PATCH TRANSDERM (17:21)
[2021-10-06] MEDS: POTASSIUM CHLORIDE 20 MEQ TABLET.ER PO (17:21)
[2021-10-06] MEDS: APIXABAN 5 MG TABLET PO (17:22)
[2021-10-06] MEDS: FUROSEMIDE 40 MG TABLET PO (18:54)
[2021-10-06] MEDS: FERROUS SULFATE 324 MG TABLET PO (20:43)
[2021-10-06] MEDS: ATORVASTATIN 40 MG TABLET PO (20:43)
[2021-10-06] MEDS: DULoxetine HCL 60 MG CAPSULE.DR PO (20:44)
[2021-10-06] MEDS: MESALAMINE 1,000 MG SUPP.RECT 1000 MG RECTAL (20:44)
[2021-10-06] MEDS: INSULIN GLARGINE (*BKC) 100 UNITS/ML 18 UNITS SUB-Q (20:44)
--- NOTE | 2021-10-06 21:54 | PC.NURSE ---
This patient, Ector Oconnor, was transferred to [facility] on 10/06/21 at 2140. Personal belongings sent with patient. Report given to Chandler PARKER. Appropriate documentation sent with patient.
[2021-10-06 22:38] LABS: Glucose Point of Care 117 mg/dl (65-105)
[2021-10-07] VITALS (7 sets, daily range): BP systolic 131–148; BP diastolic 58–87; PULSE 87–101; RESP 16–20; TEMP 36.2–36.6; O2SAT 94–100
[2021-10-07 00:50] LABS: Glucose Point of Care 78 mg/dl (65-105)
[2021-10-07 05:41] LABS: Glucose Point of Care 88 mg/dl (65-105)
[2021-10-07] MEDS: APIXABAN 5 MG TABLET PO ×2 (05:43→17:12)
[2021-10-07] MEDS: GABAPENTIN 300 MG CAPSULE 600 MG PO ×3 (05:43→21:19)
[2021-10-07] MEDS: ACETAMINOPHEN 325 MG TABLET 650 MG PO (05:45)
[2021-10-07 06:35] LABS: Hemoglobin 10.5 g/dL (14.0-18.0); Mean Corpuscular Hemoglobin 28.2 pg (26-34); Mean Corpuscular Volume 93.8 fl (80-100); Mean Platelet Volume 10.2 fl (7.4-10.4); Platelet Count Result 271 k/mm3 (150-375); Red Blood Count 3.73 M/mm3 (4.6-6.20); Red Cell Distribution Width 18.4 % (11.5-14.5); White Blood Count 8.3 K/mm3 (4.5-10.0)
[2021-10-07 06:52] LABS: Alanine Aminotransferase 20 U/L (4-50); Albumin Level 3.1 g/dL (3.5-5.1); Alkaline Phosphatase 252 U/L (38-126); Anion Gap 8 mmol/L (8-16); Aspartate Amino Transferase 39 U/L (17-59); Bilirubin,Total 0.6 mg/dL (0.2-1.3); Blood Urea Nitrogen 36 mg/dL (9-20); Calcium 8.3 mg/dL (8.4-10.2); Carbon Dioxide 25 mmol/L (22-30); Chloride 107 mmol/L (98-107); Estimated CRCL calculation 34 ml/min; Estimated Glomerular Filt Rate 29; Glucose 85 mg/dL (65-110); Magnesium 1.5 mg/dL (1.6-2.3); Potassium 3.6 mmol/L (3.4-5.0); Sodium 140 mmol/L (137-145)
--- NOTE | 2021-10-07 07:20 | P.PNNP_ITS ---
Progress Note: A&P Assessment and Plan (1) KIET (acute kidney injury): Code(s): N17.9 - Acute kidney failure, unspecified Status: Acute Assessment and Plan: * suspect due to chronic prerenal azotemia from reduced EF (cardiorenal syndrome) and pulmonary HTN * evaluation to date demonstrates: * renal ultrasound with bilateral cortical thinning but no hydronephrosis * prerenal urine electrolytes * proteinuria by recent and previous admissions * Echo with reduced LV function + pulmonary HTN * creatinine is gradually improving. The creatinine is about the same today of 2.3 * Continue current therapy (2) Chronic kidney disease, stage 3b: Code(s): N18.32 - Chronic kidney disease, stage 3b Status: Chronic Assessment and Plan: * baseline creatinine running 1.6 - 2.1mg/dl for the last year * CKD due to chronic need for diuretics, CHF (with depressed EF + right heart dysfunction), pulmonary HTN, diabetes, and hypertension (3) Acute on chronic respiratory failure with hypoxia and hypercapnia: Code(s): J96.21 - Acute and chronic respiratory failure with hypoxia; J96.22 - Acute and chronic respiratory failure with hypercapnia Status: Acute Assessment and Plan: * due to CHF + COPD +/- pneumonia * s/p bilateral thoracenteses * continue ventilator support * weaning as tolerated * supportive care (4) Essential hypertension: Code(s): I10 - Essential (primary) hypertension Status: Acute Assessment and Plan: * previously hypotensive on admission * suspect a possible component of intravascular volume depletion * s/p IVFs which improved low BP * BP is little bit less erratic. Systolic runs between 130-150 * He is on metoprolol 25q12. (5) Congestive heart failure: Code(s): I50.9 - Heart failure, unspecified Status: Acute Assessment and Plan: * as noted by imaging studies to date * Will restart p.o. diuretics tomorrow. He should be back to renal baseline bed then. (6) Paroxysmal atrial fibrillation: Code(s): I48.0 - Paroxysmal atrial fibrillation Status: Acute Assessment and Plan: * Heart rate 101 * On the Toprol * on anticoagulation (7) Diabetes: Code(s): E11.9 - Type 2 diabetes mellitus without complications Status: Chronic Assessment and Plan: * follow accu-cheks * on sliding scale insulin Subjective Date/time seen: 10/07/21 07:20 Interval history: patient is now extubated. Awake and interactive. He is a bit confused. He thinks he went home last night. After I reoriented him, he realized that he most a been dreaming. No shortness of breath Exam Narrative: General: WD/WN male intubated/sedated but in NAD Heart: normal S1 and S2; no rub or gallop Lungs: coarse breath sounds throughout Abdomen: soft, nontender, nondistended, positive bowel sounds Extremities: 1+ edema Skin: no rash Objective Data Vital Signs Vital Signs: Vital Signs - 24 hr 10/06/21 08:00 10/06/21 08:50 10/06/21 10:00 Temperature 36.7 C Pulse Rate 96 89 117 H Respiratory Rate 17 17 Blood Pressure 164/69 H 119/76 Pulse Oximetry 91 100 10/06/21 12:00 10/06/21 16:00 10/06/21 20:00 Temperature 36.9 C 36.8 C Pulse Rate 93 101 H 101 H Respiratory Rate 16 18 18 Blood Pressure 149/8
--- NOTE | 2021-10-07 07:20 | PM.PNNEP ---
Progress Note: A&P Assessment and Plan (1) KIET (acute kidney injury): Code(s): N17.9 - Acute kidney failure, unspecified Status: Acute Assessment and Plan: suspect due to chronic prerenal azotemia from reduced EF (cardiorenal syndrome) and pulmonary HTN evaluation to date demonstrates: renal ultrasound with bilateral cortical thinning but no hydronephrosis prerenal urine electrolytes proteinuria by recent and previous admissions Echo with reduced LV function + pulmonary HTN creatinine is gradually improving. The creatinine is about the same today of 2.3 Continue current therapy (2) Chronic kidney disease, stage 3b: Code(s): N18.32 - Chronic kidney disease, stage 3b Status: Chronic Assessment and Plan: baseline creatinine running 1.6 - 2.1mg/dl for the last year CKD due to chronic need for diuretics, CHF (with depressed EF + right heart dysfunction), pulmonary HTN, diabetes, and hypertension (3) Acute on chronic respiratory failure with hypoxia and hypercapnia: Code(s): J96.21 - Acute and chronic respiratory failure with hypoxia; J96.22 - Acute and chronic respiratory failure with hypercapnia Status: Acute Assessment and Plan: due to CHF + COPD +/- pneumonia s/p bilateral thoracenteses continue ventilator support weaning as tolerated supportive care (4) Essential hypertension: Code(s): I10 - Essential (primary) hypertension Status: Acute Assessment and Plan: previously hypotensive on admission suspect a possible component of intravascular volume depletion s/p IVFs which improved low BP BP is little bit less erratic. Systolic runs between 130-150 He is on metoprolol 25q12. (5) Congestive heart failure: Code(s): I50.9 - Heart failure, unspecified Status: Acute Assessment and Plan: as noted by imaging studies to date Will restart p.o. diuretics tomorrow. He should be back to renal baseline bed then. (6) Paroxysmal atrial fibrillation: Code(s): I48.0 - Paroxysmal atrial fibrillation Status: Acute Assessment and Plan: Heart rate 101 On the Toprol on anticoagulation (7) Diabetes: Code(s): E11.9 - Type 2 diabetes mellitus without complications Status: Chronic Assessment and Plan: follow accu-cheks on sliding scale insulin Subjective Date/time seen: 10/07/21 07:20 Interval history: patient is now extubated. Awake and interactive. He is a bit confused. He thinks he went home last night. After I reoriented him, he realized that he most a been dreaming. No shortness of breath Exam Narrative: General: WD/WN male intubated/sedated but in NAD Heart: normal S1 and S2; no rub or gallop Lungs: coarse breath sounds throughout Abdomen: soft, nontender, nondistended, positive bowel sounds Extremities: 1+ edema Skin: no rash Objective Data Vital Signs Vital Signs: Vital Signs - 24 hr 10/06/21 08:00 10/06/21 08:50 10/06/21 10:00 Temperature 36.7 C Pulse Rate 96 89 117 H Respiratory Rate 17 17 Blood Pressure 164/69 H 119/76 Pulse Oximetry 91 100 10/06/21 12:00 10/06/21 16:00 10/06/21 20:00 Temperature 36.9 C 36.8 C Pulse Rate 93 101 H 101 H Respiratory Rate 16 18 18 Blood Pressure 149/81 H 150/98 H Pulse Oximetry 92 95 95 10/07/21 00:30 10/07/21 05:29 Temperature 36.6 C 36.5 C Pulse Rate 100 101 H Respiratory Rate 20 18 Blood Pressure 147/66 H 136/58 L Pulse Oximetry 97 96 Intake/Output Intake/Output: Intake & Output 10/04/21 10/05/21 10/06/21 10/07/21 23:59 23:59 23:59 23:59 Intake Total 3286 1529 470 250 Output Total 2400 2875 2550 1100 Balance 886 -1346 -2080 -850 Meds/Results Medications: Active Medications Generic Name Dose Route Start Last Admin Trade Name Marciano PRN Reason Stop Dose Admin Acetaminophen 650 mg 10/06/21 14:16 10/07/21 05:45 Acetaminophen 325 Mg Tablet PO
[2021-10-07 07:42] LABS: Glucose Point of Care 78 mg/dl (65-105)
[2021-10-07] MEDS: NICOTINE (*PBKC) 21 MG PATCH 1 PATCH TRANSDERM (08:01)
[2021-10-07] MEDS: amLODIPine BESYLATE 5 MG TABLET 10 MG PO (08:02)
[2021-10-07] MEDS: POTASSIUM CHLORIDE 20 MEQ TABLET.ER PO (08:02)
[2021-10-07] MEDS: FERROUS SULFATE 324 MG TABLET PO ×2 (08:02→20:15)
[2021-10-07] MEDS: PANTOPRAZOLE 40 MG TABLET PO (08:02)
[2021-10-07] MEDS: buPROPion HCL XL (24 HR) 150 MG TABCR PO (08:02)
[2021-10-07] MEDS: TAMSULOSIN HCL 0.4 MG CAPSULE PO (08:03)
[2021-10-07] MEDS: FUROSEMIDE 40 MG TABLET PO ×2 (08:03→17:12)
[2021-10-07] MEDS: ACIDOPHILUS/BULGARICUS CHEWABLE TABLET 1 TABLET PO (08:03)
[2021-10-07] MEDS: METOPROLOL TARTRATE 25 MG TABLET PO ×2 (08:03→20:16)
[2021-10-07] MEDS: DULoxetine HCL 60 MG CAPSULE.DR PO ×2 (08:03→20:15)
--- NOTE | 2021-10-07 11:46 | PM.IMPN ---
Progress Note: A&P Assessment and Plan (1) Acute on chronic respiratory failure with hypoxia and hypercapnia: Code(s): J96.21 - Acute and chronic respiratory failure with hypoxia; J96.22 - Acute and chronic respiratory failure with hypercapnia Status: Acute Assessment and Plan: Secondary to CHF, pneumonia and COPD Pt extubated on medical floor now continue to diuresis with oral medications continue to monitor creat. IV abx have been stopped Chest x-ray today showed findings concerning for pulmonary edema on admission Pt s chest xray today shows - 1. Mild pulmonary edema. 2. Worsened airspace opacities in left mid and lower lung zones, consistent with atelectasis versus pneumonia. 3. Small left pleural effusion. 4. Cardiomegaly. (2) Acute on chronic renal failure: Code(s): N17.9 - Acute kidney failure, unspecified; N18.9 - Chronic kidney disease, unspecified Status: Acute Assessment and Plan: Creat is 2.3, 1.7 is baseline nephrology rounding (3) Acute exacerbation of CHF (congestive heart failure): Qualifiers: Heart failure type: unspecified Qualified Code(s): I50.9 - Heart failure, unspecified Code(s): I50.9 - Heart failure, unspecified Status: Acute Assessment and Plan: Most recent echocardiogram showed mildly reduced systolic function with an EF estimated 45 to 50%. continue oral diuretics metolazone and lasix (4) Person under investigation for COVID-19: Code(s): Z20.822 - Contact with and (suspected) exposure to COVID-19 Status: Ruled-out Assessment and Plan: Covid negative. (5) Chronic obstructive pulmonary disease: Code(s): J44.9 - Chronic obstructive pulmonary disease, unspecified Status: Acute Assessment and Plan: COPD excerbation on iv ABX discontinued now, BC is negative (6) Atrial fibrillation with slow ventricular response: Code(s): I48.91 - Unspecified atrial fibrillation Status: Acute Assessment and Plan: On beta-mt at home. Pt is on eliquis (7) Type 2 diabetes mellitus treated with insulin: Code(s): E11.9 - Type 2 diabetes mellitus without complications; Z79.4 - [facility] (current) use of insulin Status: Chronic Assessment and Plan: Initiate sliding scale insulin, Accu-Cheks, and hypoglycemic protocol. Subjective Date/time seen: 10/07/21 11:46 Interval history: 61-year-old male with history of stroke, coronary artery disease, congestive heart failure, atrial fibrillation on long-term anticoagulation, insulin-dependent diabetes, chronic kidney disease, obstructive sleep apnea, chronic respiratory failure, COPD, and several other comorbidities who presented to the emergency department earlier today via EMS from [facility] for evaluation after he was found unresponsive. He is currently sedated on mechanical ventilation and thus he is unable to provide history and as such all of the following is obtained via a review of his electronic medical records. This will be his 4th admission to the hospital since mid to late July 2021 and each time he was admitted with hypoxic and hypercapnic respiratory failure either requiring BiPAP or mechanical ventilation. Pt is much better stable for transfer to medical floor. Pt had cxr today showing 1. Mild pulmonary edema. 2. Worsened airspace opacities in left mid and lower lung zones, consistent with atelectasis versus pneumonia. 3. Small left pleural effusion. 4. Cardiomegaly. Review of Systems Review of Systems: All systems reviewed & are unremarkable except as noted in HPI and below Exam Narrative: General: alert awake Respiratory: Bl rhonchi Cardiovascular: RRR Gastrointestinal: Abdomen is soft, nontender, and nondistended with positive bowel sounds. Skin: Warm and dry. Ulcerations of the left heel and left llanos. Extremities: No cyanosis, clubbing, or edema. Radial p
[2021-10-07 12:00] LABS: Glucose Point of Care 74 mg/dl (65-105)
--- NOTE | 2021-10-07 12:07 | PCNFU ---
Nutrition Follow-Up Complete: Inadequate Oral Intake as related to mechanical ventilation as evidenced by NPO. goal: Meet estimated nutritional needs Patient is progressing towards goal. We will continue current goal. Pt current nutrition is DBCC diet with Glucerna shakes BID Last recorded weight is 99.4 kg, up from 94 kg on admit. Bowel Motility:+BM reported 10/06 Labs Reviewed:Cr 2.3,BUN 36, Mg 1.5, Alb 3.1 Meds Noted:Flomax, Protonix, KCL tablet, Ferrous Sulfate, Neurontin, Lopressor, Lantus, Cymbalta, Wellbutrin, Norvasc. Skin:WNL Additional Notes: Patient had Bedside swallow on 10/06-diet order advanced. Breakfast today, 100% of eggs, 50% of muffin and was working on oatmeal. Glucerna shakes are providing an additional 220 kcals and 10 gms protein. Agree with diet orders. Monitoring: Will monitor every 5 days.
[2021-10-07 16:29] LABS: Glucose Point of Care 84 mg/dl (65-105)
[2021-10-07] MEDS: ATORVASTATIN 40 MG TABLET PO (20:15)
[2021-10-07] MEDS: MESALAMINE 1,000 MG SUPP.RECT 1000 MG RECTAL (20:16)
[2021-10-07 20:56] LABS: Glucose Point of Care 74 mg/dl (65-105)
[2021-10-08] VITALS (7 sets, daily range): BP systolic 115–135; BP diastolic 56–89; PULSE 82–108; RESP 16–21; TEMP 36.1–36.8; O2SAT 92–100
[2021-10-08 00:11] LABS: Glucose Point of Care 87 mg/dl (65-105)
[2021-10-08] MEDS: GABAPENTIN 300 MG CAPSULE 600 MG PO ×3 (05:07→21:07)
[2021-10-08] MEDS: APIXABAN 5 MG TABLET PO ×2 (05:07→17:13)
[2021-10-08 05:45] LABS: Glucose Point of Care 77 mg/dl (65-105)
[2021-10-08 05:49] LABS: Hematocrit 33.7 % (42.0-52.0); Hemoglobin 10.3 g/dL (14.0-18.0); Mean Corpuscular HGB Conc 30.6 g/dl (32-36); Mean Corpuscular Hemoglobin 29.3 pg (26-34); Mean Corpuscular Volume 95.7 fl (80-100); Mean Platelet Volume 10.1 fl (7.4-10.4); Platelet Count Result 245 k/mm3 (150-375); Red Blood Count 3.52 M/mm3 (4.6-6.20); Red Cell Distribution Width 17.9 % (11.5-14.5); White Blood Count 6.5 K/mm3 (4.5-10.0)
[2021-10-08 06:02] LABS: Alanine Aminotransferase 17 U/L (4-50); Albumin Level 2.7 g/dL (3.5-5.1); Alkaline Phosphatase 221 U/L (38-126); Anion Gap 10 mmol/L (8-16); Aspartate Amino Transferase 26 U/L (17-59); Bilirubin,Total 0.4 mg/dL (0.2-1.3); Blood Urea Nitrogen 33 mg/dL (9-20); Calcium 8.2 mg/dL (8.4-10.2); Carbon Dioxide 24 mmol/L (22-30); Chloride 109 mmol/L (98-107); Estimated CRCL calculation 33 ml/min; Estimated Glomerular Filt Rate 28; Glucose 84 mg/dL (65-110); Magnesium 1.4 mg/dL (1.6-2.3); Potassium 3.8 mmol/L (3.4-5.0); Sodium 143 mmol/L (137-145)
[2021-10-08 06:09] LABS: NT Pro B Type Natriuretic Pept 20600 pg/mL (5-100)
[2021-10-08] MEDS: METOPROLOL TARTRATE 25 MG TABLET PO ×2 (07:49→21:07)
[2021-10-08] MEDS: DULoxetine HCL 60 MG CAPSULE.DR PO ×2 (07:49→21:08)
[2021-10-08] MEDS: TAMSULOSIN HCL 0.4 MG CAPSULE PO (07:50)
[2021-10-08] MEDS: buPROPion HCL XL (24 HR) 150 MG TABCR PO (07:50)
[2021-10-08] MEDS: ACIDOPHILUS/BULGARICUS CHEWABLE TABLET 1 TABLET PO (07:50)
[2021-10-08] MEDS: PANTOPRAZOLE 40 MG TABLET PO (07:50)
[2021-10-08] MEDS: amLODIPine BESYLATE 5 MG TABLET 10 MG PO (07:50)
[2021-10-08] MEDS: metOLazone 2.5 MG TABLET PO (07:50)
[2021-10-08] MEDS: POTASSIUM CHLORIDE 20 MEQ TABLET.ER PO (07:50)
[2021-10-08] MEDS: FERROUS SULFATE 324 MG TABLET PO ×2 (07:50→21:08)
[2021-10-08] MEDS: FUROSEMIDE 40 MG TABLET PO ×2 (07:50→17:13)
[2021-10-08] MEDS: NICOTINE (*PBKC) 21 MG PATCH 1 PATCH TRANSDERM (07:50)
[2021-10-08 08:13] LABS: Glucose Point of Care 114 mg/dl (65-105)
[2021-10-08] MEDS: MAGNESIUM OXIDE 400 MG TABLET PO ×2 (10:07→17:13)
[2021-10-08 11:54] LABS: Glucose Point of Care 106 mg/dl (65-105)
--- NOTE | 2021-10-08 12:19 | P.PNNP_ITS ---
Progress Note: A&P Assessment and Plan (1) KIET (acute kidney injury): Code(s): N17.9 - Acute kidney failure, unspecified Status: Acute Assessment and Plan: * suspect due to chronic prerenal azotemia from reduced EF (cardiorenal syndrome) and pulmonary HTN * evaluation to date demonstrates: * renal ultrasound with bilateral cortical thinning but no hydronephrosis * prerenal urine electrolytes * proteinuria by recent and previous admissions * Echo with reduced LV function + pulmonary HTN * creatinine is gradually improving. he is at baseline. * Continue current therapy (2) Chronic kidney disease, stage 3b: Code(s): N18.32 - Chronic kidney disease, stage 3b Status: Chronic Assessment and Plan: * baseline creatinine running 1.6 - 2.1mg/dl for the last year * CKD due to chronic need for diuretics, CHF (with depressed EF + right heart dysfunction), pulmonary HTN, diabetes, and hypertension (3) Acute on chronic respiratory failure with hypoxia and hypercapnia: Code(s): J96.21 - Acute and chronic respiratory failure with hypoxia; J96.22 - Acute and chronic respiratory failure with hypercapnia Status: Acute Assessment and Plan: * due to CHF + COPD +/- pneumonia * s/p bilateral thoracenteses * continue ventilator support * weaning as tolerated * supportive care (4) Essential hypertension: Code(s): I10 - Essential (primary) hypertension Status: Acute Assessment and Plan: * previously hypotensive on admission * suspect a possible component of intravascular volume depletion * s/p IVFs which improved low BP * BP is little bit less erratic. Systolic runs between 130-150 * He is on metoprolol 25q12. (5) Congestive heart failure: Code(s): I50.9 - Heart failure, unspecified Status: Acute Assessment and Plan: * as noted by imaging studies to date * On furosemide 40 mg b.i.d. (6) Paroxysmal atrial fibrillation: Code(s): I48.0 - Paroxysmal atrial fibrillation Status: Acute Assessment and Plan: * Heart rate 101 * On the Toprol * on anticoagulation (7) Diabetes: Code(s): E11.9 - Type 2 diabetes mellitus without complications Status: Chronic Assessment and Plan: * follow accu-cheks * on sliding scale insulin Subjective Date/time seen: 10/08/21 12:19 Interval history: patient is now extubated. Awake and interactive. still does not seem himself. Asking about going home on a pass No shortness of breath Exam Narrative: General: WD/WN male intubated/sedated but in NAD Heart: normal S1 and S2; no rub or gallop Lungs: coarse breath sounds throughout Abdomen: soft, nontender, nondistended, positive bowel sounds Extremities: 1+ edema Skin: no rash or subcu nodules Objective Data Vital Signs Vital Signs: Vital Signs - 24 hr 10/07/21 14:00 10/07/21 20:16 10/07/21 20:38 Temperature 36.2 C L Pulse Rate 87 98 Respiratory Rate 18 Blood Pressure 148/73 H Pulse Oximetry 94 96 10/07/21 20:52 10/08/21 04:18 10/08/21 08:00 Temperature 36.4 C L 36.4 C L Pulse Rate 98 82 Respiratory Rate 16 16 Blood Pressure 131/87 135/83 Pulse Oximetry 100 97 95 10/08/21 09:08 Temperature 36.8 C Pulse Rate 89
--- NOTE | 2021-10-08 12:19 | PM.PNNEP ---
Progress Note: A&P Assessment and Plan (1) KIET (acute kidney injury): Code(s): N17.9 - Acute kidney failure, unspecified Status: Acute Assessment and Plan: suspect due to chronic prerenal azotemia from reduced EF (cardiorenal syndrome) and pulmonary HTN evaluation to date demonstrates: renal ultrasound with bilateral cortical thinning but no hydronephrosis prerenal urine electrolytes proteinuria by recent and previous admissions Echo with reduced LV function + pulmonary HTN creatinine is gradually improving. he is at baseline. Continue current therapy (2) Chronic kidney disease, stage 3b: Code(s): N18.32 - Chronic kidney disease, stage 3b Status: Chronic Assessment and Plan: baseline creatinine running 1.6 - 2.1mg/dl for the last year CKD due to chronic need for diuretics, CHF (with depressed EF + right heart dysfunction), pulmonary HTN, diabetes, and hypertension (3) Acute on chronic respiratory failure with hypoxia and hypercapnia: Code(s): J96.21 - Acute and chronic respiratory failure with hypoxia; J96.22 - Acute and chronic respiratory failure with hypercapnia Status: Acute Assessment and Plan: due to CHF + COPD +/- pneumonia s/p bilateral thoracenteses continue ventilator support weaning as tolerated supportive care (4) Essential hypertension: Code(s): I10 - Essential (primary) hypertension Status: Acute Assessment and Plan: previously hypotensive on admission suspect a possible component of intravascular volume depletion s/p IVFs which improved low BP BP is little bit less erratic. Systolic runs between 130-150 He is on metoprolol 25q12. (5) Congestive heart failure: Code(s): I50.9 - Heart failure, unspecified Status: Acute Assessment and Plan: as noted by imaging studies to date On furosemide 40 mg b.i.d. (6) Paroxysmal atrial fibrillation: Code(s): I48.0 - Paroxysmal atrial fibrillation Status: Acute Assessment and Plan: Heart rate 101 On the Toprol on anticoagulation (7) Diabetes: Code(s): E11.9 - Type 2 diabetes mellitus without complications Status: Chronic Assessment and Plan: follow accu-cheks on sliding scale insulin Subjective Date/time seen: 10/08/21 12:19 Interval history: patient is now extubated. Awake and interactive. still does not seem himself. Asking about going home on a pass No shortness of breath Exam Narrative: General: WD/WN male intubated/sedated but in NAD Heart: normal S1 and S2; no rub or gallop Lungs: coarse breath sounds throughout Abdomen: soft, nontender, nondistended, positive bowel sounds Extremities: 1+ edema Skin: no rash or subcu nodules Objective Data Vital Signs Vital Signs: Vital Signs - 24 hr 10/07/21 14:00 10/07/21 20:16 10/07/21 20:38 Temperature 36.2 C L Pulse Rate 87 98 Respiratory Rate 18 Blood Pressure 148/73 H Pulse Oximetry 94 96 10/07/21 20:52 10/08/21 04:18 10/08/21 08:00 Temperature 36.4 C L 36.4 C L Pulse Rate 98 82 Respiratory Rate 16 16 Blood Pressure 131/87 135/83 Pulse Oximetry 100 97 95 10/08/21 09:08 Temperature 36.8 C Pulse Rate 89 Respiratory Rate 18 Blood Pressure 115/61 Pulse Oximetry 92 Intake/Output Intake/Output: Intake & Output 10/05/21 10/06/21 10/07/21 10/08/21 23:59 23:59 23:59 23:59 Intake Total 0358 989 5389 360 Output Total 2875 2550 1100 400 [facility] -2466 0450 95 -40 Meds/Results Medications: Active Medications Generic Name Dose Route Start Last Admin Trade Name Freq PRN Reason Stop Dose Admin Acetaminophen 650 mg 10/06/21 14:16 10/07/21 05:45 Acetaminophen 325 Mg Tablet PO 650 mg Q4H PRN Administration pain Hydrocodone Bitart/Acetaminophen 1 tab 10/05/21 20:23 10/05/21 20:47 Hydrocodone/Acetaminophen (*Crx) 5-325 Mg Tablet PO 1 tab Q4H PRN A
--- NOTE | 2021-10-08 13:11 | PM.IMPN ---
Progress Note: A&P Assessment and Plan (1) Acute on chronic respiratory failure with hypoxia and hypercapnia: Code(s): J96.21 - Acute and chronic respiratory failure with hypoxia; J96.22 - Acute and chronic respiratory failure with hypercapnia Status: Acute Assessment and Plan: Secondary to CHF, pneumonia and COPD -Pt had doxycycline 09/29-10/06 and ceftriaxone 09/29-10/05 -repeat CXR today is worse, will obtain CT of the chest for a better picture -he had a thoracentesis 10/01 and 10/02, no labs sent -Pt intubated at one point of his hospital stay but is now on 2L NC -he is supposed to be on a bipap when sleeping/naping but refuses at the NH at times and has been hospitalized for respiratory failure many times. His settings are supposed to be 18/8 rate of 20 flow 30% and o2 bleed in 2.5 according to the NH but rips it off very often -he has not been on the bipap here at all, will obtain abg (2) Acute on chronic renal failure: Code(s): N17.9 - Acute kidney failure, unspecified; N18.9 - Chronic kidney disease, unspecified Status: Acute Assessment and Plan: Cr 2.4 today -baseline around 1.7 but can run high especially while sick -continue oral lasix -nephrology consulted -NH confirms chronic payne (3) Acute exacerbation of CHF (congestive heart failure): Qualifiers: Heart failure type: unspecified Qualified Code(s): I50.9 - Heart failure, unspecified Code(s): I50.9 - Heart failure, unspecified Status: Acute Assessment and Plan: Most recent echocardiogram showed mildly reduced systolic function with an EF estimated 35-40% with moderate global hypokinesis -continue metoprolol, lipitor, lasix, and metolazone -I don't believe he has been evaluated by a bander and cellophaner machine helper here in the past for this. He has multiple admissions for CHF that have lead to ICU admissions as well. Pt unable to tell me his cardiac hx. I called the NH and they are unaware as well. I believe a cardiology consult is warranted and I appreciate their recommendations. -consider ALEK/ARB (4) Chronic obstructive pulmonary disease: Code(s): J44.9 - Chronic obstructive pulmonary disease, unspecified Status: Acute Assessment and Plan: Pt on 2.5L of o2 at home -continue incruse daily and albuterol/ipratropium PRN (5) Atrial fibrillation with slow ventricular response: Code(s): I48.91 - Unspecified atrial fibrillation Status: Acute Assessment and Plan: Controlled rate -continue metoprolol and eliquis (6) Type 2 diabetes mellitus treated with insulin: Code(s): E11.9 - Type 2 diabetes mellitus without complications; Z79.4 - residential (current) use of insulin Status: Chronic Assessment and Plan: Last glucose 106 but has been lower -will continue lantus but lower dose while hospitalized. Continue SSI (7) Acute metabolic encephalopathy: Code(s): G93.41 - Metabolic encephalopathy Status: Acute Assessment and Plan: It is not clear what his baseline is but today he was alert and oriented to his name and date but not the place or president -will check abg -neurologically intact on exam but often dozes off or gets distracted -head CT shows no acute process but does show old stroke -wbc wnl and no fever, infection seems less likely -check folate and b12 -2 months ago it was documented he was a&ox4 Time Spent With Patient Time with patient: 25 - 35 minutes Subjective Date/time seen: 10/08/21 13:11 Interval history: Pt is a 61-year-old male here for pneumonia/ COPD/ CHF. patient was seen today and often fell asleep during my exam. He would answer most of my questions and follow commands but seemed confused at times. He knew what his name was and the year but was unable to tell me where he was or who the president was. He had no complaints although I am unsure if he was fully understanding me. No events o
[2021-10-08 13:29] LABS: HCO3 ABG 26.1 mEq/l (22.0-26.0); PCO2 ABG 45.7 mmHg (35.0-45.0); PO2 ABG 66.5 mmHg (80.0-100.0); pH ABG 7.374 (7.350-7.450)
[2021-10-08 13:30] LABS: Alveolar/Arterial O2 Gradient 108.2 mmHg; Base Excess ABG 0.6 mEq/l (+/-2.0); Oxygen Saturation ABG 92.6 % (95.0-100.0); Total Hemoglobin 10.9 g/dL (12.0-18.0)
[2021-10-08 13:31] LABS: Carboxyhemoglobin 0.5 % THb (0-2.0); Methemoglobin ABG 0.2 %THb (0-1.5); Oxyhemoglobin 91.1 % THb (90.0-100.0); Reduced Hemoglobin 8.2 %THb (0-5.0)
[2021-10-08 13:32] LABS: Device NASAL CANNULA; Modified Allen's Test Pass; PO2 FiO2 Ratio Arterial Blood 2.08 %; Site Drawn LEFT RADIAL
[2021-10-08 16:39] LABS: Glucose Point of Care 120 mg/dl (65-105)
[2021-10-08] MEDS: ATORVASTATIN 40 MG TABLET PO (21:07)
[2021-10-08] MEDS: MESALAMINE 1,000 MG SUPP.RECT 1000 MG RECTAL (21:08)
[2021-10-08] MEDS: INSULIN GLARGINE (*BKC) 100 UNITS/ML 12 UNITS SUB-Q (21:13)
[2021-10-08 21:37] LABS: Glucose Point of Care 167 mg/dl (65-105)
[2021-10-09] VITALS (7 sets, daily range): BP systolic 114–151; BP diastolic 68–75; PULSE 40–102; RESP 18–20; TEMP 36.2–37.1; O2SAT 96–99
[2021-10-09 00:04] LABS: Glucose Point of Care 132 mg/dl (65-105)
[2021-10-09] MEDS: GABAPENTIN 300 MG CAPSULE 600 MG PO ×3 (06:22→21:13)
[2021-10-09] MEDS: APIXABAN 5 MG TABLET PO ×2 (06:23→18:09)
[2021-10-09 06:30] LABS: Hemoglobin 9.7 g/dL (14.0-18.0); Mean Corpuscular HGB Conc 30.3 g/dl (32-36); Mean Corpuscular Hemoglobin 28.4 pg (26-34); Mean Corpuscular Volume 93.6 fl (80-100); Mean Platelet Volume 10.2 fl (7.4-10.4); Platelet Count Result 268 k/mm3 (150-375); Red Blood Count 3.42 M/mm3 (4.6-6.20); Red Cell Distribution Width 17.2 % (11.5-14.5); White Blood Count 6.5 K/mm3 (4.5-10.0)
[2021-10-09 06:39] LABS: INR 1.2; Prothrombin Time 15.4 Seconds (11.1-14.7)
[2021-10-09 07:02] LABS: Glucose Point of Care 73 mg/dl (65-105)
[2021-10-09 07:02] LABS: Glucose Point of Care 68 mg/dl (65-105)
[2021-10-09 07:06] LABS: Alanine Aminotransferase 16 U/L (4-50); Albumin Level 2.7 g/dL (3.5-5.1); Alkaline Phosphatase 195 U/L (38-126); Anion Gap 6 mmol/L (8-16); Aspartate Amino Transferase 29 U/L (17-59); Bilirubin,Total 0.3 mg/dL (0.2-1.3); Blood Urea Nitrogen 31 mg/dL (9-20); Calcium 8.1 mg/dL (8.4-10.2); Carbon Dioxide 27 mmol/L (22-30); Chloride 105 mmol/L (98-107); Estimated CRCL calculation 34 ml/min; Estimated Glomerular Filt Rate 29; Glucose 80 mg/dL (65-110); Magnesium 1.3 mg/dL (1.6-2.3); Phosphorus 4.6 mg/dL (2.5-4.5); Potassium 3.8 mmol/L (3.4-5.0); Sodium 138 mmol/L (137-145)
[2021-10-09] MEDS: NICOTINE (*PBKC) 21 MG PATCH 1 PATCH TRANSDERM (08:47)
[2021-10-09] MEDS: PANTOPRAZOLE 40 MG TABLET PO (08:48)
[2021-10-09] MEDS: FERROUS SULFATE 324 MG TABLET PO ×2 (08:48→21:16)
[2021-10-09] MEDS: DULoxetine HCL 60 MG CAPSULE.DR PO ×2 (08:48→21:17)
[2021-10-09] MEDS: MAGNESIUM OXIDE 400 MG TABLET PO ×2 (08:48→18:09)
[2021-10-09] MEDS: METOPROLOL TARTRATE 25 MG TABLET PO ×2 (08:48→21:14)
[2021-10-09] MEDS: TAMSULOSIN HCL 0.4 MG CAPSULE PO (08:48)
[2021-10-09] MEDS: buPROPion HCL XL (24 HR) 150 MG TABCR PO (08:48)
[2021-10-09] MEDS: POTASSIUM CHLORIDE 20 MEQ TABLET.ER PO (08:48)
[2021-10-09] MEDS: FUROSEMIDE 40 MG TABLET PO ×2 (08:49→18:09)
[2021-10-09] MEDS: ACIDOPHILUS/BULGARICUS CHEWABLE TABLET 1 TABLET PO (08:49)
[2021-10-09] MEDS: amLODIPine BESYLATE 5 MG TABLET 10 MG PO (08:49)
[2021-10-09] MEDS: MAGNESIUM SULFATE 3GM/D5W100ML 3 GM/100 ML BAG IVPB (10:27)
[2021-10-09 11:38] LABS: Glucose Point of Care 94 mg/dl (65-105)
--- NOTE | 2021-10-09 13:56 | PM.CNCAR ---
Assessment and Plan Additional Plan This is a 61-year-old man with coronary artery disease ischemic cardiomyopathy with an ejection fraction that is mildly to moderately depressed as well as chronic atrial fib/ flutter. He has been in the hospital here repeatedly for the last several months with various problems and the however each time he does appear to have some, component of congestive heart failure. He is on a fairly good medical regimen. I would agree with the hospitalist that 1 obvious omission from his medical regimen would be an ALEK-inhibitor or an ARB. He does have some chronic kidney disease however there is no reason that I can see it he can not be placed on an ALEK-inhibitor. I am going to go ahead and transition him from amlodipine to lisinopril at this time. The patient is asking how long he will have to stay in the hospital and when he can be discharged. I would imagine we are to keep him in the hospital at least 24 hours after we changed his medication like this. He for reasons that are not entirely clear to me has to live in a shelter at the age of 61 which seems distinctly uncommon. Patrice Mane MD [facility] History of Present Illness History of Present Illness Consult date/time: 10/09/21 13:56 Consult reason: atrial fibrillation and congestive heart failure Reason For Visit: acute on chronic respiratory failure Narrative: This is a 61-year-old man I am seeing at the request of the hospitalist this afternoon for assistance with the care and management of congestive heart failure as well as atrial fibrillation. The patient is unknown to me prior to this encounter. He this gentleman unfortunately has been hospitalized here at [facility] about 4 times in the last 3 months and other hospitalizations elsewhere as well. He remembers also being at [facility] in [place]. He apparently has history of coronary artery disease and a bypass grafting several years ago he says that was done at [facility]. His calculating machine operator in heart surgeon who took care at that time are no longer following him more involved in his care. He can not tell me the reason for that. In any event this 61-year-old man has been living in a shelter and has been hospitalized many times with symptoms of not feeling well, alterations in mental status as well as times with shortness of breath and evidence of some congestive heart failure. he has a history of atrial fibrillation which appears to be chronic at least it has been the case ever since July of this year when he 1st came to this hospital for 1 of these admissions. He is chronically anticoagulated with apixaban appears to be on a high dose of metoprolol for rate control. The patient's echocardiograms done in July as well as another 1 done just during this hospitalization demonstrate moderately depressed LV systolic function with some diastolic noncompliance and a small amount of MR. The current admission began about 11 days ago when he came in here with shortness of breath and altered mental status he was actually intubated in the field on the way to the emergency department spent a number of days in the ICU he is now extubated on the floor when I came in the room to see him he is eating his lunch watching television and obviously is in no distress of any kind. He appears to have chronic kidney disease as well and the agronomy research manager been following along as well. His medical regimen that is pertinent to this includes amlodipine 10 mg per day atorvastatin 40 mg per day, apixaban 5 mg b.i.d., furosemide 40 mg b.i.d., Lantus subcutaneously daily. Magnesium oxide 400 mg per day metolazone 2.5 mg 2 times per week metoprolol 150 mg daily. Patient's electrocardiograms have demonstrated a fib/ flutter with an incomplete left bundle branch block and have not shown any changes in the last several months that are different than this. Patient also tells me that he has had at least [address]
--- NOTE | 2021-10-09 14:51 | PM.IMPN ---
Progress Note: A&P Assessment and Plan (1) Acute on chronic respiratory failure with hypoxia and hypercapnia: Code(s): J96.21 - Acute and chronic respiratory failure with hypoxia; J96.22 - Acute and chronic respiratory failure with hypercapnia Status: Acute Assessment and Plan: Secondary to CHF, pneumonia and COPD -Pt had doxycycline 09/29-10/06 and ceftriaxone 09/29-10/05 -CT yesterday shows cardiomegaly with slightly improved pulmonary edema, moderate size pleural effusions with slight improvement, airspace disease in the lungs likely atelectasis and mediastinal lymphadenopathy that which is likely reactive -he had a thoracentesis 10/01 and 10/02, no labs sent. -Pt intubated at one point of his hospital stay but is now on 2L NC -he is supposed to be on a bipap when sleeping/naping but refuses at the NH at times and has been hospitalized for respiratory failure many times. His settings are supposed to be 18/8 rate of 20 flow 30% and o2 bleed in 2.5 according to the ID but rips it off very often - ABG yesterday with normal pH. I spoke with pulmonology about the case he does not recommend any further thoracentesis unless the patient is more short of breath or has additional problems. continue with diuretics. (2) Acute on chronic renal failure: Code(s): N17.9 - Acute kidney failure, unspecified; N18.9 - Chronic kidney disease, unspecified Status: Acute Assessment and Plan: Cr 2.3 today -baseline around 1.7 but can run high especially while sick -continue oral lasix and metolazone -nephrology consulted -ID confirms chronic payne (3) Acute exacerbation of CHF (congestive heart failure): Qualifiers: Heart failure type: unspecified Qualified Code(s): I50.9 - Heart failure, unspecified Code(s): I50.9 - Heart failure, unspecified Status: Acute Assessment and Plan: Most recent echocardiogram showed mildly reduced systolic function with an EF estimated 35-40% with moderate global hypokinesis -continue metoprolol, lipitor, lasix, and metolazone - lisinopril started. Will need outpatient BMP in 1 week at discharge - cardiology consulted, I appreciate their recommendations (4) Chronic obstructive pulmonary disease: Code(s): J44.9 - Chronic obstructive pulmonary disease, unspecified Status: Acute Assessment and Plan: Pt on 2.5L of o2 at home -continue incruse daily and albuterol/ipratropium PRN (5) Atrial fibrillation with slow ventricular response: Code(s): I48.91 - Unspecified atrial fibrillation Status: Acute Assessment and Plan: Controlled rate -continue metoprolol and eliquis (6) Type 2 diabetes mellitus treated with insulin: Code(s): E11.9 - Type 2 diabetes mellitus without complications; Z79.4 - equipment operator intermodal yard (current) use of insulin Status: Chronic Assessment and Plan: Last glucose 94 - Lantus continued at lower dose while hospitalized as well as sliding scale insulin (7) Acute metabolic encephalopathy: Code(s): G93.41 - Metabolic encephalopathy Status: Acute Assessment and Plan: resolved -head CT shows no acute process but does show old stroke -wbc wnl and no fever, infection seems less likely - B12 normal, folate pending Additional Plan decreased magnesium, will supplement Subjective Date/time seen: 10/09/21 14:51 Interval history: Pt is a 61-year-old male here for pneumonia/ COPD/ CHF. patient was seen today and was doing well. He had no complaints. Pt denies nausea, vomiting, fevers, chills, constipation, chest pain, sob, or abdominal pain. He has had about 4 episodes of diarrhea in the last few days and wants an Imodium. He says this is not uncommon for him and he has no abdominal pain with this. Exam Narrative: General: elderly patient resting comfortably in bed in no acute distress with 2 L of oxygen applied HEENT: normocephalic Ne
[2021-10-09 17:05] LABS: Glucose Point of Care 107 mg/dl (65-105)
[2021-10-09] MEDS: LOPERAMIDE HCL 2 MG CAPSULE PO (18:09)
[2021-10-09] MEDS: ATORVASTATIN 40 MG TABLET PO (21:14)
[2021-10-09] MEDS: INSULIN GLARGINE (*BKC) 100 UNITS/ML 12 UNITS SUB-Q (21:17)
[2021-10-09] MEDS: MESALAMINE 1,000 MG SUPP.RECT 1000 MG RECTAL (21:18)
[2021-10-09] MEDS: ACETAMINOPHEN 325 MG TABLET 650 MG PO (22:04)
[2021-10-10 00:01] LABS: Glucose Point of Care 109 mg/dl (65-105)
[2021-10-10 06:00] LABS: Hematocrit 33.6 % (42.0-52.0); Hemoglobin 10.2 g/dL (14.0-18.0); Mean Corpuscular HGB Conc 30.4 g/dl (32-36); Mean Corpuscular Volume 92.3 fl (80-100); Platelet Count Result 302 k/mm3 (150-375); Red Blood Count 3.64 M/mm3 (4.6-6.20); White Blood Count 6.8 K/mm3 (4.5-10.0)
[2021-10-10 06:19] LABS: Alanine Aminotransferase 16 U/L (4-50); Albumin Level 2.7 g/dL (3.5-5.1); Alkaline Phosphatase 217 U/L (38-126); Anion Gap 8 mmol/L (8-16); Aspartate Amino Transferase 29 U/L (17-59); Bilirubin,Total 0.4 mg/dL (0.2-1.3); Blood Urea Nitrogen 29 mg/dL (9-20); CRP 1.6 mg/dL (<1.0); Calcium 8.3 mg/dL (8.4-10.2); Carbon Dioxide 27 mmol/L (22-30); Chloride 105 mmol/L (98-107); Estimated CRCL calculation 32 ml/min; Estimated Glomerular Filt Rate 26; Glucose 79 mg/dL (65-110); Magnesium 1.4 mg/dL (1.6-2.3); Potassium 3.9 mmol/L (3.4-5.0); Sodium 140 mmol/L (137-145)
[2021-10-10 06:45] VITALS: BP 142/61; PULSE 98; RESP 18; TEMP 35.7; O2SAT 96
[2021-10-10] MEDS: APIXABAN 5 MG TABLET PO (06:57)
[2021-10-10] MEDS: GABAPENTIN 300 MG CAPSULE 600 MG PO ×2 (06:57→15:17)
[2021-10-10 07:01] LABS: Glucose Point of Care 64 mg/dl (65-105)
[2021-10-10 07:57] LABS: Glucose Point of Care 66 mg/dl (65-105)
[2021-10-10 07:57] LABS: Glucose Point of Care 82 mg/dl (65-105)
[2021-10-10] MEDS: ACIDOPHILUS/BULGARICUS CHEWABLE TABLET 1 TABLET PO (09:12)
[2021-10-10] MEDS: POTASSIUM CHLORIDE 20 MEQ TABLET.ER PO (09:12)
[2021-10-10] MEDS: FERROUS SULFATE 324 MG TABLET PO (09:12)
[2021-10-10] MEDS: PANTOPRAZOLE 40 MG TABLET PO (09:12)
[2021-10-10] MEDS: FUROSEMIDE 40 MG TABLET PO (09:12)
[2021-10-10] MEDS: lisinopriL 10 MG TABLET PO (09:12)
[2021-10-10 09:13] VITALS: PULSE 84
[2021-10-10] MEDS: METOPROLOL TARTRATE 25 MG TABLET PO (09:13)
[2021-10-10] MEDS: DULoxetine HCL 60 MG CAPSULE.DR PO (09:13)
[2021-10-10] MEDS: TAMSULOSIN HCL 0.4 MG CAPSULE PO (09:13)
[2021-10-10] MEDS: buPROPion HCL XL (24 HR) 150 MG TABCR PO (09:13)
[2021-10-10] MEDS: NICOTINE (*PBKC) 21 MG PATCH 1 PATCH TRANSDERM (09:13)
[2021-10-10] MEDS: MAGNESIUM OXIDE 400 MG TABLET PO (09:13)
--- NOTE | 2021-10-10 10:20 | PM.DS ---
DS: Admitting Diagnosis Discharge Date 10/10/21 Admitting Diagnosis CHF, PNA DS: Discharge Diagnosis Discharge Diagnosis (1) Acute on chronic respiratory failure with hypoxia and hypercapnia: Code(s): J96.21 - Acute and chronic respiratory failure with hypoxia; J96.22 - Acute and chronic respiratory failure with hypercapnia Status: Acute Assessment and Plan: Secondary to CHF, pneumonia and COPD -Pt had doxycycline 09/29-10/06 and ceftriaxone 09/29-10/05 -CT 10/08 shows cardiomegaly with slightly improved pulmonary edema, moderate size pleural effusions with slight improvement, airspace disease in the lungs likely atelectasis and mediastinal lymphadenopathy that which is likely reactive -he had a thoracentesis 10/01 and 10/02, no labs sent. -Pt intubated at one point of his hospital stay but is now on 2L NC -he is supposed to be on a bipap when sleeping/naping but refuses at the NH at times and has been hospitalized for respiratory failure many times. His settings are supposed to be 18/8 rate of 20 flow 30% and o2 bleed in 2.5 according to the NH but rips it off very often - ABG with normal pH. I spoke with pulmonology about the case he does not recommend any further thoracentesis unless the patient is more short of breath or has additional problems. continue with diuretics. (2) Acute on chronic renal failure: Code(s): N17.9 - Acute kidney failure, unspecified; N18.9 - Chronic kidney disease, unspecified Status: Acute Assessment and Plan: Cr 2.5 today -baseline was around 1.7 but can run high especially while sick. -continue oral lasix and metolazone and lisinopril -[place] confirms chronic payne -repeat bmp in one week to ensure no worsening (3) Acute exacerbation of CHF (congestive heart failure): Qualifiers: Heart failure type: unspecified Qualified Code(s): I50.9 - Heart failure, unspecified Code(s): I50.9 - Heart failure, unspecified Status: Acute Assessment and Plan: Most recent echocardiogram showed mildly reduced systolic function with an EF estimated 35-40% with moderate global hypokinesis -continue metoprolol, lipitor, lasix, lisinopril and metolazone - Will need outpatient BMP in 1 week at discharge - cardiology consulted while hospitalized. (4) Chronic obstructive pulmonary disease: Code(s): J44.9 - Chronic obstructive pulmonary disease, unspecified Status: Acute Assessment and Plan: Pt on 2.5L of o2 at home -continue incruse daily and albuterol/ipratropium PRN (5) Atrial fibrillation with slow ventricular response: Code(s): I48.91 - Unspecified atrial fibrillation Status: Acute Assessment and Plan: Controlled rate -continue metoprolol and eliquis (6) Type 2 diabetes mellitus treated with insulin: Code(s): E11.9 - Type 2 diabetes mellitus without complications; Z79.4 - rat exterminator (current) use of insulin Status: Chronic Assessment and Plan: Last glucose 109 -continue home regimen (7) Acute metabolic encephalopathy: Code(s): G93.41 - Metabolic encephalopathy Status: Acute Assessment and Plan: resolved -head CT shows no acute process but does show old stroke -wbc wnl and no fever, infection seems less likely - B12 normal, folate pending at d/c DS: Summary Hospital Course Hospital Course: dos10/10/21 patient is a 61-year-old male who presented emergency room on 09/29/2021 after EMS was called for significant. He was electively intubated by EMS. labs were white blood cell count 7.5, hemoglobin 8.8, hematocrit 29.2, platelets 242. Initial BMP showed KIET with a creatinine of 4.0. BNP elevated 10,000. lactic acid normal. Chest x-ray showed stable diffuse airspace disease which could represent pneumonia and/or edema. head CT was negative for acute findings Renal ultrasound showed bilateral renal cortical thinning with no hydronephrosi
[2021-10-10] MEDS: MAGNESIUM SULF 2 GM/WATER 50ML 2 GM/50 ML BAG IVPB (11:15)
[2021-10-10 11:39] LABS: EDCOVIDSCREEN Negative (Negative)
--- NOTE | 2021-10-10 11:57 | P.PNNP_ITS ---
Progress Note: A&P Assessment and Plan (1) KIET (acute kidney injury): Code(s): N17.9 - Acute kidney failure, unspecified Status: Acute Assessment and Plan: * suspect due to chronic prerenal azotemia from reduced EF (cardiorenal syndrome) and pulmonary HTN * evaluation to date demonstrates: * renal ultrasound with bilateral cortical thinning but no hydronephrosis * prerenal urine electrolytes * proteinuria by recent and previous admissions * Echo with reduced LV function + pulmonary HTN * creatinine is about where he usually sits. * Continue current therapy (2) Chronic kidney disease, stage 3b: Code(s): N18.32 - Chronic kidney disease, stage 3b Status: Chronic Assessment and Plan: * baseline creatinine running 1.6 - 2.1mg/dl for the last year * CKD due to chronic need for diuretics, CHF (with depressed EF + right heart dysfunction), pulmonary HTN, diabetes, and hypertension (3) Acute on chronic respiratory failure with hypoxia and hypercapnia: Code(s): J96.21 - Acute and chronic respiratory failure with hypoxia; J96.22 - Acute and chronic respiratory failure with hypercapnia Status: Acute Assessment and Plan: * due to CHF + COPD +/- pneumonia * Chest x-ray still has some fluid so will continue diuretics. (4) Essential hypertension: Code(s): I10 - Essential (primary) hypertension Status: Acute Assessment and Plan: * previously hypotensive on admission * suspect a possible component of intravascular volume depletion * s/p IVFs which improved low BP * Blood pressure is still up and down ranging from 110-150. * He is on metoprolol 25q12. (5) Congestive heart failure: Code(s): I50.9 - Heart failure, unspecified Status: Acute Assessment and Plan: * as noted by imaging studies to date * On furosemide 40 mg b.i.d. (6) Paroxysmal atrial fibrillation: Code(s): I48.0 - Paroxysmal atrial fibrillation Status: Acute Assessment and Plan: * Heart rate 101 * On the Toprol * on anticoagulation (7) Diabetes: Code(s): E11.9 - Type 2 diabetes mellitus without complications Status: Chronic Assessment and Plan: * follow accu-cheks * on sliding scale insulin Subjective Date/time seen: 10/10/21 11:57 Interval history: Patient is feeling okay. Breathing comfortably lying flat in bed. Still little bit confused. Exam Narrative: General: WD/WN male intubated/sedated but in NAD Heart: normal S1 and S2; no rub or gallop Lungs: decreased breath sounds at the bases Abdomen: soft, nontender, nondistended, positive bowel sounds Extremities: 1+ edema or cyanosis Skin: no rash or subcu nodules Objective Data Vital Signs Vital Signs: Vital Signs - 24 hr 10/09/21 17:40 10/09/21 21:14 10/09/21 22:29 Temperature 36.7 C 37.1 C Pulse Rate 40 L 93 102 H Respiratory Rate 20 18 Blood Pressure 139/69 151/68 H Pulse Oximetry 99 96 10/10/21 06:45 10/10/21 09:13 Temperature 35.7 C L Pulse Rate 98 84 Respiratory Rate 18 Blood Pressure 142/61 H Pulse Oximetry 96 Intake/Output Intake/Output: Intake & Output 10/07/21 10/08/21 10/09/21 10/10/21 23:59 23:59 23:59 23:59 Intake Total 9740 589 6888 120
--- NOTE | 2021-10-10 11:57 | PM.PNNEP ---
Progress Note: A&P Assessment and Plan (1) KIET (acute kidney injury): Code(s): N17.9 - Acute kidney failure, unspecified Status: Acute Assessment and Plan: suspect due to chronic prerenal azotemia from reduced EF (cardiorenal syndrome) and pulmonary HTN evaluation to date demonstrates: renal ultrasound with bilateral cortical thinning but no hydronephrosis prerenal urine electrolytes proteinuria by recent and previous admissions Echo with reduced LV function + pulmonary HTN creatinine is about where he usually sits. Continue current therapy (2) Chronic kidney disease, stage 3b: Code(s): N18.32 - Chronic kidney disease, stage 3b Status: Chronic Assessment and Plan: baseline creatinine running 1.6 - 2.1mg/dl for the last year CKD due to chronic need for diuretics, CHF (with depressed EF + right heart dysfunction), pulmonary HTN, diabetes, and hypertension (3) Acute on chronic respiratory failure with hypoxia and hypercapnia: Code(s): J96.21 - Acute and chronic respiratory failure with hypoxia; J96.22 - Acute and chronic respiratory failure with hypercapnia Status: Acute Assessment and Plan: due to CHF + COPD +/- pneumonia Chest x-ray still has some fluid so will continue diuretics. (4) Essential hypertension: Code(s): I10 - Essential (primary) hypertension Status: Acute Assessment and Plan: previously hypotensive on admission suspect a possible component of intravascular volume depletion s/p IVFs which improved low BP Blood pressure is still up and down ranging from 110-150. He is on metoprolol 25q12. (5) Congestive heart failure: Code(s): I50.9 - Heart failure, unspecified Status: Acute Assessment and Plan: as noted by imaging studies to date On furosemide 40 mg b.i.d. (6) Paroxysmal atrial fibrillation: Code(s): I48.0 - Paroxysmal atrial fibrillation Status: Acute Assessment and Plan: Heart rate 101 On the Toprol on anticoagulation (7) Diabetes: Code(s): E11.9 - Type 2 diabetes mellitus without complications Status: Chronic Assessment and Plan: follow accu-cheks on sliding scale insulin Subjective Date/time seen: 10/10/21 11:57 Interval history: Patient is feeling okay. Breathing comfortably lying flat in bed. Still little bit confused. Exam Narrative: General: WD/WN male intubated/sedated but in NAD Heart: normal S1 and S2; no rub or gallop Lungs: decreased breath sounds at the bases Abdomen: soft, nontender, nondistended, positive bowel sounds Extremities: 1+ edema or cyanosis Skin: no rash or subcu nodules Objective Data Vital Signs Vital Signs: Vital Signs - 24 hr 10/09/21 17:40 10/09/21 21:14 10/09/21 22:29 Temperature 36.7 C 37.1 C Pulse Rate 40 L 93 102 H Respiratory Rate 20 18 Blood Pressure 139/69 151/68 H Pulse Oximetry 99 96 10/10/21 06:45 10/10/21 09:13 Temperature 35.7 C L Pulse Rate 98 84 Respiratory Rate 18 Blood Pressure 142/61 H Pulse Oximetry 96 Intake/Output Intake/Output: Intake & Output 10/07/21 10/08/21 10/09/21 10/10/21 23:59 23:59 23:59 23:59 Intake Total 7472 462 7278 120 Output Total 1100 1100 1750 825 Balance 25 -953 -957 -444 Meds/Results Medications: Active Medications Generic Name Dose Route Start Last Admin Trade Name Freq PRN Reason Stop Dose Admin Acetaminophen 650 mg 10/06/21 14:16 10/09/21 22:04 Acetaminophen 325 Mg Tablet PO 650 mg Q4H PRN Administration pain Hydrocodone Bitart/Acetaminophen 1 tab 10/05/21 20:23 10/05/21 20:47 Hydrocodone/Acetaminophen (*Crx) 5-325 Mg Tablet PO 1 tab Q4H PRN Administration Pain Rated 4-6 Albuterol 2.5 mg 09/29/21 12:58 10/01/21 23:10 Albuterol Sulfate Neb 2.5 Mg/0.5 Ml Inh INHALATION 2.5 mg Q4HRT PRN Administration Wheezing Apixaban 5 mg 10/06/21
[2021-10-10 12:28] LABS: Glucose Point of Care 131 mg/dl (65-105)
[2021-10-10 16:00] VITALS: BP 110/86; PULSE 88; RESP 18; TEMP 36.6; O2SAT 94
[2021-10-10 16:43] LABS: Glucose Point of Care 109 mg/dl (65-105)
[2021-10-17 09:19] LABS: Folic Acid 5.2 ng/mL (2.76->20)
--- NOTE | 2021-10-20 11:29 | PC.NURSE ---
Folate is WNL at 5.2. Sophia Navarro aware.
== END 2021-10-10 18:10 | DRG 207 ==
LOC: ANHED 10:14 → ANHICU 12:00 → ANH3MED 10-07 07:56 → ANHICU 10-12 10:46
PROVIDERS: Internal Medicine; Admitting Provider Family Medicine; Emergency Provider Emergency Medicine; PCP Internal Medicine; Visit Provider Physician Assistant
DX: J18.9 Pneumonia, unspecified organism (principal); J96.22 Acute and chronic respiratory failure with hypercapnia; J96.21 Acute and chronic respiratory failure with hypoxia; I50.23 Acute on chronic systolic (congestive) heart failure; G93.41 Metabolic encephalopathy; I13.0 Hypertensive heart and chronic kidney disease with heart failure and stage 1 through stage 4 chronic kidney disease, or unspecified chronic kidney disease; N17.9 Acute kidney failure, unspecified; I48.92 Unspecified atrial flutter; I48.20 Chronic atrial fibrillation, unspecified; Z20.822 Contact with and (suspected) exposure to COVID-19; E11.40 Type 2 diabetes mellitus with diabetic neuropathy, unspecified; E11.22 Type 2 diabetes mellitus with diabetic chronic kidney disease; Z66 Do not resuscitate; Z79.4 Long term (current) use of insulin; Z79.01 Long term (current) use of anticoagulants; I25.10 Atherosclerotic heart disease of native coronary artery without angina pectoris; Z86.73 Personal history of transient ischemic attack (TIA), and cerebral infarction without residual deficits; F32.A Depression, unspecified; G47.33 Obstructive sleep apnea (adult) (pediatric); Z95.820 Peripheral vascular angioplasty status with implants and grafts; Z95.1 Presence of aortocoronary bypass graft; Z87.891 Personal history of nicotine dependence; I95.2 Hypotension due to drugs; T42.75XA Adverse effect of unspecified antiepileptic and sedative-hypnotic drugs, initial encounter; Y92.230 Patient room in hospital as the place of occurrence of the external cause; J43.9 Emphysema, unspecified; N40.0 Benign prostatic hyperplasia without lower urinary tract symptoms; G89.29 Other chronic pain; K21.9 Gastro-esophageal reflux disease without esophagitis; I48.0 Paroxysmal atrial fibrillation; N18.32 Chronic kidney disease, stage 3b; E87.8 Other disorders of electrolyte and fluid balance, not elsewhere classified; I25.5 Ischemic cardiomyopathy; E11.51 Type 2 diabetes mellitus with diabetic peripheral angiopathy without gangrene
CPT/HCPCS: 32555; 36415; 36600; 51702; 70450; 71045; 71250; 76775; 80053; 81001; 82375; 82550; 82570; 82607; 82746; 82805; 82948; 83050; 83605; 83735; 83880; 84100; 84300; 84484; 85025; 85027; 85610; 85730; 86140; 87040; 87086; 87426; 87449; 92610; 93005; 93306; 94002; 94003; 94640; 97162; 97166; 97530; 99291; A9270; C9113; C9803; J0696; J1650; J1815; J1940; J2250; J3010; J3475; J7030; J7042; U0003; U0005

== ENCOUNTER 2021-10-23 00:25 | Emergency (ER) | payer MEDICARE, MEDICAID, SELFPAY ==
--- NOTE | ~2021-10-23 | CT_ITS ---
EXAMINATION: CT abdomen pelvis wo con DATE: 10/23/2021 00:59 INDICATION: Lower abdominal. Dark bloody emesis. Pain TECHNIQUE: Computed tomography (CT) of the abdomen and pelvis was performed without intravenous contr ast. Automated exposure control and iterative reconstruction technique were employed. Exam dose: 761 .13 mGy-cm total exam DLP. COMPARISON: 09/10/2021 CT abdomen pelvis FINDINGS: There are persistent moderate bilateral pleural effusions with compressive atelectasis in t he dependent lower lobes. Cardiomegaly Status post sternotomy. No pericardial effusion. Status post cholecystectomy. No hepatic, splenic, pancreatic, adrenal space-occupying mass lesion is evident. No bile duct or pancreatic duct dilatation. There are a few punctate pancreatic calcificatio ns which may indicate mild chronic pancreatitis. 1.7 cm left renal probable cyst. Pinpoint nonobstructing calculus of right kidney. Bilateral perinephric stranding of the kidneys. No ureteral calculus or hydroureteronephrosis. There is diffuse thickening of the urinary bladder. Extensive calcification of the abdominal aorta, proximal renal arteries, iliac and femoral arteries. No abdominal aortic aneurysm. There is calcification of the celiac and superior mesenteric and inferior mesenteric arteries. No intraperitoneal or retroperitoneal or pelvic mass lesion or adenopathy or ascites. No bowel obstruction or intraperitoneal free air. L3 fracture deformity. Diffuse osteopenia. Osteoarthritic changes of the hips. Hardware in proximal left femur. Generator device in right gluteal area. IMPRESSION: Little change since 09/10/2021 Reviewed, dictated and finalized at [facility]. Reviewed, dictated and finalized at [facility]. ESTIMATING CLERK
[2021-10-23 00:25] VITALS: BP 160/70; PULSE 92; RESP 20; TEMP 37.3; O2SAT 100
--- NOTE | 2021-10-23 00:51 | ED.GIBLEED ---
HPI - GI Bleed General Chief complaint: Abdominal Pain Stated complaint: bloody emesis, lower abd pain Time Seen by Provider: 10/23/21 00:40 Source: patient Mode of arrival: ambulatory Limitations: no limitations History of Present Illness HPI Narrative: Patient is a 61-year-old male complaining of dark vomitus, one episode, while at the correction and now resolved, accompanied by lower abdominal pain, moderate, nonradiating, dull aching, that started tonight. Patient states that he is feeling better, nausea and vomiting resolved. Patient denies any black tarry stools or bloody stools. Patient denies any chest pain, shortness of breath, fever or chills. Patient currently on Eliquis for atrial fib. Related Data Home Medications Medication Instructions Recorded Confirmed Acidophilus 1 cap PO DAILY 07/21/21 09/29/21 Eliquis 5 mg PO BID 07/21/21 09/29/21 acetaminophen 650 mg PO Q4H PRN 07/21/21 09/29/21 atorvastatin 40 mg PO HS 07/21/21 09/29/21 bupropion HCl 150 mg PO DAILY 07/21/21 09/29/21 cyclobenzaprine 10 mg PO HS PRN 07/21/21 09/29/21 docusate sodium 100 mg PO BID PRN 07/21/21 09/29/21 duloxetine 60 mg PO BID 07/21/21 09/29/21 gabapentin 600 mg PO TID 07/21/21 09/29/21 ipratropium bromide 2.5 ml INHALATION Q6H PRN 07/21/21 09/29/21 metolazone 2.5 mg PO 2XW 07/21/21 09/29/21 nicotine 1 patch TRANSDERMAL DAILY 07/21/21 09/29/21 pantoprazole 40 mg PO QAM 07/21/21 09/29/21 tamsulosin 0.4 mg PO DAILY 07/21/21 09/29/21 insulin aspart U-100 [Novolog See Rx Instructions .ROUTE .COMPLEX 08/01/21 09/29/21 U-100 Insulin aspart] ferrous sulfate 324 mg PO BID 09/29/21 09/29/21 furosemide 40 mg PO BID 09/29/21 09/29/21 ipratropium-albuterol 3 ml INHALATION QID 09/29/21 09/29/21 Allergies Allergy/AdvReac Type Severity Reaction Status Date / Time codeine AdvReac Intermediate NAUSAE/VOMI Verified 10/23/21 00:40 TING Review of Systems Review of Systems: All systems reviewed & are unremarkable except as noted in HPI and below Constitutional: Constitutional: Denies body ache(s), Denies chills, Denies excessive sweating, Denies fatigue, Denies fever(s), Denies headache(s), Denies lethargy, Denies malaise, Denies weakness and Denies weight loss Eyes: Eyes: Denies blurry vision, Denies change in vision and Denies loss of vision ENT: Denies dizziness, Denies ear discharge, Denies headache(s), Denies lip swelling, Denies epistaxis, Denies nasal congestion, Denies neck pain, Denies throat swelling and Denies tongue swelling Cardiovascular: Cardiovascular: Denies chest pain, Denies chest pain at rest, Denies chest pain with activity, Denies diaphoresis, Denies rapid heart rate, Denies edema, Denies irregular heart rhythm, Denies lightheadedness, Denies palpitations, Denies dyspnea and Denies dyspnea on exertion Respiratory: Respiratory: Denies chest congestion, Denies cough, Denies hemoptysis, Denies dyspnea and Denies dyspnea on exertion Gastrointestinal: Gastrointestinal: Denies melena, Denies hematochezia and Denies diarrhea Musculoskeletal: Musculoskeletal: Denies abnormal gait, Denies deformity, Denies joint swelling, Denies limited range of motion, Denies neck pain and Denies numbness Neurologic: Denies Abnormal speech present, Denies abnormal gait, Denies confusion, Denies dizziness, Denies headache(s), Denies focal weakness, Denies loss of vision, Denies numbness, Denies Other visual disturbances, Denies Sensory deficit (Neuro) and Denies weakness Psychiatric: Psychiatric: Denies confusion, Denies depression, Denies auditory hallucinations, Denies homicidal ideation and Denies suicidal ideation Endocrine: Endocrine: Denies cold intolerance, Denies excessive sweating, Denies fatigue, Denies heat intolerance and Denies palpitations Hematologic/Lymphatic: Hematologic/Lymphatic: Denies easy bleeding and Denies easy bruising Allergic/Immunologic: Allergic/Immunologic: Denies lip swelling, Denies throat swelling and Denies tongue swelli
[2021-10-23] MEDS: ONDANSETRON INJ 4 MG/2 ML VIAL IV PUSH (01:06)
[2021-10-23] MEDS: PANTOPRAZOLE SODIUM IV 40 MG VIAL 80 MG IV PUSH (01:06)
[2021-10-23] MEDS: SODIUM CHLORIDE 0.9% IV 1,000 ML 200 ML IV CONT (01:07)
[2021-10-23 01:33] LABS: Basophils Percent Auto 0.4 % (0.2-1.2); Eosinophils Absolute Auto 0.1 K/mm3 (0-0.3); Eosinophils Percent Auto 1.1 % (0-4.4); Hematocrit 36.7 % (42.0-52.0); Hemoglobin 11.5 g/dL (14.0-18.0); Immature Granulocyte Absolute 0.05 K/mm3 (0.00-0.031); Immature Granulocyte Percent A 0.5 % (0-0.5); Lymphocytes Percent Auto 10.1 % (18.3-44.2); Mean Corpuscular HGB Conc 31.3 g/dl (32-36); Mean Corpuscular Hemoglobin 28.5 pg (26-34); Mean Corpuscular Volume 90.8 fl (80-100); Mean Platelet Volume 10.7 fl (7.4-10.4); Monocytes Absolute Auto 0.8 K/mm3 (0.1-0.6); Monocytes Percent Auto 8.5 % (2.6-8.5); Neutrophils Absolute Auto 7.9 K/mm3 (1.3-6.7); Neutrophils Percent Auto 79.4 % (45.5-73.1); Platelet Count Result 326 k/mm3 (150-375); Red Blood Count 4.04 M/mm3 (4.6-6.20); Red Cell Distribution Width 15.8 % (11.5-14.5); White Blood Count 9.9 K/mm3 (4.5-10.0)
[2021-10-23 01:43] LABS: Alanine Aminotransferase 12 U/L (4-50); Albumin Level 3.1 g/dL (3.5-5.1); Alkaline Phosphatase 141 U/L (38-126); Anion Gap 9 mmol/L (8-16); Aspartate Amino Transferase 20 U/L (17-59); Bilirubin,Total 0.4 mg/dL (0.2-1.3); Blood Urea Nitrogen 45 mg/dL (9-20); Calcium 8.5 mg/dL (8.4-10.2); Carbon Dioxide 29 mmol/L (22-30); Chloride 95 mmol/L (98-107); Estimated CRCL calculation 31 ml/min; Estimated Glomerular Filt Rate 26; Glucose 199 mg/dL (65-110); Lipase 23 U/L (23-300); Potassium 3.7 mmol/L (3.4-5.0); Sodium 133 mmol/L (137-145)
[2021-10-23 01:48] VITALS: BP 147/72; PULSE 96; RESP 15; O2SAT 98
[2021-10-23 01:48] LABS: INR 1.4; Prothrombin Time 16.5 Seconds (11.1-14.7)
--- NOTE | 2021-10-23 02:35 | PC.NURSE ---
made contact with [facility] to transfer pt back to [facility] in [place] [facility]. radha eta [id number]
[2021-10-23 02:45] VITALS: BP 146/68; PULSE 85; RESP 14; O2SAT 100
--- NOTE | 2021-10-23 02:57 | PC.NURSE ---
radha has arrived and crew is aware that pt is going to [facility] in [place]
[2021-10-23 03:07] VITALS: BP 162/73; PULSE 81; RESP 12; O2SAT 99
== END 2021-10-23 03:30 ==
PROVIDERS: Emergency Provider Emergency Medicine; PCP Internal Medicine
DX: R10.30 Lower abdominal pain, unspecified (principal); R11.2 Nausea with vomiting, unspecified; I13.0 Hypertensive heart and chronic kidney disease with heart failure and stage 1 through stage 4 chronic kidney disease, or unspecified chronic kidney disease; E11.22 Type 2 diabetes mellitus with diabetic chronic kidney disease; N18.32 Chronic kidney disease, stage 3b; I48.0 Paroxysmal atrial fibrillation; I25.10 Atherosclerotic heart disease of native coronary artery without angina pectoris; Z79.01 Long term (current) use of anticoagulants; Z79.4 Long term (current) use of insulin; F17.210 Nicotine dependence, cigarettes, uncomplicated
CPT/HCPCS: 36415; 74176; 80053; 83690; 85025; 85610; 85730; 96361; 96374; 96375; 99284; C9113; J2405; J7030